=== PATIENT | male | born 1935 | race Caucasian/White ===

== ENCOUNTER 2017-04-25 19:14 | Inpatient (IN) | payer MEDICARE ==
[~2017-04-25] VITALS: Ht 182.9 cm; Wt 86.2 kg
[2017-04-25] MEDS ORDERED: CARVEDILOL12.5 MG ORAL (19:19)
[2017-04-25] MEDS ORDERED: DEPAKOTE250 MG PO (19:19)
[2017-04-25] MEDS ORDERED: LEVOTHYROXINE100 MCG ORAL (19:19)
[2017-04-25] MEDS ORDERED: MELOXICAM15 MG PO (19:19)
[2017-04-25] MEDS ORDERED: FAMOTIDINE20 MG ORAL (19:19)
[2017-04-25] MEDS ORDERED: QUETIAPINE FUMA50 MG ORAL (19:19)
[2017-04-25] MEDS ORDERED: TRIAMCINOLONE10 G1 MC (19:19)
[2017-04-25] MEDS ORDERED: PROPAFENONE HC150 MG PO (19:19)
[2017-04-25 19:34] VITALS: BP 97/51
[2017-04-25 20:28] LABS: HEMATOCRIT 26.9 % (42.0-52.0); HEMOGLOBIN 8.4 G/DL (14.2-18.0); MEAN CORPUSCULAR VOLUME 94 FL (80-99); PLATELET COUNT 43 K/UL (150-450); RED BLOOD COUNT 2.85 M/UL (4.70-6.10); RED CELL DISTRIBUTION WIDTH 16.1 % (11.6-14.8); WHITE BLOOD COUNT 5.8 K/UL (4.8-10.8)
[2017-04-25 20:34] LABS: INR 1.1 (0.9-1.1)
[2017-04-25 20:47] LABS: ALANINE AMINOTRANSFERASE 26 U/L (12-78); ALBUMIN 2.5 G/DL (3.4-5.0); ALBUMIN/GLOBULIN RATIO 0.6 (1.0-2.7); ALKALINE PHOSPHATASE 55 U/L (46-116); ANION GAP 10 mmol/L (5-15); ASPARTATE AMINO TRANSFERASE 76 U/L (15-37); BILIRUBIN,TOTAL 0.8 MG/DL (0.2-1.0); BLOOD UREA NITROGEN 92 mg/dL (7-18); CALCIUM 7.5 MG/DL (8.5-10.1); CARBON DIOXIDE 22 MMOL/L (21-32); CHLORIDE 111 MMOL/L (98-107); CREATINE KINASE 1112 U/L (26-308); CREATININE 3.8 MG/DL (0.55-1.30); SODIUM 145 MMOL/L (136-145)
[2017-04-25] MEDS: Ipratropium 0.02% Inh Soln 2.5ml UD HHN SCH ×3 (20:54→21:16)
[2017-04-25] MEDS: Albuterol ud Inhalation HHN SCH ×3 (20:54→21:16)
[2017-04-25 22:17] VITALS: BP 113/92
--- NOTE | 2017-04-25 23:21 | Emergency Room Report ---
History of Present Illness General Chief Complaint: Altered Level of Consciousness Source: Patient, Medical Record Present Illness HPI Patient is from a long term. Patient is full code. Patient was transferred here with altered mental status and episodes of questionable vomiting. Patient was also noted to be hypotensive and prior by paramedics. Symptoms noted to be severe. 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 Patient apparently was weaker than usual. Symptoms noted to be severe. No other modifying factors. No other associated signs and symptoms. No other complaints were noted. Allergies: Coded Allergies: No Known Allergies (Unverified , 04/25/17) Patient History Past Medical History: HTN, AFib, seizures Past Surgical History: none Pertinent Family History: none Social History: Denies: smoking, alcohol use, drug use Reviewed Nursing Documentation: PMH: Agreed, PSxH: Agreed Nursing Documentation-PMH Hx Cardiac Problems: Yes - AFIB Hx Hypertension: Yes Hx Seizures: Yes - Epilepsy Review of Systems All Other Systems: limited - poor mental status Physical Exam Vital Signs Date Time Temp Pulse Resp B/P (MAP) Pulse Ox O2 Delivery O2 Flow Rate FiO2 04/25/17 19:10 100.8 80 16 90/78 98 Room Air 04/25/17 21:02 21 Sp02 EP Interpretation: reviewed, normal General Appearance: moderate distress Head: normocephalic Eyes: bilateral eye normal inspection ENT: dry mucus membranes Neck: supple Respiratory: lungs clear, decreased breath sounds Cardiovascular #1: normal inspection, regular rate, rhythm Gastrointestinal: soft, no mass Genitourinary: normal inspection Musculoskeletal: normal inspection Neurologic: other - unable to fully assess due to ams Psychiatric: depressed affect Skin: normal color, no rash Procedures Critical Care Time Critical Care Time Patient had a critical medical condition which untreated could potentially result in life or limb threatening injury. Total critical care time excluding procedures was approximately 45 minutes. Medical Decision Making Diagnostic Impression: Primary Impression: Altered level of consciousness Additional Impressions: Elevated troponin Dehydration ER Course Patient presents emergency department today with acute altered mental status. Differential diagnoses include acute PA, electrolyte abnormality, bowel obstruction, infectious process just to name a few.Given the severity of the patient's presentation I felt this is a highly complex patient. This patient required extensive workup. Patient laboratory workup to show evidence of anemia. Patient also had low blood pressure and require fluid boluses. Blood cultures were obtained and patient was on IV antibiotics. For possible infection as patient low-grade fever. Patient will be admitted to telemetry for further treatment. Labs Test 04/25/17 19:55 White Blood Count 5.8 K/UL (4.8-10.8) Red Blood Count 2.85 M/UL (4.70-6.10) Hemoglobin 8.4 G/DL (14.2-18.0) Hematocrit 26.9 % (42.0-52.0) Mean Corpuscular Volume 94 FL (80-99) Mean Corpuscular Hemoglobin 29.5 PG (27.0-31.0) Mean Corpuscular Hemoglobin Concent 31.2 G/DL (32.0-36.0) Red Cell Distribution Width 16.1 % (11.6-14.8) Platelet Count 43 K/UL (150-450) Mean Platelet Volume 8.2 FL (6.5-10.1) Neutrophils (%) (Auto) % (45.0-75.0) Lymphocytes (%) (Auto) % (20.0-45.0) Monocytes (%) (Auto) % (1.0-10.0) Eosinophils (%) (Auto) % (0.0-3.0) Basophils (%) (Auto) % (0.0-2.0) Differential Total Cells Counted 100 Neutrophils % (Manual) 95 % (45-75) Lymphocytes % (Manual) 2 % (20-45) Monocytes % (Manual) 2 % (1-10) Eosinophils % (Manual) 0 % (0-3) Basophils % (Manual) 1 % (0-2) Band Neutrophils 0 % (0-8) Platelet Estimate Decreased Platelet Morphology Normal Hypochromasia 1+ Anisocytosis 1+ Ovalocytes 1+ Prothrombin Time 12.0 SEC (9.30-11.50) Prothromb Time International Ratio 1.1 (0.9-1.1) Activated Partial Thromboplast Time 32 SEC (23-33) Sodium Level 145 MMOL/L (136-145) Potassium Level 6.0 MMOL/L (3.5-5.1) Chloride Level 111 MMOL/L (98-107) Carbon Dioxide Level 22 MMOL/L (21-32) Anion Gap 10 mmol/L (5-15) Blood Urea Nitrogen 92 mg/dL (7-18) Creatinine 3.8 MG/DL (0.55-1.30) Estimat Glomerular Filtration Rate mL/min (>60) Glucose Level 122 MG/DL (74-106) Lactic Acid Level 1.60 mmol/L (0.66-2.22) Calcium Level 7.5 MG/DL (8.5-10.1) Total Bilirubin 0.8 MG/DL (0.2-1.0) Aspartate Amino Transf (AST/SGOT) 76 U/L (15-37) Alanine Aminotransferase (ALT/SGPT) 26 U/L (12-78) Alkaline Phosphatase 55 U/L (46-116) Total Creatine Kinase 1112 U/L (26-308) Creatine Kinase MB 2.0 NG/ML (0.0-3.6) Creatine Kinase MB Relative Index 0.1 Troponin I 0.091 ng/mL (0.000-0.056) Pro-B-Type Natriuretic Peptide 9757 pg/mL (0-125) Total Protein 6.6 G/DL (6.4-8.2) Albumin 2.5 G/DL (3.4-5.0) Globulin 4.1 g/dL Albumin/Globulin Ratio 0.6 (1.0-2.7) Lipase 48 U/L (73-393) EKG Diagnostic Results Rate: normal Rhythm: NSR ST Segments: no acute changes Rhythm Strip Diag. Results EP Interpretation: yes Rate: 92 Rhythm: NSR, no PVC's, no ectopy Chest X-Ray Diagnostic Results Chest X-Ray Diagnostic Results : Chest X-Ray Ordered: Yes # of Views/Limited/Complete: 1 View Indication: Shortness of Breath EP Interpretation: Yes Interpretation: no consolidation, no effusion, no pneumothorax, no acute cardiopulmonary disease Impression: No acute disease Electronically Signed by: Electronically signed by Nieves Pérez MD CT/MRI/US Diagnostic Results CT/MRI/US Diagnostic Results : Imaging Test Ordered: cT abd: Urinary retention Last Vital Signs Date Time Temp Pulse Resp B/P (MAP) Pulse Ox O2 Delivery O2 Flow Rate FiO2 04/25/17 22:17 99.0 92 18 113/92 100 Room Air 04/25/17 21:18 21 Status: improved Disposition: ADMITTED INPATIENT Condition: Serious Referrals: NON PHYSICIAN (PCP) NIEVES PÉREZ M.D. Apr 25, 2017 23:21
[2017-04-25] MEDS ORDERED: NS 55ml IV ONE (23:24)
[2017-04-25] MEDS ORDERED: cefTRIAXone 1 GM in NS 55 ML IVPB ONE (23:30)
[2017-04-26] VITALS (7 sets, daily range): BP systolic 92–106; BP diastolic 40–59
[2017-04-26 00:16] LABS: APPEARANCE,URINE SLIGHTLY CLOUDY; BILIRUBIN, URINE NEGATIVE (NEGATIVE); GLUCOSE, URINE (UA) NEGATIVE (NEGATIVE); KETONES,URINE NEGATIVE (NEGATIVE); LEUKOCYTE ESTERASE ,URINE 3+ (NEGATIVE); NITRITE,URINE NEGATIVE (NEGATIVE); PH,URINE 6 (4.5-8.0); PROTEIN,URINE 2+ (NEGATIVE); UROBILINOGEN,URINE NORMAL MG/DL (0.0-1.0)
[2017-04-26 00:36] LABS: COLOR,URINE YELLOW
[2017-04-26] MEDS ORDERED: Morphine Sulfate 2mg/ml Inj IVP PRN (00:45)
[2017-04-26 06:15] LABS: HEMATOCRIT 24.2 % (42.0-52.0); MEAN CORPUSCULAR VOLUME 95 FL (80-99); PLATELET COUNT 38 K/UL (150-450); RED BLOOD COUNT 2.56 M/UL (4.70-6.10); RED CELL DISTRIBUTION WIDTH 17.1 % (11.6-14.8)
[2017-04-26 06:18] LABS: ANION GAP 9 mmol/L (5-15); BLOOD UREA NITROGEN 82 mg/dL (7-18); CALCIUM 6.7 MG/DL (8.5-10.1); CARBON DIOXIDE 22 MMOL/L (21-32); CHLORIDE 116 MMOL/L (98-107); CREATININE 3.4 MG/DL (0.55-1.30); POTASSIUM 5.3 MMOL/L (3.5-5.1); SODIUM 147 MMOL/L (136-145)
[2017-04-26] MEDS ORDERED: Heparin 5000 units/ml inj SUBQ SCH (09:00)
[2017-04-26] MEDS: Carvedilol 12.5mg tab ORAL SCH ×2 (10:47→22:00)
[2017-04-26] MEDS: Meloxicam 15 MG TAB ORAL SCH (10:47)
[2017-04-26] MEDS: Aspirin Baby 81mg ORAL SCH (10:48)
--- NOTE | 2017-04-26 10:55 | Infectious Diseases Prog Note ---
Assessment/Plan Problems: (1) UTI (urinary tract infection) Assessment & Plan: will send urine culture and start cefepime empirically (2) Fever Assessment & Plan: due to the above, continue tylenol prn (3) HCAP (healthcare-associated pneumonia) Assessment & Plan: will send sputum culture and influenza screening (4) Sepsis Assessment & Plan: due to the above , will start cefepime and clindamycin and send blood culture (5) Altered level of consciousness Assessment & Plan: due to the above, recommend neurology eval and brain images (6) Elevated troponin Assessment & Plan: suspect ACS, recommend cardiology eval (7) Dehydration Assessment & Plan: continue IVF, monitor urine out put, and renal function, avoid nephrotoxic meds (8) LEWIS (acute kidney injury) Assessment & Plan: due to the above , continue hydration, monitor renal function , nephrology is following Subjective Allergies: Coded Allergies: No Known Allergies (Unverified , 04/25/17) Objective Vital Signs Last 24 Hour Vital Signs Date Time Temp Pulse Resp B/P (MAP) Pulse Ox O2 Delivery O2 Flow Rate FiO2 04/26/17 10:47 87 117/53 04/26/17 07:20 99.0 90 15 102/59 98 Room Air 21 04/26/17 07:05 99.0 90 15 102/59 98 Room Air 04/26/17 06:12 100.0 77 15 104/57 98 Room Air 04/26/17 06:00 73 04/26/17 04:54 100.0 86 15 92/40 98 Room Air 04/26/17 03:05 99.0 88 18 102/42 100 Room Air 04/26/17 01:55 99.0 88 18 106/42 100 Room Air 21 04/26/17 00:20 99.0 90 18 100/54 100 Room Air 04/25/17 22:17 99.0 92 18 113/92 100 Room Air 04/25/17 21:18 88 18 100 Room Air 04/25/17 21:17 21 04/25/17 21:16 89 18 100 Room Air 21 04/25/17 21:03 87 22 100 Room Air 21 04/25/17 21:02 104 22 97 Room Air 04/25/17 21:02 21 04/25/17 19:34 100.8 97 18 97/51 97 Room Air 04/25/17 19:10 100.8 80 16 90/78 98 Room Air Height (Feet): 6 Height (Inches): 0.00 Weight (Pounds): 190 Laboratory Tests Test 04/25/17 19:55 04/25/17 22:10 04/26/17 04:15 White Blood Count 5.8 K/UL (4.8-10.8) 4.0 K/UL (4.8-10.8) L Red Blood Count 2.85 M/UL (4.70-6.10) L 2.56 M/UL (4.70-6.10) L Hemoglobin 8.4 G/DL (14.2-18.0) L 8.0 G/DL (14.2-18.0) L Hematocrit 26.9 % (42.0-52.0) L 24.2 % (42.0-52.0) L Mean Corpuscular Volume 94 FL (80-99) 95 FL (80-99) Mean Corpuscular Hemoglobin 29.5 PG (27.0-31.0) 31.2 PG (27.0-31.0) H Mean Corpuscular Hemoglobin Concent 31.2 G/DL (32.0-36.0) L 33.0 G/DL (32.0-36.0) Red Cell Distribution Width 16.1 % (11.6-14.8) H 17.1 % (11.6-14.8) H Platelet Count 43 K/UL (150-450) L 38 K/UL (150-450) L Mean Platelet Volume 8.2 FL (6.5-10.1) 8.9 FL (6.5-10.1) Neutrophils (%) (Auto) % (45.0-75.0) % (45.0-75.0) Lymphocytes (%) (Auto) % (20.0-45.0) % (20.0-45.0) Monocytes (%) (Auto) % (1.0-10.0) % (1.0-10.0) Eosinophils (%) (Auto) % (0.0-3.0) % (0.0-3.0) Basophils (%) (Auto) % (0.0-2.0) % (0.0-2.0) Differential Total Cells Counted 100 100 Neutrophils % (Manual) 95 % (45-75) H 73 % (45-75) Lymphocytes % (Manual) 2 % (20-45) L 2 % (20-45) L Monocytes % (Manual) 2 % (1-10) 9 % (1-10) Eosinophils % (Manual) 0 % (0-3) 0 % (0-3) Basophils % (Manual) 1 % (0-2) 0 % (0-2) Band Neutrophils 0 % (0-8) 16 % (0-8) H Platelet Estimate Decreased L Decreased L Platelet Morphology Normal Normal Hypochromasia 1+ 2+ Anisocytosis 1+ 2+ Ovalocytes 1+ Prothrombin Time 12.0 SEC (9.30-11.50) H Prothromb Time International Ratio 1.1 (0.9-1.1) Activated Partial Thromboplast Time 32 SEC (23-33) Sodium Level 145 MMOL/L (136-145) 147 MMOL/L (136-145) H Potassium Level 6.0 MMOL/L (3.5-5.1) *H 5.3 MMOL/L (3.5-5.1) H Chloride Level 111 MMOL/L (98-107) H 116 MMOL/L (98-107) H Carbon Dioxide Level 22 MMOL/L (21-32) 22 MMOL/L (21-32) Anion Gap 10 mmol/L (5-15) 9 mmol/L (5-15) Blood Urea Nitrogen 92 mg/dL (7-18) H 82 mg/dL (7-18) H Creatinine 3.8 MG/DL (0.55-1.30) H 3.4 MG/DL (0.55-1.30) H Estimat Glomerular Filtration Rate mL/min (>60) mL/min (>60) Glucose Level 122 MG/DL (74-106) H 112 MG/DL (74-106) H Lactic Acid Level 1.60 mmol/L (0.66-2.22) Calcium Level 7.5 MG/DL (8.5-10.1) L 6.7 MG/DL (8.5-10.1) L Total Bilirubin 0.8 MG/DL (0.2-1.0) Aspartate Amino Transf (AST/SGOT) 76 U/L (15-37) H Alanine Aminotransferase (ALT/SGPT) 26 U/L (12-78) Alkaline Phosphatase 55 U/L (46-116) Total Creatine Kinase 1112 U/L (26-308) H Creatine Kinase MB 2.0 NG/ML (0.0-3.6) Creatine Kinase MB Relative Index 0.1 Troponin I 0.091 ng/mL (0.000-0.056) 0.057 ng/mL (0.000-0.056) Pro-B-Type Natriuretic Peptide 9757 pg/mL (0-125) H Total Protein 6.6 G/DL (6.4-8.2) Albumin 2.5 G/DL (3.4-5.0) L Globulin 4.1 g/dL Albumin/Globulin Ratio 0.6 (1.0-2.7) L Lipase 48 U/L (73-393) L Urine Color Yellow Urine Appearance Slightly cloudy Urine pH 6 (4.5-8.0) Urine Specific [place] 1.015 (1.005-1.035) Urine Protein 2+ (NEGATIVE) H Urine Glucose (UA) Negative (NEGATIVE) Urine Ketones Negative (NEGATIVE) Urine Occult Blood 3+ (NEGATIVE) H Urine Nitrite Negative (NEGATIVE) Urine Bilirubin Negative (NEGATIVE) Urine Urobilinogen Normal MG/DL (0.0-1.0) Urine Leukocyte Esterase 3+ (NEGATIVE) H Urine RBC 2-4 /HPF (0 - 0) H Urine WBC 10-15 /HPF (0 - 0) H Urine Squamous Epithelial Cells Occasional /LPF Urine Bacteria Many /HPF (NONE) H Spherocytes 2+ Current Medications Medications (Trade) Dose Ordered Sig/Trey Route PRN Reason Start Time Stop Time Status Last Admin Dose Admin Acetaminophen (Tylenol) 650 mg Q4H PRN ORAL Mild Pain (Pain Scale 1-3) 04/26/17 00:45 2 00:44 Aspirin (ASA) 81 mg DAILY ORAL 04/26/17 09:00 05/26/17 08:59 04/26/17 10:48 Carvedilol (Coreg) 12.5 mg EVERY 12 HOURS ORAL 04/26/17 09:00 05/26/17 08:59 04/26/17 10:47 Dextrose (Dextrose 50%) STAT PRN IV Hypoglycemia 04/26/17 00:45 05/26/17 00:44 Divalproex Sodium (Depakote) 500 mg Q12HR ORAL 04/26/17 09:00 05/26/17 08:59 04/26/17 10:48 Famotidine (Pepcid) 20 mg DAILY ORAL 04/26/17 09:00 05/26/17 08:59 04/26/17 10:46 Heparin Sodium (Porcine) (Heparin 5000 units/ml) 5,000 units EVERY 12 HOURS SUBQ 04/26/17 09:00 05/26/17 08:59 UNV Levothyroxine Sodium (Synthroid) 100 mcg ACBREAKFAST ORAL 04/26/17 06:30 05/26/17 06:29 Meloxicam (Mobic) 15 mg DAILY ORAL 04/26/17 09:00 05/26/17 08:59 04/26/17 10:47 Morphine Sulfate (Morphine Sulfate) 1 mg Q3HR PRN IVP For Pain 04/26/17 00:45 05/03/17 00:44 Ondansetron HCl (Zofran) 4 mg Q6H PRN IVP Nausea & Vomiting 04/26/17 00:45 05/26/17 00:44 Propafenone HCl (Rythmol) 225 mg EVERY 8 HOURS ORAL 04/26/17 06:00 05/26/17 05:59 Quetiapine Fumarate (SEROquel) 100 mg DAILY ORAL 04/26/17 09:00 05/26/17 08:59 04/26/17 10:47 Sodium Chloride 1,000 ml @ 60 mls/hr [id number] IV 04/26/17 00:45 05/26/17 00:44 04/26/17 05:22 Zak Matos M.D. Apr 26, 2017 10:55
--- NOTE | 2017-04-26 11:18 | History and Physical ---
History of Present Illness General Date patient seen: Apr 26, 2017 Reason for Hospitalization: Altered Level of Consciousness Present Illness HPI 81 y/o male with PMH for dementia, hypothyroidism, and arthritis was BIBA from SNF for AMS. Patient was found to be hypotensive by the paramedics. Also had reports of vomiting at SNF. Patient is demented and unable to give me further history. In the ED, patient has renal failure with hyperkalemia. CT A/P showed urinary retention. Shirley catheter inserted and admitted to telemetry for further management. Allergies: Coded Allergies: No Known Allergies (Unverified , 04/25/17) Medication History Scheduled Carvedilol* (Carvedilol*), 12.5 MG ORAL EVERY 12 HOURS, (Reported) Divalproex Sodium* (Depakote*), 500 MG PO Q12HR, (Reported) Famotidine (Famotidine), 20 MG ORAL DAILY, (Reported) Levothyroxine Sodium* (Levothyroxine Sodium*), 100 MCG ORAL DAILY, (Reported) Meloxicam* (Meloxicam*), 15 MG PO DAILY, (Reported) Propafenone Hcl* (Rhythmol*), 225 MG PO EVERY 8 HOURS, (Reported) Quetiapine Fumarate* (Quetiapine Fumarate*), 100 MG ORAL DAILY, (Reported) Miscellaneous Medications Triamcinolone (Triamcinolone), Unknown Dose MC, (Reported) Patient History History Provided By: Medical Record Healthcare decision maker Resuscitation status Advanced Directive on File Review of Systems ROS Narrative unable to obtain. Physical Exam General Appearance: WD/WN, no apparent distress HEENT: normocephalic, atraumatic Respiratory/Chest: decreased breath sounds Cardiovascular/Chest: normal rate, regular rhythm Abdomen: non tender, soft Extremities: trace edema Skin Exam: rash Neurologic: alert, responsive, disoriented, aphasia Last 24 Hour Vital Signs Date Time Temp Pulse Resp B/P (MAP) Pulse Ox O2 Delivery O2 Flow Rate FiO2 04/26/17 10:47 87 117/53 04/26/17 07:20 99.0 90 15 102/59 98 Room Air 21 04/26/17 07:05 99.0 90 15 102/59 98 Room Air 04/26/17 06:12 100.0 77 15 104/57 98 Room Air 21 04/26/17 06:00 73 04/26/17 04:54 100.0 86 15 92/40 98 Room Air 04/26/17 03:05 99.0 88 18 102/42 100 Room Air 04/26/17 01:55 99.0 88 18 106/42 100 Room Air 21 04/26/17 00:20 99.0 90 18 100/54 100 Room Air 04/25/17 22:17 99.0 92 18 113/92 100 Room Air 04/25/17 21:18 88 18 100 Room Air 21 04/25/17 21:17 21 04/25/17 21:16 89 18 100 Room Air 21 04/25/17 21:03 87 22 100 Room Air 21 04/25/17 21:02 104 22 97 Room Air 21 04/25/17 21:02 21 04/25/17 19:34 100.8 97 18 97/51 97 Room Air 04/25/17 19:10 100.8 80 16 90/78 98 Room Air Intake and Output 04/25/17 04/26/17 19:00 07:00 Intake Total 2055 ml Output Total 1600 ml Balance 455 ml Intake IV Total 2055 ml Output Urine Total 1600 ml Laboratory Tests Test 04/25/17 19:55 04/25/17 22:10 04/26/17 04:15 White Blood Count 5.8 K/UL (4.8-10.8) 4.0 K/UL (4.8-10.8) L Red Blood Count 2.85 M/UL (4.70-6.10) L 2.56 M/UL (4.70-6.10) L Hemoglobin 8.4 G/DL (14.2-18.0) L 8.0 G/DL (14.2-18.0) L Hematocrit 26.9 % (42.0-52.0) L 24.2 % (42.0-52.0) L Mean Corpuscular Volume 94 FL (80-99) 95 FL (80-99) Mean Corpuscular Hemoglobin 29.5 PG (27.0-31.0) 31.2 PG (27.0-31.0) H Mean Corpuscular Hemoglobin Concent 31.2 G/DL (32.0-36.0) L 33.0 G/DL (32.0-36.0) Red Cell Distribution Width 16.1 % (11.6-14.8) H 17.1 % (11.6-14.8) H Platelet Count 43 K/UL (150-450) L 38 K/UL (150-450) L Mean Platelet Volume 8.2 FL (6.5-10.1) 8.9 FL (6.5-10.1) Neutrophils (%) (Auto) % (45.0-75.0) % (45.0-75.0) Lymphocytes (%) (Auto) % (20.0-45.0) % (20.0-45.0) Monocytes (%) (Auto) % (1.0-10.0) % (1.0-10.0) Eosinophils (%) (Auto) % (0.0-3.0) % (0.0-3.0) Basophils (%) (Auto) % (0.0-2.0) % (0.0-2.0) Differential Total Cells Counted 100 100 Neutrophils % (Manual) 95 % (45-75) H 73 % (45-75) Lymphocytes % (Manual) 2 % (20-45) L 2 % (20-45) L Monocytes % (Manual) 2 % (1-10) 9 % (1-10) Eosinophils % (Manual) 0 % (0-3) 0 % (0-3) Basophils % (Manual) 1 % (0-2) 0 % (0-2) Band Neutrophils 0 % (0-8) 16 % (0-8) H Platelet Estimate Decreased L Decreased L Platelet Morphology Normal Normal Hypochromasia 1+ 2+ Anisocytosis 1+ 2+ Ovalocytes 1+ Prothrombin Time 12.0 SEC (9.30-11.50) H Prothromb Time International Ratio 1.1 (0.9-1.1) Activated Partial Thromboplast Time 32 SEC (23-33) Sodium Level 145 MMOL/L (136-145) 147 MMOL/L (136-145) H Potassium Level 6.0 MMOL/L (3.5-5.1) *H 5.3 MMOL/L (3.5-5.1) H Chloride Level 111 MMOL/L (98-107) H 116 MMOL/L (98-107) H Carbon Dioxide Level 22 MMOL/L (21-32) 22 MMOL/L (21-32) Anion Gap 10 mmol/L (5-15) 9 mmol/L (5-15) Blood Urea Nitrogen 92 mg/dL (7-18) H 82 mg/dL (7-18) H Creatinine 3.8 MG/DL (0.55-1.30) H 3.4 MG/DL (0.55-1.30) H Estimat Glomerular Filtration Rate mL/min (>60) mL/min (>60) Glucose Level 122 MG/DL (74-106) H 112 MG/DL (74-106) H Lactic Acid Level 1.60 mmol/L (0.66-2.22) Calcium Level 7.5 MG/DL (8.5-10.1) L 6.7 MG/DL (8.5-10.1) L Total Bilirubin 0.8 MG/DL (0.2-1.0) Aspartate Amino Transf (AST/SGOT) 76 U/L (15-37) H Alanine Aminotransferase (ALT/SGPT) 26 U/L (12-78) Alkaline Phosphatase 55 U/L (46-116) Total Creatine Kinase 1112 U/L (26-308) H Creatine Kinase MB 2.0 NG/ML (0.0-3.6) Creatine Kinase MB Relative Index 0.1 Troponin I 0.091 ng/mL (0.000-0.056) 0.057 ng/mL (0.000-0.056) Pro-B-Type Natriuretic Peptide 9757 pg/mL (0-125) H Total Protein 6.6 G/DL (6.4-8.2) Albumin 2.5 G/DL (3.4-5.0) L Globulin 4.1 g/dL Albumin/Globulin Ratio 0.6 (1.0-2.7) L Lipase 48 U/L (73-393) L Urine Color Yellow Urine Appearance Slightly cloudy Urine pH 6 (4.5-8.0) Urine Specific [place] 1.015 (1.005-1.035) Urine Protein 2+ (NEGATIVE) H Urine Glucose (UA) Negative (NEGATIVE) Urine Ketones Negative (NEGATIVE) Urine Occult Blood 3+ (NEGATIVE) H Urine Nitrite Negative (NEGATIVE) Urine Bilirubin Negative (NEGATIVE) Urine Urobilinogen Normal MG/DL (0.0-1.0) Urine Leukocyte Esterase 3+ (NEGATIVE) H Urine RBC 2-4 /HPF (0 - 0) H Urine WBC 10-15 /HPF (0 - 0) H Urine Squamous Epithelial Cells Occasional /LPF Urine Bacteria Many /HPF (NONE) H Spherocytes 2+ Height (Feet): 6 Height (Inches): 0.00 Weight (Pounds): 190 Medications Current Medications Medications (Trade) Dose Ordered Sig/Trey Route PRN Reason Start Time Stop Time Status Last Admin Dose Admin Acetaminophen (Tylenol) 650 mg Q4H PRN ORAL Mild Pain (Pain Scale 1-3) 04/26/17 00:45 05/26/17 00:44 Aspirin (ASA) 81 mg DAILY ORAL 04/26/17 09:00 05/26/17 08:59 04/26/17 10:48 Carvedilol (Coreg) 12.5 mg EVERY 12 HOURS ORAL 04/26/17 09:00 05/26/17 08:59 04/26/17 10:47 Cefepime HCl 2 gm/ Dextrose 55 ml @ 110 mls/hr EVERY 12 HOURS IVPB 04/26/17 11:00 05/03/17 10:59 UNV Clindamycin HCl/ Dextrose 50 ml @ 100 mls/hr Q8HR IVPB 04/26/17 11:00 05/03/17 10:59 UNV Dextrose (Dextrose 50%) STAT PRN IV Hypoglycemia 04/26/17 00:45 05/26/17 00:44 Divalproex Sodium (Depakote) 500 mg Q12HR ORAL 04/26/17 09:00 05/26/17 08:59 04/26/17 10:48 Famotidine (Pepcid) 20 mg DAILY ORAL 04/26/17 09:00 05/26/17 08:59 04/26/17 10:46 Heparin Sodium (Porcine) (Heparin 5000 units/ml) 5,000 units EVERY 12 HOURS SUBQ 04/26/17 09:00 05/26/17 08:59 UNV Levothyroxine Sodium (Synthroid) 100 mcg ACBREAKFAST ORAL 04/26/17 06:30 05/26/17 06:29 Meloxicam (Mobic) 15 mg DAILY ORAL 04/26/17 09:00 05/26/17 08:59 04/26/17 10:47 Morphine Sulfate (Morphine Sulfate) 1 mg Q3HR PRN IVP For Pain 04/26/17 00:45 05/03/17 00:44 Ondansetron HCl (Zofran) 4 mg Q6H PRN IVP Nausea & Vomiting 04/26/17 00:45 05/26/17 00:44 Propafenone HCl (Rythmol) 225 mg EVERY 8 HOURS ORAL 04/26/17 06:00 05/26/17 05:59 Quetiapine Fumarate (SEROquel) 100 mg DAILY ORAL 04/26/17 09:00 05/26/17 08:59 04/26/17 10:47 Sodium Chloride 1,000 ml @ 60 mls/hr [id number] IV 04/26/17 00:45 05/26/17 00:44 04/26/17 05:22 Assessment/Plan Problem List: (1) LEWIS (acute kidney injury) ICD Codes: N17.9 - Acute kidney failure, unspecified SNOMED: 74375372 (2) Elevated troponin ICD Codes: R74.8 - Abnormal levels of other serum enzymes SNOMED: 635882924, 581721475, 075286691 (3) Altered level of consciousness ICD Codes: R40.4 - Transient alteration of awareness SNOMED: 8228042 (4) UTI (urinary tract infection) ICD Codes: N39.0 - Urinary tract infection, site not specified SNOMED: 33812520 (5) Dehydration ICD Codes: E86.0 - Dehydration SNOMED: 82013758, 883754652, 100200285 (6) Fever ICD Codes: R50.9 - Fever, unspecified SNOMED: 184152099 (7) Hyperkalemia ICD Codes: E87.5 - Hyperkalemia SNOMED: 00969281 (8) Urinary retention ICD Codes: R33.9 - Retention of urine, unspecified SNOMED: 311840403 Assessment/Plan f/u UCX. empiric abx. ID consulted. Cardio consult. Resume home meds. DVT ppx. D/w Dr. Alonso regarding POC and agrees with plan. ROMEO FIGUEROA Apr 26, 2017 11:18
[2017-04-26] MEDS: Cefepime HCl 2 GM in D5W 55 ML IVPB SCH (13:28)
[2017-04-26] MEDS: Clindamycin 600mg 50 ML IV SCH ×2 (14:15→22:27)
--- NOTE | 2017-04-26 16:45 | Consultation ---
DATE OF CONSULTATION: 04/26/2016 PULMONARY CONSULTATION CONSULTING PHYSICIAN: Mitch Grace M.D. HISTORY OF PRESENT ILLNESS: This is a 81-year-old male, who was brought to the hospital from a senior care. Apparently, he had been reported to have emesis. He was found to have altered mental status. He was also hypotensive. The patient was nonverbal and has dementia. He was admitted to the hospital for subsequent management and care. PAST MEDICAL HISTORY: Hypertension, atrial fibrillation, and seizure disorder. PREVIOUS SURGERIES: None reported. HOME MEDICATIONS: Summarized in the chart. REVIEW OF SYSTEMS: Not obtainable. PHYSICAL EXAMINATION: GENERAL: A 81-year-old male. VITAL SIGNS: Blood pressure is 117/50, heart rate 90, respirations are 18, T-max 100 degrees rectally, he is afebrile presently, O2 saturation 100% on room air. HEENT: Unremarkable. LUNGS: Decreased breath sounds bilaterally. CARDIAC: Normal heart sounds. ABDOMEN: Soft. EXTREMITIES: There is no edema. LABORATORY AND DIAGNOSTIC DATA: Lab testing shows white count of 4, hemoglobin of 8, platelet count is 38,000, which is low. Chemistries notable for creatinine 3.4, potassium 5.3. Coags are negative. Urinalysis shows 10-15 WBC. Per ER, imaging studies were obtained. Clear lung harris bilaterally IMPRESSION: 1. Dehydration. 2. Renal failure. 3. Altered mental status. 4. Possible urinary tract infection. DISCUSSION: At this point, I do not suspect acute pulmonary process. I agree with the use of antibiotics per ID. We will order oxygen and pulmonary hygiene. We will follow as ict systems test engineer. Thank you for the consultation. Mitch Grace M.D. DR: Alba JOB#: [id number] CC:
--- NOTE | 2017-04-26 19:00 | Consultation ---
DATE OF CONSULTATION: 04/26/2017 INFECTIOUS DISEASE CONSULTATION CONSULTING PHYSICIAN: Zak Matos M.D. REQUESTING PHYSICIAN: Guerrero Alonso M.D. REASON FOR CONSULTATION: Sepsis, pneumonia, and urinary tract infection. Recommendation for antibiotics treatment. HISTORY OF PRESENT ILLNESS: The patient is a 81-year-old male with past medical history of dementia, hypothyroidism, and arthritis, was brought from senior care [facility] to [facility] emergency room for altered mental status and hypotension. He also was vomiting at the senior care facility. The patient was found to be hypotensive by paramedics. He received IV fluid on the way to the emergency room. He also had evidence of urine retention. The patient was spiking fever up to 100.8 in the emergency room. Chest x-ray showed possible pneumonia. Urinalysis showed evidence of infection. So, he was started on IV antibiotics and I was consulted by the primary provider team for antibiotics treatment and further management. As of note, the patient is demented and cannot provide good history. History was only obtained from the medical record and nursing staff. PAST MEDICAL HISTORY: Significant for dementia, hypertension, atrial fibrillation and seizure disorder. PAST SURGICAL HISTORY: Negative. ALLERGIES: No known drug allergy. MEDICATIONS: The patient received ceftriaxone in the emergency room. For the rest of his medications, please refer to MAR. FAMILY HISTORY: Unable to obtain. SOCIAL HISTORY: The patient lives at a senior care facility. He had no recent drugs, tobacco, or alcohol. PHYSICAL EXAMINATION: VITAL SIGNS: Temperature 100, pulse 77, respirations 15, blood pressure 104/57, and pulse oximetry 98% on room air. GENERAL: An elderly male, lying in bed, responsive, opens eyes spontaneously, had some dry secretion on his mouth corner, not in acute distress. HEENT: Normocephalic and atraumatic. Pupils are reactive to light. Unable to assess oral mucosa. NECK: Supple. No lymphadenopathy. No JVD. CARDIOVASCULAR: Regular rate and rhythm. No murmur. LUNGS: He had diminished breathing sounds at the bases with crackles. Normal breathing effort. ABDOMEN: Soft, obese, nontender, and nondistended. No ascites or organomegaly. EXTREMITIES: No edema or cyanosis. No clubbing. A small skin wound on his right foot. LABORATORY DATA: Labs showed white count of 4000, hemoglobin of 8, and platelet count of 38. BUN of 82 and creatinine of 3.4. Lactic acid 1.6. AST of 76 and ALT of 26. Urinalysis showed +3 leukocyte esterase, WBCs 10 to 15, and many bacteria. IMAGING STUDIES: Chest x-ray showed no consolidation, effusion, or pneumothorax. ASSESSMENT AND RECOMMENDATION: 1. Urinary tract infection. We will send urine culture and start the patient on cefepime empiric coverage. 2. Fever due to the above. We will continue Tylenol as needed. We will screen him for influenza. 3. Healthcare-acquired pneumonia, possible basal infiltration. We will send sputum culture and influenza screening. We will cover the patient with cefepime and clindamycin empirically. 4. Sepsis due to the above. We will send blood culture to rule out bacteremia and start cefepime with clindamycin. 5. Altered level of consciousness, suspect due to the above. Recommend Neurology evaluation and further brain imaging. 6. Elevated troponin, suspect acute coronary syndrome. We recommend Cardiology evaluation and monitor of troponin level. 7. Dehydration due to sepsis. Continue intravenous fluids. Monitor urine output and renal function. Avoid nephrotoxic medicine. 8. Acute renal failure due to sepsis and dehydration. Continue hydration. Avoid nephrotoxic medicine. Nephrology team is already following. Thank you for the consultation. Infectious Disease will continue to follow. Zak Matos M.D. DR: JOVANI JOB#: [id number] CC:
[2017-04-27] VITALS: BP 112/56
[2017-04-27 04:00] VITALS: BP 97/64
[2017-04-27] MEDS: Clindamycin 600mg 50 ML IV SCH ×3 (06:14→22:03)
[2017-04-27 08:00] VITALS: BP 111/54
--- NOTE | 2017-04-27 08:54 | Nephrology Progress Note ---
Assessment/Plan Problem List: (1) LEWIS (acute kidney injury) (2) Elevated troponin (3) Altered level of consciousness (4) UTI (urinary tract infection) (5) Dehydration (6) Fever (7) Hyperkalemia (8) Urinary retention (9) Sepsis Assessment: GNR Plan abx per ID. follow up cultures. monitor renal function. follow up labs. d/w Dr. Alonso. Subjective Subjective remains confused. Objective Objective Last 24 Hour Vital Signs Date Time Temp Pulse Resp B/P (MAP) Pulse Ox O2 Delivery O2 Flow Rate FiO2 04/27/17 06:16 69 04/27/17 04:00 70 04/27/17 04:00 99.3 78 20 97/64 95 Room Air 78 04/27/17 00:00 99.1 81 18 112/56 95 Room Air 81 04/27/17 00:00 69 04/26/17 22:01 75 04/26/17 22:00 75 117/53 04/26/17 20:00 99.5 85 18 93/52 94 Room Air 85 04/26/17 20:00 67 04/26/17 16:00 75 04/26/17 15:31 68 04/26/17 12:00 79 04/26/17 10:47 87 117/53 Intake and Output 04/26/17 04/27/17 19:00 07:00 Output Total 875 ml 1200 ml Balance -875 ml -1200 ml Output Urine Total 875 ml 1200 ml Height (Feet): 6 Height (Inches): 0.00 Weight (Pounds): 190 General Appearance: no apparent distress Cardiovascular: normal rate, regular rhythm Respiratory/Chest: decreased breath sounds Abdomen: non tender, soft Extremities: moderate edema Neurologic: disoriented ROMEO FIGUEROA Apr 27, 2017 08:54
--- NOTE | 2017-04-27 09:30 | Pulmonology Progress Note ---
Assessment/Plan Assessment/Plan 1. Dehydration. 2. Renal failure. 3. Altered mental status. 4. Possible urinary tract infection. DISCUSSION: At this point, I do not suspect acute pulmonary process. I agree with the use of antibiotics per ID. I will order oxygen and pulmonary hygiene. I will follow as photonics engineering technologist. Thank you for the consultation. Subjective Interval Events: None Constitutional: Reports: no symptoms HEENT: Repors: no symptoms Respiratory: Reports: no symptoms Cardiovascular: Reports: no symptoms Gastrointestinal/Abdominal: Reports: no symptoms Allergies: Coded Allergies: No Known Allergies (Unverified , 04/25/17) Objective Last 24 Hour Vital Signs Date Time Temp Pulse Resp B/P (MAP) Pulse Ox O2 Delivery O2 Flow Rate FiO2 04/27/17 06:16 69 04/27/17 04:00 70 04/27/17 04:00 99.3 78 20 97/64 95 Room Air 78 04/27/17 00:00 99.1 81 18 112/56 95 Room Air 81 04/27/17 00:00 69 04/26/17 22:01 75 04/26/17 22:00 75 117/53 04/26/17 20:00 99.5 85 18 93/52 94 Room Air 85 04/26/17 20:00 67 04/26/17 16:00 75 04/26/17 15:31 68 04/26/17 12:00 79 04/26/17 10:47 87 117/53 Intake and Output 04/26/17 04/27/17 19:00 07:00 Output Total 875 ml 1200 ml Balance -875 ml -1200 ml Output Urine Total 875 ml 1200 ml General Appearance: WD/WN HEENT: normocephalic Respiratory/Chest: chest wall non-tender, lungs clear Cardiovascular: normal peripheral pulses, normal rate Abdomen: normal bowel sounds Microbiology Date/Time Source Procedure Growth Status 04/25/17 19:40 Blood Blood Culture - Preliminary NO GROWTH AFTER 24 HOURS Resulted 04/25/17 19:30 Blood Blood Culture - Preliminary Gram Negative Terrance Resulted 04/26/17 13:30 Nasopharynx Influenza Types A,B Antigen (CHARISSA) - Final Complete 04/26/17 04:10 Sputum Gram Stain - Final Resulted 04/26/17 04:10 Sputum Sputum Culture Pending Resulted Current Medications Medications (Trade) Dose Ordered Sig/Trey Route PRN Reason Start Time Stop Time Status Last Admin Dose Admin Acetaminophen (Tylenol) 650 mg Q4H PRN ORAL Mild Pain (Pain Scale 1-3) 04/26/17 00:45 05/26/17 00:44 Aspirin (ASA) 81 mg DAILY ORAL 04/26/17 09:00 05/26/17 08:59 04/26/17 10:48 Carvedilol (Coreg) 12.5 mg EVERY 12 HOURS ORAL 04/26/17 09:00 05/26/17 08:59 04/26/17 22:00 Cefepime HCl 2 gm/ Dextrose 55 ml @ 110 mls/hr Q24H IVPB 04/26/17 12:30 05/03/17 12:29 04/26/17 13:28 Clindamycin HCl/ Dextrose 50 ml @ 100 mls/hr Q8HR IV 04/26/17 13:00 05/03/17 12:59 04/27/17 06:14 Dextrose (Dextrose 50%) STAT PRN IV Hypoglycemia 04/26/17 00:45 05/26/17 00:44 Divalproex Sodium (Depakote) 500 mg Q12HR ORAL 04/26/17 09:00 05/26/17 08:59 04/26/17 22:02 Famotidine (Pepcid) 20 mg DAILY ORAL 04/26/17 09:00 05/26/17 08:59 04/26/17 10:46 Levothyroxine Sodium (Synthroid) 100 mcg ACBREAKFAST ORAL 04/26/17 06:30 05/26/17 06:29 04/27/17 06:15 Meloxicam (Mobic) 15 mg DAILY ORAL 04/26/17 09:00 05/26/17 08:59 04/26/17 10:47 Morphine Sulfate (Morphine Sulfate) 1 mg Q3HR PRN IVP For Pain 04/26/17 00:45 05/03/17 00:44 Ondansetron HCl (Zofran) 4 mg Q6H PRN IVP Nausea & Vomiting 04/26/17 00:45 05/26/17 00:44 Propafenone HCl (Rythmol) 225 mg EVERY 8 HOURS ORAL 04/26/17 06:00 05/26/17 05:59 04/27/17 06:16 Quetiapine Fumarate (SEROquel) 100 mg DAILY ORAL 04/26/17 09:00 05/26/17 08:59 04/26/17 10:47 Sodium Chloride 1,000 ml @ 60 mls/hr [id number] IV 04/26/17 00:45 05/26/17 00:44 04/26/17 17:16 Mitch Grace MD Apr 27, 2017 09:30
[2017-04-27] MEDS: Meloxicam 15 MG TAB ORAL SCH (09:54)
[2017-04-27] MEDS: Carvedilol 12.5mg tab ORAL SCH ×2 (09:55→22:09)
[2017-04-27] MEDS: Aspirin Baby 81mg ORAL SCH (09:55)
[2017-04-27 12:00] VITALS: BP 95/48
[2017-04-27] MEDS: Cefepime HCl 2 GM in D5W 55 ML IVPB SCH (12:21)
--- NOTE | 2017-04-27 13:20 | Infectious Diseases Prog Note ---
Assessment/Plan Problems: (1) UTI (urinary tract infection) Assessment & Plan: with gram negative rods on urine culture , most likely the source of his sepsis , continue cefepime empirically pending identification and sensitivity (2) Fever Assessment & Plan: due to the above, continue tylenol prn (3) HCAP (healthcare-associated pneumonia) Assessment & Plan: await sputum culture , influenza screening is negative (4) Sepsis Assessment & Plan: with gram negative rods , continue cefepime pending identification and sensitivity (5) Altered level of consciousness Assessment & Plan: due to the above, recommend neurology eval and brain images (6) Elevated troponin Assessment & Plan: suspect ACS, cardiology is following (7) Dehydration Assessment & Plan: continue IVF, monitor urine out put, and renal function, avoid nephrotoxic meds (8) LEWIS (acute kidney injury) Assessment & Plan: due to the above , continue hydration, monitor renal function , nephrology is following Subjective ROS Limited/Unobtainable: Yes Allergies: Coded Allergies: No Known Allergies (Unverified , 04/25/17) Subjective he was more awake and alert, up in bed, not in distress , afebrile , no chills, more interactive Objective Vital Signs Last 24 Hour Vital Signs Date Time Temp Pulse Resp B/P (MAP) Pulse Ox O2 Delivery O2 Flow Rate FiO2 04/27/17 12:00 97.4 64 19 95/48 95 Room Air 64 04/27/17 09:55 73 111/54 04/27/17 08:00 97.4 73 20 111/54 96 Room Air 73 04/27/17 08:00 72 04/27/17 06:16 69 04/27/17 04:00 70 04/27/17 04:00 99.3 78 20 97/64 95 Room Air 78 04/27/17 00:00 99.1 81 18 112/56 95 Room Air 81 04/27/17 00:00 69 04/26/17 22:01 75 04/26/17 22:00 75 117/53 04/26/17 20:00 99.5 85 18 93/52 94 Room Air 85 04/26/17 20:00 67 04/26/17 16:00 75 04/26/17 15:31 68 Height (Feet): 6 Height (Inches): 0.00 Weight (Pounds): 190 General Appearance: WD/WN, no acute distress HEENT: normocephalic, atraumatic, anicteric, mucous membranes moist, PERRL Respiratory/Chest: chest wall non-tender, decreased breath sounds, crackles/ rales Cardiovascular: normal peripheral pulses, normal rate, regular rhythm, no gallop/murmur, no JVD Abdomen: normal bowel sounds, soft, non tender, no organomegaly, non distended , no mass, no scars Extremities: no cyanosis, no clubbing Skin: no rash, no lesions, ulcers Neurologic/Psychiatric: alert, responsive Microbiology Date/Time Source Procedure Growth Status 04/25/17 19:40 Blood Blood Culture - Preliminary NO GROWTH AFTER 24 HOURS Resulted 04/25/17 19:30 Blood Blood Culture - Preliminary Gram Negative Terrance Resulted 04/26/17 13:30 Nasopharynx Influenza Types A,B Antigen (CHARISSA) - Final Complete 04/26/17 04:10 Sputum Gram Stain - Final Resulted 04/26/17 04:10 Sputum Sputum Culture Pending Resulted 04/25/17 22:10 Urine,Clean Catch Urine Culture - Preliminary Gram Negative Terrance Resulted Current Medications Medications (Trade) Dose Ordered Sig/Trey Route PRN Reason Start Time Stop Time Status Last Admin Dose Admin Acetaminophen (Tylenol) 650 mg Q4H PRN ORAL Mild Pain (Pain Scale 1-3) 04/26/17 00:45 05/26/17 00:44 Aspirin (ASA) 81 mg DAILY ORAL 04/26/17 09:00 05/26/17 08:59 04/27/17 09:55 Carvedilol (Coreg) 12.5 mg EVERY 12 HOURS ORAL 04/26/17 09:00 05/26/17 08:59 04/27/17 09:55 Cefepime HCl 2 gm/ Dextrose 55 ml @ 110 mls/hr Q24H IVPB 04/26/17 12:30 05/03/17 12:29 04/27/17 12:21 Clindamycin HCl/ Dextrose 50 ml @ 100 mls/hr Q8HR IV 04/26/17 13:00 05/03/17 12:59 04/27/17 06:14 Dextrose (Dextrose 50%) STAT PRN IV Hypoglycemia 04/26/17 00:45 05/26/17 00:44 Divalproex Sodium (Depakote) 500 mg Q12HR ORAL 04/26/17 09:00 05/26/17 08:59 04/27/17 09:53 Famotidine (Pepcid) 20 mg DAILY ORAL 04/26/17 09:00 05/26/17 08:59 04/27/17 09:56 Levothyroxine Sodium (Synthroid) 100 mcg ACBREAKFAST ORAL 04/26/17 06:30 05/26/17 06:29 04/27/17 06:15 Meloxicam (Mobic) 15 mg DAILY ORAL 04/26/17 09:00 05/26/17 08:59 04/27/17 09:54 Morphine Sulfate (Morphine Sulfate) 1 mg Q3HR PRN IVP For Pain 04/26/17 00:45 05/03/17 00:44 Ondansetron HCl (Zofran) 4 mg Q6H PRN IVP Nausea & Vomiting 04/26/17 00:45 05/26/17 00:44 Propafenone HCl (Rythmol) 225 mg EVERY 8 HOURS ORAL 04/26/17 06:00 05/26/17 05:59 04/27/17 06:16 Quetiapine Fumarate (SEROquel) 100 mg DAILY ORAL 04/26/17 09:00 05/26/17 08:59 04/27/17 09:54 Sodium Chloride 1,000 ml @ 60 mls/hr [id number] IV 04/26/17 00:45 05/26/17 00:44 04/27/17 10:03 Zak Matos M.D. Apr 27, 2017 13:20
[2017-04-27 14:15] LABS: HEMATOCRIT 24.6 % (42.0-52.0); HEMOGLOBIN 7.9 G/DL (14.2-18.0); MEAN CORPUSCULAR VOLUME 95 FL (80-99); PLATELET COUNT 44 K/UL (150-450); RED BLOOD COUNT 2.59 M/UL (4.70-6.10); RED CELL DISTRIBUTION WIDTH 16.9 % (11.6-14.8); WHITE BLOOD COUNT 3.1 K/UL (4.8-10.8)
[2017-04-27 14:32] LABS: ANION GAP 9 mmol/L (5-15); BLOOD UREA NITROGEN 81 mg/dL (7-18); CARBON DIOXIDE 24 MMOL/L (21-32); CHLORIDE 118 MMOL/L (98-107); CREATININE 2.8 MG/DL (0.55-1.30); SODIUM 151 MMOL/L (136-145)
[2017-04-27 16:00] VITALS: BP 108/53
[2017-04-27 20:00] VITALS: BP 143/70
[2017-04-28] VITALS: BP 102/47
[2017-04-28 04:00] VITALS: BP 116/73
[2017-04-28] MEDS: Clindamycin 600mg 50 ML IV SCH ×3 (06:42→22:00)
[2017-04-28 07:38] LABS: HEMATOCRIT 24.7 % (42.0-52.0); MEAN CORPUSCULAR VOLUME 95 FL (80-99); PLATELET COUNT 44 K/UL (150-450); RED CELL DISTRIBUTION WIDTH 16.7 % (11.6-14.8); WHITE BLOOD COUNT 3.1 K/UL (4.8-10.8)
[2017-04-28 07:42] LABS: ANION GAP 9 mmol/L (5-15); BLOOD UREA NITROGEN 76 mg/dL (7-18); CALCIUM 7.3 MG/DL (8.5-10.1); CARBON DIOXIDE 23 MMOL/L (21-32); CHLORIDE 120 MMOL/L (98-107); CREATININE 2.7 MG/DL (0.55-1.30); POTASSIUM 4.8 MMOL/L (3.5-5.1); SODIUM 152 MMOL/L (136-145)
[2017-04-28] MEDS: Meloxicam 15 MG TAB ORAL SCH (08:39)
[2017-04-28] MEDS: Carvedilol 12.5mg tab ORAL SCH ×2 (08:40→21:00)
[2017-04-28] MEDS: Aspirin Baby 81mg ORAL SCH (08:40)
--- NOTE | 2017-04-28 09:33 | Pulmonology Progress Note ---
Assessment/Plan Assessment/Plan 1. Dehydration. 2. Renal failure. 3. Altered mental status. 4. Possible urinary tract infection. DISCUSSION: At this point, I do not suspect acute pulmonary process. I agree with the use of antibiotics per ID. Continue oxygen and pulmonary hygiene. I will follow as university internship. Thank you for the consultation. Subjective Interval Events: Looking better Constitutional: Reports: no symptoms HEENT: Repors: no symptoms Respiratory: Reports: no symptoms Cardiovascular: Reports: no symptoms Gastrointestinal/Abdominal: Reports: no symptoms Allergies: Coded Allergies: No Known Allergies (Unverified , 04/25/17) Objective Last 24 Hour Vital Signs Date Time Temp Pulse Resp B/P (MAP) Pulse Ox O2 Delivery O2 Flow Rate FiO2 04/28/17 08:40 79 130/70 04/28/17 06:28 81 04/28/17 04:00 80 04/28/17 04:00 98.1 85 22 116/73 99 Room Air 04/28/17 00:00 98.2 83 19 102/47 98 Room Air 04/28/17 00:00 68 04/27/17 22:09 72 04/27/17 22:05 72 04/27/17 20:00 68 04/27/17 20:00 98.2 78 23 143/70 96 Room Air 04/27/17 16:00 76 04/27/17 16:00 97.1 72 18 108/53 99 Room Air 72 04/27/17 13:19 64 04/27/17 12:00 63 04/27/17 12:00 97.4 64 19 95/48 95 Room Air 64 04/27/17 09:55 73 111/54 Intake and Output 04/27/17 04/28/17 19:00 07:00 Intake Total 585 ml 60 ml Output Total 1600 ml 900 ml Balance -1015 ml -840 ml IV Total 585 ml 60 ml Output Urine Total 1600 ml 900 ml General Appearance: no acute distress HEENT: normocephalic Respiratory/Chest: chest wall non-tender, lungs clear Cardiovascular: normal peripheral pulses, normal rate Microbiology Date/Time Source Procedure Growth Status 04/25/17 19:40 Blood Blood Culture - Preliminary Gram Negative Bacillus 1 Resulted 04/25/17 19:30 Blood Blood Culture - Preliminary Gram Negative Terrance Resulted 04/26/17 13:30 Nasopharynx Influenza Types A,B Antigen (CHARISSA) - Final Complete 04/26/17 04:10 Sputum Gram Stain - Final Resulted 04/26/17 04:10 Sputum Culture - Preliminary Gram Negative Bacillus 1 Resulted 04/25/17 22:10 Nasal Nares MRSA Culture - Final NO METHICILLIN RESISTANT STAPH AUREUS... Complete 04/25/17 22:10 Urine,Clean Catch Urine Culture - Final Escherichia Coli Complete 04/25/17 22:10 Rectum VRE Culture - Final NO VANCOMYCIN RESISTANT ENTEROCOCCUS ... Complete Laboratory Tests 04/27/17 13:40: White Blood Count 3.1L, Red Blood Count 2.59L, Hemoglobin 7.9L, Hematocrit 24.6L , Mean Corpuscular Volume 95, Mean Corpuscular Hemoglobin 30.6, Mean Corpuscular Hemoglobin Concent 32.3, Red Cell Distribution Width 16.9H, Platelet Count 44L, Mean Platelet Volume 7.0, Neutrophils (%) (Auto) , Lymphocytes (%) (Auto) , Monocytes (%) (Auto) , Eosinophils (%) (Auto) , Basophils (%) (Auto) , Differential Total Cells Counted 100, Neutrophils % ( Manual) 68, Lymphocytes % (Manual) 19L, Monocytes % (Manual) 11H, Eosinophils % (Manual) 0, Basophils % (Manual) 0, Band Neutrophils 2, Platelet Estimate DecreasedL, Platelet Morphology Normal, Hypochromasia 1+, Anisocytosis 1+, Sodium Level 151H, Potassium Level 5.0, Chloride Level 118H, Carbon Dioxide Level 24, Anion Gap 9, Blood Urea Nitrogen 81H, Creatinine 2.8H, Estimat Glomerular Filtration Rate , Glucose Level 104, Calcium Level 7.0L, Troponin I 0.057H 04/28/17 06:10: White Blood Count 3.1L, Red Blood Count 2.60L, Hemoglobin 8.0L, Hematocrit 24.7L , Mean Corpuscular Volume 95, Mean Corpuscular Hemoglobin 30.9, Mean Corpuscular Hemoglobin Concent 32.5, Red Cell Distribution Width 16.7H, Platelet Count 44L, Mean Platelet Volume 8.1, Neutrophils (%) (Auto) , Lymphocytes (%) (Auto) , Monocytes (%) (Auto) , Eosinophils (%) (Auto) , Basophils (%) (Auto) , Neutrophils % (Manual) [Pending], Lymphocytes % (Manual) [Pending], Platelet Estimate [Pending], Platelet Morphology [Pending], Sodium Level 152H, Potassium Level 4.8, Chloride Level 120H, Carbon Dioxide Level 23, Anion Gap 9, Blood Urea Nitrogen 76H, Creatinine 2.7H, Estimat Glomerular Filtration Rate , Glucose Level 92, Calcium Level 7.3L, Troponin I 0.028 Current Medications Medications (Trade) Dose Ordered Sig/Trey Route PRN Reason Start Time Stop Time Status Last Admin Dose Admin Acetaminophen (Tylenol) 650 mg Q4H PRN ORAL Mild Pain (Pain Scale 1-3) 04/26/17 00:45 05/26/17 00:44 Aspirin (ASA) 81 mg DAILY ORAL 04/26/17 09:00 05/26/17 08:59 04/28/17 08:40 Carvedilol (Coreg) 12.5 mg EVERY 12 HOURS ORAL 04/26/17 09:00 05/26/17 08:59 04/28/17 08:40 Cefepime HCl 2 gm/ Dextrose 55 ml @ 110 mls/hr Q24H IVPB 04/26/17 12:30 05/03/17 12:29 04/27/17 12:21 Clindamycin HCl/ Dextrose 50 ml @ 100 mls/hr Q8HR IV 04/26/17 13:00 05/03/17 12:59 04/28/17 06:42 Dextrose (Dextrose 50%) STAT PRN IV Hypoglycemia 04/26/17 00:45 05/26/17 00:44 Divalproex Sodium (Depakote) 500 mg Q12HR ORAL 04/26/17 09:00 05/26/17 08:59 04/28/17 08:39 Famotidine (Pepcid) 20 mg DAILY ORAL 04/26/17 09:00 05/26/17 08:59 04/28/17 08:40 Levothyroxine Sodium (Synthroid) 100 mcg ACBREAKFAST ORAL 04/26/17 06:30 05/26/17 06:29 04/28/17 06:43 Meloxicam (Mobic) 15 mg DAILY ORAL 04/26/17 09:00 05/26/17 08:59 04/28/17 08:39 Morphine Sulfate (Morphine Sulfate) 1 mg Q3HR PRN IVP For Pain 04/26/17 00:45 05/03/17 00:44 Ondansetron HCl (Zofran) 4 mg Q6H PRN IVP Nausea & Vomiting 04/26/17 00:45 05/26/17 00:44 Propafenone HCl (Rythmol) 225 mg EVERY 8 HOURS ORAL 04/26/17 06:00 05/26/17 05:59 04/28/17 06:28 Quetiapine Fumarate (SEROquel) 100 mg DAILY ORAL 04/26/17 09:00 05/26/17 08:59 04/28/17 08:38 Sodium Chloride 1,000 ml @ 60 mls/hr [id number] IV 04/26/17 00:45 05/26/17 00:44 04/28/17 04:13 Mitch Grace MD Apr 28, 2017 09:33
[2017-04-28 12:17] VITALS: BP 98/50
--- NOTE | 2017-04-28 13:11 | Wound Care Consultation ---
Wound Assessment Wound Assessment #1: Wound Number: 1 Wound Present on Admission: Yes New Wound: No Status Change of Wound: No Wound Location Body Site Modif: right, lateral Wound Location Body Site: foot Wound Type: pressure ulcer Viridiana Test: Does not Viridiana Pressure Ulcer Stage: Unstageable Wound Thickness: Full Thickness Wound Length: 2.0 Wound Width: 2.5 Wound Depth: utd Percent of Wound Bed Yellow/Wh: 50 - dry Percent of Wound Black/Brown: 50 - dry Wound Drainage Amount: None Wound Drainage Odor: None/Absent Tissue Surrounding Wound: Erythemic Wound General Appearance: Blackened, Necrotic Wound Assessment #2: Wound Number: 2 Wound Present on Admission: Yes New Wound: No Status Change of Wound: No Wound Location Body Site Modif: right, lower, medial Wound Location Body Site: leg Wound Type: pressure ulcer Viridiana Test: Does not Viridiana Pressure Ulcer Stage: Deep Tissue Injury - suspected Wound Thickness: Full Thickness Wound Length: 2.0 Wound Width: 2.0 Wound Depth: utd Percent of Wound Purple/Maroon: 100 Wound Drainage Amount: None Wound Drainage Odor: None/Absent Tissue Surrounding Wound: Intact Wound General Appearance: Reddened - maroon Wound Assessment #3: Wound Number: 3 Wound Present on Admission: Yes New Wound: No Status Change of Wound: No Wound Location Body Site Modif: right, medial, dorsal - aspect of foot Wound Location Body Site: foot Wound Type: pressure ulcer Viridiana Test: Does not Viridiana Pressure Ulcer Stage: Unstageable Wound Thickness: Full Thickness Wound Length: 3.0 Wound Width: 3.0 Wound Depth: utd Percent of Wound Bed Yellow/Wh: 10 Percent of Wound Black/Brown: 90 Wound Drainage Description: Serosanguineous Wound Drainage Amount: Scant Wound Drainage Odor: None/Absent Tissue Surrounding Wound: Erythemic Wound General Appearance: Reddened, Blackened, Necrotic Wound Assessment #4: Wound Number: 4 Wound Present on Admission: Yes New Wound: No Status Change of Wound: No Wound Location Body Site Modif: mid Wound Location Body Site: sacral Wound Type: pressure ulcer Viridiana Test: Does not Viridiana Pressure Ulcer Stage: Deep Tissue Injury Wound Thickness: Full Thickness Wound Length: 2.0 Wound Width: 2.0 Wound Depth: utd Percent of Wound Purple/Maroon: 100 Wound Drainage Amount: None Wound Drainage Odor: None/Absent Tissue Surrounding Wound: Intact Wound General Appearance: Reddened - maroon Wound Assessment #5: Wound Number: 5 Wound Present on Admission: Yes New Wound: No Status Change of Wound: No Wound Location Body Site Modif: left Wound Location Body Site: toe - 2nd toe Wound Type: scab Viridiana Test: Does not Viridiana Wound Thickness: Full Thickness Wound Length: 0.5 Wound Width: 0.5 Wound Depth: utd Percent of Wound Black/Brown: 100 - dry Wound Drainage Amount: None Wound Drainage Odor: None/Absent Tissue Surrounding Wound: Intact Wound General Appearance: Necrotic - dry scabs two sites close in proxmity Wound Assessment #6: Wound Number: 6 Wound Present on Admission: Yes New Wound: No Status Change of Wound: No Wound Location Body Site Modif: left Wound Location Body Site: heel Wound Type: pressure ulcer Viridiana Test: Does not Viridiana Pressure Ulcer Stage: Deep Tissue Injury - suspected Wound Thickness: Full Thickness Wound Length: 2.0 Wound Width: 2.0 Wound Depth: utd Percent of Wound [place]/Red: 100 - deep red Wound Drainage Amount: None Wound Drainage Odor: None/Absent Tissue Surrounding Wound: Intact Wound General Appearance: Reddened Wound Assessment #7: Wound Number: 7 Wound Present on Admission: Yes New Wound: No Status Change of Wound: No Wound Location Body Site Modif: left, lateral Wound Location Body Site: malleolus/ankle Wound Type: pressure ulcer Viridiana Test: Does not Viridiana Pressure Ulcer Stage: Deep Tissue Injury - suspected Wound Thickness: Full Thickness Wound Length: 1.0 Wound Width: 1.0 Wound Depth: utd Percent of Wound [place]/Red: 50 - deep red Percent of Wound Purple/Maroon: 50 Wound Drainage Amount: None Wound Drainage Odor: None/Absent Tissue Surrounding Wound: Intact Wound General Appearance: Reddened - maroon Wound Assessment #8: Wound Number: 8 Wound Present on Admission: Yes New Wound: No Status Change of Wound: No Wound Location Body Site Modif: left, upper Wound Location Body Site: arm Wound Type: scab - scattered Viridiana Test: Does not Viridiana Wound Length: 3.0 Wound Width: 3.0 Percent of Wound [place]/Red: 50 Percent of Wound Black/Brown: 50 Wound Drainage Description: Serosanguineous Wound Drainage Amount: Scant Wound Drainage Odor: None/Absent Tissue Surrounding Wound: Erythemic Wound General Appearance: Reddened Wound Comment #1 Right lateral foot unstageable pressure ulcer. #2 Right medial lower extremity suspected deep tissue injury #3 Right medial dorsal foot unstageable pressure ulcer. #4 Mid Sacral Deep tissue injury. #5 Left 2nd toe necrotic scabs. #6 Left heel suspected Deep Tissue Injury. #7 Left lateral Malleolus Deep Tissue Injury. #8 Left upper arm scattered scabs. Recommendation. -Local wound care as ordered. -Turn and reposition. -Offload affected areas. -Optimize nutrition. -Keep clean and dry. -Apply low air loss SPR mattress. -Apply heel protectors. -Offload heels and feet. -Avoid shear and friction. -Assess and notify MD for any changes of condition to skin MALINI NOYOLA Apr 28, 2017 13:11
--- NOTE | 2017-04-28 14:18 | Infectious Diseases Prog Note ---
Assessment/Plan Problems: (1) UTI (urinary tract infection) Assessment & Plan: with E coli resisitant to ampicicllin and bactrim, most likely the source of his sepsis , continue cefepime empirically pending identification and sensitivity (2) Fever Assessment & Plan: due to the above, continue tylenol prn (3) HCAP (healthcare-associated pneumonia) Assessment & Plan: improving on cefepime and clindamycin, await sputum culture , influenza screening is negative (4) Sepsis Assessment & Plan: with gram negative rods , continue cefepime pending identification and sensitivity (5) Altered level of consciousness Assessment & Plan: due to the above, recommend neurology eval and brain images (6) Elevated troponin Assessment & Plan: suspect ACS, cardiology is following (7) Dehydration Assessment & Plan: continue IVF, monitor urine out put, and renal function, avoid nephrotoxic meds (8) LEWIS (acute kidney injury) Assessment & Plan: due to the above , continue hydration, monitor renal function , nephrology is following Subjective ROS Limited/Unobtainable: Yes Allergies: Coded Allergies: No Known Allergies (Unverified , 04/25/17) Subjective he was more awake and alert, up in bed, eating lunch with his , not in distress , afebrile , no chills, more interactive Objective Vital Signs Last 24 Hour Vital Signs Date Time Temp Pulse Resp B/P (MAP) Pulse Ox O2 Delivery O2 Flow Rate FiO2 04/28/17 12:17 97.7 70 20 98/50 96 Room Air 04/28/17 08:40 79 130/70 04/28/17 08:00 79 04/28/17 06:28 81 04/28/17 04:00 80 04/28/17 04:00 98.1 85 22 116/73 99 Room Air 04/28/17 00:00 98.2 83 19 102/47 98 Room Air 04/28/17 00:00 68 04/27/17 22:09 72 04/27/17 22:05 72 04/27/17 20:00 68 04/27/17 20:00 98.2 78 23 143/70 96 Room Air 04/27/17 16:00 76 04/27/17 16:00 97.1 72 18 108/53 99 Room Air 72 Height (Feet): 6 Height (Inches): 0.00 Weight (Pounds): 190 General Appearance: WD/WN, no acute distress HEENT: normocephalic, atraumatic, anicteric, mucous membranes moist, PERRL, pharynx normal, supple, no JVD Respiratory/Chest: chest wall non-tender, normal breath sounds, no respiratory distress, no accessory muscle use, decreased breath sounds Cardiovascular: normal peripheral pulses, normal rate, regular rhythm, no gallop/murmur, no JVD Abdomen: normal bowel sounds, soft, non tender, no organomegaly, non distended , no mass, no scars Extremities: no cyanosis, no clubbing Skin: no rash, no lesions, ulcers Neurologic/Psychiatric: alert, responsive Microbiology Date/Time Source Procedure Growth Status 04/25/17 19:40 Blood Blood Culture - Preliminary Gram Negative Bacillus 1 Resulted 04/25/17 19:30 Blood Blood Culture - Preliminary Gram Negative Terrance Resulted 04/26/17 13:30 Nasopharynx Influenza Types A,B Antigen (CHARISSA) - Final Complete 04/26/17 04:10 Sputum Gram Stain - Final Resulted 04/26/17 04:10 Sputum Culture - Preliminary Gram Negative Bacillus 1 Resulted 04/25/17 22:10 Nasal Nares MRSA Culture - Final NO METHICILLIN RESISTANT STAPH AUREUS... Complete 04/25/17 22:10 Urine,Clean Catch Urine Culture - Final Escherichia Coli Complete 04/25/17 22:10 Rectum VRE Culture - Final NO VANCOMYCIN RESISTANT ENTEROCOCCUS ... Complete Laboratory Tests Test 04/28/17 06:10 White Blood Count 3.1 K/UL (4.8-10.8) L Red Blood Count 2.60 M/UL (4.70-6.10) L Hemoglobin 8.0 G/DL (14.2-18.0) L Hematocrit 24.7 % (42.0-52.0) L Mean Corpuscular Volume 95 FL (80-99) Mean Corpuscular Hemoglobin 30.9 PG (27.0-31.0) Mean Corpuscular Hemoglobin Concent 32.5 G/DL (32.0-36.0) Red Cell Distribution Width 16.7 % (11.6-14.8) H Platelet Count 44 K/UL (150-450) L Mean Platelet Volume 8.1 FL (6.5-10.1) Neutrophils (%) (Auto) % (45.0-75.0) Lymphocytes (%) (Auto) % (20.0-45.0) Monocytes (%) (Auto) % (1.0-10.0) Eosinophils (%) (Auto) % (0.0-3.0) Basophils (%) (Auto) % (0.0-2.0) Differential Total Cells Counted 100 Neutrophils % (Manual) 65 % (45-75) Lymphocytes % (Manual) 15 % (20-45) L Monocytes % (Manual) 20 % (1-10) H Eosinophils % (Manual) 0 % (0-3) Basophils % (Manual) 0 % (0-2) Band Neutrophils 0 % (0-8) Platelet Estimate Decreased L Platelet Morphology Normal Hypochromasia 3+ Anisocytosis 1+ Sodium Level 152 MMOL/L (136-145) H Potassium Level 4.8 MMOL/L (3.5-5.1) Chloride Level 120 MMOL/L (98-107) H Carbon Dioxide Level 23 MMOL/L (21-32) Anion Gap 9 mmol/L (5-15) Blood Urea Nitrogen 76 mg/dL (7-18) H Creatinine 2.7 MG/DL (0.55-1.30) H Estimat Glomerular Filtration Rate mL/min (>60) Glucose Level 92 MG/DL (74-106) Calcium Level 7.3 MG/DL (8.5-10.1) L Troponin I 0.028 ng/mL (0.000-0.056) Current Medications Medications (Trade) Dose Ordered Sig/Trey Route PRN Reason Start Time Stop Time Status Last Admin Dose Admin Acetaminophen (Tylenol) 650 mg Q4H PRN ORAL Mild Pain (Pain Scale 1-3) 04/26/17 00:45 05/26/17 00:44 Aspirin (ASA) 81 mg DAILY ORAL 04/26/17 09:00 05/26/17 08:59 04/28/17 08:40 Carvedilol (Coreg) 12.5 mg EVERY 12 HOURS ORAL 04/26/17 09:00 05/26/17 08:59 04/28/17 08:40 Cefepime HCl 2 gm/ Dextrose 55 ml @ 110 mls/hr Q24H IVPB 04/26/17 12:30 05/03/17 12:29 04/27/17 12:21 Clindamycin HCl/ Dextrose 50 ml @ 100 mls/hr Q8HR IV 04/26/17 13:00 05/03/17 12:59 04/28/17 06:42 Dextrose (Dextrose 50%) STAT PRN IV Hypoglycemia 04/26/17 00:45 05/26/17 00:44 Divalproex Sodium (Depakote) 500 mg Q12HR ORAL 04/26/17 09:00 05/26/17 08:59 04/28/17 08:39 Famotidine (Pepcid) 20 mg DAILY ORAL 04/26/17 09:00 05/26/17 08:59 04/28/17 08:40 Levothyroxine Sodium (Synthroid) 100 mcg ACBREAKFAST ORAL 04/26/17 06:30 05/26/17 06:29 04/28/17 06:43 Meloxicam (Mobic) 15 mg DAILY ORAL 04/26/17 09:00 05/26/17 08:59 04/28/17 08:39 Morphine Sulfate (Morphine Sulfate) 1 mg Q3HR PRN IVP For Pain 04/26/17 00:45 05/03/17 00:44 Ondansetron HCl (Zofran) 4 mg Q6H PRN IVP Nausea & Vomiting 04/26/17 00:45 05/26/17 00:44 Propafenone HCl (Rythmol) 225 mg EVERY 8 HOURS ORAL 04/26/17 06:00 05/26/17 05:59 04/28/17 06:28 Quetiapine Fumarate (SEROquel) 100 mg DAILY ORAL 04/26/17 09:00 05/26/17 08:59 04/28/17 08:38 Sodium Chloride 1,000 ml @ 60 mls/hr [id number] IV 04/26/17 00:45 05/26/17 00:44 04/28/17 04:13 Zak Matos M.D. Apr 28, 2017 14:18
[2017-04-28] MEDS: Cefepime HCl 2 GM in D5W 55 ML IVPB SCH (17:03)
--- NOTE | 2017-04-28 17:19 | Nephrology Progress Note ---
Assessment/Plan Problem List: (1) Dehydration (2) Sepsis (3) UTI (urinary tract infection) (4) Altered level of consciousness (5) HCAP (healthcare-associated pneumonia) (6) LEWIS (acute kidney injury) (7) Urinary retention (8) Hypernatremia (9) Hyperkalemia (10) Elevated troponin Plan Continue current treatment plan Change IVF to D5W to correct sodium Monitor intake and output Monitor renal function, improved on IVF Renally dose meds, correct prn Continue arnold Monitor lytes, correct prn Encourage fluids Abx per ID Cardio following, will follow up with recs Monitor temp AM labs Subjective ROS Limited/Unobtainable: Yes Subjective In bed, in no apparent distress Objective Objective Last 24 Hour Vital Signs Date Time Temp Pulse Resp B/P (MAP) Pulse Ox O2 Delivery O2 Flow Rate FiO2 04/28/17 17:05 79 04/28/17 12:17 97.7 70 20 98/50 96 Room Air 04/28/17 12:00 71 04/28/17 08:40 79 130/70 04/28/17 08:00 79 04/28/17 06:28 81 04/28/17 04:00 80 04/28/17 04:00 98.1 85 22 116/73 99 Room Air 04/28/17 00:00 98.2 83 19 102/47 98 Room Air 04/28/17 00:00 68 04/27/17 22:09 72 04/27/17 22:05 72 04/27/17 20:00 68 04/27/17 20:00 98.2 78 23 143/70 96 Room Air Intake and Output 04/27/17 04/28/17 19:00 07:00 Intake Total 585 ml 60 ml Output Total 1600 ml 900 ml Balance -1015 ml -840 ml IV Total 585 ml 60 ml Output Urine Total 1600 ml 900 ml Laboratory Tests 04/28/17 06:10: White Blood Count 3.1L, Red Blood Count 2.60L, Hemoglobin 8.0L, Hematocrit 24.7L , Mean Corpuscular Volume 95, Mean Corpuscular Hemoglobin 30.9, Mean Corpuscular Hemoglobin Concent 32.5, Red Cell Distribution Width 16.7H, Platelet Count 44L, Mean Platelet Volume 8.1, Neutrophils (%) (Auto) , Lymphocytes (%) (Auto) , Monocytes (%) (Auto) , Eosinophils (%) (Auto) , Basophils (%) (Auto) , Differential Total Cells Counted 100, Neutrophils % ( Manual) 65, Lymphocytes % (Manual) 15L, Monocytes % (Manual) 20H, Eosinophils % (Manual) 0, Basophils % (Manual) 0, Band Neutrophils 0, Platelet Estimate DecreasedL, Platelet Morphology Normal, Hypochromasia 3+, Anisocytosis 1+, Sodium Level 152H, Potassium Level 4.8, Chloride Level 120H, Carbon Dioxide Level 23, Anion Gap 9, Blood Urea Nitrogen 76H, Creatinine 2.7H, Estimat Glomerular Filtration Rate , Glucose Level 92, Calcium Level 7.3L, Troponin I 0.028 Height (Feet): 6 Height (Inches): 0.00 Weight (Pounds): 190 General Appearance: no apparent distress, alert EENT: normal ENT inspection Neck: normal alignment, supple Cardiovascular: regular rhythm Respiratory/Chest: decreased breath sounds Abdomen: non tender, soft Genitourinary/Rectal: other - arnold to gravity Extremities: non-tender, moderate edema Neurologic: alert, disoriented Glenis Meza N.P. Apr 28, 2017 17:19
[2017-04-28 20:00] VITALS: BP_SYST 116; BP_SYST 132; BP_DIAS 69; BP_DIAS 73
[2017-04-29] VITALS: BP 98/43
[2017-04-29 04:50] VITALS: BP 138/76
[2017-04-29] MEDS: Clindamycin 600mg 50 ML IV SCH ×2 (06:00→14:49)
[2017-04-29 07:00] LABS: HEMATOCRIT 23.4 % (42.0-52.0); HEMOGLOBIN 7.6 G/DL (14.2-18.0); MEAN CORPUSCULAR VOLUME 95 FL (80-99); PLATELET COUNT 38 K/UL (150-450); RED BLOOD COUNT 2.48 M/UL (4.70-6.10); RED CELL DISTRIBUTION WIDTH 16.6 % (11.6-14.8); WHITE BLOOD COUNT 3.3 K/UL (4.8-10.8)
[2017-04-29 07:20] LABS: ANION GAP 10 mmol/L (5-15); BLOOD UREA NITROGEN 72 mg/dL (7-18); CALCIUM 7.1 MG/DL (8.5-10.1); CARBON DIOXIDE 22 MMOL/L (21-32); CHLORIDE 121 MMOL/L (98-107); CREATININE 2.2 MG/DL (0.55-1.30); PHOSPHORUS 3.4 MG/DL (2.5-4.9); POTASSIUM 4.6 MMOL/L (3.5-5.1); SODIUM 153 MMOL/L (136-145)
[2017-04-29 07:33] VITALS: BP 116/70
[2017-04-29] MEDS: Nephrovite tab (Rena-Vite) ORAL SCH (08:23)
[2017-04-29] MEDS: Aspirin Baby 81mg ORAL SCH (08:23)
[2017-04-29] MEDS: Carvedilol 12.5mg tab ORAL SCH ×2 (08:23→21:32)
[2017-04-29] MEDS: Meloxicam 15 MG TAB ORAL SCH (08:23)
--- NOTE | 2017-04-29 09:45 | Pulmonology Progress Note ---
Assessment/Plan Assessment/Plan 1. Dehydration. 2. Renal failure. 3. Altered mental status. 4. Possible urinary tract infection. 5. Sepsis DISCUSSION: Respiratory status is stable. I agree with the use of antibiotics per ID. Continue oxygen and pulmonary hygiene. 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 Subjective Interval Events: Improving slowly Constitutional: Reports: no symptoms HEENT: Repors: no symptoms Respiratory: Reports: no symptoms Cardiovascular: Reports: no symptoms Gastrointestinal/Abdominal: Reports: no symptoms Allergies: Coded Allergies: No Known Allergies (Unverified , 04/25/17) Objective Last 24 Hour Vital Signs Date Time Temp Pulse Resp B/P (MAP) Pulse Ox O2 Delivery O2 Flow Rate FiO2 04/29/17 08:23 72 116/70 04/29/17 07:33 97.7 72 18 116/70 98 Room Air 04/29/17 07:31 73 04/29/17 04:50 97.5 82 23 138/76 98 Room Air 04/29/17 04:00 71 04/29/17 00:00 97.3 65 18 98/43 96 Room Air 04/29/17 00:00 62 04/28/17 22:00 85 04/28/17 21:00 85 116/73 04/28/17 20:00 97.7 76 20 132/69 98 Room Air 04/28/17 20:00 72 04/28/17 20:00 97.7 85 20 116/73 98 Room Air 21 04/28/17 17:05 79 04/28/17 16:00 79 04/28/17 12:17 97.7 70 20 98/50 96 Room Air 04/28/17 12:00 71 Intake and Output 04/28/17 04/29/17 19:00 07:00 Intake Total 350 ml Output Total 850 ml 1500 ml Balance -500 ml -1500 ml Intake Oral 350 ml Output Urine Total 850 ml 1500 ml General Appearance: no acute distress HEENT: normocephalic Respiratory/Chest: chest wall non-tender, decreased breath sounds Cardiovascular: normal peripheral pulses, normal rate Abdomen: normal bowel sounds Microbiology Date/Time Source Procedure Growth Status 04/26/17 13:30 Nasopharynx Influenza Types A,B Antigen (CHARISSA) - Final Complete Laboratory Tests 04/29/17 04:50: White Blood Count 3.3L, Red Blood Count 2.48L, Hemoglobin 7.6L, Hematocrit 23.4L , Mean Corpuscular Volume 95, Mean Corpuscular Hemoglobin 30.8, Mean Corpuscular Hemoglobin Concent 32.6, Red Cell Distribution Width 16.6H, Platelet Count 38L, Mean Platelet Volume 8.0, Neutrophils (%) (Auto) , Lymphocytes (%) (Auto) , Monocytes (%) (Auto) , Eosinophils (%) (Auto) , Basophils (%) (Auto) , Differential Total Cells Counted 100, Neutrophils % ( Manual) 62, Lymphocytes % (Manual) 20, Monocytes % (Manual) 16H, Eosinophils % ( Manual) 1, Basophils % (Manual) 1, Band Neutrophils 0, Platelet Estimate DecreasedL, Platelet Morphology Normal, Hypochromasia 3+, Anisocytosis 1+, Spherocytes 2+, Sodium Level 153H, Potassium Level 4.6, Chloride Level 121H, Carbon Dioxide Level 22, Anion Gap 10, Blood Urea Nitrogen 72H, Creatinine 2.2H , Estimat Glomerular Filtration Rate , Glucose Level 115H, Calcium Level 7.1L, Phosphorus Level 3.4, Magnesium Level 2.2 Current Medications Medications (Trade) Dose Ordered Sig/Trey Route PRN Reason Start Time Stop Time Status Last Admin Dose Admin Acetaminophen (Tylenol) 650 mg Q4H PRN ORAL Mild Pain (Pain Scale 1-3) 04/26/17 00:45 05/26/17 00:44 Aspirin (ASA) 81 mg DAILY ORAL 04/26/17 09:00 05/26/17 08:59 04/28/17 08:40 Carvedilol (Coreg) 12.5 mg EVERY 12 HOURS ORAL 04/26/17 09:00 05/26/17 08:59 04/29/17 08:23 Cefepime HCl 2 gm/ Dextrose 55 ml @ 110 mls/hr Q24H IVPB 04/26/17 12:30 05/03/17 12:29 04/28/17 17:03 Clindamycin HCl/ Dextrose 50 ml @ 100 mls/hr Q8HR IV 04/26/17 13:00 05/03/17 12:59 04/28/17 22:00 Dextrose 1,000 ml @ 50 mls/hr Q20H IV 04/28/17 17:00 05/28/17 16:59 04/28/17 17:13 Dextrose (Dextrose 50%) STAT PRN IV Hypoglycemia 04/26/17 00:45 05/26/17 00:44 Divalproex Sodium (Depakote) 500 mg Q12HR ORAL 04/26/17 09:00 05/26/17 08:59 04/29/17 08:23 Famotidine (Pepcid) 20 mg DAILY ORAL 04/26/17 09:00 05/26/17 08:59 04/29/17 08:23 Levothyroxine Sodium (Synthroid) 100 mcg ACBREAKFAST ORAL 04/26/17 06:30 05/26/17 06:29 04/28/17 06:43 Meloxicam (Mobic) 15 mg DAILY ORAL 04/26/17 09:00 05/26/17 08:59 04/29/17 08:23 Morphine Sulfate (Morphine Sulfate) 1 mg Q3HR PRN IVP For Pain 04/26/17 00:45 05/03/17 00:44 Ondansetron HCl (Zofran) 4 mg Q6H PRN IVP Nausea & Vomiting 04/26/17 00:45 05/26/17 00:44 Propafenone HCl (Rythmol) 225 mg EVERY 8 HOURS ORAL 04/26/17 06:00 05/26/17 05:59 04/28/17 22:00 Quetiapine Fumarate (SEROquel) 100 mg DAILY ORAL 04/26/17 09:00 05/26/17 08:59 04/29/17 08:23 Vitamin B Complex/ Vit C/Folic Acid (Nephrovite) 1 tab DAILY ORAL 04/29/17 09:00 05/29/17 08:59 04/29/17 08:23 Mitch Grace MD Apr 29, 2017 09:45
[2017-04-29 11:20] VITALS: BP 102/52
--- NOTE | 2017-04-29 12:10 | Nephrology Progress Note ---
Assessment/Plan Problem List: (1) LEWIS (acute kidney injury) (2) Elevated troponin (3) Altered level of consciousness (4) UTI (urinary tract infection) Assessment: e. coli (5) Dehydration (6) Fever (7) Hyperkalemia Assessment: corrected (8) Urinary retention (9) Sepsis Assessment: E. coli (10) Hypernatremia Plan abx per ID. on cefepime and clindamycin. cont IVF d5w. transfuse 1 unit prbc. GI and heme consult called. monitor renal function. follow up labs. d/w Dr. Alonso. Subjective Subjective NAD. No fever. Objective Objective Last 24 Hour Vital Signs Date Time Temp Pulse Resp B/P (MAP) Pulse Ox O2 Delivery O2 Flow Rate FiO2 04/29/17 11:20 97.7 58 18 102/52 98 Room Air 04/29/17 08:23 72 116/70 04/29/17 07:33 97.7 72 18 116/70 98 Room Air 04/29/17 07:31 73 04/29/17 04:50 97.5 82 23 138/76 98 Room Air 04/29/17 04:00 71 04/29/17 00:00 97.3 65 18 98/43 96 Room Air 04/29/17 00:00 62 04/28/17 22:00 85 04/28/17 21:00 85 116/73 04/28/17 20:00 97.7 76 20 132/69 98 Room Air 04/28/17 20:00 72 04/28/17 20:00 97.7 85 20 116/73 98 Room Air 21 04/28/17 17:05 79 04/28/17 16:00 79 04/28/17 12:17 97.7 70 20 98/50 96 Room Air Intake and Output 04/28/17 04/29/17 19:00 07:00 Intake Total 350 ml Output Total 850 ml 1500 ml Balance -500 ml -1500 ml Intake Oral 350 ml Output Urine Total 850 ml 1500 ml Laboratory Tests 04/29/17 04:50: White Blood Count 3.3L, Red Blood Count 2.48L, Hemoglobin 7.6L, Hematocrit 23.4L , Mean Corpuscular Volume 95, Mean Corpuscular Hemoglobin 30.8, Mean Corpuscular Hemoglobin Concent 32.6, Red Cell Distribution Width 16.6H, Platelet Count 38L, Mean Platelet Volume 8.0, Neutrophils (%) (Auto) , Lymphocytes (%) (Auto) , Monocytes (%) (Auto) , Eosinophils (%) (Auto) , Basophils (%) (Auto) , Differential Total Cells Counted 100, Neutrophils % ( Manual) 62, Lymphocytes % (Manual) 20, Monocytes % (Manual) 16H, Eosinophils % ( Manual) 1, Basophils % (Manual) 1, Band Neutrophils 0, Platelet Estimate DecreasedL, Platelet Morphology Normal, Hypochromasia 3+, Anisocytosis 1+, Spherocytes 2+, Sodium Level 153H, Potassium Level 4.6, Chloride Level 121H, Carbon Dioxide Level 22, Anion Gap 10, Blood Urea Nitrogen 72H, Creatinine 2.2H , Estimat Glomerular Filtration Rate , Glucose Level 115H, Calcium Level 7.1L, Phosphorus Level 3.4, Magnesium Level 2.2 Height (Feet): 6 Height (Inches): 0.00 Weight (Pounds): 190 General Appearance: no apparent distress Cardiovascular: normal rate, regular rhythm Respiratory/Chest: decreased breath sounds Abdomen: non tender, soft Extremities: trace edema Neurologic: disoriented ROMEO FIGUEROA Apr 29, 2017 12:09
[2017-04-29] MEDS: Cefepime HCl 2 GM in D5W 55 ML IVPB SCH (13:50)
[2017-04-29 14:34] LABS: % IRON SATURATION 27 % (15-50); IRON 29 ug/dL (50-175); TOTAL IRON BINDING CAPACITY 109 ug/dL (250-450)
[2017-04-29 14:41] LABS: FERRITIN 2235 NG/ML (8-388)
--- NOTE | 2017-04-29 14:44 | Infectious Diseases Prog Note ---
Assessment/Plan Problems: (1) UTI (urinary tract infection) Assessment & Plan: with E coli resistant to ampicillin and Bactrim, most likely the source of his sepsis , will switch cefepime to ceftriaxon empirically pending identification and sensitivity (2) Fever Assessment & Plan: due to the above, resolved , continue tylenol prn (3) HCAP (healthcare-associated pneumonia) Assessment & Plan: improved on cefepime and clindamycin, influenza screening is negative will switch antibiotics to ceftriaxon only (4) Sepsis Assessment & Plan: with E coli , already on cefepime will switch to ceftriaxon , repeated blood culture is pending . will treat with ceftriaxon for two weeks starting from the clearance date (5) Altered level of consciousness Assessment & Plan: due to the above, recommend neurology eval and brain images (6) Elevated troponin Assessment & Plan: suspect ACS, cardiology is following (7) Dehydration Assessment & Plan: continue IVF, monitor urine out put, and renal function, avoid nephrotoxic meds (8) LEWIS (acute kidney injury) Assessment & Plan: due to the above , continue hydration, monitor renal function , nephrology is following (9) Anemia Assessment & Plan: rule out GI source, monitor H/H, transfuse blood as needed , GI is following Subjective ROS Limited/Unobtainable: Yes Allergies: Coded Allergies: No Known Allergies (Unverified , 04/25/17) Subjective he was more lethargic and weak , looking pale, was hypotensive earlier , responds to verbal commands , afebrile , no rectal bleeding. Objective Vital Signs Last 24 Hour Vital Signs Date Time Temp Pulse Resp B/P (MAP) Pulse Ox O2 Delivery O2 Flow Rate FiO2 04/29/17 14:30 58 04/29/17 11:35 58 04/29/17 11:20 97.7 58 18 102/52 98 Room Air 04/29/17 08:23 72 116/70 04/29/17 07:33 97.7 72 18 116/70 98 Room Air 04/29/17 07:31 73 04/29/17 04:50 97.5 82 23 138/76 98 Room Air 04/29/17 04:00 71 04/29/17 00:00 97.3 65 18 98/43 96 Room Air 04/29/17 00:00 62 04/28/17 22:00 85 04/28/17 21:00 85 116/73 04/28/17 20:00 97.7 76 20 132/69 98 Room Air 04/28/17 20:00 72 04/28/17 20:00 97.7 85 20 116/73 98 Room Air 21 04/28/17 17:05 79 04/28/17 16:00 79 Height (Feet): 6 Height (Inches): 0.00 Weight (Pounds): 190 General Appearance: no acute distress, other - lethargic and pale HEENT: normocephalic, atraumatic, anicteric, PERRL, pharynx normal, supple, no JVD, other - pale sclera Respiratory/Chest: chest wall non-tender, no respiratory distress, no accessory muscle use, decreased breath sounds, crackles/rales Cardiovascular: normal peripheral pulses, normal rate, regular rhythm, no gallop/murmur, no JVD Abdomen: normal bowel sounds, soft, non tender, no organomegaly, non distended , no mass, no scars Extremities: no cyanosis, no clubbing, other - right foot wound dry with an eschar Skin: no rash, no lesions, ulcers Neurologic/Psychiatric: motor weakness, disoriented Lymphatic: no neck adenopathy, no groin adenopathy Laboratory Tests Test 04/29/17 04:50 White Blood Count 3.3 K/UL (4.8-10.8) L Red Blood Count 2.48 M/UL (4.70-6.10) L Hemoglobin 7.6 G/DL (14.2-18.0) L Hematocrit 23.4 % (42.0-52.0) L Mean Corpuscular Volume 95 FL (80-99) Mean Corpuscular Hemoglobin 30.8 PG (27.0-31.0) Mean Corpuscular Hemoglobin Concent 32.6 G/DL (32.0-36.0) Red Cell Distribution Width 16.6 % (11.6-14.8) H Platelet Count 38 K/UL (150-450) L Mean Platelet Volume 8.0 FL (6.5-10.1) Neutrophils (%) (Auto) % (45.0-75.0) Lymphocytes (%) (Auto) % (20.0-45.0) Monocytes (%) (Auto) % (1.0-10.0) Eosinophils (%) (Auto) % (0.0-3.0) Basophils (%) (Auto) % (0.0-2.0) Differential Total Cells Counted 100 Neutrophils % (Manual) 62 % (45-75) Lymphocytes % (Manual) 20 % (20-45) Monocytes % (Manual) 16 % (1-10) H Eosinophils % (Manual) 1 % (0-3) Basophils % (Manual) 1 % (0-2) Band Neutrophils 0 % (0-8) Platelet Estimate Decreased L Platelet Morphology Normal Hypochromasia 3+ Anisocytosis 1+ Spherocytes 2+ PTT Mixing Study Pending APTT Patient/Control Mix Pending Mix PTT Incubation Time Pending Mix PTT Normal/Saline 1:1 Immediate Pending Thrombin Time Normal Plasma Pending Sodium Level 153 MMOL/L (136-145) H Potassium Level 4.6 MMOL/L (3.5-5.1) Chloride Level 121 MMOL/L (98-107) H Carbon Dioxide Level 22 MMOL/L (21-32) Anion Gap 10 mmol/L (5-15) Blood Urea Nitrogen 72 mg/dL (7-18) H Creatinine 2.2 MG/DL (0.55-1.30) H Estimat Glomerular Filtration Rate mL/min (>60) Glucose Level 115 MG/DL (74-106) H Uric Acid Pending Calcium Level 7.1 MG/DL (8.5-10.1) L Phosphorus Level 3.4 MG/DL (2.5-4.9) Magnesium Level 2.2 MG/DL (1.8-2.4) Iron Level Pending Unsaturated Iron Binding Pending Ferritin Pending CA 15-3 Antigen Pending CA 125 Antigen Pending Prostate Specific Antigen Pending Vitamin B12 Level Pending Methylmalonic Acid Pending Folate Pending Thyroid Stimulating Hormone (TSH) Pending Hepatitis A IgM Antibody Pending Hepatitis B Surface Antigen Pending Hepatitis B Core IgM Antibody Pending Hepatitis C Antibody Pending HIV (1&2) Antibody Rapid Negative (NEGATIVE) Current Medications Medications (Trade) Dose Ordered Sig/Trey Route PRN Reason Start Time Stop Time Status Last Admin Dose Admin Acetaminophen (Tylenol) 650 mg Q4H PRN ORAL Mild Pain (Pain Scale 1-3) 04/26/17 00:45 05/26/17 00:44 Aspirin (ASA) 81 mg DAILY ORAL 04/26/17 09:00 05/26/17 08:59 04/28/17 08:40 Carvedilol (Coreg) 12.5 mg EVERY 12 HOURS ORAL 04/26/17 09:00 05/26/17 08:59 04/29/17 08:23 Ceftriaxone Sodium 2 gm/ Dextrose 55 ml @ 110 mls/hr Q24H IVPB 04/29/17 15:00 05/06/17 14:59 Clindamycin HCl/ Dextrose 50 ml @ 100 mls/hr Q8HR IV 04/26/17 13:00 05/03/17 12:59 04/28/17 22:00 Dextrose 1,000 ml @ 50 mls/hr Q20H IV 04/28/17 17:00 05/28/17 16:59 04/29/17 13:00 Dextrose (Dextrose 50%) STAT PRN IV Hypoglycemia 04/26/17 00:45 05/26/17 00:44 Divalproex Sodium (Depakote) 500 mg Q12HR ORAL 04/26/17 09:00 05/26/17 08:59 04/29/17 08:23 Famotidine (Pepcid) 20 mg DAILY ORAL 04/26/17 09:00 05/26/17 08:59 04/29/17 08:23 Levothyroxine Sodium (Synthroid) 100 mcg ACBREAKFAST ORAL 04/26/17 06:30 05/26/17 06:29 04/28/17 06:43 Meloxicam (Mobic) 15 mg DAILY ORAL 04/26/17 09:00 05/26/17 08:59 04/29/17 08:23 Morphine Sulfate (Morphine Sulfate) 1 mg Q3HR PRN IVP For Pain 04/26/17 00:45 05/03/17 00:44 Ondansetron HCl (Zofran) 4 mg Q6H PRN IVP Nausea & Vomiting 04/26/17 00:45 05/26/17 00:44 Propafenone HCl (Rythmol) 225 mg EVERY 8 HOURS ORAL 04/26/17 06:00 05/26/17 05:59 04/28/17 22:00 Quetiapine Fumarate (SEROquel) 100 mg DAILY ORAL 04/26/17 09:00 05/26/17 08:59 04/29/17 08:23 Vitamin B Complex/ Vit C/Folic Acid (Nephrovite) 1 tab DAILY ORAL 04/29/17 09:00 05/29/17 08:59 04/29/17 08:23 Zak Matos M.D. Apr 29, 2017 14:43
--- NOTE | 2017-04-29 15:18 | GI Initial Consult Note ---
Jeni Marino N.P. 04/29/17 1518: History of Present Illness General Date patient seen: Apr 29, 2017 Time patient seen: 11:00 Reason for Hospitalization: Altered Level of Consciousness Referring physician: LORIE Reason for Consultation: ANEMIA Present Illness HPI Patient is from a custodial. Patient is full code. Patient was transferred here with altered mental status and episodes of questionable vomiting. Patient was also noted to be hypotensive and prior by paramedics. Symptoms noted to be severe. 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 Patient apparently was weaker than usual. Symptoms noted to be severe. No other modifying factors. No other associated signs and symptoms. No other complaints were noted. GI consulted for anemia. HPI noted above. ROS limited, AMS. Pt seen on floor NAD with no active s/sx of N/V/D. Lab shows 2 gram drop in Hgb since yesterdays draw. Patient appears pale, pending blood transfusion at this time. No others s/sx of complaints noted at this time. Unknown history of endoscopies / colonoscopies. Home Meds Reported Medications Carvedilol* (CARVEDILOL*) 12.5 Mg Tablet, 12.5 MG ORAL EVERY 12 HOURS, TAB 04/25/17 Propafenone Hcl* (RHYTHMOL*) 150 Mg Tablet, 225 MG PO EVERY 8 HOURS, TAB 04/25/17 Levothyroxine Sodium* (LEVOTHYROXINE SODIUM*) 100 Mcg Tablet, 100 MCG ORAL DAILY , TAB Take in the morning on an empty stomach, at least 30 minutes before food. 04/25/17 Divalproex Sodium* (DEPAKOTE*) 250 Mg Tablet.dr, 500 MG PO Q12HR, TAB 04/25/17 Quetiapine Fumarate* (QUETIAPINE FUMARATE*) 50 Mg Tablet, 100 MG ORAL DAILY, TAB 04/25/17 Triamcinolone (TRIAMCINOLONE) 10 Gm Powder, MC, GM 04/25/17 Meloxicam* (MELOXICAM*) 15 Mg Tablet, 15 MG PO DAILY, TAB 04/25/17 Famotidine (FAMOTIDINE) 20 Mg Tablet, 20 MG ORAL DAILY, #30 TAB 0 Refills 04/25/17 Med list reviewed/reconciled: Yes Allergies: Coded Allergies: No Known Allergies (Unverified , 04/25/17) Patient History Limited by: medical condition History Provided By: Medical Record PMH Narrative Past Medical History: HTN, AFib, seizures Past Surgical History: none Pertinent Family History: none Social History: Denies: smoking, alcohol use, drug use Reviewed Nursing Documentation: PMH: Agreed, PSxH: Agreed Nursing Documentation-PMH Hx Cardiac Problems: Yes - AFIB Hx Hypertension: Yes Hx Seizures: Yes - Epilepsy Review of Systems All Other Systems: limited Physical Exam Vital Signs Date Time Temp Pulse Resp B/P (MAP) Pulse Ox O2 Delivery O2 Flow Rate FiO2 04/25/17 19:10 100.8 80 16 90/78 98 Room Air 04/25/17 21:02 21 Sp02 EP Interpretation: reviewed, normal Labs Laboratory Tests Test 04/29/17 04:50 04/29/17 13:25 White Blood Count 3.3 K/UL (4.8-10.8) L Red Blood Count 2.48 M/UL (4.70-6.10) L Hemoglobin 7.6 G/DL (14.2-18.0) L Hematocrit 23.4 % (42.0-52.0) L Mean Corpuscular Volume 95 FL (80-99) Mean Corpuscular Hemoglobin 30.8 PG (27.0-31.0) Mean Corpuscular Hemoglobin Concent 32.6 G/DL (32.0-36.0) Red Cell Distribution Width 16.6 % (11.6-14.8) H Platelet Count 38 K/UL (150-450) L Mean Platelet Volume 8.0 FL (6.5-10.1) Neutrophils (%) (Auto) % (45.0-75.0) Lymphocytes (%) (Auto) % (20.0-45.0) Monocytes (%) (Auto) % (1.0-10.0) Eosinophils (%) (Auto) % (0.0-3.0) Basophils (%) (Auto) % (0.0-2.0) Differential Total Cells Counted 100 Neutrophils % (Manual) 62 % (45-75) Lymphocytes % (Manual) 20 % (20-45) Monocytes % (Manual) 16 % (1-10) H Eosinophils % (Manual) 1 % (0-3) Basophils % (Manual) 1 % (0-2) Band Neutrophils 0 % (0-8) Platelet Estimate Decreased L Platelet Morphology Normal Hypochromasia 3+ Anisocytosis 1+ Spherocytes 2+ PTT Mixing Study Pending APTT Patient/Control Mix Pending Mix PTT Incubation Time Pending Mix PTT Normal/Saline 1:1 Immediate Pending Thrombin Time Normal Plasma Pending Sodium Level 153 MMOL/L (136-145) H Potassium Level 4.6 MMOL/L (3.5-5.1) Chloride Level 121 MMOL/L (98-107) H Carbon Dioxide Level 22 MMOL/L (21-32) Anion Gap 10 mmol/L (5-15) Blood Urea Nitrogen 72 mg/dL (7-18) H Creatinine 2.2 MG/DL (0.55-1.30) H Estimat Glomerular Filtration Rate mL/min (>60) Glucose Level 115 MG/DL (74-106) H Uric Acid 8.0 MG/DL (2.6-7.2) H Calcium Level 7.1 MG/DL (8.5-10.1) L Phosphorus Level 3.4 MG/DL (2.5-4.9) Magnesium Level 2.2 MG/DL (1.8-2.4) Iron Level 29 ug/dL (50-175) L Total Iron Binding Capacity 109 ug/dL (250-450) L Percent Iron Saturation 27 % (15-50) Unsaturated Iron Binding 80 ug/dL (112-346) L Ferritin 2235 NG/ML (8-388) H CA 15-3 Antigen Pending CA 125 Antigen Pending Prostate Specific Antigen 0.62 ng/mL (0.13-4.0) Vitamin B12 Level 1784 PG/ML (193-986) H Methylmalonic Acid Pending Folate 6.0 NG/ML (8.6-58.9) L Thyroid Stimulating Hormone (TSH) 1.353 uiU/mL (0.358-3.740) Hepatitis A IgM Antibody Pending Hepatitis B Surface Antigen Pending Hepatitis B Core IgM Antibody Pending Hepatitis C Antibody Pending HIV (1&2) Antibody Rapid Negative (NEGATIVE) Reticulocyte Count 0.2 % (0.0-2.0) General Appearance: no apparent distress, other - pale EENT: normal ENT inspection Neck: supple Respiratory: normal breath sounds, no respiratory distress Gastrointestinal: normal inspection, non tender, soft Skin: pallor Lymphatic: normal inspection, no adenopathy Current Medications Current Medications Medications (Trade) Dose Ordered Sig/Trey Route PRN Reason Start Time Stop Time Status Last Admin Dose Admin Acetaminophen (Tylenol) 650 mg Q4H PRN ORAL Mild Pain (Pain Scale 1-3) 04/26/17 00:45 05/26/17 00:44 Aspirin (ASA) 81 mg DAILY ORAL 04/26/17 09:00 05/26/17 08:59 04/28/17 08:40 Carvedilol (Coreg) 12.5 mg EVERY 12 HOURS ORAL 04/26/17 09:00 05/26/17 08:59 04/29/17 08:23 Ceftriaxone Sodium 2 gm/ Dextrose 55 ml @ 110 mls/hr Q24H IVPB 04/29/17 15:00 05/06/17 14:59 Dextrose 1,000 ml @ 50 mls/hr Q20H IV 04/28/17 17:00 05/28/17 16:59 04/29/17 13:00 Dextrose (Dextrose 50%) STAT PRN IV Hypoglycemia 04/26/17 00:45 05/26/17 00:44 Divalproex Sodium (Depakote) 500 mg Q12HR ORAL 04/26/17 09:00 05/26/17 08:59 04/29/17 08:23 Famotidine (Pepcid) 20 mg DAILY ORAL 04/26/17 09:00 05/26/17 08:59 04/29/17 08:23 Levothyroxine Sodium (Synthroid) 100 mcg ACBREAKFAST ORAL 04/26/17 06:30 05/26/17 06:29 04/28/17 06:43 Meloxicam (Mobic) 15 mg DAILY ORAL 04/26/17 09:00 05/26/17 08:59 04/29/17 08:23 Morphine Sulfate (Morphine Sulfate) 1 mg Q3HR PRN IVP For Pain 04/26/17 00:45 05/03/17 00:44 Ondansetron HCl (Zofran) 4 mg Q6H PRN IVP Nausea & Vomiting 04/26/17 00:45 05/26/17 00:44 Propafenone HCl (Rythmol) 225 mg EVERY 8 HOURS ORAL 04/26/17 06:00 05/26/17 05:59 04/28/17 22:00 Quetiapine Fumarate (SEROquel) 100 mg DAILY ORAL 04/26/17 09:00 05/26/17 08:59 04/29/17 08:23 Vitamin B Complex/ Vit C/Folic Acid (Nephrovite) 1 tab DAILY ORAL 04/29/17 09:00 05/29/17 08:59 04/29/17 08:23 GI: Plan Problems: (1) Dehydration (2) Anemia Plan defer GI procedures given elevated troponin levels anemia work up OB stool r/o GI bleed monitor H&H, prn transfusions keep Hgb > 8.0 bowel regime ppi cardiac diet OT evaluation folate PO electrolyte correction fu labs, tumor markers, hep panel Discussed with Dr. Newton. Thank you for this patient referral, we will follow. MARCUS NEWTON 05/01/17 0720: History of Present Illness General Reason for Hospitalization: Altered Level of Consciousness Present Illness Home Meds Reported Medications Carvedilol* (CARVEDILOL*) 12.5 Mg Tablet, 12.5 MG ORAL EVERY 12 HOURS, TAB 04/25/17 Propafenone Hcl* (RHYTHMOL*) 150 Mg Tablet, 225 MG PO EVERY 8 HOURS, TAB 04/25/17 Levothyroxine Sodium* (LEVOTHYROXINE SODIUM*) 100 Mcg Tablet, 100 MCG ORAL DAILY , TAB Take in the morning on an empty stomach, at least 30 minutes before food. 04/25/17 Divalproex Sodium* (DEPAKOTE*) 250 Mg Tablet.dr, 500 MG PO Q12HR, TAB 04/25/17 Quetiapine Fumarate* (QUETIAPINE FUMARATE*) 50 Mg Tablet, 100 MG ORAL DAILY, TAB 04/25/17 Triamcinolone (TRIAMCINOLONE) 10 Gm Powder, MC, GM 04/25/17 Meloxicam* (MELOXICAM*) 15 Mg Tablet, 15 MG PO DAILY, TAB 04/25/17 Famotidine (FAMOTIDINE) 20 Mg Tablet, 20 MG ORAL DAILY, #30 TAB 0 Refills 04/25/17 Allergies: Coded Allergies: No Known Allergies (Unverified , 04/25/17) GI: Plan Plan The patient was seen and examined at bedside and all new and available data was reviewed in the patients chart. I agree with the above findings, impression and plan. (Patient seen earlier today. Signature stamp does not reflect patient encounter time.). - [facility] Anselmo Brennan Apr 29, 2017 15:18 MARCUS NEWTON May 01, 2017 07:20
[2017-04-29 15:44] VITALS: BP 128/70
[2017-04-29] MEDS: cefTRIAXone 2 GM in D5W 55 ML IVPB SCH (16:49)
--- NOTE | 2017-04-29 17:10 | Cardiac Electrophysiology PN ---
Subjective Subjective [id number] VT, Troponin leak, HTN, PAF,Renal failure, hypernatyremia Objective Last 24 Hour Vital Signs Date Time Temp Pulse Resp B/P (MAP) Pulse Ox O2 Delivery O2 Flow Rate FiO2 04/29/17 16:03 68 04/29/17 15:44 98.1 70 18 128/70 98 Room Air 04/29/17 14:30 58 04/29/17 11:35 58 04/29/17 11:20 97.7 58 18 102/52 98 Room Air 04/29/17 08:23 72 116/70 04/29/17 07:33 97.7 72 18 116/70 98 Room Air 04/29/17 07:31 73 04/29/17 04:50 97.5 82 23 138/76 98 Room Air 04/29/17 04:00 71 04/29/17 00:00 97.3 65 18 98/43 96 Room Air 04/29/17 00:00 62 04/28/17 22:00 85 04/28/17 21:00 85 116/73 04/28/17 20:00 97.7 76 20 132/69 98 Room Air 04/28/17 20:00 72 04/28/17 20:00 97.7 85 20 116/73 98 Room Air 21 Intake and Output 04/28/17 04/29/17 19:00 07:00 Intake Total 350 ml Output Total 850 ml 1500 ml Balance -500 ml -1500 ml Intake Oral 350 ml Output Urine Total 850 ml 1500 ml Laboratory Tests Test 04/29/17 04:50 04/29/17 13:25 White Blood Count 3.3 K/UL (4.8-10.8) L Red Blood Count 2.48 M/UL (4.70-6.10) L Hemoglobin 7.6 G/DL (14.2-18.0) L Hematocrit 23.4 % (42.0-52.0) L Mean Corpuscular Volume 95 FL (80-99) Mean Corpuscular Hemoglobin 30.8 PG (27.0-31.0) Mean Corpuscular Hemoglobin Concent 32.6 G/DL (32.0-36.0) Red Cell Distribution Width 16.6 % (11.6-14.8) H Platelet Count 38 K/UL (150-450) L Mean Platelet Volume 8.0 FL (6.5-10.1) Neutrophils (%) (Auto) % (45.0-75.0) Lymphocytes (%) (Auto) % (20.0-45.0) Monocytes (%) (Auto) % (1.0-10.0) Eosinophils (%) (Auto) % (0.0-3.0) Basophils (%) (Auto) % (0.0-2.0) Differential Total Cells Counted 100 Neutrophils % (Manual) 62 % (45-75) Lymphocytes % (Manual) 20 % (20-45) Monocytes % (Manual) 16 % (1-10) H Eosinophils % (Manual) 1 % (0-3) Basophils % (Manual) 1 % (0-2) Band Neutrophils 0 % (0-8) Platelet Estimate Decreased L Platelet Morphology Normal Hypochromasia 3+ Anisocytosis 1+ Spherocytes 2+ PTT Mixing Study Pending APTT Patient/Control Mix Pending Mix PTT Incubation Time Pending Mix PTT Normal/Saline 1:1 Immediate Pending Thrombin Time Normal Plasma Pending Sodium Level 153 MMOL/L (136-145) H Potassium Level 4.6 MMOL/L (3.5-5.1) Chloride Level 121 MMOL/L (98-107) H Carbon Dioxide Level 22 MMOL/L (21-32) Anion Gap 10 mmol/L (5-15) Blood Urea Nitrogen 72 mg/dL (7-18) H Creatinine 2.2 MG/DL (0.55-1.30) H Estimat Glomerular Filtration Rate mL/min (>60) Glucose Level 115 MG/DL (74-106) H Uric Acid 8.0 MG/DL (2.6-7.2) H Calcium Level 7.1 MG/DL (8.5-10.1) L Phosphorus Level 3.4 MG/DL (2.5-4.9) Magnesium Level 2.2 MG/DL (1.8-2.4) Iron Level 29 ug/dL (50-175) L Total Iron Binding Capacity 109 ug/dL (250-450) L Percent Iron Saturation 27 % (15-50) Unsaturated Iron Binding 80 ug/dL (112-346) L Ferritin 2235 NG/ML (8-388) H CA 15-3 Antigen Pending CA 125 Antigen Pending Prostate Specific Antigen 0.62 ng/mL (0.13-4.0) Vitamin B12 Level 1784 PG/ML (193-986) H Methylmalonic Acid Pending Folate 6.0 NG/ML (8.6-58.9) L Thyroid Stimulating Hormone (TSH) 1.353 uiU/mL (0.358-3.740) Hepatitis A IgM Antibody Pending Hepatitis B Surface Antigen Pending Hepatitis B Core IgM Antibody Pending Hepatitis C Antibody Pending HIV (1&2) Antibody Rapid Negative (NEGATIVE) Reticulocyte Count 0.2 % (0.0-2.0) JARROD ESTRADA Apr 29, 2017 17:10
[2017-04-29 20:44] VITALS: BP 151/73
[2017-04-30] VITALS (9 sets, daily range): BP systolic 86–146; BP diastolic 50–75
[2017-04-30 04:40] LABS: HEMATOCRIT 28.3 % (42.0-52.0); HEMOGLOBIN 9.3 G/DL (14.2-18.0); MEAN CORPUSCULAR VOLUME 94 FL (80-99); PLATELET COUNT 43 K/UL (150-450); RED BLOOD COUNT 3.01 M/UL (4.70-6.10); RED CELL DISTRIBUTION WIDTH 16.3 % (11.6-14.8); WHITE BLOOD COUNT 4.5 K/UL (4.8-10.8)
[2017-04-30 04:59] LABS: ANION GAP 7 mmol/L (5-15); BLOOD UREA NITROGEN 63 mg/dL (7-18); CALCIUM 8.4 MG/DL (8.5-10.1); CARBON DIOXIDE 27 MMOL/L (21-32); CHLORIDE 120 MMOL/L (98-107); CREATININE 2.1 MG/DL (0.55-1.30); POTASSIUM 4.9 MMOL/L (3.5-5.1); SODIUM 154 MMOL/L (136-145)
[2017-04-30] MEDS: Meloxicam 15 MG TAB ORAL SCH (08:08)
[2017-04-30] MEDS: Nephrovite tab (Rena-Vite) ORAL SCH (08:08)
[2017-04-30] MEDS: Carvedilol 12.5mg tab ORAL SCH ×2 (08:08→20:31)
[2017-04-30] MEDS: Aspirin Baby 81mg ORAL SCH (08:09)
--- NOTE | 2017-04-30 08:20 | Pulmonology Progress Note ---
Assessment/Plan Assessment/Plan 1. Dehydration. 2. Renal failure. 3. Altered mental status. 4. Urinary tract infection. 5. Sepsis DISCUSSION: Respiratory status is stable. I agree with the use of antibiotics per ID. Continue oxygen and pulmonary hygiene. 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 Subjective Interval Events: Respiratory status stable Constitutional: Reports: no symptoms HEENT: Repors: no symptoms Respiratory: Reports: no symptoms Cardiovascular: Reports: no symptoms Gastrointestinal/Abdominal: Reports: no symptoms Allergies: Coded Allergies: No Known Allergies (Unverified , 04/25/17) Objective Last 24 Hour Vital Signs Date Time Temp Pulse Resp B/P (MAP) Pulse Ox O2 Delivery O2 Flow Rate FiO2 04/30/17 08:13 97.2 80 20 118/70 98 Room Air 04/30/17 08:08 80 118/70 04/30/17 06:08 65 04/30/17 04:27 97.3 65 20 142/73 98 Room Air 04/30/17 04:00 66 04/30/17 00:49 97.7 60 20 120/59 98 Room Air 04/30/17 00:00 56 04/29/17 21:32 70 04/29/17 21:32 70 151/73 04/29/17 20:44 97.5 70 21 151/73 98 Room Air 04/29/17 20:00 57 04/29/17 16:32 58 04/29/17 16:03 68 04/29/17 15:44 98.1 70 18 128/70 98 Room Air 04/29/17 14:30 58 04/29/17 11:35 58 04/29/17 11:20 97.7 58 18 102/52 98 Room Air 04/29/17 08:23 72 116/70 Intake and Output 04/29/17 04/30/17 19:00 07:00 Intake Total 990 ml Output Total 500 ml Balance 990 ml -500 ml Intake Oral 270 ml IV Total 720 ml Output Urine Total 500 ml General Appearance: no acute distress HEENT: normocephalic Respiratory/Chest: chest wall non-tender, lungs clear Cardiovascular: normal peripheral pulses, normal rate Abdomen: normal bowel sounds, soft, non tender Microbiology Date/Time Source Procedure Growth Status 04/28/17 14:42 Blood Blood Culture - Preliminary NO GROWTH AFTER 24 HOURS Resulted 04/28/17 14:35 Blood Blood Culture - Preliminary NO GROWTH AFTER 24 HOURS Resulted Laboratory Tests 04/29/17 13:25: Reticulocyte Count 0.2 04/29/17 16:30: Fibrinogen 435H, Lactic Acid Level 0.90 04/29/17 18:45: Troponin I 0.019 04/30/17 04:20: Troponin I 0.032, White Blood Count 4.5L, Red Blood Count 3.01L, Hemoglobin 9.3L , Hematocrit 28.3L, Mean Corpuscular Volume 94, Mean Corpuscular Hemoglobin 30.8 , Mean Corpuscular Hemoglobin Concent 32.8, Red Cell Distribution Width 16.3H, Platelet Count 43L, Mean Platelet Volume 7.5, Neutrophils (%) (Auto) , Lymphocytes (%) (Auto) , Monocytes (%) (Auto) , Eosinophils (%) (Auto) , Basophils (%) (Auto) , Neutrophils % (Manual) [Pending], Lymphocytes % (Manual) [Pending], Platelet Estimate [Pending], Platelet Morphology [Pending], Sodium Level 154H, Potassium Level 4.9, Chloride Level 120H, Carbon Dioxide Level 27, Anion Gap 7, Blood Urea Nitrogen 63H, Creatinine 2.1H, Estimat Glomerular Filtration Rate , Glucose Level 100, Calcium Level 8.4L, Pro-B-Type Natriuretic Peptide 9558H Current Medications Medications (Trade) Dose Ordered Sig/Trey Route PRN Reason Start Time Stop Time Status Last Admin Dose Admin Acetaminophen (Tylenol) 650 mg Q4H PRN ORAL Mild Pain (Pain Scale 1-3) 04/26/17 00:45 05/26/17 00:44 Aspirin (ASA) 81 mg DAILY ORAL 04/26/17 09:00 05/26/17 08:59 04/30/17 08:09 Carvedilol (Coreg) 12.5 mg EVERY 12 HOURS ORAL 04/26/17 09:00 05/26/17 08:59 04/30/17 08:08 Ceftriaxone Sodium 2 gm/ Dextrose 55 ml @ 110 mls/hr Q24H IVPB 04/29/17 15:00 05/06/17 14:59 04/29/17 16:49 Dextrose 1,000 ml @ 50 mls/hr Q20H IV 04/28/17 17:00 05/28/17 16:59 04/29/17 13:00 Dextrose (Dextrose 50%) STAT PRN IV Hypoglycemia 04/26/17 00:45 05/26/17 00:44 Divalproex Sodium (Depakote) 500 mg Q12HR ORAL 04/26/17 09:00 05/26/17 08:59 04/30/17 08:08 Famotidine (Pepcid) 20 mg DAILY ORAL 04/26/17 09:00 05/26/17 08:59 04/30/17 08:08 Folic Acid (Folate) 1 mg DAILY ORAL 04/30/17 09:00 05/30/17 08:59 04/30/17 08:13 Levothyroxine Sodium (Synthroid) 100 mcg ACBREAKFAST ORAL 04/26/17 06:30 05/26/17 06:29 04/30/17 06:09 Meloxicam (Mobic) 15 mg DAILY ORAL 04/26/17 09:00 05/26/17 08:59 04/30/17 08:08 Morphine Sulfate (Morphine Sulfate) 1 mg Q3HR PRN IVP For Pain 04/26/17 00:45 05/03/17 00:44 Ondansetron HCl (Zofran) 4 mg Q6H PRN IVP Nausea & Vomiting 04/26/17 00:45 05/26/17 00:44 Propafenone HCl (Rythmol) 225 mg EVERY 8 HOURS ORAL 04/26/17 06:00 05/26/17 05:59 04/30/17 06:08 Quetiapine Fumarate (SEROquel) 100 mg DAILY ORAL 04/26/17 09:00 05/26/17 08:59 04/30/17 08:07 Vitamin B Complex/ Vit C/Folic Acid (Nephrovite) 1 tab DAILY ORAL 04/29/17 09:00 05/29/17 08:59 04/30/17 08:08 Mitch Grace MD Apr 30, 2017 08:20
--- NOTE | 2017-04-30 09:43 | Consultation ---
DATE OF CONSULTATION: 04/29/2017 CARDIOLOGY CONSULTATION CONSULTING PHYSICIAN: Regan Singh M.D. REQUESTING PHYSICIAN: Guerrero Alonso M.D. REASON FOR CONSULTATION: Supraventricular tachycardia, hypertension, and atrial fibrillation. HISTORY OF PRESENT ILLNESS: The patient is a 81-year-old gentleman with hypertension, paroxysmal atrial fibrillation, and history of seizure disorder, was brought from care home for emesis. The patient was also altered and was hypotensive. The patient is nonverbal due to underlying dementia. Today, the patient had five beats of ventricular tachycardia and has Electrophysiology consultation obtained for further evaluation and management. PAST MEDICAL HISTORY: 1. Hypertension. 2. Paroxysmal atrial fibrillation. 3. Seizure disorder. 4. Dementia. MEDICATIONS: Per reconciliation. REVIEW OF SYSTEMS: Cannot be obtained as the patient is nonverbal. PHYSICAL EXAMINATION: VITAL SIGNS: Blood pressure is 128/70, pulse 58, respirations 18, and he is afebrile. HEAD AND NECK: Shows no JVD. LUNGS: Decreased breath sounds. CARDIOVASCULAR: Shows a regular S1 and S2 with no gallop or murmur. ABDOMEN: Soft. EXTREMITIES: Bilateral 1+ pitting edema. DIAGNOSTIC DATA: His telemetry strip showed runs of nonsustained ventricular tachycardia. Echocardiogram showed ejection fraction of 55% to 60%. His EKG shows sinus rhythm with nonspecific ST-T wave abnormalities. LABORATORY DATA: White count is 3.3, hemoglobin of 7.6, hematocrit 22.5, and platelet count of 138,000. Sodium is 153, potassium 4.6, BUN of 72, creatinine of 2.2, and glucose of 115. Troponin is 0.28. ASSESSMENT AND PLAN: 1. Nonsustained ventricular tachycardia. First troponin is negative. We will repeat a second troponin. His echocardiogram showed normal left ventricular systolic function. The patient at this time is nonverbal. We will avoid electrolyte abnormalities especially hypokalemia. Continue the patient on Coreg 12.5 mg b.i.d. 2. Paroxysmal atrial fibrillation, sinus rhythm, on aspirin and Coreg. Currently, he has remained in sinus rhythm while in the hospital. 3. Hypothyroidism, on Synthroid. 4. Anemia, followed by Dr. Streeter. Stool OB is being ordered. Thank you very much, Dr. Alonso, for allowing me to participate in the care of this patient. Please do not hesitate to contact me for any questions regarding my evaluation. It is also of note that the patient had renal failure troponin may be due to the patient's renal failure as well. Regan Singh M.D. DR: Maral JOB#: [id number] CC:
--- NOTE | 2017-04-30 09:43 | Consultation ---
DATE OF CONSULTATION: 04/29/2017 HEMATOLOGY/ONCOLOGY CONSULTATION CONSULTING PHYSICIAN: Rivera Christine M.D. REQUESTING PHYSICIAN: Guerrero Alonso M.D. REASON FOR CONSULTATION: Evaluation of pancytopenia. IDENTIFICATION DATA: Dear Dr. Alonso: The patient is a pleasant 81-year-old male with past medical history significant for dementia, hypothyroidism, and arthritis, who was brought in by ambulance from a shelter facility for altered mental status, found to be hypertensive and having nausea and vomiting at the shelter facility. Unable to give me any further history given dementia. CAT scan of the abdomen and pelvis reviewed shows urinary retention, Shirley catheter inserted, and has been seen by GI service. Anemia workup is pending. Seen by ID service as well, being treated for UTI and fever. Remains lethargic. Seen by Cardiology for the troponin leak. He has been by Nephrology service and given IV fluids to correct sodium at this time. Hematology service was consulted given pancytopenia. PAST MEDICAL HISTORY: As noted above. Seizure disorder, hypertension, and atrial fibrillation. PAST SURGICAL HISTORY: None noted. HOME MEDICATIONS: Reviewed. ALLERGIES: No known drug allergies. REVIEW OF SYSTEMS: A 12-point review of systems otherwise reviewed is negative. PHYSICAL EXAMINATION: GENERAL: No acute distress. VITAL SIGNS: Reviewed. PULMONARY: Decreased breath sounds. CARDIOVASCULAR: Regular rate. No S3 or S4. ABDOMEN: Soft, nontender, and nondistended. EXTREMITIES: 1+ edema. LABORATORY DATA: Folic acid of 6. Ferritin 2200. Percent saturation 27. TIBC 109. Sodium 153, chloride . pending. Hepatitis panel is pending. HIV negative. WBC 3.3, hemoglobin 7.6, and platelet count 38,000. Life-time summary reviewed. IMAGING: Pending. ASSESSMENT AND RECOMMENDATIONS: 1. Pancytopenia. Concerning for high-grade infection, which is possibly given urinary tract infection and healthcare-associated pneumonia, could be also secondary to myelodysplastic syndrome versus infiltrative process of the bone marrow. Recommend to monitor for several days. If it gets worse, consider bone marrow biopsy and anemia workup has been reviewed and transfuse if hemoglobin less than 7 and platelet count less than 20,000. If does not improve, I will again obtain a bone marrow biopsy by . 2. Anemia secondary to kidney disease. Continue to closely monitor. Creatinine elevated. 3. LEWIS. Being seen by Nephrology. 4. Nausea and vomiting. The patient is being evaluated by GI service. Occult blood is pending. 5. NSVT, being seen by Cardiology. 6. Dehydration. Administer fluids as needed. Pulmonary is following as well. I appreciate the consultation. Continue to follow. Rivera Christine M.D. DR: VINICIUS JOB#: [id number] CC:
--- NOTE | 2017-04-30 12:55 | GI Progress Note ---
Assessment/Plan Problems: (1) Dehydration ICD Codes: E86.0 - Dehydration SNOMED: 35325681, 237933543, 997789150 (2) Anemia ICD Codes: D64.9 - Anemia, unspecified SNOMED: 510481609 (3) Altered level of consciousness ICD Codes: R40.4 - Transient alteration of awareness SNOMED: 2234181 (4) Elevated troponin ICD Codes: R74.8 - Abnormal levels of other serum enzymes SNOMED: 302008448, 902677972, [id number] Status: unchanged Status Narrative Discussed with Dr. Streeter. Assessment/Plan defer GI procedures given elevated troponin levels OB stool r/o GI bleed monitor H&H, prn transfusions keep Hgb > 8.0 bowel regime ppi cardiac diet OT evaluation folate PO electrolyte correction fu labs, tumor markers, hep panel Subjective Subjective limited Objective Last 24 Hour Vital Signs Date Time Temp Pulse Resp B/P (MAP) Pulse Ox O2 Delivery O2 Flow Rate FiO2 04/30/17 12:08 97.1 61 20 100/60 98 Room Air 04/30/17 08:13 97.2 80 20 118/70 98 Room Air 04/30/17 08:08 80 118/70 04/30/17 07:58 79 04/30/17 06:08 65 04/30/17 04:27 97.3 65 20 142/73 98 Room Air 04/30/17 04:00 66 04/30/17 00:49 97.7 60 20 120/59 98 Room Air 04/30/17 00:00 56 04/29/17 21:32 70 04/29/17 21:32 70 151/73 04/29/17 20:44 97.5 70 21 151/73 98 Room Air 04/29/17 20:00 57 04/29/17 16:32 58 04/29/17 16:03 68 04/29/17 15:44 98.1 70 18 128/70 98 Room Air 04/29/17 14:30 58 Intake and Output 04/29/17 04/30/17 19:00 07:00 Intake Total 990 ml 50 ml Output Total 500 ml Balance 990 ml -450 ml Intake Oral 270 ml IV Total 720 ml 50 ml Output Urine Total 500 ml Laboratory Tests Test 04/29/17 13:25 04/29/17 16:30 04/29/17 18:45 1/10/18 04:20 Reticulocyte Count 0.2 % (0.0-2.0) Fibrinogen 435 mg/dL (200-400) H Lactic Acid Level 0.90 mmol/L (0.66-2.22) Troponin I 0.019 ng/mL (0.000-0.056) 0.032 ng/mL (0.000-0.056) White Blood Count 4.5 K/UL (4.8-10.8) L Red Blood Count 3.01 M/UL (4.70-6.10) L Hemoglobin 9.3 G/DL (14.2-18.0) L Hematocrit 28.3 % (42.0-52.0) L Mean Corpuscular Volume 94 FL (80-99) Mean Corpuscular Hemoglobin 30.8 PG (27.0-31.0) Mean Corpuscular Hemoglobin Concent 32.8 G/DL (32.0-36.0) Red Cell Distribution Width 16.3 % (11.6-14.8) H Platelet Count 43 K/UL (150-450) L Mean Platelet Volume 7.5 FL (6.5-10.1) Neutrophils (%) (Auto) % (45.0-75.0) Lymphocytes (%) (Auto) % (20.0-45.0) Monocytes (%) (Auto) % (1.0-10.0) Eosinophils (%) (Auto) % (0.0-3.0) Basophils (%) (Auto) % (0.0-2.0) Differential Total Cells Counted 100 Neutrophils % (Manual) 56 % (45-75) Lymphocytes % (Manual) 31 % (20-45) Monocytes % (Manual) 10 % (1-10) Eosinophils % (Manual) 0 % (0-3) Basophils % (Manual) 0 % (0-2) Myelocytes % 1 % (0-0) H Band Neutrophils 2 % (0-8) Platelet Estimate Decreased L Platelet Morphology Normal Sodium Level 154 MMOL/L (136-145) H Potassium Level 4.9 MMOL/L (3.5-5.1) Chloride Level 120 MMOL/L (98-107) H Carbon Dioxide Level 27 MMOL/L (21-32) Anion Gap 7 mmol/L (5-15) Blood Urea Nitrogen 63 mg/dL (7-18) H Creatinine 2.1 MG/DL (0.55-1.30) H Estimat Glomerular Filtration Rate mL/min (>60) Glucose Level 100 MG/DL (74-106) Calcium Level 8.4 MG/DL (8.5-10.1) L Pro-B-Type Natriuretic Peptide 9558 pg/mL (0-125) H Height (Feet): 6 Height (Inches): 0.00 Weight (Pounds): 190 General Appearance: no apparent distress, alert, other - more awake/alert today Cardiovascular: normal rate Respiratory/Chest: normal breath sounds, no respiratory distress Abdominal Exam: normal bowel sounds, non tender, soft Extremities: non-tender Jeni Marino N.P. Apr 30, 2017 12:55
[2017-04-30] MEDS: Sodium Chloride 500ML 500 ML IV SCH ×2 (13:35→13:42)
--- NOTE | 2017-04-30 13:57 | Infectious Diseases Prog Note ---
Assessment/Plan Problems: (1) UTI (urinary tract infection) Assessment & Plan: with E coli resistant to ampicillin and Bactrim, most likely the source of his sepsis , on ceftriaxon empirically pending identification and sensitivity (2) Fever Assessment & Plan: due to the above, resolved , continue tylenol prn (3) HCAP (healthcare-associated pneumonia) Assessment & Plan: due to serratia marcescens, improved on cefepime and clindamycin, influenza screening is negative , continue ceftriaxon only for two weeks (4) Sepsis Assessment & Plan: with E coli , on ceftriaxone , repeated blood culture is negative so far . will treat with ceftriaxon for two weeks starting from the clearance date (5) Altered level of consciousness Assessment & Plan: due to the above, recommend neurology eval and brain images (6) Elevated troponin Assessment & Plan: suspect ACS, cardiology is following (7) Dehydration Assessment & Plan: continue IVF, monitor urine out put, and renal function, avoid nephrotoxic meds (8) LEWIS (acute kidney injury) Assessment & Plan: due to the above , continue hydration, monitor renal function , nephrology is following (9) Anemia Assessment & Plan: rule out GI source, monitor H/H, transfuse blood as needed , GI is following Subjective Allergies: Coded Allergies: No Known Allergies (Unverified , 04/25/17) Subjective he was more awake and alert today than yesterday , still lethargic and weak , looking pale, was hypotensive earlier , responds to verbal commands , afebrile , no rectal bleeding. Objective Vital Signs Last 24 Hour Vital Signs Date Time Temp Pulse Resp B/P (MAP) Pulse Ox O2 Delivery O2 Flow Rate FiO2 04/30/17 13:35 58 04/30/17 13:00 60 18 86/50 97 Room Air 04/30/17 12:08 97.1 61 20 100/60 98 Room Air 04/30/17 11:44 66 04/30/17 08:13 97.2 80 20 118/70 98 Room Air 04/30/17 08:08 80 118/70 04/30/17 07:58 79 04/30/17 06:08 65 04/30/17 04:27 97.3 65 20 142/73 98 Room Air 04/30/17 04:00 66 04/30/17 00:49 97.7 60 20 120/59 98 Room Air 04/30/17 00:00 56 04/29/17 21:32 70 04/29/17 21:32 70 151/73 04/29/17 20:44 97.5 70 21 151/73 98 Room Air 04/29/17 20:00 57 04/29/17 16:32 58 04/29/17 16:03 68 04/29/17 15:44 98.1 70 18 128/70 98 Room Air 04/29/17 14:30 58 Height (Feet): 6 Height (Inches): 0.00 Weight (Pounds): 190 General Appearance: WD/WN, no acute distress, other - pale HEENT: normocephalic, atraumatic, anicteric, mucous membranes moist, PERRL Respiratory/Chest: chest wall non-tender, lungs clear, normal breath sounds, no respiratory distress, no accessory muscle use Cardiovascular: normal peripheral pulses, normal rate, regular rhythm, no gallop/murmur, no JVD Abdomen: normal bowel sounds, soft, non tender, no organomegaly, non distended , no mass, no scars Extremities: no cyanosis, no clubbing Skin: no rash, no lesions, no ulcers Neurologic/Psychiatric: alert, responsive Microbiology Date/Time Source Procedure Growth Status 04/28/17 14:42 Blood Blood Culture - Preliminary NO GROWTH AFTER 24 HOURS Resulted 04/28/17 14:35 Blood Blood Culture - Preliminary NO GROWTH AFTER 24 HOURS Resulted Laboratory Tests Test 04/29/17 16:30 04/29/17 18:45 04/30/17 04:20 Fibrinogen 435 mg/dL (200-400) H Lactic Acid Level 0.90 mmol/L (0.66-2.22) Troponin I 0.019 ng/mL (0.000-0.056) 0.032 ng/mL (0.000-0.056) White Blood Count 4.5 K/UL (4.8-10.8) L Red Blood Count 3.01 M/UL (4.70-6.10) L Hemoglobin 9.3 G/DL (14.2-18.0) L Hematocrit 28.3 % (42.0-52.0) L Mean Corpuscular Volume 94 FL (80-99) Mean Corpuscular Hemoglobin 30.8 PG (27.0-31.0) Mean Corpuscular Hemoglobin Concent 32.8 G/DL (32.0-36.0) Red Cell Distribution Width 16.3 % (11.6-14.8) H Platelet Count 43 K/UL (150-450) L Mean Platelet Volume 7.5 FL (6.5-10.1) Neutrophils (%) (Auto) % (45.0-75.0) Lymphocytes (%) (Auto) % (20.0-45.0) Monocytes (%) (Auto) % (1.0-10.0) Eosinophils (%) (Auto) % (0.0-3.0) Basophils (%) (Auto) % (0.0-2.0) Differential Total Cells Counted 100 Neutrophils % (Manual) 56 % (45-75) Lymphocytes % (Manual) 31 % (20-45) Monocytes % (Manual) 10 % (1-10) Eosinophils % (Manual) 0 % (0-3) Basophils % (Manual) 0 % (0-2) Myelocytes % 1 % (0-0) H Band Neutrophils 2 % (0-8) Platelet Estimate Decreased L Platelet Morphology Normal Sodium Level 154 MMOL/L (136-145) H Potassium Level 4.9 MMOL/L (3.5-5.1) Chloride Level 120 MMOL/L (98-107) H Carbon Dioxide Level 27 MMOL/L (21-32) Anion Gap 7 mmol/L (5-15) Blood Urea Nitrogen 63 mg/dL (7-18) H Creatinine 2.1 MG/DL (0.55-1.30) H Estimat Glomerular Filtration Rate mL/min (>60) Glucose Level 100 MG/DL (74-106) Calcium Level 8.4 MG/DL (8.5-10.1) L Pro-B-Type Natriuretic Peptide 9558 pg/mL (0-125) H Current Medications Medications (Trade) Dose Ordered Sig/Trey Route PRN Reason Start Time Stop Time Status Last Admin Dose Admin Acetaminophen (Tylenol) 650 mg Q4H PRN ORAL Mild Pain (Pain Scale 1-3) 04/26/17 00:45 05/26/17 00:44 Aspirin (ASA) 81 mg DAILY ORAL 04/26/17 09:00 05/26/17 08:59 04/30/17 08:09 Carvedilol (Coreg) 12.5 mg EVERY 12 HOURS ORAL 04/26/17 09:00 05/26/17 08:59 04/30/17 08:08 Ceftriaxone Sodium 2 gm/ Dextrose 55 ml @ 110 mls/hr Q24H IVPB 04/29/17 15:00 05/06/17 14:59 04/29/17 16:49 Dextrose 1,000 ml @ 50 mls/hr Q20H IV 04/28/17 17:00 05/28/17 16:59 04/30/17 09:06 Dextrose (Dextrose 50%) STAT PRN IV Hypoglycemia 04/26/17 00:45 05/26/17 00:44 Divalproex Sodium (Depakote) 500 mg Q12HR ORAL 04/26/17 09:00 05/26/17 08:59 04/30/17 08:08 Famotidine (Pepcid) 20 mg DAILY ORAL 04/26/17 09:00 05/26/17 08:59 04/30/17 08:08 Folic Acid (Folate) 1 mg DAILY ORAL 04/30/17 09:00 05/30/17 08:59 04/30/17 08:13 Levothyroxine Sodium (Synthroid) 100 mcg ACBREAKFAST ORAL 04/26/17 06:30 05/26/17 06:29 04/30/17 06:09 Meloxicam (Mobic) 15 mg DAILY ORAL 04/26/17 09:00 05/26/17 08:59 04/30/17 08:08 Morphine Sulfate (Morphine Sulfate) 1 mg Q3HR PRN IVP For Pain 04/26/17 00:45 05/03/17 00:44 Ondansetron HCl (Zofran) 4 mg Q6H PRN IVP Nausea & Vomiting 04/26/17 00:45 05/26/17 00:44 Propafenone HCl (Rythmol) 225 mg EVERY 8 HOURS ORAL 04/26/17 06:00 05/26/17 05:59 04/30/17 06:08 Quetiapine Fumarate (SEROquel) 100 mg DAILY ORAL 04/26/17 09:00 05/26/17 08:59 04/30/17 08:07 Sodium Chloride 500 ml @ 999 mls/hr Q31M IV 04/30/17 13:15 04/30/17 14:15 04/30/17 13:42 Vitamin B Complex/ Vit C/Folic Acid (Nephrovite) 1 tab DAILY ORAL 04/29/17 09:00 05/29/17 08:59 04/30/17 08:08 Zak Matos M.D. Apr 30, 2017 13:57
--- NOTE | 2017-04-30 14:18 | Diagnostic Imaging Report ---
Indication: Abdominal pain. Rule out mass. Cirrhosis. Technique: US ABD Complete; multiplanar grayscale and color Doppler imaging of the abdomen. Comparison: Correlation made to CT of the abdomen 04/25/2017 Findings: Imaged portions of the pancreatic head unremarkable in appearance. Pancreatic body and tail are not well seen. The liver is normal in size with the right lobe measuring 15 cm in length. Hepatic attenuation is homogeneous. No focal hepatic mass lesion is appreciated sonographically. The main portal vein is patent with normal direction of flow. The gallbladder is mildly distended and filled with layering echogenic sludge. The gallbladder wall is mildly thickened at 3.4 mm. There is trace pericholecystic fluid. There is no intrahepatic or extrahepatic biliary ductal dilatation. Common bile like measures 6.4 mm. Kidneys demonstrate normal parenchymal thickness and echogenicity and no hydronephrosis or sonographically appreciable renal mass bilaterally. The spleen is enlarged, measuring 14 cm in length. There is no ascites. Impression: Echogenic sludge in the gallbladder with minimal gallbladder wall thickening and trace pericholecystic fluid. Sonographic Resendez sign (either negative or positive) was not documented by the medicine technologist. Findings may be suggestive of a mild cholecystitis in the appropriate clinical setting. Confirmation with HIDA scan recommended. No focal liver mass lesion appreciated sonographically. Hepatic contour appears smooth.
--- NOTE | 2017-04-30 15:00 | Cardiac Electrophysiology PN ---
Assessment/Plan Assessment/Plan 1. Nonsustained ventricular tachycardia. Ruled out for OK. Echocardiogram showed normal left ventricular systolic function. The patient at this time is nonverbal. Continue Coreg 12.5 mg b.i.d. 2. Paroxysmal atrial fibrillation, in sinus rhythm, on aspirin and Coreg. 3. Hypothyroidism, on Synthroid. 4. Anemia, followed by Dr. Streeter. Stool OB is being ordered. 5. Dementia DW RN Subjective Subjective Comfortable had breakfast today.Now nonverbal. Objective Last 24 Hour Vital Signs Date Time Temp Pulse Resp B/P (MAP) Pulse Ox O2 Delivery O2 Flow Rate FiO2 04/30/17 14:42 60 18 86/50 97 Room Air 04/30/17 14:15 64 95/52 04/30/17 13:35 58 04/30/17 13:00 60 18 86/50 97 Room Air 04/30/17 12:08 97.1 61 20 100/60 98 Room Air 04/30/17 11:44 66 04/30/17 08:13 97.2 80 20 118/70 98 Room Air 04/30/17 08:08 80 118/70 04/30/17 07:58 79 04/30/17 06:08 65 04/30/17 04:27 97.3 65 20 142/73 98 Room Air 04/30/17 04:00 66 04/30/17 00:49 97.7 60 20 120/59 98 Room Air 04/30/17 00:00 56 04/29/17 21:32 70 04/29/17 21:32 70 151/73 04/29/17 20:44 97.5 70 21 151/73 98 Room Air 04/29/17 20:00 57 04/29/17 16:32 58 04/29/17 16:03 68 04/29/17 15:44 98.1 70 18 128/70 98 Room Air Intake and Output 04/29/17 04/30/17 19:00 07:00 Intake Total 990 ml 50 ml Output Total 500 ml Balance 990 ml -450 ml Intake Oral 270 ml IV Total 720 ml 50 ml Output Urine Total 500 ml Laboratory Tests Test 04/29/17 16:30 04/29/17 18:45 04/30/17 04:20 Fibrinogen 435 mg/dL (200-400) H Lactic Acid Level 0.90 mmol/L (0.66-2.22) Troponin I 0.019 ng/mL (0.000-0.056) 0.032 ng/mL (0.000-0.056) White Blood Count 4.5 K/UL (4.8-10.8) L Red Blood Count 3.01 M/UL (4.70-6.10) L Hemoglobin 9.3 G/DL (14.2-18.0) L Hematocrit 28.3 % (42.0-52.0) L Mean Corpuscular Volume 94 FL (80-99) Mean Corpuscular Hemoglobin 30.8 PG (27.0-31.0) Mean Corpuscular Hemoglobin Concent 32.8 G/DL (32.0-36.0) Red Cell Distribution Width 16.3 % (11.6-14.8) H Platelet Count 43 K/UL (150-450) L Mean Platelet Volume 7.5 FL (6.5-10.1) Neutrophils (%) (Auto) % (45.0-75.0) Lymphocytes (%) (Auto) % (20.0-45.0) Monocytes (%) (Auto) % (1.0-10.0) Eosinophils (%) (Auto) % (0.0-3.0) Basophils (%) (Auto) % (0.0-2.0) Differential Total Cells Counted 100 Neutrophils % (Manual) 56 % (45-75) Lymphocytes % (Manual) 31 % (20-45) Monocytes % (Manual) 10 % (1-10) Eosinophils % (Manual) 0 % (0-3) Basophils % (Manual) 0 % (0-2) Myelocytes % 1 % (0-0) H Band Neutrophils 2 % (0-8) Platelet Estimate Decreased L Platelet Morphology Normal Sodium Level 154 MMOL/L (136-145) H Potassium Level 4.9 MMOL/L (3.5-5.1) Chloride Level 120 MMOL/L (98-107) H Carbon Dioxide Level 27 MMOL/L (21-32) Anion Gap 7 mmol/L (5-15) Blood Urea Nitrogen 63 mg/dL (7-18) H Creatinine 2.1 MG/DL (0.55-1.30) H Estimat Glomerular Filtration Rate mL/min (>60) Glucose Level 100 MG/DL (74-106) Calcium Level 8.4 MG/DL (8.5-10.1) L Pro-B-Type Natriuretic Peptide 9558 pg/mL (0-125) H Microbiology Date/Time Source Procedure Growth Status 04/28/17 14:42 Blood Blood Culture - Preliminary NO GROWTH AFTER 24 HOURS Resulted 04/28/17 14:35 Blood Blood Culture - Preliminary NO GROWTH AFTER 24 HOURS Resulted Objective HEAD AND NECK: Shows no JVD. LUNGS: Decreased breath sounds. CARDIOVASCULAR: Regular S1 and S2 with no gallop or murmur. ABDOMEN: Soft. EXTREMITIES: Bilateral 1+ pitting edema. JARROD ESTRADA Apr 30, 2017 15:00
--- NOTE | 2017-04-30 15:33 | Nephrology Progress Note ---
Assessment/Plan Problem List: (1) Dehydration (2) Sepsis (3) UTI (urinary tract infection) (4) Altered level of consciousness (5) HCAP (healthcare-associated pneumonia) (6) LEWIS (acute kidney injury) Assessment: Improved on current IVF (7) Urinary retention (8) Hypernatremia (9) Hyperkalemia Assessment: Resolved (10) Elevated troponin (11) Pancytopenia Plan Continue current treatment plan Change IVF to D5W to correct sodium Monitor intake and output Monitor renal function, improved on IVF Renally dose meds, avoid nephrotoxins Continue arnold Monitor lytes, correct prn Encourage fluids Abx per ID Cardio following, will follow up with recs Hematology following Monitor temp AM labs Subjective ROS Limited/Unobtainable: Yes Subjective In bed, in no apparent distress Objective Objective Last 24 Hour Vital Signs Date Time Temp Pulse Resp B/P (MAP) Pulse Ox O2 Delivery O2 Flow Rate FiO2 04/30/17 15:26 97.5 71 18 128/62 98 Room Air 04/30/17 14:15 64 95/52 04/30/17 13:35 58 04/30/17 13:00 60 18 86/50 97 Room Air 04/30/17 12:08 97.1 61 20 100/60 98 Room Air 04/30/17 11:44 66 04/30/17 08:13 97.2 80 20 118/70 98 Room Air 04/30/17 08:08 80 118/70 04/30/17 07:58 79 04/30/17 06:08 65 04/30/17 04:27 97.3 65 20 142/73 98 Room Air 04/30/17 04:00 66 04/30/17 00:49 97.7 60 20 120/59 98 Room Air 04/30/17 00:00 56 04/29/17 21:32 70 04/29/17 21:32 70 151/73 04/29/17 20:44 97.5 70 21 151/73 98 Room Air 04/29/17 20:00 57 04/29/17 16:32 58 04/29/17 16:03 68 04/29/17 15:44 98.1 70 18 128/70 98 Room Air Intake and Output 04/29/17 04/30/17 19:00 07:00 Intake Total 990 ml 50 ml Output Total 500 ml Balance 990 ml -450 ml Intake Oral 270 ml IV Total 720 ml 50 ml Output Urine Total 500 ml Laboratory Tests 04/29/17 16:30: Fibrinogen 435H, Lactic Acid Level 0.90 04/29/17 18:45: Troponin I 0.019 04/30/17 04:20: Troponin I 0.032, White Blood Count 4.5L, Red Blood Count 3.01L, Hemoglobin 9.3L , Hematocrit 28.3L, Mean Corpuscular Volume 94, Mean Corpuscular Hemoglobin 30.8 , Mean Corpuscular Hemoglobin Concent 32.8, Red Cell Distribution Width 16.3H, Platelet Count 43L, Mean Platelet Volume 7.5, Neutrophils (%) (Auto) , Lymphocytes (%) (Auto) , Monocytes (%) (Auto) , Eosinophils (%) (Auto) , Basophils (%) (Auto) , Differential Total Cells Counted 100, Neutrophils % ( Manual) 56, Lymphocytes % (Manual) 31, Monocytes % (Manual) 10, Eosinophils % ( Manual) 0, Basophils % (Manual) 0, Myelocytes % 1H, Band Neutrophils 2, Platelet Estimate DecreasedL, Platelet Morphology Normal, Sodium Level 154H, Potassium Level 4.9, Chloride Level 120H, Carbon Dioxide Level 27, Anion Gap 7, Blood Urea Nitrogen 63H, Creatinine 2.1H, Estimat Glomerular Filtration Rate , Glucose Level 100, Calcium Level 8.4L, Pro-B-Type Natriuretic Peptide 9558H Height (Feet): 6 Height (Inches): 0.00 Weight (Pounds): 190 General Appearance: no apparent distress, alert EENT: normal ENT inspection Neck: normal alignment, supple Cardiovascular: normal rate Respiratory/Chest: decreased breath sounds Abdomen: non tender, soft Genitourinary/Rectal: other - arnold Extremities: moderate edema Neurologic: motor weakness, disoriented Glenis Meza N.P. Apr 30, 2017 15:33
[2017-04-30] MEDS: cefTRIAXone 2 GM in D5W 55 ML IVPB SCH (16:15)
--- NOTE | 2017-04-30 17:34 | Neurology Progress Note ---
Interim History Interim History ROS Limited/Unobtainable: Yes Objective Physical Exam Last Vital Signs Date Time Temp Pulse Resp B/P (MAP) Pulse Ox O2 Delivery O2 Flow Rate FiO2 04/30/17 16:00 56 04/30/17 15:26 97.5 18 128/62 98 Room Air 04/28/17 20:00 21 Laboratory Tests Test 04/29/17 18:45 04/30/17 04:20 Troponin I 0.019 ng/mL (0.000-0.056) 0.032 ng/mL (0.000-0.056) White Blood Count 4.5 K/UL (4.8-10.8) L Red Blood Count 3.01 M/UL (4.70-6.10) L Hemoglobin 9.3 G/DL (14.2-18.0) L Hematocrit 28.3 % (42.0-52.0) L Mean Corpuscular Volume 94 FL (80-99) Mean Corpuscular Hemoglobin 30.8 PG (27.0-31.0) Mean Corpuscular Hemoglobin Concent 32.8 G/DL (32.0-36.0) Red Cell Distribution Width 16.3 % (11.6-14.8) H Platelet Count 43 K/UL (150-450) L Mean Platelet Volume 7.5 FL (6.5-10.1) Neutrophils (%) (Auto) % (45.0-75.0) Lymphocytes (%) (Auto) % (20.0-45.0) Monocytes (%) (Auto) % (1.0-10.0) Eosinophils (%) (Auto) % (0.0-3.0) Basophils (%) (Auto) % (0.0-2.0) Differential Total Cells Counted 100 Neutrophils % (Manual) 56 % (45-75) Lymphocytes % (Manual) 31 % (20-45) Monocytes % (Manual) 10 % (1-10) Eosinophils % (Manual) 0 % (0-3) Basophils % (Manual) 0 % (0-2) Myelocytes % 1 % (0-0) H Band Neutrophils 2 % (0-8) Platelet Estimate Decreased L Platelet Morphology Normal Sodium Level 154 MMOL/L (136-145) H Potassium Level 4.9 MMOL/L (3.5-5.1) Chloride Level 120 MMOL/L (98-107) H Carbon Dioxide Level 27 MMOL/L (21-32) Anion Gap 7 mmol/L (5-15) Blood Urea Nitrogen 63 mg/dL (7-18) H Creatinine 2.1 MG/DL (0.55-1.30) H Estimat Glomerular Filtration Rate mL/min (>60) Glucose Level 100 MG/DL (74-106) Calcium Level 8.4 MG/DL (8.5-10.1) L Pro-B-Type Natriuretic Peptide 9558 pg/mL (0-125) H Impression/Recommendations Status: unchanged Recommendations #[id number] IVETT SANDOVAL Apr 30, 2017 17:34
[2017-04-30] MEDS: Docusate 100mg/10ml Liq NG SCH (20:30)
--- NOTE | 2017-04-30 23:31 | General Progress Note ---
Assessment/Plan Assessment/Plan 1. Pancytopenia. Concerning for high-grade infection, which is possibly given urinary tract infection and healthcare-associated pneumonia, could be also secondary to myelodysplastic syndrome versus infiltrative process of the bone marrow. Recommend to monitor for several days. If it gets worse, consider bone marrow biopsy and anemia workup has been reviewed and transfuse if hemoglobin less than 7 and platelet count less than 20,000. If does not improve, I will again obtain a bone marrow biopsy by . --> HIV panel negative 2. Anemia secondary to kidney disease. Continue to closely monitor. Creatinine elevated. --> S/P Blood transfusion. 3. LEWIS. Being seen by Nephrology. 4. Nausea and vomiting. The patient is being evaluated by GI service. Occult blood is pending. 5. NSVT, being seen by Cardiology. 6. Dehydration. Administer fluids as needed. Pulmonary is following as well. Subjective Date patient seen: Apr 30, 2017 Constitutional: Denies: no symptoms, chills, diaphoresis, fever, malaise, weakness, other HEENT: Denies: no symptoms, eye pain, blurred vision, tearing, double vision, ear pain, ear discharge, nose pain, nose congestion, throat pain, throat swelling, mouth pain, mouth swelling, other Cardiovascular: Denies: no symptoms, chest pain, edema, irregular heart rate, lightheadedness, palpitations, syncope, other Respiratory: Denies: no symptoms, cough, orthopnea, shortness of breath, SOB with excertion, SOB at rest, sputum, stridor, wheezing, other Gastrointestinal/Abdominal: Denies: no symptoms, abdomen distended, abdominal pain, black stools, tarry stools, blood in stool, constipated, diarrhea, difficulty swallowing, nausea, poor appetite, poor fluid intake, rectal bleeding , vomiting, other Hematologic/Lymphatic: Reports: other - pancytopenia Allergies: Coded Allergies: No Known Allergies (Unverified , 04/25/17) Subjective S/P blood transfusion. On pain control. Resting in bed Objective Last 24 Hour Vital Signs Date Time Temp Pulse Resp B/P (MAP) Pulse Ox O2 Delivery O2 Flow Rate FiO2 04/30/17 21:50 87 04/30/17 20:31 87 146/75 04/30/17 20:00 69 04/30/17 20:00 97.7 87 20 146/75 96 04/30/17 15:26 97.5 71 18 128/62 98 Room Air 04/30/17 15:11 56 04/30/17 14:15 64 95/52 04/30/17 13:35 58 04/30/17 13:00 60 18 86/50 97 Room Air 04/30/17 12:08 97.1 61 20 100/60 98 Room Air 04/30/17 11:44 66 04/30/17 08:13 97.2 80 20 118/70 98 Room Air 04/30/17 08:08 80 118/70 04/30/17 07:58 79 04/30/17 06:08 65 04/30/17 04:27 97.3 65 20 142/73 98 Room Air 04/30/17 04:00 66 04/30/17 00:49 97.7 60 20 120/59 98 Room Air 04/30/17 00:00 56 Intake and Output 04/29/17 04/30/17 19:00 07:00 Intake Total 990 ml 50 ml Output Total 500 ml Balance 990 ml -450 ml Intake Oral 270 ml IV Total 720 ml 50 ml Output Urine Total 500 ml Laboratory Tests 04/30/17 04:20: White Blood Count 4.5L, Red Blood Count 3.01L, Hemoglobin 9.3L, Hematocrit 28.3L , Mean Corpuscular Volume 94, Mean Corpuscular Hemoglobin 30.8, Mean Corpuscular Hemoglobin Concent 32.8, Red Cell Distribution Width 16.3H, Platelet Count 43L, Mean Platelet Volume 7.5, Neutrophils (%) (Auto) , Lymphocytes (%) (Auto) , Monocytes (%) (Auto) , Eosinophils (%) (Auto) , Basophils (%) (Auto) , Differential Total Cells Counted 100, Neutrophils % ( Manual) 56, Lymphocytes % (Manual) 31, Monocytes % (Manual) 10, Eosinophils % ( Manual) 0, Basophils % (Manual) 0, Myelocytes % 1H, Band Neutrophils 2, Platelet Estimate DecreasedL, Platelet Morphology Normal, Sodium Level 154H, Potassium Level 4.9, Chloride Level 120H, Carbon Dioxide Level 27, Anion Gap 7, Blood Urea Nitrogen 63H, Creatinine 2.1H, Estimat Glomerular Filtration Rate , Glucose Level 100, Calcium Level 8.4L, Troponin I 0.032, Pro-B-Type Natriuretic Peptide 9558H Height (Feet): 6 Height (Inches): 0.00 Weight (Pounds): 190 General Appearance: no apparent distress EENT: normal ENT inspection Cardiovascular: normal rate Respiratory/Chest: lungs clear Abdomen: soft Edema: mild edema Rivera Christine Apr 30, 2017 23:31
[2017-05-01] VITALS: BP 122/81
[2017-05-01 04:00] VITALS: BP 136/74
--- NOTE | 2017-05-01 04:30 | Consultation ---
DATE OF CONSULTATION: 04/30/2017 NEUROLOGICAL CONSULTATION CONSULTING PHYSICIAN: Rafi Monroy M.D. REQUESTING PHYSICIAN: Guerrero Alonso M.D. HISTORY OF PRESENT ILLNESS: The patient is a 81-year-old man, resident of a nursing facility, seen in neurological consultation to evaluate the fluctuating significant changes in level of consciousness. The patient was unable to provide with any history. This was compiled from medical records as well as from my conversations with the medical staff. The patient apparently was brought to this hospital after he developed changes in mental status with episodes of vomiting, hypotension, and generalized weakness. Admission blood pressure was 90/78, temperature 100.8. Laboratory work was obtained. This revealed CBC studies with hemoglobin 8.4, hematocrit 26.9, and platelet count 43,000. Normal coagulation panel. Urinalysis, 10-15 WBCs, many bacteria, and 3+ leukocyte esterase. Chemistry panel with 6.0, BUN of 92, creatinine 3.8, and blood sugar 122. AST 76. CPK 1112. Troponin 0.91. BNP is 9757. He had normal TSH . The patient was diagnosed UTI with fever, sepsis, dehydration, and acute renal failure. Started on IV fluids and antibiotics. The patient was noted to have significant blood pressure fluctuation, hypotension, while becoming less responsive. 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 His vital signs this morning included blood pressure 86/50. He was given extra fluid and blood pressure went up to 128/62. He remained afebrile, although temperature was 97.1 and heart rate of 58. With changes in mental status, Neurology consult was requested for further assessment and treatment. PAST MEDICAL HISTORY: The patient has a history of atrial fibrillation, history of seizure disorder, history of hypothyroidism, dementia, and degenerative joint disease. MEDICATIONS: His treatment on admission included carvedilol, Depakote 500 mg b.i.d., famotidine, levothyroxine, meloxicam, Rythmol, quetiapine 100 mg daily, and triamcinolone. Current treatment though still continue with the Seroquel. The patient is on Depakote 500 b.i.d. and aspirin. ALLERGIES: None reported. FAMILY HISTORY: Noncontributory. SOCIAL HISTORY: The patient resides in a nursing facility. There is no evidence of alcohol or drug abuse. REVIEW OF SYMPTOMS: Unable to obtain due to the patient's status who was telling that he is feeling well. PHYSICAL EXAMINATION: GENERAL: A well-developed, ill-appearing, pale, elderly man, lying in bed, now awake with eyes open. VITAL SIGNS: His heart rate of 56 and blood pressure 122/62. HEENT: Head, normocephalic. No evidence of injuries. Eyes, ears, nose, and throat are clear. NECK: Supple. No meningeal signs. MUSCULOSKELETAL: Unremarkable. There is no deformities. Peripheral pulses 1+ and symmetric. MENTAL STATUS: The patient is alert, has a brief eye contact. He was able to give his age and name, but not provided with any history. He has very limited verbal output. Confused and disoriented. CRANIAL NERVE II: Pupils both responding to light and accommodation. Extraocular movements intact. No nystagmus. CRANIAL NERVE V: Normal corneal responses. CRANIAL NERVE VII: No facial asymmetry. CRANIAL NERVE VIII: Normal hearing. CRANIAL NERVES IX THROUGH XII: Within normal limits. MOTOR EXAMINATION: Revealed diffuse rigidity, resisting with a good strength, 5/5 in all limbs. Deep tendon reflexes 2+ bilaterally. Plantar response is mute. SENSORY EXAMINATION: Withdrawing to pin stimulation. GAIT: Not tested. 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 Urinary tract infection, urosepsis. 2. Intermittent obtundation, most likely represented hypotensive episodes with cerebral hypoperfusion in the setting of underlying infection and metabolic derangement. 3. No evidence of seizure disorder. 4. History of behavioral abnormalities. 5. History of paroxysmal atrial fibrillation, maintained on aspirin and Coreg. 6. History of hypothyroidism. 7. Chronic anemia. DISCUSSION: 1. We will obtain CT of the brain for baseline. 2. Observe for any paroxysmal events. 3. Avoid sedatives. We will maintain on quetiapine down to 25 mg at bedtime p.r.n. only. 4. Continue with Depakote 500 mg b.i.d., which will be corrected when blood levels are present. 5. The patient has significant hypotensive fluctuations. This should be monitored properly. Maintain systolic blood pressure above 110 and below 140. Thank you for allowing me to see this interesting patient in neurological consultation. Rafi Sophie Monroy DR: ELIER JOB#: [id number] CC:
[2017-05-01 07:34] VITALS: BP 126/56
[2017-05-01] MEDS: Aspirin Baby 81mg ORAL SCH (07:52)
[2017-05-01] MEDS: Nephrovite tab (Rena-Vite) ORAL SCH (07:52)
[2017-05-01] MEDS: Meloxicam 15 MG TAB ORAL SCH (07:53)
[2017-05-01] MEDS: Carvedilol 12.5mg tab ORAL SCH ×2 (07:53→20:48)
[2017-05-01] MEDS: Docusate 100mg/10ml Liq NG SCH ×3 (07:59→17:14)
[2017-05-01 09:16] LABS: HEMOGLOBIN 8.6 G/DL (14.2-18.0); MEAN CORPUSCULAR VOLUME 95 FL (80-99); PLATELET COUNT 45 K/UL (150-450); RED BLOOD COUNT 2.85 M/UL (4.70-6.10); RED CELL DISTRIBUTION WIDTH 16.2 % (11.6-14.8); WHITE BLOOD COUNT 5.3 K/UL (4.8-10.8)
[2017-05-01 09:26] LABS: ANION GAP 8 mmol/L (5-15); BLOOD UREA NITROGEN 50 mg/dL (7-18); CALCIUM 7.9 MG/DL (8.5-10.1); CARBON DIOXIDE 23 MMOL/L (21-32); CHLORIDE 119 MMOL/L (98-107); CREATININE 1.6 MG/DL (0.55-1.30); POTASSIUM 4.5 MMOL/L (3.5-5.1); SODIUM 150 MMOL/L (136-145)
[2017-05-01] MEDS ORDERED: Miralax 17gm pkt ORAL ONE (10:00)
[2017-05-01 10:26] LABS: APTT 1:1 MIX SALINE 46.2 sec (Not Estab.); APTT 1:1 NORMAL PLASMA 25.3 sec (22.9-30.2)
[2017-05-01 12:00] VITALS: BP 102/58
--- NOTE | 2017-05-01 12:43 | GI Progress Note ---
Assessment/Plan Problems: (1) Dehydration ICD Codes: E86.0 - Dehydration SNOMED: 53082802, 641251284, 063792753 (2) Anemia ICD Codes: D64.9 - Anemia, unspecified SNOMED: 379436399 (3) Altered level of consciousness ICD Codes: R40.4 - Transient alteration of awareness SNOMED: 9830313 (4) Elevated troponin ICD Codes: R74.8 - Abnormal levels of other serum enzymes SNOMED: 532449199, 385997281, 718664300 Status: stable, progressing Status Narrative Discussed with Dr. Streeter. Assessment/Plan hep panel >> negative defer GI procedures given elevated troponin levels OB stool r/o GI bleed monitor H&H, prn transfusions keep Hgb > 8.0 bowel regime ppi cardiac diet, tolerating OT evaluation folate PO electrolyte correction fu labs, tumor markers The patient was seen and examined at bedside and all new and available data was reviewed in the patients chart. I agree with the above findings, impression and plan. (Patient seen earlier today. Signature stamp does not reflect patient encounter time.). - Yesi Streeter MD Subjective Subjective limited Objective Last 24 Hour Vital Signs Date Time Temp Pulse Resp B/P (MAP) Pulse Ox O2 Delivery O2 Flow Rate FiO2 05/01/17 07:53 70 126/56 05/01/17 07:34 98.1 70 18 126/56 96 Room Air 05/01/17 07:23 75 05/01/17 06:07 73 05/01/17 04:00 73 05/01/17 04:00 Room Air 05/01/17 04:00 97.0 72 18 136/74 97 05/01/17 00:00 97.7 68 18 122/81 96 05/01/17 00:00 Room Air 05/01/17 00:00 58 04/30/17 21:50 87 04/30/17 20:31 87 146/75 04/30/17 20:00 Room Air 04/30/17 20:00 69 04/30/17 20:00 97.7 87 20 146/75 96 04/30/17 15:26 97.5 71 18 128/62 98 Room Air 04/30/17 15:11 56 04/30/17 14:15 64 95/52 04/30/17 13:35 58 04/30/17 13:00 60 18 86/50 97 Room Air Intake and Output 04/30/17 05/01/17 19:00 07:00 Intake Total 3168 ml 744 ml Output Total 400 ml 700 ml Balance 2768 ml 44 ml Intake Oral 390 ml IV Total 2778 ml 744 ml Output Urine Total 400 ml 700 ml Laboratory Tests Test 05/01/17 08:10 White Blood Count 5.3 K/UL (4.8-10.8) Red Blood Count 2.85 M/UL (4.70-6.10) L Hemoglobin 8.6 G/DL (14.2-18.0) L Hematocrit 27.0 % (42.0-52.0) L Mean Corpuscular Volume 95 FL (80-99) Mean Corpuscular Hemoglobin 30.0 PG (27.0-31.0) Mean Corpuscular Hemoglobin Concent 31.7 G/DL (32.0-36.0) L Red Cell Distribution Width 16.2 % (11.6-14.8) H Platelet Count 45 K/UL (150-450) L Mean Platelet Volume 7.4 FL (6.5-10.1) Neutrophils (%) (Auto) % (45.0-75.0) Lymphocytes (%) (Auto) % (20.0-45.0) Monocytes (%) (Auto) % (1.0-10.0) Eosinophils (%) (Auto) % (0.0-3.0) Basophils (%) (Auto) % (0.0-2.0) Differential Total Cells Counted 100 Neutrophils % (Manual) 63 % (45-75) Lymphocytes % (Manual) 25 % (20-45) Monocytes % (Manual) 9 % (1-10) Eosinophils % (Manual) 2 % (0-3) Basophils % (Manual) 1 % (0-2) Band Neutrophils 0 % (0-8) Platelet Estimate Decreased L Platelet Morphology Normal Hypochromasia 2+ Sodium Level 150 MMOL/L (136-145) H Potassium Level 4.5 MMOL/L (3.5-5.1) Chloride Level 119 MMOL/L (98-107) H Carbon Dioxide Level 23 MMOL/L (21-32) Anion Gap 8 mmol/L (5-15) Blood Urea Nitrogen 50 mg/dL (7-18) H Creatinine 1.6 MG/DL (0.55-1.30) H Estimat Glomerular Filtration Rate mL/min (>60) Glucose Level 102 MG/DL (74-106) Calcium Level 7.9 MG/DL (8.5-10.1) L Height (Feet): 6 Height (Inches): 0.00 Weight (Pounds): 190 General Appearance: WD/WN, no apparent distress, alert, other - OOB Cardiovascular: normal rate Respiratory/Chest: normal breath sounds, no respiratory distress Abdominal Exam: normal bowel sounds, non tender, soft Extremities: non-tender Jeni Marino N.P. May 01, 2017 12:[address] May 02, 2017 12:05
[2017-05-01] MEDS: Albumin Human 25% 100ml IV SCH ×2 (13:35→14:56)
[2017-05-01] MEDS: cefTRIAXone 2 GM in D5W 55 ML IVPB SCH (13:35)
--- NOTE | 2017-05-01 13:53 | Pulmonology Progress Note ---
Assessment/Plan Assessment/Plan 1. Dehydration. 2. Renal failure. 3. Altered mental status. 4. Urinary tract infection. 5. Sepsis DISCUSSION: Respiratory status is stable. I agree with the use of antibiotics per ID. Continue oxygen and pulmonary hygiene. 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 Subjective Interval Events: no new reported events. Constitutional: Reports: no symptoms HEENT: Repors: no symptoms Respiratory: Reports: no symptoms Cardiovascular: Reports: no symptoms Allergies: Coded Allergies: No Known Allergies (Unverified , 04/25/17) Objective Last 24 Hour Vital Signs Date Time Temp Pulse Resp B/P (MAP) Pulse Ox O2 Delivery O2 Flow Rate FiO2 05/01/17 13:23 58 05/01/17 12:00 97.5 58 18 102/58 99 Room Air 05/01/17 11:39 60 05/01/17 07:53 70 126/56 05/01/17 07:34 98.1 70 18 126/56 96 Room Air 05/01/17 07:23 75 05/01/17 06:07 73 05/01/17 04:00 73 05/01/17 04:00 Room Air 05/01/17 04:00 97.0 72 18 136/74 97 05/01/17 00:00 97.7 68 18 122/81 96 05/01/17 00:00 Room Air 05/01/17 00:00 58 04/30/17 21:50 87 04/30/17 20:31 87 146/75 04/30/17 20:00 Room Air 04/30/17 20:00 69 04/30/17 20:00 97.7 87 20 146/75 96 04/30/17 15:26 97.5 71 18 128/62 98 Room Air 04/30/17 15:11 56 04/30/17 14:15 64 95/52 Intake and Output 04/30/17 05/01/17 19:00 07:00 Intake Total 3168 ml 744 ml Output Total 400 ml 700 ml Balance 2768 ml 44 ml Intake Oral 390 ml IV Total 2778 ml 744 ml Output Urine Total 400 ml 700 ml General Appearance: no acute distress HEENT: normocephalic Respiratory/Chest: chest wall non-tender, lungs clear Cardiovascular: normal peripheral pulses, normal rate Abdomen: normal bowel sounds Microbiology Date/Time Source Procedure Growth Status 04/29/17 13:00 Blood Blood Culture - Preliminary NO GROWTH AFTER 24 HOURS Resulted 04/29/17 12:50 Blood Blood Culture - Preliminary NO GROWTH AFTER 24 HOURS Resulted 04/28/17 14:42 Blood Blood Culture - Preliminary NO GROWTH AFTER 48 HOURS Resulted 04/28/17 14:35 Blood Blood Culture - Preliminary NO GROWTH AFTER 48 HOURS Resulted Laboratory Tests 05/01/17 08:10: White Blood Count 5.3, Red Blood Count 2.85L, Hemoglobin 8.6L, Hematocrit 27.0L , Mean Corpuscular Volume 95, Mean Corpuscular Hemoglobin 30.0, Mean Corpuscular Hemoglobin Concent 31.7L, Red Cell Distribution Width 16.2H, Platelet Count 45L, Mean Platelet Volume 7.4, Neutrophils (%) (Auto) , Lymphocytes (%) (Auto) , Monocytes (%) (Auto) , Eosinophils (%) (Auto) , Basophils (%) (Auto) , Differential Total Cells Counted 100, Neutrophils % ( Manual) 63, Lymphocytes % (Manual) 25, Monocytes % (Manual) 9, Eosinophils % ( Manual) 2, Basophils % (Manual) 1, Band Neutrophils 0, Platelet Estimate DecreasedL, Platelet Morphology Normal, Hypochromasia 2+, Sodium Level 150H, Potassium Level 4.5, Chloride Level 119H, Carbon Dioxide Level 23, Anion Gap 8, Blood Urea Nitrogen 50H, Creatinine 1.6H, Estimat Glomerular Filtration Rate , Glucose Level 102, Calcium Level 7.9L Current Medications Medications (Trade) Dose Ordered Sig/Trey Route PRN Reason Start Time Stop Time Status Last Admin Dose Admin Acetaminophen (Tylenol) 650 mg Q4H PRN ORAL Mild Pain (Pain Scale 1-3) 04/26/17 00:45 05/26/17 00:44 Albumin Human (Albumisol) 100 ml Q1H IV 05/01/17 13:30 05/01/17 14:31 05/01/17 13:35 Aspirin (ASA) 81 mg DAILY ORAL 04/26/17 09:00 05/26/17 08:59 05/01/17 07:52 Carvedilol (Coreg) 12.5 mg EVERY 12 HOURS ORAL 04/26/17 09:00 05/26/17 08:59 05/01/17 07:53 Ceftriaxone Sodium 2 gm/ Dextrose 55 ml @ 110 mls/hr Q24H IVPB 1/9/18 15:00 05/06/17 14:59 05/01/17 13:35 Dextrose 1,000 ml @ 80 mls/hr [id number] IV 04/30/17 14:00 05/30/17 13:59 05/01/17 11:05 Dextrose (Dextrose 50%) STAT PRN IV Hypoglycemia 04/26/17 00:45 05/26/17 00:44 Divalproex Sodium (Depakote) 500 mg Q12HR ORAL 04/26/17 09:00 05/26/17 08:59 05/01/17 07:53 Docusate Sodium (Colace) 100 mg THREE TIMES A DAY NG 04/30/17 20:00 05/30/17 19:59 05/01/17 12:46 Famotidine (Pepcid) 20 mg DAILY ORAL 04/26/17 09:00 05/26/17 08:59 05/01/17 07:53 Folic Acid (Folate) 1 mg DAILY ORAL 04/30/17 09:00 05/30/17 08:59 05/01/17 07:59 Levothyroxine Sodium (Synthroid) 100 mcg ACBREAKFAST ORAL 04/26/17 06:30 05/26/17 06:29 05/01/17 06:07 Meloxicam (Mobic) 15 mg DAILY ORAL 04/26/17 09:00 05/26/17 08:59 05/01/17 07:53 Morphine Sulfate (Morphine Sulfate) 1 mg Q3HR PRN IVP For Pain 04/26/17 00:45 05/03/17 00:44 Ondansetron HCl (Zofran) 4 mg Q6H PRN IVP Nausea & Vomiting 04/26/17 00:45 05/26/17 00:44 Polyethylene Glycol (Miralax) 17 gm DAILY PRN ORAL Constipation 05/02/17 09:00 06/01/17 08:59 Propafenone HCl (Rythmol) 225 mg EVERY 8 HOURS ORAL 04/26/17 06:00 05/26/17 05:59 05/01/17 06:07 Quetiapine Fumarate (SEROquel) 25 mg BEDTIME PRN ORAL agitation 04/30/17 21:00 05/26/17 08:59 Vitamin B Complex/ Vit C/Folic Acid (Nephrovite) 1 tab DAILY ORAL 04/29/17 09:00 05/29/17 08:59 05/01/17 07:52 Mitch Grace MD May 01, 2017 13:53
--- NOTE | 2017-05-01 15:20 | Infectious Diseases Prog Note ---
Assessment/Plan Problems: (1) UTI (urinary tract infection) Assessment & Plan: with E coli resistant to ampicillin and Bactrim, most likely the source of his sepsis , on ceftriaxon for two weeks (2) Fever Assessment & Plan: due to the above, resolved , continue tylenol prn (3) HCAP (healthcare-associated pneumonia) Assessment & Plan: due to serratia marcescens, improved on cefepime and clindamycin, influenza screening is negative , continue ceftriaxon only for two weeks (4) Sepsis Assessment & Plan: with E coli , on ceftriaxone , repeated blood culture is negative so far . will treat with ceftriaxon for two weeks starting from the clearance date (5) Altered level of consciousness Assessment & Plan: due to the above, recommend neurology eval and brain images (6) Elevated troponin Assessment & Plan: suspect ACS, cardiology is following (7) Dehydration Assessment & Plan: continue IVF, monitor urine out put, and renal function, avoid nephrotoxic meds (8) LEWIS (acute kidney injury) Assessment & Plan: due to the above , continue hydration, monitor renal function , nephrology is following (9) Anemia Assessment & Plan: rule out GI source, monitor H/H, transfuse blood as needed , GI is following Subjective ROS Limited/Unobtainable: Yes Allergies: Coded Allergies: No Known Allergies (Unverified , 04/25/17) Subjective he was more awake and alert today than yesterday , not hypotensive , responds to verbal commands well , afebrile , no rectal bleeding. Objective Vital Signs Last 24 Hour Vital Signs Date Time Temp Pulse Resp B/P (MAP) Pulse Ox O2 Delivery O2 Flow Rate FiO2 05/01/17 13:23 58 05/01/17 12:00 97.5 58 18 102/58 99 Room Air 05/01/17 11:39 60 05/01/17 07:53 70 126/56 05/01/17 07:34 98.1 70 18 126/56 96 Room Air 05/01/17 07:23 75 05/01/17 06:07 73 05/01/17 04:00 73 05/01/17 04:00 Room Air 05/01/17 04:00 97.0 72 18 136/74 97 05/01/17 00:00 97.7 68 18 122/81 96 05/01/17 00:00 Room Air 05/01/17 00:00 58 04/30/17 21:50 87 04/30/17 20:31 87 146/75 04/30/17 20:00 Room Air 04/30/17 20:00 69 04/30/17 20:00 97.7 87 20 146/75 96 04/30/17 15:26 97.5 71 18 128/62 98 Room Air Height (Feet): 6 Height (Inches): 0.00 Weight (Pounds): 190 General Appearance: WD/WN, no acute distress HEENT: normocephalic, atraumatic, anicteric, mucous membranes moist, PERRL, EOMI, pharynx normal, supple, no JVD Respiratory/Chest: chest wall non-tender, lungs clear, normal breath sounds, no respiratory distress, no accessory muscle use Cardiovascular: normal peripheral pulses, normal rate, regular rhythm, no gallop/murmur, no JVD Abdomen: normal bowel sounds, soft, non tender, no organomegaly, non distended , no mass, no scars Extremities: no cyanosis, no clubbing Skin: no rash, no lesions, no ulcers Neurologic/Psychiatric: alert, responsive Microbiology Date/Time Source Procedure Growth Status 04/29/17 13:00 Blood Blood Culture - Preliminary NO GROWTH AFTER 24 HOURS Resulted 04/29/17 12:50 Blood Blood Culture - Preliminary NO GROWTH AFTER 24 HOURS Resulted Laboratory Tests Test 05/01/17 08:10 White Blood Count 5.3 K/UL (4.8-10.8) Red Blood Count 2.85 M/UL (4.70-6.10) L Hemoglobin 8.6 G/DL (14.2-18.0) L Hematocrit 27.0 % (42.0-52.0) L Mean Corpuscular Volume 95 FL (80-99) Mean Corpuscular Hemoglobin 30.0 PG (27.0-31.0) Mean Corpuscular Hemoglobin Concent 31.7 G/DL (32.0-36.0) L Red Cell Distribution Width 16.2 % (11.6-14.8) H Platelet Count 45 K/UL (150-450) L Mean Platelet Volume 7.4 FL (6.5-10.1) Neutrophils (%) (Auto) % (45.0-75.0) Lymphocytes (%) (Auto) % (20.0-45.0) Monocytes (%) (Auto) % (1.0-10.0) Eosinophils (%) (Auto) % (0.0-3.0) Basophils (%) (Auto) % (0.0-2.0) Differential Total Cells Counted 100 Neutrophils % (Manual) 63 % (45-75) Lymphocytes % (Manual) 25 % (20-45) Monocytes % (Manual) 9 % (1-10) Eosinophils % (Manual) 2 % (0-3) Basophils % (Manual) 1 % (0-2) Band Neutrophils 0 % (0-8) Platelet Estimate Decreased L Platelet Morphology Normal Hypochromasia 2+ Sodium Level 150 MMOL/L (136-145) H Potassium Level 4.5 MMOL/L (3.5-5.1) Chloride Level 119 MMOL/L (98-107) H Carbon Dioxide Level 23 MMOL/L (21-32) Anion Gap 8 mmol/L (5-15) Blood Urea Nitrogen 50 mg/dL (7-18) H Creatinine 1.6 MG/DL (0.55-1.30) H Estimat Glomerular Filtration Rate mL/min (>60) Glucose Level 102 MG/DL (74-106) Calcium Level 7.9 MG/DL (8.5-10.1) L Current Medications Medications (Trade) Dose Ordered Sig/Trey Route PRN Reason Start Time Stop Time Status Last Admin Dose Admin Acetaminophen (Tylenol) 650 mg Q4H PRN ORAL Mild Pain (Pain Scale 1-3) 04/26/17 00:45 05/26/17 00:44 Aspirin (ASA) 81 mg DAILY ORAL 04/26/17 09:00 05/26/17 08:59 05/01/17 07:52 Carvedilol (Coreg) 12.5 mg EVERY 12 HOURS ORAL 04/26/17 09:00 05/26/17 08:59 05/01/17 07:53 Ceftriaxone Sodium 2 gm/ Dextrose 55 ml @ 110 mls/hr Q24H IVPB 04/29/17 15:00 05/06/17 14:59 05/01/17 13:35 Dextrose 1,000 ml @ 80 mls/hr [id number] IV 04/30/17 14:00 05/30/17 13:59 05/01/17 11:05 Dextrose (Dextrose 50%) STAT PRN IV Hypoglycemia 04/26/17 00:45 05/26/17 00:44 Divalproex Sodium (Depakote) 500 mg Q12HR ORAL 04/26/17 09:00 05/26/17 08:59 05/01/17 07:53 Docusate Sodium (Colace) 100 mg THREE TIMES A DAY NG 04/30/17 20:00 05/30/17 19:59 05/01/17 12:46 Famotidine (Pepcid) 20 mg DAILY ORAL 04/26/17 09:00 05/26/17 08:59 05/01/17 07:53 Folic Acid (Folate) 1 mg DAILY ORAL 04/30/17 09:00 05/30/17 08:59 05/01/17 07:59 Levothyroxine Sodium (Synthroid) 100 mcg ACBREAKFAST ORAL 04/26/17 06:30 05/26/17 06:29 05/01/17 06:07 Meloxicam (Mobic) 15 mg DAILY ORAL 04/26/17 09:00 05/26/17 08:59 05/01/17 07:53 Morphine Sulfate (Morphine Sulfate) 1 mg Q3HR PRN IVP For Pain 04/26/17 00:45 05/03/17 00:44 Ondansetron HCl (Zofran) 4 mg Q6H PRN IVP Nausea & Vomiting 04/26/17 00:45 05/26/17 00:44 Polyethylene Glycol (Miralax) 17 gm DAILY PRN ORAL Constipation 05/02/17 09:00 06/01/17 08:59 Propafenone HCl (Rythmol) 225 mg EVERY 8 HOURS ORAL 04/26/17 06:00 05/26/17 05:59 05/01/17 06:07 Quetiapine Fumarate (SEROquel) 25 mg BEDTIME PRN ORAL agitation 04/30/17 21:00 05/26/17 08:59 Vitamin B Complex/ Vit C/Folic Acid (Nephrovite) 1 tab DAILY ORAL 04/29/17 09:00 05/29/17 08:59 05/01/17 07:52 Zak Matos M.D. May 01, 2017 15:20
--- NOTE | 2017-05-01 15:58 | Cardiac Electrophysiology PN ---
Assessment/Plan Assessment/Plan 1. Nonsustained ventricular tachycardia. Ruled out for IN. Echocardiogram showed normal EF. More talkative today but confused. Continue Coreg 12.5 mg b.i.d. 2. Paroxysmal atrial fibrillation, in sinus rhythm, on aspirin and Coreg. 3. Hypothyroidism, on Synthroid. 4. Anemia, followed by Dr. Streeter. Stool OB still pending 5. Dementia DW RN Subjective Subjective Comfortable in NAD. No arrhythmias on tele. Objective Last 24 Hour Vital Signs Date Time Temp Pulse Resp B/P (MAP) Pulse Ox O2 Delivery O2 Flow Rate FiO2 05/01/17 13:23 58 05/01/17 12:00 97.5 58 18 102/58 99 Room Air 05/01/17 11:39 60 05/01/17 07:53 70 126/56 05/01/17 07:34 98.1 70 18 126/56 96 Room Air 05/01/17 07:23 75 05/01/17 06:07 73 05/01/17 04:00 73 05/01/17 04:00 Room Air 05/01/17 04:00 97.0 72 18 136/74 97 05/01/17 00:00 97.7 68 18 122/81 96 05/01/17 00:00 Room Air 05/01/17 00:00 58 04/30/17 21:50 87 04/30/17 20:31 87 146/75 04/30/17 20:00 Room Air 04/30/17 20:00 69 04/30/17 20:00 97.7 87 20 146/75 96 Intake and Output 04/30/17 05/01/17 19:00 07:00 Intake Total 3168 ml 744 ml Output Total 400 ml 700 ml Balance 2768 ml 44 ml Intake Oral 390 ml IV Total 2778 ml 744 ml Output Urine Total 400 ml 700 ml Laboratory Tests Test 05/01/17 08:10 White Blood Count 5.3 K/UL (4.8-10.8) Red Blood Count 2.85 M/UL (4.70-6.10) L Hemoglobin 8.6 G/DL (14.2-18.0) L Hematocrit 27.0 % (42.0-52.0) L Mean Corpuscular Volume 95 FL (80-99) Mean Corpuscular Hemoglobin 30.0 PG (27.0-31.0) Mean Corpuscular Hemoglobin Concent 31.7 G/DL (32.0-36.0) L Red Cell Distribution Width 16.2 % (11.6-14.8) H Platelet Count 45 K/UL (150-450) L Mean Platelet Volume 7.4 FL (6.5-10.1) Neutrophils (%) (Auto) % (45.0-75.0) Lymphocytes (%) (Auto) % (20.0-45.0) Monocytes (%) (Auto) % (1.0-10.0) Eosinophils (%) (Auto) % (0.0-3.0) Basophils (%) (Auto) % (0.0-2.0) Differential Total Cells Counted 100 Neutrophils % (Manual) 63 % (45-75) Lymphocytes % (Manual) 25 % (20-45) Monocytes % (Manual) 9 % (1-10) Eosinophils % (Manual) 2 % (0-3) Basophils % (Manual) 1 % (0-2) Band Neutrophils 0 % (0-8) Platelet Estimate Decreased L Platelet Morphology Normal Hypochromasia 2+ Sodium Level 150 MMOL/L (136-145) H Potassium Level 4.5 MMOL/L (3.5-5.1) Chloride Level 119 MMOL/L (98-107) H Carbon Dioxide Level 23 MMOL/L (21-32) Anion Gap 8 mmol/L (5-15) Blood Urea Nitrogen 50 mg/dL (7-18) H Creatinine 1.6 MG/DL (0.55-1.30) H Estimat Glomerular Filtration Rate mL/min (>60) Glucose Level 102 MG/DL (74-106) Calcium Level 7.9 MG/DL (8.5-10.1) L Microbiology Date/Time Source Procedure Growth Status 04/29/17 13:00 Blood Blood Culture - Preliminary NO GROWTH AFTER 24 HOURS Resulted 04/29/17 12:50 Blood Blood Culture - Preliminary NO GROWTH AFTER 24 HOURS Resulted Objective HEAD AND NECK: Shows no JVD. LUNGS: Decreased breath sounds. CARDIOVASCULAR: Regular S1 and S2 with no gallop or murmur. ABDOMEN: Soft. EXTREMITIES: Bilateral 1+ pitting edema. JARROD ESTRADA May 01, 2017 15:58
[2017-05-01 16:48] VITALS: BP 140/62
--- NOTE | 2017-05-01 20:35 | General Progress Note ---
Assessment/Plan Assessment/Plan 1. Pancytopenia. Infection related versus viral versus bone marrow disorder --> have discussed with pathologist, obtain a bone marrow biopsy, pending for Friday --> HIV panel negative, hepatitis negative as well 2. Anemia secondary to kidney disease. Continue to closely monitor. Creatinine elevated. --> S/P Blood transfusion. --> improved 3. LEWIS. Being seen by Nephrology. 4. Nausea and vomiting. The patient is being evaluated by GI service. --> Occult blood is negative 5. NSVT, being seen by Cardiology. 6. Dehydration. Administer fluids as needed. Pulmonary is following as well. Subjective HEENT: Reports: no symptoms Cardiovascular: Reports: no symptoms Respiratory: Reports: no symptoms Gastrointestinal/Abdominal: Reports: no symptoms Genitourinary: Reports: no symptoms Neurologic/Psychiatric: Reports: no symptoms Endocrine: Reports: no symptoms Hematologic/Lymphatic: Reports: anemia Allergies: Coded Allergies: No Known Allergies (Unverified , 04/25/17) Subjective S/P blood transfusion. On pain control. Resting in bed Objective Last 24 Hour Vital Signs Date Time Temp Pulse Resp B/P (MAP) Pulse Ox O2 Delivery O2 Flow Rate FiO2 05/01/17 16:48 97.5 70 18 140/62 99 Room Air 05/01/17 15:13 71 05/01/17 13:23 58 05/01/17 12:00 97.5 58 18 102/58 99 Room Air 05/01/17 11:39 60 05/01/17 07:53 70 126/56 05/01/17 07:34 98.1 70 18 126/56 96 Room Air 05/01/17 07:23 75 05/01/17 06:07 73 05/01/17 04:00 73 05/01/17 04:00 Room Air 05/01/17 04:00 97.0 72 18 136/74 97 05/01/17 00:00 97.7 68 18 122/81 96 05/01/17 00:00 Room Air 05/01/17 00:00 58 04/30/17 21:50 87 Intake and Output 04/30/17 05/01/17 19:00 07:00 Intake Total 3168 ml 744 ml Output Total 400 ml 700 ml Balance 2768 ml 44 ml Intake Oral 390 ml IV Total 2778 ml 744 ml Output Urine Total 400 ml 700 ml Laboratory Tests 05/01/17 08:10: White Blood Count 5.3, Red Blood Count 2.85L, Hemoglobin 8.6L, Hematocrit 27.0L , Mean Corpuscular Volume 95, Mean Corpuscular Hemoglobin 30.0, Mean Corpuscular Hemoglobin Concent 31.7L, Red Cell Distribution Width 16.2H, Platelet Count 45L, Mean Platelet Volume 7.4, Neutrophils (%) (Auto) , Lymphocytes (%) (Auto) , Monocytes (%) (Auto) , Eosinophils (%) (Auto) , Basophils (%) (Auto) , Differential Total Cells Counted 100, Neutrophils % ( Manual) 63, Lymphocytes % (Manual) 25, Monocytes % (Manual) 9, Eosinophils % ( Manual) 2, Basophils % (Manual) 1, Band Neutrophils 0, Platelet Estimate DecreasedL, Platelet Morphology Normal, Hypochromasia 2+, Sodium Level 150H, Potassium Level 4.5, Chloride Level 119H, Carbon Dioxide Level 23, Anion Gap 8, Blood Urea Nitrogen 50H, Creatinine 1.6H, Estimat Glomerular Filtration Rate , Glucose Level 102, Calcium Level 7.9L Height (Feet): 6 Height (Inches): 0.00 Weight (Pounds): 190 General Appearance: alert EENT: TMs normal Neck: supple Cardiovascular: regular rhythm Respiratory/Chest: normal breath sounds Abdomen: non tender Extremities: normal range of motion Edema: 1+ Leg (L), 1+ Leg (R) Edema: mild edema Rivera Christine May 01, 2017 20:35
[2017-05-01 20:50] VITALS: BP 141/74
[2017-05-01] MEDS ORDERED: Pneumococcal Vaccine 25mcg/0.5ml IM ONE (21:00)
--- NOTE | 2017-05-01 22:00 | Nephrology Progress Note ---
Assessment/Plan Problem List: (1) Dehydration (2) Fever (3) UTI (urinary tract infection) (4) Sepsis (5) Altered level of consciousness (6) HCAP (healthcare-associated pneumonia) (7) LEWIS (acute kidney injury) (8) Hyperkalemia (9) Urinary retention (10) Hypernatremia (11) Anemia (12) Pancytopenia Plan cont d5w. heme onc following. pending bm bx. cardio following. monitor labs. Subjective Subjective events noted. BP better. More alert. Objective Objective Last 24 Hour Vital Signs Date Time Temp Pulse Resp B/P (MAP) Pulse Ox O2 Delivery O2 Flow Rate FiO2 05/01/17 21:40 83 05/01/17 20:50 98.1 83 18 141/74 95 Room Air 05/01/17 20:48 83 141/74 05/01/17 16:48 97.5 70 18 140/62 99 Room Air 05/01/17 15:13 71 05/01/17 13:23 58 05/01/17 12:00 97.5 58 18 102/58 99 Room Air 05/01/17 11:39 60 05/01/17 07:53 70 126/56 05/01/17 07:34 98.1 70 18 126/56 96 Room Air 05/01/17 07:23 75 05/01/17 06:07 73 05/01/17 04:00 73 05/01/17 04:00 Room Air 05/01/17 04:00 97.0 72 18 136/74 97 05/01/17 00:00 97.7 68 18 122/81 96 05/01/17 00:00 Room Air 05/01/17 00:00 58 Intake and Output 04/30/17 05/01/17 19:00 07:00 Intake Total 3168 ml 744 ml Output Total 400 ml 700 ml Balance 2768 ml 44 ml Intake Oral 390 ml IV Total 2778 ml 744 ml Output Urine Total 400 ml 700 ml Laboratory Tests 05/01/17 08:10: White Blood Count 5.3, Red Blood Count 2.85L, Hemoglobin 8.6L, Hematocrit 27.0L , Mean Corpuscular Volume 95, Mean Corpuscular Hemoglobin 30.0, Mean Corpuscular Hemoglobin Concent 31.7L, Red Cell Distribution Width 16.2H, Platelet Count 45L, Mean Platelet Volume 7.4, Neutrophils (%) (Auto) , Lymphocytes (%) (Auto) , Monocytes (%) (Auto) , Eosinophils (%) (Auto) , Basophils (%) (Auto) , Differential Total Cells Counted 100, Neutrophils % ( Manual) 63, Lymphocytes % (Manual) 25, Monocytes % (Manual) 9, Eosinophils % ( Manual) 2, Basophils % (Manual) 1, Band Neutrophils 0, Platelet Estimate DecreasedL, Platelet Morphology Normal, Hypochromasia 2+, Sodium Level 150H, Potassium Level 4.5, Chloride Level 119H, Carbon Dioxide Level 23, Anion Gap 8, Blood Urea Nitrogen 50H, Creatinine 1.6H, Estimat Glomerular Filtration Rate , Glucose Level 102, Calcium Level 7.9L Height (Feet): 6 Height (Inches): 0.00 Weight (Pounds): 190 General Appearance: no apparent distress Cardiovascular: normal rate, regular rhythm Respiratory/Chest: decreased breath sounds Abdomen: non tender, soft Extremities: non-pitting Neurologic: alert REUBEN POE May 01, 2017 22:00
[2017-05-02 00:14] VITALS: BP 124/60
[2017-05-02 04:08] VITALS: BP 132/61
[2017-05-02 08:00] VITALS: BP 135/60
[2017-05-02 08:34] LABS: ANION GAP 7 mmol/L (5-15); BLOOD UREA NITROGEN 39 mg/dL (7-18); CALCIUM 8.1 MG/DL (8.5-10.1); CARBON DIOXIDE 24 MMOL/L (21-32); CHLORIDE 116 MMOL/L (98-107); CREATININE 1.3 MG/DL (0.55-1.30); POTASSIUM 4.5 MMOL/L (3.5-5.1); SODIUM 147 MMOL/L (136-145)
[2017-05-02] MEDS ORDERED: Miralax 17gm pkt ORAL PRN (09:00)
[2017-05-02] MEDS: Aspirin Baby 81mg ORAL SCH (09:13)
[2017-05-02] MEDS: Carvedilol 12.5mg tab ORAL SCH ×2 (09:13→21:12)
[2017-05-02] MEDS: Docusate 100mg/10ml Liq NG SCH ×3 (09:14→18:17)
[2017-05-02] MEDS: Nephrovite tab (Rena-Vite) ORAL SCH (09:14)
[2017-05-02] MEDS: Meloxicam 15 MG TAB ORAL SCH (09:21)
[2017-05-02 09:37] LABS: HEMATOCRIT 25.1 % (42.0-52.0); HEMOGLOBIN 8.4 G/DL (14.2-18.0); MEAN CORPUSCULAR VOLUME 94 FL (80-99); PLATELET COUNT 39 K/UL (150-450); RED BLOOD COUNT 2.67 M/UL (4.70-6.10); RED CELL DISTRIBUTION WIDTH 15.6 % (11.6-14.8); WHITE BLOOD COUNT 4.9 K/UL (4.8-10.8)
[2017-05-02] MEDS ORDERED: LORazepam 1mg tab ORAL PRN (10:00)
--- NOTE | 2017-05-02 10:38 | GI Progress Note ---
Assessment/Plan Problems: (1) Dehydration ICD Codes: E86.0 - Dehydration SNOMED: 59840711, 602545668, 251781452 (2) Anemia ICD Codes: D64.9 - Anemia, unspecified SNOMED: 241960657 (3) Altered level of consciousness ICD Codes: R40.4 - Transient alteration of awareness SNOMED: 2261422 (4) Elevated troponin ICD Codes: R74.8 - Abnormal levels of other serum enzymes SNOMED: 085593642, 428411555, 016455011 Status: stable, progressing Status Narrative Discussed with Dr. Streeter. Assessment/Plan hep panel >> negative defer GI procedures given elevated troponin levels OB stool r/o GI bleed monitor H&H, prn transfusions keep Hgb > 8.0 bowel regime ppi cardiac diet, tolerating OT evaluation folate PO electrolyte correction fu labs, tumor markers The patient was seen and examined at bedside and all new and available data was reviewed in the patients chart. I agree with the above findings, impression and plan. (Patient seen earlier today. Signature stamp does not reflect patient encounter time.). - Yesi Streeter MD Subjective Subjective limited Objective Last 24 Hour Vital Signs Date Time Temp Pulse Resp B/P (MAP) Pulse Ox O2 Delivery O2 Flow Rate FiO2 05/02/17 09:13 71 135/60 05/02/17 08:00 66 05/02/17 08:00 97.0 71 18 135/60 99 Room Air 05/02/17 06:12 69 05/02/17 04:08 96.6 69 18 132/61 98 Room Air 05/02/17 04:08 Room Air 05/02/17 04:00 72 05/02/17 00:14 98.4 71 18 124/60 94 Room Air 05/02/17 00:14 Room Air 05/02/17 00:00 66 05/01/17 21:40 83 05/01/17 20:50 Room Air 05/01/17 20:50 98.1 83 18 141/74 95 Room Air 05/01/17 20:48 83 141/74 05/01/17 20:00 86 05/01/17 16:48 97.5 70 18 140/62 99 Room Air 05/01/17 15:13 71 05/01/17 13:23 58 05/01/17 12:00 97.5 58 18 102/58 99 Room Air 05/01/17 11:39 60 Intake and Output 05/01/17 05/02/17 19:00 07:00 Intake Total 1698 ml 1022 ml Output Total 1250 ml 700 ml Balance 448 ml 322 ml Intake Oral 708 ml IV Total 990 ml 1022 ml Output Urine Total 1250 ml 700 ml Laboratory Tests Test 05/02/17 06:10 White Blood Count 4.9 K/UL (4.8-10.8) Red Blood Count 2.67 M/UL (4.70-6.10) L Hemoglobin 8.4 G/DL (14.2-18.0) L Hematocrit 25.1 % (42.0-52.0) L Mean Corpuscular Volume 94 FL (80-99) Mean Corpuscular Hemoglobin 31.6 PG (27.0-31.0) H Mean Corpuscular Hemoglobin Concent 33.5 G/DL (32.0-36.0) Red Cell Distribution Width 15.6 % (11.6-14.8) H Platelet Count 39 K/UL (150-450) L Mean Platelet Volume 7.0 FL (6.5-10.1) Neutrophils (%) (Auto) % (45.0-75.0) Lymphocytes (%) (Auto) % (20.0-45.0) Monocytes (%) (Auto) % (1.0-10.0) Eosinophils (%) (Auto) % (0.0-3.0) Basophils (%) (Auto) % (0.0-2.0) Neutrophils % (Manual) Pending Lymphocytes % (Manual) Pending Platelet Estimate Pending Platelet Morphology Pending Sodium Level 147 MMOL/L (136-145) H Potassium Level 4.5 MMOL/L (3.5-5.1) Chloride Level 116 MMOL/L (98-107) H Carbon Dioxide Level 24 MMOL/L (21-32) Anion Gap 7 mmol/L (5-15) Blood Urea Nitrogen 39 mg/dL (7-18) H Creatinine 1.3 MG/DL (0.55-1.30) Estimat Glomerular Filtration Rate mL/min (>60) Glucose Level 95 MG/DL (74-106) Calcium Level 8.1 MG/DL (8.5-10.1) L Height (Feet): 6 Height (Inches): 0.00 Weight (Pounds): 190 General Appearance: alert, confused Cardiovascular: normal rate Respiratory/Chest: lungs clear, normal breath sounds Abdominal Exam: normal bowel sounds, non tender, soft Jeni Marino N.P. May 02, 2017 10:[address] May 05, 2017 10:16
--- NOTE | 2017-05-02 11:49 | Pulmonology Progress Note ---
Assessment/Plan Assessment/Plan 1. Dehydration. resolved 2. Renal failure. improved 3. Altered mental status. 4. Urinary tract infection. 5. Sepsis DISCUSSION: Respiratory status is stable. I agree with the use of antibiotics per ID. Continue oxygen and pulmonary hygiene. I will follow as rework operator. Subjective Interval Events: no new reported events. Constitutional: Reports: no symptoms HEENT: Repors: no symptoms Respiratory: Reports: no symptoms Cardiovascular: Reports: no symptoms Gastrointestinal/Abdominal: Reports: no symptoms Allergies: Coded Allergies: No Known Allergies (Unverified , 04/25/17) Objective Last 24 Hour Vital Signs Date Time Temp Pulse Resp B/P (MAP) Pulse Ox O2 Delivery O2 Flow Rate FiO2 05/02/17 09:13 71 135/60 05/02/17 08:00 66 05/02/17 08:00 97.0 71 18 135/60 99 Room Air 05/02/17 06:12 69 05/02/17 04:08 96.6 69 18 132/61 98 Room Air 05/02/17 04:08 Room Air 05/02/17 04:00 72 05/02/17 00:14 98.4 71 18 124/60 94 Room Air 05/02/17 00:14 Room Air 05/02/17 00:00 66 05/01/17 21:40 83 05/01/17 20:50 Room Air 05/01/17 20:50 98.1 83 18 141/74 95 Room Air 05/01/17 20:48 83 141/74 05/01/17 20:00 86 05/01/17 16:48 97.5 70 18 140/62 99 Room Air 05/01/17 15:13 71 05/01/17 13:23 58 05/01/17 12:00 97.5 58 18 102/58 99 Room Air Intake and Output 05/01/17 05/02/17 19:00 07:00 Intake Total 1698 ml 1022 ml Output Total 1250 ml 700 ml Balance 448 ml 322 ml Intake Oral 708 ml IV Total 990 ml 1022 ml Output Urine Total 1250 ml 700 ml General Appearance: no acute distress HEENT: normocephalic Respiratory/Chest: chest wall non-tender, lungs clear Cardiovascular: normal peripheral pulses, normal rate Abdomen: normal bowel sounds Microbiology Date/Time Source Procedure Growth Status 04/29/17 13:00 Blood Blood Culture - Preliminary NO GROWTH AFTER 48 HOURS Resulted 04/29/17 12:50 Blood Blood Culture - Preliminary NO GROWTH AFTER 48 HOURS Resulted Laboratory Tests 05/02/17 06:10: White Blood Count 4.9, Red Blood Count 2.67L, Hemoglobin 8.4L, Hematocrit 25.1L , Mean Corpuscular Volume 94, Mean Corpuscular Hemoglobin 31.6H, Mean Corpuscular Hemoglobin Concent 33.5, Red Cell Distribution Width 15.6H, Platelet Count 39L, Mean Platelet Volume 7.0, Neutrophils (%) (Auto) , Lymphocytes (%) (Auto) , Monocytes (%) (Auto) , Eosinophils (%) (Auto) , Basophils (%) (Auto) , Neutrophils % (Manual) [Pending], Lymphocytes % (Manual) [Pending], Platelet Estimate [Pending], Platelet Morphology [Pending], Sodium Level 147H, Potassium Level 4.5, Chloride Level 116H, Carbon Dioxide Level 24, Anion Gap 7, Blood Urea Nitrogen 39H, Creatinine 1.3, Estimat Glomerular Filtration Rate , Glucose Level 95, Calcium Level 8.1L Current Medications Medications (Trade) Dose Ordered Sig/Trey Route PRN Reason Start Time Stop Time Status Last Admin Dose Admin Acetaminophen (Tylenol) 650 mg Q4H PRN ORAL Mild Pain (Pain Scale 1-3) 04/26/17 00:45 05/26/17 00:44 Aspirin (ASA) 81 mg DAILY ORAL 04/26/17 09:00 05/26/17 08:59 05/02/17 09:13 Carvedilol (Coreg) 12.5 mg EVERY 12 HOURS ORAL 04/26/17 09:00 05/26/17 08:59 05/02/17 09:13 Ceftriaxone Sodium 2 gm/ Dextrose 55 ml @ 110 mls/hr Q24H IVPB 04/29/17 15:00 05/06/17 14:59 05/01/17 13:35 Dextrose 1,000 ml @ 80 mls/hr [id number] IV 04/30/17 14:00 05/30/17 13:59 05/01/17 23:31 Dextrose (Dextrose 50%) STAT PRN IV Hypoglycemia 04/26/17 00:45 05/26/17 00:44 Divalproex Sodium (Depakote) 500 mg Q12HR ORAL 1/6/18 09:00 05/26/17 08:59 05/02/17 09:14 Docusate Sodium (Colace) 100 mg THREE TIMES A DAY NG 04/30/17 20:00 05/30/17 19:59 05/02/17 09:14 Famotidine (Pepcid) 20 mg DAILY ORAL 04/26/17 09:00 05/26/17 08:59 05/02/17 09:14 Folic Acid (Folate) 1 mg DAILY ORAL 04/30/17 09:00 05/30/17 08:59 05/02/17 09:14 Levothyroxine Sodium (Synthroid) 100 mcg ACBREAKFAST ORAL 04/26/17 06:30 05/26/17 06:29 05/02/17 06:12 Lorazepam (Ativan) 1 mg ONCE PRN ORAL 30 min prior to biopsy 05/02/17 10:00 05/09/17 09:59 05/02/17 10:21 Meloxicam (Mobic) 15 mg DAILY ORAL 04/26/17 09:00 05/26/17 08:59 05/02/17 09:21 Morphine Sulfate (Morphine Sulfate) 1 mg Q3HR PRN IVP For Pain 04/26/17 00:45 05/03/17 00:44 Ondansetron HCl (Zofran) 4 mg Q6H PRN IVP Nausea & Vomiting 04/26/17 00:45 05/26/17 00:44 Polyethylene Glycol (Miralax) 17 gm DAILY PRN ORAL Constipation 05/02/17 09:00 06/01/17 08:59 Propafenone HCl (Rythmol) 225 mg EVERY 8 HOURS ORAL 04/26/17 06:00 05/26/17 05:59 05/02/17 06:12 Quetiapine Fumarate (SEROquel) 25 mg BEDTIME PRN ORAL agitation 04/30/17 21:00 05/26/17 08:59 Vitamin B Complex/ Vit C/Folic Acid (Nephrovite) 1 tab DAILY ORAL 04/29/17 09:00 05/29/17 08:59 05/02/17 09:14 Mitch Grace MD May 02, 2017 11:49
[2017-05-02 12:00] VITALS: BP 106/56
--- NOTE | 2017-05-02 13:17 | Cardiac Electrophysiology PN ---
Assessment/Plan Assessment/Plan 1. Nonsustained ventricular tachycardia. Ruled out for FL. Echocardiogram showed normal EF. Continue Coreg 12.5 mg b.i.d. 2. Paroxysmal atrial fibrillation, in sinus rhythm, on aspirin and Coreg. 3. Hypothyroidism, on Synthroid. 4. Anemia, followed by Dr. Streeter. Stool OB still pending Had BM Biopsy today. 5. Dementia DW RN Subjective Subjective Comfortable in NAD. Remained in SR. S/P BM biopsy today Objective Last 24 Hour Vital Signs Date Time Temp Pulse Resp B/P (MAP) Pulse Ox O2 Delivery O2 Flow Rate FiO2 05/02/17 12:00 97.1 70 19 106/56 99 Room Air 05/02/17 09:13 71 135/60 05/02/17 08:00 66 05/02/17 08:00 97.0 71 18 135/60 99 Room Air 05/02/17 06:12 69 05/02/17 04:08 96.6 69 18 132/61 98 Room Air 05/02/17 04:08 Room Air 05/02/17 04:00 72 05/02/17 00:14 98.4 71 18 124/60 94 Room Air 05/02/17 00:14 Room Air 05/02/17 00:00 66 05/01/17 21:40 83 05/01/17 20:50 Room Air 05/01/17 20:50 98.1 83 18 141/74 95 Room Air 05/01/17 20:48 83 141/74 05/01/17 20:00 86 05/01/17 16:48 97.5 70 18 140/62 99 Room Air 05/01/17 15:13 71 05/01/17 13:23 58 Intake and Output 05/01/17 05/02/17 19:00 07:00 Intake Total 1698 ml 1022 ml Output Total 1250 ml 700 ml Balance 448 ml 322 ml Intake Oral 708 ml IV Total 990 ml 1022 ml Output Urine Total 1250 ml 700 ml Laboratory Tests Test 05/02/17 06:10 White Blood Count 4.9 K/UL (4.8-10.8) Red Blood Count 2.67 M/UL (4.70-6.10) L Hemoglobin 8.4 G/DL (14.2-18.0) L Hematocrit 25.1 % (42.0-52.0) L Mean Corpuscular Volume 94 FL (80-99) Mean Corpuscular Hemoglobin 31.6 PG (27.0-31.0) H Mean Corpuscular Hemoglobin Concent 33.5 G/DL (32.0-36.0) Red Cell Distribution Width 15.6 % (11.6-14.8) H Platelet Count 39 K/UL (150-450) L Mean Platelet Volume 7.0 FL (6.5-10.1) Neutrophils (%) (Auto) % (45.0-75.0) Lymphocytes (%) (Auto) % (20.0-45.0) Monocytes (%) (Auto) % (1.0-10.0) Eosinophils (%) (Auto) % (0.0-3.0) Basophils (%) (Auto) % (0.0-2.0) Neutrophils % (Manual) Pending Lymphocytes % (Manual) Pending Platelet Estimate Pending Platelet Morphology Pending Sodium Level 147 MMOL/L (136-145) H Potassium Level 4.5 MMOL/L (3.5-5.1) Chloride Level 116 MMOL/L (98-107) H Carbon Dioxide Level 24 MMOL/L (21-32) Anion Gap 7 mmol/L (5-15) Blood Urea Nitrogen 39 mg/dL (7-18) H Creatinine 1.3 MG/DL (0.55-1.30) Estimat Glomerular Filtration Rate mL/min (>60) Glucose Level 95 MG/DL (74-106) Calcium Level 8.1 MG/DL (8.5-10.1) L Objective HEAD AND NECK: Shows no JVD. LUNGS: Decreased breath sounds. CARDIOVASCULAR: Regular S1 and S2 with no gallop or murmur. ABDOMEN: Soft. EXTREMITIES: Bilateral 1+ pitting edema. JARROD ESTRADA May 02, 2017 13:17
[2017-05-02] MEDS: cefTRIAXone 2 GM in D5W 55 ML IVPB SCH (14:44)
--- NOTE | 2017-05-02 15:46 | Nephrology Progress Note ---
Assessment/Plan Problem List: (1) Dehydration (2) Sepsis (3) UTI (urinary tract infection) (4) Altered level of consciousness (5) HCAP (healthcare-associated pneumonia) (6) LEWIS (acute kidney injury) Assessment: Improved on current IVF (7) Urinary retention (8) Hypernatremia (9) Hyperkalemia Assessment: Resolved (10) Elevated troponin (11) Pancytopenia Plan Continue current treatment plan Continue D5W to correct sodium Monitor intake and output Monitor renal function, improved on IVF Renally dose meds, avoid nephrotoxins Continue arnold Monitor lytes, correct prn Encourage fluids Abx per ID Cardio following, will follow up with recs Hematology following Monitor neuro status AM labs Subjective ROS Limited/Unobtainable: Yes Subjective In bed, in no apparent distress, states that he is ok, confused but not agitated. Objective Objective Last 24 Hour Vital Signs Date Time Temp Pulse Resp B/P (MAP) Pulse Ox O2 Delivery O2 Flow Rate FiO2 05/02/17 14:44 70 05/02/17 12:00 97.1 70 19 106/56 99 Room Air 05/02/17 09:13 71 135/60 05/02/17 08:00 66 05/02/17 08:00 97.0 71 18 135/60 99 Room Air 05/02/17 06:12 69 05/02/17 04:08 96.6 69 18 132/61 98 Room Air 05/02/17 04:08 Room Air 05/02/17 04:00 72 05/02/17 00:14 98.4 71 18 124/60 94 Room Air 05/02/17 00:14 Room Air 05/02/17 00:00 66 05/01/17 21:40 83 05/01/17 20:50 Room Air 05/01/17 20:50 98.1 83 18 141/74 95 Room Air 05/01/17 20:48 83 141/74 05/01/17 20:00 86 05/01/17 16:48 97.5 70 18 140/62 99 Room Air Intake and Output 05/01/17 05/02/17 19:00 07:00 Intake Total 1698 ml 1022 ml Output Total 1250 ml 700 ml Balance 448 ml 322 ml Intake Oral 708 ml IV Total 990 ml 1022 ml Output Urine Total 1250 ml 700 ml Laboratory Tests 05/02/17 06:10: White Blood Count 4.9, Red Blood Count 2.67L, Hemoglobin 8.4L, Hematocrit 25.1L , Mean Corpuscular Volume 94, Mean Corpuscular Hemoglobin 31.6H, Mean Corpuscular Hemoglobin Concent 33.5, Red Cell Distribution Width 15.6H, Platelet Count 39L, Mean Platelet Volume 7.0, Neutrophils (%) (Auto) , Lymphocytes (%) (Auto) , Monocytes (%) (Auto) , Eosinophils (%) (Auto) , Basophils (%) (Auto) , Sodium Level 147H, Potassium Level 4.5, Chloride Level 116H, Carbon Dioxide Level 24, Anion Gap 7, Blood Urea Nitrogen 39H, Creatinine 1.3, Estimat Glomerular Filtration Rate , Glucose Level 95, Calcium Level 8.1L Height (Feet): 6 Height (Inches): 0.00 Weight (Pounds): 190 General Appearance: no apparent distress, confused EENT: normal ENT inspection Neck: normal alignment Cardiovascular: normal rate, regular rhythm, no JVD Respiratory/Chest: no respiratory distress Abdomen: non tender, soft Genitourinary/Rectal: other - arnold Extremities: non-tender, moderate edema, pitting Neurologic: motor weakness, disoriented Glenis Meza N.P. May 02, 2017 15:46
--- NOTE | 2017-05-02 15:48 | Infectious Diseases Prog Note ---
Assessment/Plan Problems: (1) UTI (urinary tract infection) Assessment & Plan: with E coli resistant to ampicillin and Bactrim, most likely the source of his sepsis , on ceftriaxon for two weeks total . (2) Fever Assessment & Plan: due to the above, resolved , continue tylenol prn (3) HCAP (healthcare-associated pneumonia) Assessment & Plan: due to serratia marcescens, improved on cefepime and clindamycin, influenza screening is negative , continue ceftriaxon only for two weeks (4) Sepsis Assessment & Plan: with E coli , on ceftriaxone , repeated blood culture is negative so far . will treat with ceftriaxon for two weeks starting from the clearance date. EOT 05/12/17 (5) Altered level of consciousness Assessment & Plan: due to the above, recommend neurology eval and brain images (6) Elevated troponin Assessment & Plan: suspect ACS, cardiology is following (7) Dehydration Assessment & Plan: continue IVF, monitor urine out put, and renal function, avoid nephrotoxic meds (8) LEWIS (acute kidney injury) Assessment & Plan: due to the above , continue hydration, monitor renal function , nephrology is following (9) Anemia Assessment & Plan: rule out GI source, monitor H/H, transfuse blood as needed , GI is following Subjective ROS Limited/Unobtainable: Yes Allergies: Coded Allergies: No Known Allergies (Unverified , 04/25/17) Subjective he was resting in bed, sleepy , but respond to verbal commands well , not hypotensive , afebrile , no rectal bleeding. Objective Vital Signs Last 24 Hour Vital Signs Date Time Temp Pulse Resp B/P (MAP) Pulse Ox O2 Delivery O2 Flow Rate FiO2 05/02/17 14:44 70 05/02/17 12:00 97.1 70 19 106/56 99 Room Air 05/02/17 09:13 71 135/60 05/02/17 08:00 66 05/02/17 08:00 97.0 71 18 135/60 99 Room Air 05/02/17 06:12 69 05/02/17 04:08 96.6 69 18 132/61 98 Room Air 05/02/17 04:08 Room Air 05/02/17 04:00 72 05/02/17 00:14 98.4 71 18 124/60 94 Room Air 05/02/17 00:14 Room Air 05/02/17 00:00 66 05/01/17 21:40 83 05/01/17 20:50 Room Air 05/01/17 20:50 98.1 83 18 141/74 95 Room Air 05/01/17 20:48 83 141/74 05/01/17 20:00 86 05/01/17 16:48 97.5 70 18 140/62 99 Room Air Height (Feet): 6 Height (Inches): 0.00 Weight (Pounds): 190 General Appearance: WD/WN, no acute distress HEENT: normocephalic, atraumatic, anicteric, mucous membranes moist, pharynx normal, supple, no JVD Respiratory/Chest: chest wall non-tender, lungs clear, normal breath sounds, no respiratory distress, no accessory muscle use Cardiovascular: normal peripheral pulses, normal rate, regular rhythm, no gallop/murmur, no JVD Abdomen: normal bowel sounds, soft, non tender, no organomegaly, non distended , no mass, no scars Extremities: no cyanosis, no clubbing Skin: no rash, no lesions, ulcers Neurologic/Psychiatric: alert, responsive Laboratory Tests Test 05/02/17 06:10 White Blood Count 4.9 K/UL (4.8-10.8) Red Blood Count 2.67 M/UL (4.70-6.10) L Hemoglobin 8.4 G/DL (14.2-18.0) L Hematocrit 25.1 % (42.0-52.0) L Mean Corpuscular Volume 94 FL (80-99) Mean Corpuscular Hemoglobin 31.6 PG (27.0-31.0) H Mean Corpuscular Hemoglobin Concent 33.5 G/DL (32.0-36.0) Red Cell Distribution Width 15.6 % (11.6-14.8) H Platelet Count 39 K/UL (150-450) L Mean Platelet Volume 7.0 FL (6.5-10.1) Neutrophils (%) (Auto) % (45.0-75.0) Lymphocytes (%) (Auto) % (20.0-45.0) Monocytes (%) (Auto) % (1.0-10.0) Eosinophils (%) (Auto) % (0.0-3.0) Basophils (%) (Auto) % (0.0-2.0) Sodium Level 147 MMOL/L (136-145) H Potassium Level 4.5 MMOL/L (3.5-5.1) Chloride Level 116 MMOL/L (98-107) H Carbon Dioxide Level 24 MMOL/L (21-32) Anion Gap 7 mmol/L (5-15) Blood Urea Nitrogen 39 mg/dL (7-18) H Creatinine 1.3 MG/DL (0.55-1.30) Estimat Glomerular Filtration Rate mL/min (>60) Glucose Level 95 MG/DL (74-106) Calcium Level 8.1 MG/DL (8.5-10.1) L Current Medications Medications (Trade) Dose Ordered Sig/Trey Route PRN Reason Start Time Stop Time Status Last Admin Dose Admin Acetaminophen (Tylenol) 650 mg Q4H PRN ORAL Mild Pain (Pain Scale 1-3) 04/26/17 00:45 05/26/17 00:44 Aspirin (ASA) 81 mg DAILY ORAL 04/26/17 09:00 05/26/17 08:59 05/02/17 09:13 Carvedilol (Coreg) 12.5 mg EVERY 12 HOURS ORAL 04/26/17 09:00 05/26/17 08:59 05/02/17 09:13 Ceftriaxone Sodium 2 gm/ Dextrose 55 ml @ 110 mls/hr Q24H IVPB 04/29/17 15:00 05/06/17 14:59 05/02/17 14:44 Dextrose 1,000 ml @ 80 mls/hr [id number] IV 04/30/17 14:00 05/30/17 13:59 05/01/17 23:31 Dextrose (Dextrose 50%) STAT PRN IV Hypoglycemia 04/26/17 00:45 05/26/17 00:44 Divalproex Sodium (Depakote) 500 mg Q12HR ORAL 04/26/17 09:00 05/26/17 08:59 05/02/17 09:14 Docusate Sodium (Colace) 100 mg THREE TIMES A DAY NG 04/30/17 20:00 05/30/17 19:59 05/02/17 14:43 Famotidine (Pepcid) 20 mg DAILY ORAL 04/26/17 09:00 05/26/17 08:59 05/02/17 09:14 Folic Acid (Folate) 1 mg DAILY ORAL 04/30/17 09:00 05/30/17 08:59 05/02/17 09:14 Levothyroxine Sodium (Synthroid) 100 mcg ACBREAKFAST ORAL 04/26/17 06:30 05/26/17 06:29 05/02/17 06:12 Lorazepam (Ativan) 1 mg ONCE PRN ORAL 30 min prior to biopsy 05/02/17 10:00 05/09/17 09:59 05/02/17 10:21 Meloxicam (Mobic) 15 mg DAILY ORAL 04/26/17 09:00 05/26/17 08:59 05/02/17 09:21 Morphine Sulfate (Morphine Sulfate) 1 mg Q3HR PRN IVP For Pain 04/26/17 00:45 05/03/17 00:44 Ondansetron HCl (Zofran) 4 mg Q6H PRN IVP Nausea & Vomiting 04/26/17 00:45 05/26/17 00:44 Polyethylene Glycol (Miralax) 17 gm DAILY PRN ORAL Constipation 05/02/17 09:00 06/01/17 08:59 Propafenone HCl (Rythmol) 225 mg EVERY 8 HOURS ORAL 04/26/17 06:00 05/26/17 05:59 05/02/17 14:44 Quetiapine Fumarate (SEROquel) 25 mg BEDTIME PRN ORAL agitation 04/30/17 21:00 05/26/17 08:59 Vitamin B Complex/ Vit C/Folic Acid (Nephrovite) 1 tab DAILY ORAL 04/29/17 09:00 05/29/17 08:59 05/02/17 09:14 Zak Matos M.D. May 02, 2017 15:48
[2017-05-02 16:00] VITALS: BP 109/58
[2017-05-02 20:07] VITALS: BP 115/58
--- NOTE | 2017-05-02 23:21 | General Progress Note ---
Assessment/Plan Status: unchanged Assessment/Plan 1. Pancytopenia. Infection related versus viral versus bone marrow disorder --> have discussed with pathologist, obtain a bone marrow biopsy, pending for Friday --> HIV panel negative, hepatitis negative as well 2. Anemia secondary to kidney disease. Continue to closely monitor. Creatinine elevated. --> S/P Blood transfusion. --> improved 3. LEWIS. Being seen by Nephrology. 4. Nausea and vomiting. The patient is being evaluated by GI service. --> Occult blood is negative 5. NSVT, being seen by Cardiology. 6. Dehydration. Administer fluids as needed. Pulmonary is following as well. Subjective Date patient seen: May 02, 2017 Constitutional: Denies: no symptoms, chills, diaphoresis, fever, malaise, weakness, other HEENT: Denies: no symptoms, eye pain, blurred vision, tearing, double vision, ear pain, ear discharge, nose pain, nose congestion, throat pain, throat swelling, mouth pain, mouth swelling, other Cardiovascular: Denies: no symptoms, chest pain, edema, irregular heart rate, lightheadedness, palpitations, syncope, other Respiratory: Denies: no symptoms, cough, orthopnea, shortness of breath, SOB with excertion, SOB at rest, sputum, stridor, wheezing, other Gastrointestinal/Abdominal: Denies: no symptoms, abdomen distended, abdominal pain, black stools, tarry stools, blood in stool, constipated, diarrhea, difficulty swallowing, nausea, poor appetite, poor fluid intake, rectal bleeding , vomiting, other Genitourinary: Denies: no symptoms, burning, discharge, frequency, flank pain, hematuria, incontinence, pain, urgency, other Allergies: Coded Allergies: No Known Allergies (Unverified , 04/25/17) Subjective No new events. Resting in bed. No f/c Objective Last 24 Hour Vital Signs Date Time Temp Pulse Resp B/P (MAP) Pulse Ox O2 Delivery O2 Flow Rate FiO2 05/02/17 21:12 70 115/58 05/02/17 21:11 70 05/02/17 20:07 98.4 70 18 115/58 96 Room Air 05/02/17 16:00 97.9 68 20 109/58 97 Room Air 05/02/17 16:00 76 05/02/17 14:44 70 05/02/17 12:00 97.1 70 19 106/56 99 Room Air 05/02/17 12:00 59 05/02/17 09:13 71 135/60 05/02/17 08:00 66 05/02/17 08:00 97.0 71 18 135/60 99 Room Air 05/02/17 06:12 69 05/02/17 04:08 96.6 69 18 132/61 98 Room Air 05/02/17 04:08 Room Air 05/02/17 04:00 72 05/02/17 00:14 98.4 71 18 124/60 94 Room Air 05/02/17 00:14 Room Air 05/02/17 00:00 66 Intake and Output 05/01/17 05/02/17 19:00 07:00 Intake Total 1698 ml 1022 ml Output Total 1250 ml 700 ml Balance 448 ml 322 ml Intake Oral 708 ml IV Total 990 ml 1022 ml Output Urine Total 1250 ml 700 ml Laboratory Tests 05/02/17 06:10: White Blood Count 4.9, Red Blood Count 2.67L, Hemoglobin 8.4L, Hematocrit 25.1L , Mean Corpuscular Volume 94, Mean Corpuscular Hemoglobin 31.6H, Mean Corpuscular Hemoglobin Concent 33.5, Red Cell Distribution Width 15.6H, Platelet Count 39L, Mean Platelet Volume 7.0, Neutrophils (%) (Auto) , Lymphocytes (%) (Auto) , Monocytes (%) (Auto) , Eosinophils (%) (Auto) , Basophils (%) (Auto) , Sodium Level 147H, Potassium Level 4.5, Chloride Level 116H, Carbon Dioxide Level 24, Anion Gap 7, Blood Urea Nitrogen 39H, Creatinine 1.3, Estimat Glomerular Filtration Rate , Glucose Level 95, Calcium Level 8.1L Height (Feet): 6 Height (Inches): 0.00 Weight (Pounds): 190 General Appearance: no apparent distress Neck: supple Cardiovascular: normal rate, regular rhythm Respiratory/Chest: decreased breath sounds Abdomen: non tender Rivera Christine May 02, 2017 23:21
[2017-05-03 00:13] VITALS: BP 153/77
[2017-05-03 04:33] VITALS: BP 122/65
[2017-05-03 08:00] VITALS: BP 142/86
[2017-05-03 08:11] LABS: HEMOGLOBIN 8.6 G/DL (14.2-18.0); MEAN CORPUSCULAR VOLUME 94 FL (80-99); PLATELET COUNT 47 K/UL (150-450); RED BLOOD COUNT 2.77 M/UL (4.70-6.10); WHITE BLOOD COUNT 6.1 K/UL (4.8-10.8)
[2017-05-03 08:20] LABS: ANION GAP 7 mmol/L (5-15); BLOOD UREA NITROGEN 30 mg/dL (7-18); CALCIUM 8.3 MG/DL (8.5-10.1); CARBON DIOXIDE 25 MMOL/L (21-32); CHLORIDE 113 MMOL/L (98-107); CREATININE 1.3 MG/DL (0.55-1.30); POTASSIUM 4.4 MMOL/L (3.5-5.1); SODIUM 144 MMOL/L (136-145)
--- NOTE | 2017-05-03 08:32 | Pulmonology Progress Note ---
Assessment/Plan Assessment/Plan 1. Dehydration. resolved 2. Renal failure. improved 3. Altered mental status. 4. Urinary tract infection. 5. Sepsis DISCUSSION: Respiratory status is stable. I agree with the use of antibiotics per ID. Continue oxygen and pulmonary hygiene. 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 Subjective Interval Events: None Constitutional: Reports: no symptoms HEENT: Repors: no symptoms Respiratory: Reports: no symptoms Cardiovascular: Reports: no symptoms Gastrointestinal/Abdominal: Reports: no symptoms Allergies: Coded Allergies: No Known Allergies (Unverified , 04/25/17) Objective Last 24 Hour Vital Signs Date Time Temp Pulse Resp B/P (MAP) Pulse Ox O2 Delivery O2 Flow Rate FiO2 05/03/17 08:00 98.4 73 20 142/86 97 Room Air 05/03/17 06:15 71 05/03/17 04:33 97.7 71 18 122/65 Room Air 05/03/17 04:00 63 05/03/17 00:13 98.2 88 19 153/77 94 Room Air 05/03/17 00:00 72 05/02/17 21:12 70 115/58 05/02/17 21:11 70 05/02/17 20:07 98.4 70 18 115/58 96 Room Air 05/02/17 20:00 71 05/02/17 16:00 97.9 68 20 109/58 97 Room Air 05/02/17 16:00 76 05/02/17 14:44 70 05/02/17 12:00 97.1 70 19 106/56 99 Room Air 05/02/17 12:00 59 05/02/17 09:13 71 135/60 Intake and Output 05/02/17 05/03/17 19:00 07:00 Intake Total 1007 ml Output Total 1600 ml 800 ml Balance -593 ml -800 ml Intake Oral 472 ml IV Total 535 ml Output Urine Total 1600 ml 800 ml General Appearance: no acute distress HEENT: normocephalic Respiratory/Chest: chest wall non-tender, lungs clear Cardiovascular: normal peripheral pulses Laboratory Tests 05/03/17 07:05: White Blood Count 6.1, Red Blood Count 2.77L, Hemoglobin 8.6L, Hematocrit 26.0L , Mean Corpuscular Volume 94, Mean Corpuscular Hemoglobin 31.0, Mean Corpuscular Hemoglobin Concent 33.1, Red Cell Distribution Width 15.0H, Platelet Count 47L, Mean Platelet Volume 7.3, Neutrophils (%) (Auto) , Lymphocytes (%) (Auto) , Monocytes (%) (Auto) , Eosinophils (%) (Auto) , Basophils (%) (Auto) , Neutrophils % (Manual) [Pending], Lymphocytes % (Manual) [Pending], Platelet Estimate [Pending], Platelet Morphology [Pending], Sodium Level 144, Potassium Level 4.4, Chloride Level 113H, Carbon Dioxide Level 25, Anion Gap 7, Blood Urea Nitrogen 30H, Creatinine 1.3, Estimat Glomerular Filtration Rate , Glucose Level 93, Calcium Level 8.3L Current Medications Medications (Trade) Dose Ordered Sig/Trey Route PRN Reason Start Time Stop Time Status Last Admin Dose Admin Acetaminophen (Tylenol) 650 mg Q4H PRN ORAL Mild Pain (Pain Scale 1-3) 04/26/17 00:45 05/26/17 00:44 Aspirin (ASA) 81 mg DAILY ORAL 04/26/17 09:00 05/26/17 08:59 05/02/17 09:13 Carvedilol (Coreg) 12.5 mg EVERY 12 HOURS ORAL 04/26/17 09:00 05/26/17 08:59 05/02/17 21:12 Ceftriaxone Sodium 2 gm/ Dextrose 55 ml @ 110 mls/hr Q24H IVPB 04/29/17 15:00 05/06/17 14:59 05/02/17 14:44 Dextrose 1,000 ml @ 80 mls/hr [id number] IV 04/30/17 14:00 05/30/17 13:59 05/03/17 04:30 Dextrose (Dextrose 50%) STAT PRN IV Hypoglycemia 04/26/17 00:45 05/26/17 00:44 Divalproex Sodium (Depakote) 500 mg Q12HR ORAL 04/26/17 09:00 05/26/17 08:59 05/02/17 21:12 Docusate Sodium (Colace) 100 mg THREE TIMES A DAY NG 04/30/17 20:00 05/30/17 19:59 05/02/17 18:17 Famotidine (Pepcid) 20 mg DAILY ORAL 04/26/17 09:00 05/26/17 08:59 05/02/17 09:14 Folic Acid (Folate) 1 mg DAILY ORAL 04/30/17 09:00 05/30/17 08:59 05/02/17 09:14 Levothyroxine Sodium (Synthroid) 100 mcg ACBREAKFAST ORAL 04/26/17 06:30 05/26/17 06:29 05/03/17 06:15 Lorazepam (Ativan) 1 mg ONCE PRN ORAL 30 min prior to biopsy 05/02/17 10:00 05/09/17 09:59 05/02/17 10:21 Meloxicam (Mobic) 15 mg DAILY ORAL 04/26/17 09:00 05/26/17 08:59 05/02/17 09:21 Ondansetron HCl (Zofran) 4 mg Q6H PRN IVP Nausea & Vomiting 04/26/17 00:45 05/26/17 00:44 Polyethylene Glycol (Miralax) 17 gm DAILY PRN ORAL Constipation 05/02/17 09:00 06/01/17 08:59 Propafenone HCl (Rythmol) 225 mg EVERY 8 HOURS ORAL 04/26/17 06:00 05/26/17 05:59 05/03/17 06:15 Quetiapine Fumarate (SEROquel) 25 mg BEDTIME PRN ORAL agitation 04/30/17 21:00 05/26/17 08:59 Vitamin B Complex/ Vit C/Folic Acid (Nephrovite) 1 tab DAILY ORAL 04/29/17 09:00 05/29/17 08:59 05/02/17 09:14 Mitch Grace MD May 03, 2017 08:32
[2017-05-03] MEDS: Carvedilol 12.5mg tab ORAL SCH ×2 (09:37→21:00)
[2017-05-03] MEDS: Docusate 100mg/10ml Liq NG SCH ×2 (09:37→13:00)
[2017-05-03] MEDS: Nephrovite tab (Rena-Vite) ORAL SCH (09:38)
[2017-05-03] MEDS: Meloxicam 15 MG TAB ORAL SCH (09:38)
[2017-05-03] MEDS: Aspirin Baby 81mg ORAL SCH (09:38)
[2017-05-03 12:00] VITALS: BP 112/63
--- NOTE | 2017-05-03 13:48 | General Progress Note ---
Assessment/Plan Assessment/Plan Assessment (1) Dehydration ICD Codes: E86.0 - Dehydration SNOMED: 22991420, 689803244, 193532946 (2) Anemia ICD Codes: D64.9 - Anemia, unspecified SNOMED: 545928012 (3) Altered level of consciousness ICD Codes: R40.4 - Transient alteration of awareness SNOMED: 0096996 (4) Elevated troponin ICD Codes: R74.8 - Abnormal levels of other serum enzymes SNOMED: 957417288, 177382113, 343446865 Assessment hep panel >> negative defer GI procedures given elevated troponin levels OB stool r/o GI bleed monitor H&H, prn transfusions keep Hgb > 8.0 bowel regime ppi cardiac diet, tolerating OT evaluation folate PO electrolyte correction fu labs, tumor markers Subjective Allergies: Coded Allergies: No Known Allergies (Unverified , 04/25/17) Subjective minimally communicative d/w RN Ate today, although appetite fluctuating keeps eyes closed Objective Last 24 Hour Vital Signs Date Time Temp Pulse Resp B/P (MAP) Pulse Ox O2 Delivery O2 Flow Rate FiO2 05/03/17 12:00 98.4 68 20 112/63 96 Room Air 05/03/17 09:37 73 142/86 05/03/17 08:00 98.4 73 20 142/86 97 Room Air 05/03/17 08:00 73 05/03/17 06:15 71 05/03/17 04:33 97.7 71 18 122/65 Room Air 05/03/17 04:00 63 05/03/17 00:13 98.2 88 19 153/77 94 Room Air 05/03/17 00:00 72 05/02/17 21:12 70 115/58 05/02/17 21:11 70 05/02/17 20:07 98.4 70 18 115/58 96 Room Air 05/02/17 20:00 71 05/02/17 16:00 97.9 68 20 109/58 97 Room Air 05/02/17 16:00 76 05/02/17 14:44 70 Intake and Output 05/02/17 05/03/17 19:00 07:00 Intake Total 1007 ml Output Total 1600 ml 800 ml Balance -593 ml -800 ml Intake Oral 472 ml IV Total 535 ml Output Urine Total 1600 ml 800 ml Laboratory Tests 05/03/17 07:05: White Blood Count 6.1, Red Blood Count 2.77L, Hemoglobin 8.6L, Hematocrit 26.0L , Mean Corpuscular Volume 94, Mean Corpuscular Hemoglobin 31.0, Mean Corpuscular Hemoglobin Concent 33.1, Red Cell Distribution Width 15.0H, Platelet Count 47L, Mean Platelet Volume 7.3, Neutrophils (%) (Auto) , Lymphocytes (%) (Auto) , Monocytes (%) (Auto) , Eosinophils (%) (Auto) , Basophils (%) (Auto) , Differential Total Cells Counted 100, Neutrophils % ( Manual) 60, Lymphocytes % (Manual) 29, Monocytes % (Manual) 10, Eosinophils % ( Manual) 1, Basophils % (Manual) 0, Band Neutrophils 0, Platelet Estimate DecreasedL, Platelet Morphology Normal, Hypochromasia 1+, Anisocytosis 1+, Sodium Level 144, Potassium Level 4.4, Chloride Level 113H, Carbon Dioxide Level 25, Anion Gap 7, Blood Urea Nitrogen 30H, Creatinine 1.3, Estimat Glomerular Filtration Rate , Glucose Level 93, Calcium Level 8.3L Height (Feet): 6 Height (Inches): 0.00 Weight (Pounds): 190 Objective Elderly WM NCAT supple CTA RRR Abd soft ND NT (+) Edema OBS PREMA CHO May 03, 2017 13:48
--- NOTE | 2017-05-03 14:45 | Infectious Diseases Prog Note ---
Assessment/Plan Problems: (1) UTI (urinary tract infection) Assessment & Plan: with E coli , most likely the source of his sepsis , on ceftriaxon for two weeks total . (2) Fever Assessment & Plan: due to the above, resolved , continue tylenol prn (3) HCAP (healthcare-associated pneumonia) Assessment & Plan: due to serratia marcescens, improved on cefepime and clindamycin, influenza screening is negative , continue ceftriaxon only for two weeks (4) Sepsis Assessment & Plan: with E coli , on ceftriaxone , repeated blood culture is negative so far . will treat with ceftriaxon for two weeks starting from the clearance date. EOT 05/12/17 (5) Altered level of consciousness Assessment & Plan: due to the above, recommend neurology eval and brain images (6) Elevated troponin Assessment & Plan: suspect ACS, cardiology is following (7) Dehydration Assessment & Plan: continue IVF, monitor urine out put, and renal function, avoid nephrotoxic meds (8) LEWIS (acute kidney injury) Assessment & Plan: due to the above , continue hydration, monitor renal function , nephrology is following (9) Anemia Assessment & Plan: rule out GI source, monitor H/H, transfuse blood as needed , GI is following Subjective ROS Limited/Unobtainable: Yes Allergies: Coded Allergies: No Known Allergies (Unverified , 04/25/17) Subjective he was awake and alert, more interactive , resting in bed, respond to verbal commands , not hypotensive , afebrile , no rectal bleeding. Objective Vital Signs Last 24 Hour Vital Signs Date Time Temp Pulse Resp B/P (MAP) Pulse Ox O2 Delivery O2 Flow Rate FiO2 05/03/17 12:00 98.4 68 20 112/63 96 Room Air 05/03/17 09:37 73 142/86 05/03/17 08:00 98.4 73 20 142/86 97 Room Air 05/03/17 08:00 73 05/03/17 06:15 71 05/03/17 04:33 97.7 71 18 122/65 Room Air 05/03/17 04:00 63 05/03/17 00:13 98.2 88 19 153/77 94 Room Air 05/03/17 00:00 72 05/02/17 21:12 70 115/58 05/02/17 21:11 70 05/02/17 20:07 98.4 70 18 115/58 96 Room Air 05/02/17 20:00 71 05/02/17 16:00 97.9 68 20 109/58 97 Room Air 05/02/17 16:00 76 05/02/17 14:44 70 Height (Feet): 6 Height (Inches): 0.00 Weight (Pounds): 190 General Appearance: WD/WN, no acute distress HEENT: normocephalic, atraumatic, anicteric, mucous membranes moist, PERRL, EOMI, pharynx normal, supple, no JVD Respiratory/Chest: chest wall non-tender, no respiratory distress, no accessory muscle use, decreased breath sounds, crackles/rales Cardiovascular: normal peripheral pulses, normal rate, regular rhythm, no gallop/murmur, no JVD Abdomen: normal bowel sounds, soft, non tender, no organomegaly, non distended , no mass, no scars Extremities: no cyanosis, no clubbing Skin: no rash, no lesions, ulcers Neurologic/Psychiatric: alert, responsive Laboratory Tests Test 05/03/17 07:05 White Blood Count 6.1 K/UL (4.8-10.8) Red Blood Count 2.77 M/UL (4.70-6.10) L Hemoglobin 8.6 G/DL (14.2-18.0) L Hematocrit 26.0 % (42.0-52.0) L Mean Corpuscular Volume 94 FL (80-99) Mean Corpuscular Hemoglobin 31.0 PG (27.0-31.0) Mean Corpuscular Hemoglobin Concent 33.1 G/DL (32.0-36.0) Red Cell Distribution Width 15.0 % (11.6-14.8) H Platelet Count 47 K/UL (150-450) L Mean Platelet Volume 7.3 FL (6.5-10.1) Neutrophils (%) (Auto) % (45.0-75.0) Lymphocytes (%) (Auto) % (20.0-45.0) Monocytes (%) (Auto) % (1.0-10.0) Eosinophils (%) (Auto) % (0.0-3.0) Basophils (%) (Auto) % (0.0-2.0) Differential Total Cells Counted 100 Neutrophils % (Manual) 60 % (45-75) Lymphocytes % (Manual) 29 % (20-45) Monocytes % (Manual) 10 % (1-10) Eosinophils % (Manual) 1 % (0-3) Basophils % (Manual) 0 % (0-2) Band Neutrophils 0 % (0-8) Platelet Estimate Decreased L Platelet Morphology Normal Hypochromasia 1+ Anisocytosis 1+ Sodium Level 144 MMOL/L (136-145) Potassium Level 4.4 MMOL/L (3.5-5.1) Chloride Level 113 MMOL/L (98-107) H Carbon Dioxide Level 25 MMOL/L (21-32) Anion Gap 7 mmol/L (5-15) Blood Urea Nitrogen 30 mg/dL (7-18) H Creatinine 1.3 MG/DL (0.55-1.30) Estimat Glomerular Filtration Rate mL/min (>60) Glucose Level 93 MG/DL (74-106) Calcium Level 8.3 MG/DL (8.5-10.1) L Current Medications Medications (Trade) Dose Ordered Sig/Trey Route PRN Reason Start Time Stop Time Status Last Admin Dose Admin Acetaminophen (Tylenol) 650 mg Q4H PRN ORAL Mild Pain (Pain Scale 1-3) 04/26/17 00:45 05/26/17 00:44 Aspirin (ASA) 81 mg DAILY ORAL 04/26/17 09:00 05/26/17 08:59 05/03/17 09:38 Carvedilol (Coreg) 12.5 mg EVERY 12 HOURS ORAL 04/26/17 09:00 05/26/17 08:59 05/03/17 09:37 Ceftriaxone Sodium 2 gm/ Dextrose 55 ml @ 110 mls/hr Q24H IVPB 04/29/17 15:00 05/06/17 14:59 05/02/17 14:44 Dextrose 1,000 ml @ 80 mls/hr [id number] IV 04/30/17 14:00 05/30/17 13:59 05/03/17 04:30 Dextrose (Dextrose 50%) STAT PRN IV Hypoglycemia 04/26/17 00:45 05/26/17 00:44 Divalproex Sodium (Depakote) 500 mg Q12HR ORAL 04/26/17 09:00 05/26/17 08:59 05/03/17 09:37 Docusate Sodium (Colace) 100 mg THREE TIMES A DAY ORAL 05/03/17 18:00 06/02/17 17:59 Famotidine (Pepcid) 20 mg DAILY ORAL 04/26/17 09:00 05/26/17 08:59 05/03/17 09:37 Folic Acid (Folate) 1 mg DAILY ORAL 04/30/17 09:00 05/30/17 08:59 05/03/17 09:38 Levothyroxine Sodium (Synthroid) 100 mcg ACBREAKFAST ORAL 04/26/17 06:30 05/26/17 06:29 05/03/17 06:15 Lorazepam (Ativan) 1 mg ONCE PRN ORAL 30 min prior to biopsy 05/02/17 10:00 05/09/17 09:59 05/02/17 10:21 Meloxicam (Mobic) 15 mg DAILY ORAL 04/26/17 09:00 05/26/17 08:59 05/03/17 09:38 Ondansetron HCl (Zofran) 4 mg Q6H PRN IVP Nausea & Vomiting 04/26/17 00:45 05/26/17 00:44 Polyethylene Glycol (Miralax) 17 gm DAILY PRN ORAL Constipation 05/02/17 09:00 06/01/17 08:59 Propafenone HCl (Rythmol) 225 mg EVERY 8 HOURS ORAL 04/26/17 06:00 05/26/17 05:59 05/03/17 06:15 Quetiapine Fumarate (SEROquel) 25 mg BEDTIME PRN ORAL agitation 04/30/17 21:00 05/26/17 08:59 Vitamin B Complex/ Vit C/Folic Acid (Nephrovite) 1 tab DAILY ORAL 04/29/17 09:00 05/29/17 08:59 05/03/17 09:38 Zak Matos M.D. May 03, 2017 14:45
[2017-05-03] MEDS: cefTRIAXone 2 GM in D5W 55 ML IVPB SCH (15:52)
[2017-05-03 16:00] VITALS: BP 158/87
--- NOTE | 2017-05-03 16:00 | Cardiology Report ---
APPROVED REPORT EKG Measurement Heart [id number] MD [id number] Normal sinus rhythm Cannot rule out Anterior infarct, age undetermined Abnormal ECG
--- NOTE | 2017-05-03 16:13 | Cardiac Electrophysiology PN ---
Assessment/Plan Assessment/Plan 1. Nonsustained ventricular tachycardia. No NV. Echocardiogram normal EF. Continue Coreg 12.5 mg b.i.d. 2. Initial troponin lEak. # subsequent troponins negative. 3. Paroxysmal atrial fibrillation, in sinus rhythm, on aspirin and Coreg. 4. Hypothyroidism, on Synthroid. 5. Anemia, followed by Dr. Streeter. Stool OB still pending Had BM Biopsy Left iliac Crest yesterday. Results pending. 6. Dementia DW RN Subjective Subjective Comfortable in NAD. Remained in SR. S/P BM biopsy yesterday. Abdominal US was done also. Objective Last 24 Hour Vital Signs Date Time Temp Pulse Resp B/P (MAP) Pulse Ox O2 Delivery O2 Flow Rate FiO2 05/03/17 15:09 68 05/03/17 12:00 78 05/03/17 12:00 98.4 68 20 112/63 96 Room Air 05/03/17 09:37 73 142/86 05/03/17 08:00 98.4 73 20 142/86 97 Room Air 05/03/17 08:00 73 05/03/17 06:15 71 05/03/17 04:33 97.7 71 18 122/65 Room Air 05/03/17 04:00 63 05/03/17 00:13 98.2 88 19 153/77 94 Room Air 05/03/17 00:00 72 05/02/17 21:12 70 115/58 05/02/17 21:11 70 05/02/17 20:07 98.4 70 18 115/58 96 Room Air 05/02/17 20:00 71 Intake and Output 05/02/17 05/03/17 19:00 07:00 Intake Total 1007 ml Output Total 1600 ml 800 ml Balance -593 ml -800 ml Intake Oral 472 ml IV Total 535 ml Output Urine Total 1600 ml 800 ml Laboratory Tests Test 05/03/17 07:05 White Blood Count 6.1 K/UL (4.8-10.8) Red Blood Count 2.77 M/UL (4.70-6.10) L Hemoglobin 8.6 G/DL (14.2-18.0) L Hematocrit 26.0 % (42.0-52.0) L Mean Corpuscular Volume 94 FL (80-99) Mean Corpuscular Hemoglobin 31.0 PG (27.0-31.0) Mean Corpuscular Hemoglobin Concent 33.1 G/DL (32.0-36.0) Red Cell Distribution Width 15.0 % (11.6-14.8) H Platelet Count 47 K/UL (150-450) L Mean Platelet Volume 7.3 FL (6.5-10.1) Neutrophils (%) (Auto) % (45.0-75.0) Lymphocytes (%) (Auto) % (20.0-45.0) Monocytes (%) (Auto) % (1.0-10.0) Eosinophils (%) (Auto) % (0.0-3.0) Basophils (%) (Auto) % (0.0-2.0) Differential Total Cells Counted 100 Neutrophils % (Manual) 60 % (45-75) Lymphocytes % (Manual) 29 % (20-45) Monocytes % (Manual) 10 % (1-10) Eosinophils % (Manual) 1 % (0-3) Basophils % (Manual) 0 % (0-2) Band Neutrophils 0 % (0-8) Platelet Estimate Decreased L Platelet Morphology Normal Hypochromasia 1+ Anisocytosis 1+ Sodium Level 144 MMOL/L (136-145) Potassium Level 4.4 MMOL/L (3.5-5.1) Chloride Level 113 MMOL/L (98-107) H Carbon Dioxide Level 25 MMOL/L (21-32) Anion Gap 7 mmol/L (5-15) Blood Urea Nitrogen 30 mg/dL (7-18) H Creatinine 1.3 MG/DL (0.55-1.30) Estimat Glomerular Filtration Rate mL/min (>60) Glucose Level 93 MG/DL (74-106) Calcium Level 8.3 MG/DL (8.5-10.1) L Objective HEAD AND NECK: Shows no JVD. LUNGS: Decreased breath sounds. CARDIOVASCULAR: Regular S1 and S2 with no gallop or murmur. ABDOMEN: Soft. EXTREMITIES: Bilateral 1+ pitting edema. JARROD ESTRADA May 03, 2017 16:13
[2017-05-03] MEDS: Docusate 100mg cap ORAL SCH (16:43)
--- NOTE | 2017-05-03 18:51 | Nephrology Progress Note ---
Assessment/Plan Problem List: (1) Dehydration (2) Sepsis (3) UTI (urinary tract infection) (4) Altered level of consciousness (5) HCAP (healthcare-associated pneumonia) (6) LEWIS (acute kidney injury) Assessment: Improved on current IVF (7) Urinary retention (8) Hypernatremia (9) Hyperkalemia Assessment: Resolved (10) Elevated troponin (11) Pancytopenia Plan Continue current treatment plan Continue D5W to correct sodium Monitor intake and output Monitor renal function, improved on IVF Renally dose meds, avoid nephrotoxins Monitor H&H, transfuse prn Continue arnold Monitor lytes, correct prn Encourage fluids Abx per ID Cardio following, will follow up with recs Hematology following Monitor neuro status AM labs Subjective ROS Limited/Unobtainable: Yes Subjective In bed, in no apparent distress, asleep but arousable. Objective Objective Last 24 Hour Vital Signs Date Time Temp Pulse Resp B/P (MAP) Pulse Ox O2 Delivery O2 Flow Rate FiO2 05/03/17 16:00 98.3 90 20 158/87 98 Room Air 05/03/17 15:09 68 05/03/17 12:00 78 05/03/17 12:00 98.4 68 20 112/63 96 Room Air 05/03/17 09:37 73 142/86 05/03/17 08:00 98.4 73 20 142/86 97 Room Air 05/03/17 08:00 73 05/03/17 06:15 71 05/03/17 04:33 97.7 71 18 122/65 Room Air 05/03/17 04:00 63 05/03/17 00:13 98.2 88 19 153/77 94 Room Air 05/03/17 00:00 72 05/02/17 21:12 70 115/58 05/02/17 21:11 70 05/02/17 20:07 98.4 70 18 115/58 96 Room Air 05/02/17 20:00 71 Intake and Output 05/02/17 05/03/17 19:00 07:00 Intake Total 1007 ml Output Total 1600 ml 800 ml Balance -593 ml -800 ml Intake Oral 472 ml IV Total 535 ml Output Urine Total 1600 ml 800 ml Laboratory Tests 05/03/17 07:05: White Blood Count 6.1, Red Blood Count 2.77L, Hemoglobin 8.6L, Hematocrit 26.0L , Mean Corpuscular Volume 94, Mean Corpuscular Hemoglobin 31.0, Mean Corpuscular Hemoglobin Concent 33.1, Red Cell Distribution Width 15.0H, Platelet Count 47L, Mean Platelet Volume 7.3, Neutrophils (%) (Auto) , Lymphocytes (%) (Auto) , Monocytes (%) (Auto) , Eosinophils (%) (Auto) , Basophils (%) (Auto) , Differential Total Cells Counted 100, Neutrophils % ( Manual) 60, Lymphocytes % (Manual) 29, Monocytes % (Manual) 10, Eosinophils % ( Manual) 1, Basophils % (Manual) 0, Band Neutrophils 0, Platelet Estimate DecreasedL, Platelet Morphology Normal, Hypochromasia 1+, Anisocytosis 1+, Sodium Level 144, Potassium Level 4.4, Chloride Level 113H, Carbon Dioxide Level 25, Anion Gap 7, Blood Urea Nitrogen 30H, Creatinine 1.3, Estimat Glomerular Filtration Rate , Glucose Level 93, Calcium Level 8.3L Height (Feet): 6 Height (Inches): 0.00 Weight (Pounds): 190 General Appearance: no apparent distress, confused EENT: normal ENT inspection Neck: normal alignment, supple Cardiovascular: regular rhythm, no JVD Respiratory/Chest: no respiratory distress Abdomen: no mass Extremities: non-tender, normal inspection Neurologic: disoriented Glenis Meza N.P. May 03, 2017 18:51
[2017-05-03 20:00] VITALS: BP 110/53
[2017-05-04] VITALS (7 sets, daily range): BP systolic 84–121; BP diastolic 42–96
--- NOTE | 2017-05-04 04:21 | General Progress Note ---
Assessment/Plan Status: unchanged Assessment/Plan 1. Pancytopenia. Infection related versus viral versus bone marrow disorder --> have discussed with pathologist, still pending bone marrow biop --> HIV panel negative, hepatitis negative as well --> Platelets are low, goal is >20k. Currently still above goal. --> Hemoglobin goal >7, currently above goal. 2. Anemia secondary to kidney disease. Continue to closely monitor. Creatinine elevated. --> S/P Blood transfusion. --> improved 3. LEWIS. Being seen by Nephrology. 4. Nausea and vomiting. The patient is being evaluated by GI service. --> Occult blood is negative 5. NSVT, being seen by Cardiology. 6. Dehydration. Administer fluids as needed. Pulmonary is following as well. Subjective Date patient seen: May 03, 2017 Constitutional: Denies: no symptoms, chills, diaphoresis, fever, malaise, weakness, other HEENT: Denies: no symptoms, eye pain, blurred vision, tearing, double vision, ear pain, ear discharge, nose pain, nose congestion, throat pain, throat swelling, mouth pain, mouth swelling, other Cardiovascular: Denies: no symptoms, chest pain, edema, irregular heart rate, lightheadedness, palpitations, syncope, other Respiratory: Denies: no symptoms, cough, orthopnea, shortness of breath, SOB with excertion, SOB at rest, sputum, stridor, wheezing, other Gastrointestinal/Abdominal: Denies: no symptoms, abdomen distended, abdominal pain, black stools, tarry stools, blood in stool, constipated, diarrhea, difficulty swallowing, nausea, poor appetite, poor fluid intake, rectal bleeding , vomiting, other Genitourinary: Denies: no symptoms, burning, discharge, frequency, flank pain, hematuria, incontinence, pain, urgency, other Allergies: Coded Allergies: No Known Allergies (Unverified , 04/25/17) Subjective Non responsive. Platelets low. Objective Last 24 Hour Vital Signs Date Time Temp Pulse Resp B/P (MAP) Pulse Ox O2 Delivery O2 Flow Rate FiO2 05/04/17 04:00 97.7 67 18 100/43 96 05/04/17 00:00 98.9 75 16 84/42 95 05/03/17 22:46 98.9 05/03/17 21:46 94 05/03/17 21:00 94 110/53 05/03/17 20:00 101.8 94 16 110/53 96 05/03/17 16:00 92 05/03/17 16:00 98.3 90 20 158/87 98 Room Air 05/03/17 15:09 68 05/03/17 12:00 78 05/03/17 12:00 98.4 68 20 112/63 96 Room Air 05/03/17 09:37 73 142/86 05/03/17 08:00 98.4 73 20 142/86 97 Room Air 05/03/17 08:00 73 05/03/17 06:15 71 05/03/17 04:33 97.7 71 18 122/65 Room Air Intake and Output 05/03/17 05/04/17 19:00 07:00 Intake Total 810 ml Output Total 1000 ml Balance -190 ml Intake Oral 315 ml IV Total 495 ml Output Urine Total 1000 ml Laboratory Tests 05/03/17 07:05: White Blood Count 6.1, Red Blood Count 2.77L, Hemoglobin 8.6L, Hematocrit 26.0L , Mean Corpuscular Volume 94, Mean Corpuscular Hemoglobin 31.0, Mean Corpuscular Hemoglobin Concent 33.1, Red Cell Distribution Width 15.0H, Platelet Count 47L, Mean Platelet Volume 7.3, Neutrophils (%) (Auto) , Lymphocytes (%) (Auto) , Monocytes (%) (Auto) , Eosinophils (%) (Auto) , Basophils (%) (Auto) , Differential Total Cells Counted 100, Neutrophils % ( Manual) 60, Lymphocytes % (Manual) 29, Monocytes % (Manual) 10, Eosinophils % ( Manual) 1, Basophils % (Manual) 0, Band Neutrophils 0, Platelet Estimate DecreasedL, Platelet Morphology Normal, Hypochromasia 1+, Anisocytosis 1+, Sodium Level 144, Potassium Level 4.4, Chloride Level 113H, Carbon Dioxide Level 25, Anion Gap 7, Blood Urea Nitrogen 30H, Creatinine 1.3, Estimat Glomerular Filtration Rate , Glucose Level 93, Calcium Level 8.3L Height (Feet): 6 Height (Inches): 0.00 Weight (Pounds): 190 Rivera Christine May 04, 2017 04:21
[2017-05-04] MEDS: Carvedilol 12.5mg tab ORAL SCH ×2 (08:37→21:50)
[2017-05-04] MEDS: Aspirin Baby 81mg ORAL SCH (08:39)
[2017-05-04] MEDS: Docusate 100mg cap ORAL SCH ×3 (08:40→17:42)
[2017-05-04] MEDS: Meloxicam 15 MG TAB ORAL SCH (08:40)
[2017-05-04 08:48] LABS: HEMATOCRIT 24.6 % (42.0-52.0); HEMOGLOBIN 8.4 G/DL (14.2-18.0); MEAN CORPUSCULAR VOLUME 93 FL (80-99); PLATELET COUNT 40 K/UL (150-450); RED BLOOD COUNT 2.64 M/UL (4.70-6.10); RED CELL DISTRIBUTION WIDTH 15.1 % (11.6-14.8); WHITE BLOOD COUNT 7.7 K/UL (4.8-10.8)
[2017-05-04 09:02] LABS: ANION GAP 6 mmol/L (5-15); BLOOD UREA NITROGEN 36 mg/dL (7-18); CALCIUM 8.2 MG/DL (8.5-10.1); CARBON DIOXIDE 25 MMOL/L (21-32); CHLORIDE 111 MMOL/L (98-107); CREATININE 1.5 MG/DL (0.55-1.30); POTASSIUM 4.6 MMOL/L (3.5-5.1); SODIUM 142 MMOL/L (136-145)
[2017-05-04] MEDS: Nephrovite tab (Rena-Vite) ORAL SCH (09:17)
--- NOTE | 2017-05-04 10:02 | Pulmonology Progress Note ---
Assessment/Plan Assessment/Plan 1. Dehydration. resolved 2. Renal failure. improved 3. Altered mental status. 4. Urinary tract infection. 5. Sepsis DISCUSSION: Respiratory status is stable. I agree with the use of antibiotics per ID. Continue oxygen and pulmonary hygiene. 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 Subjective Interval Events: None Constitutional: Reports: no symptoms HEENT: Repors: no symptoms Respiratory: Reports: no symptoms Cardiovascular: Reports: no symptoms Gastrointestinal/Abdominal: Reports: no symptoms Genitourinary: Reports: no symptoms Allergies: Coded Allergies: No Known Allergies (Unverified , 04/25/17) Objective Last 24 Hour Vital Signs Date Time Temp Pulse Resp B/P (MAP) Pulse Ox O2 Delivery O2 Flow Rate FiO2 05/04/17 08:37 69 117/69 05/04/17 06:00 69 05/04/17 04:00 69 05/04/17 04:00 97.7 67 18 100/43 96 05/04/17 00:00 70 05/04/17 00:00 98.9 75 16 84/42 95 05/03/17 22:46 98.9 05/03/17 21:46 94 05/03/17 21:00 94 110/53 05/03/17 20:00 89 05/03/17 20:00 101.8 94 16 110/53 96 05/03/17 16:00 92 05/03/17 16:00 98.3 90 20 158/87 98 Room Air 05/03/17 15:09 68 05/03/17 12:00 78 05/03/17 12:00 98.4 68 20 112/63 96 Room Air Intake and Output 05/03/17 05/04/17 18:59 06:59 Intake Total 810 ml Output Total 1000 ml 600 ml Balance -190 ml -600 ml Intake Oral 315 ml IV Total 495 ml Output Urine Total 1000 ml 600 ml General Appearance: no acute distress HEENT: normocephalic Respiratory/Chest: chest wall non-tender, lungs clear Cardiovascular: normal peripheral pulses, normal rate Abdomen: normal bowel sounds, soft, non tender Laboratory Tests 05/04/17 07:47: White Blood Count 7.7, Red Blood Count 2.64L, Hemoglobin 8.4L, Hematocrit 24.6L , Mean Corpuscular Volume 93, Mean Corpuscular Hemoglobin 32.0H, Mean Corpuscular Hemoglobin Concent 34.4, Red Cell Distribution Width 15.1H, Platelet Count 40L, Mean Platelet Volume 7.0, Neutrophils (%) (Auto) , Lymphocytes (%) (Auto) , Monocytes (%) (Auto) , Eosinophils (%) (Auto) , Basophils (%) (Auto) , Differential Total Cells Counted 100, Neutrophils % ( Manual) 68, Lymphocytes % (Manual) 20, Monocytes % (Manual) 12H, Eosinophils % ( Manual) 0, Basophils % (Manual) 0, Band Neutrophils 0, Platelet Estimate DecreasedL, Platelet Morphology Normal, Hypochromasia 1+, Anisocytosis 1+, Sodium Level 142, Potassium Level 4.6, Chloride Level 111H, Carbon Dioxide Level 25, Anion Gap 6, Blood Urea Nitrogen 36H, Creatinine 1.5H, Estimat Glomerular Filtration Rate , Glucose Level 85, Calcium Level 8.2L Current Medications Medications (Trade) Dose Ordered Sig/Trey Route PRN Reason Start Time Stop Time Status Last Admin Dose Admin Acetaminophen (Tylenol) 650 mg Q4H PRN ORAL Mild Pain (Pain Scale 1-3) 04/26/17 00:45 05/26/17 00:44 05/03/17 21:47 Aspirin (ASA) 81 mg DAILY ORAL 04/26/17 09:00 05/26/17 08:59 05/04/17 08:39 Carvedilol (Coreg) 12.5 mg EVERY 12 HOURS ORAL 04/26/17 09:00 05/26/17 08:59 05/04/17 08:37 Ceftriaxone Sodium 2 gm/ Dextrose 55 ml @ 110 mls/hr Q24H IVPB 04/29/17 15:00 05/06/17 14:59 05/03/17 15:52 Dextrose 1,000 ml @ 80 mls/hr [id number] IV 04/30/17 14:00 05/30/17 13:59 05/04/17 05:55 Dextrose (Dextrose 50%) STAT PRN IV Hypoglycemia 04/26/17 00:45 05/26/17 00:44 Divalproex Sodium (Depakote) 500 mg Q12HR ORAL 04/26/17 09:00 05/26/17 08:59 05/04/17 08:39 Docusate Sodium (Colace) 100 mg THREE TIMES A DAY ORAL 05/03/17 18:00 06/02/17 17:59 05/04/17 08:40 Famotidine (Pepcid) 20 mg DAILY ORAL 04/26/17 09:00 05/26/17 08:59 05/04/17 08:30 Folic Acid (Folate) 1 mg DAILY ORAL 04/30/17 09:00 05/30/17 08:59 05/04/17 08:45 Levothyroxine Sodium (Synthroid) 100 mcg ACBREAKFAST ORAL 04/26/17 06:30 05/26/17 06:29 05/04/17 06:30 Lorazepam (Ativan) 1 mg ONCE PRN ORAL 30 min prior to biopsy 05/02/17 10:00 05/09/17 09:59 05/02/17 10:21 Meloxicam (Mobic) 15 mg DAILY ORAL 04/26/17 09:00 05/26/17 08:59 05/04/17 08:40 Ondansetron HCl (Zofran) 4 mg Q6H PRN IVP Nausea & Vomiting 04/26/17 00:45 05/26/17 00:44 Polyethylene Glycol (Miralax) 17 gm DAILY PRN ORAL Constipation 05/02/17 09:00 06/01/17 08:59 Propafenone HCl (Rythmol) 225 mg EVERY 8 HOURS ORAL 04/26/17 06:00 05/26/17 05:59 05/04/17 06:00 Quetiapine Fumarate (SEROquel) 25 mg BEDTIME PRN ORAL agitation 04/30/17 21:00 05/26/17 08:59 Vitamin B Complex/ Vit C/Folic Acid (Nephrovite) 1 tab DAILY ORAL 04/29/17 09:00 05/29/17 08:59 05/04/17 09:17 Mitch Grace MD May 04, 2017 10:02
[2017-05-04] MEDS ORDERED: 1/2NS w/KCl 20mEq 1000ml IV ONE (14:41)
[2017-05-04] MEDS ORDERED: NS 500ML ONE (14:41)
[2017-05-04] MEDS ORDERED: Tubing Blood Filter IV ONE (14:41)
[2017-05-04] MEDS ORDERED: Tubing IV Secondary IV ONE (14:41)
[2017-05-04] MEDS: cefTRIAXone 2 GM in D5W 55 ML IVPB SCH (15:00)
--- NOTE | 2017-05-04 16:48 | General Progress Note ---
Assessment/Plan Assessment/Plan Assessment (1) Dehydration ICD Codes: E86.0 - Dehydration SNOMED: 39099130, 226537947, 153093803 (2) Anemia ICD Codes: D64.9 - Anemia, unspecified SNOMED: 932221356 (3) Altered level of consciousness ICD Codes: R40.4 - Transient alteration of awareness SNOMED: 5066724 (4) Elevated troponin ICD Codes: R74.8 - Abnormal levels of other serum enzymes SNOMED: 198119356, 381141796, 877975410 (5) low platelets Assessment hep panel >> negative defer GI procedures given elevated troponin levels OB stool r/o GI bleed monitor H&H, prn transfusions keep Hgb > 8.0 bowel regime ppi cardiac diet, tolerating OT evaluation folate PO electrolyte correction fu labs, tumor markers Subjective Allergies: Coded Allergies: No Known Allergies (Unverified , 04/25/17) Subjective minimally communicative d/w RN keeps eyes closed Objective Last 24 Hour Vital Signs Date Time Temp Pulse Resp B/P (MAP) Pulse Ox O2 Delivery O2 Flow Rate FiO2 05/04/17 16:00 98.1 69 20 91/42 Nasal Cannula 2.0 05/04/17 13:31 89 05/04/17 12:00 97.2 89 18 121/61 100 Nasal Cannula 2.0 05/04/17 12:00 62 05/04/17 11:23 70 05/04/17 08:37 69 117/69 05/04/17 08:00 97.9 70 20 118/70 20 Room Air 05/04/17 06:00 69 05/04/17 04:00 69 05/04/17 04:00 97.7 67 18 100/43 96 05/04/17 00:00 70 05/04/17 00:00 98.9 75 16 84/42 95 05/03/17 22:46 98.9 05/03/17 21:46 94 05/03/17 21:00 94 110/53 05/03/17 20:00 89 05/03/17 20:00 101.8 94 16 110/53 96 Intake and Output 05/03/17 05/04/17 19:00 07:00 Intake Total 810 ml Output Total 1000 ml 600 ml Balance -190 ml -600 ml Intake Oral 315 ml IV Total 495 ml Output Urine Total 1000 ml 600 ml Laboratory Tests 05/04/17 07:47: White Blood Count 7.7, Red Blood Count 2.64L, Hemoglobin 8.4L, Hematocrit 24.6L , Mean Corpuscular Volume 93, Mean Corpuscular Hemoglobin 32.0H, Mean Corpuscular Hemoglobin Concent 34.4, Red Cell Distribution Width 15.1H, Platelet Count 40L, Mean Platelet Volume 7.0, Neutrophils (%) (Auto) , Lymphocytes (%) (Auto) , Monocytes (%) (Auto) , Eosinophils (%) (Auto) , Basophils (%) (Auto) , Differential Total Cells Counted 100, Neutrophils % ( Manual) 68, Lymphocytes % (Manual) 20, Monocytes % (Manual) 12H, Eosinophils % ( Manual) 0, Basophils % (Manual) 0, Band Neutrophils 0, Platelet Estimate DecreasedL, Platelet Morphology Normal, Hypochromasia 1+, Anisocytosis 1+, Sodium Level 142, Potassium Level 4.6, Chloride Level 111H, Carbon Dioxide Level 25, Anion Gap 6, Blood Urea Nitrogen 36H, Creatinine 1.5H, Estimat Glomerular Filtration Rate , Glucose Level 85, Calcium Level 8.2L Height (Feet): 6 Height (Inches): 0.00 Weight (Pounds): 190 Objective Elderly WM NCAT supple CTA RRR Abd soft ND NT (+) Edema OBS PREMA CHO May 04, 2017 16:48
--- NOTE | 2017-05-04 17:19 | Nephrology Progress Note ---
Assessment/Plan Problem List: (1) Dehydration (2) Sepsis (3) UTI (urinary tract infection) Assessment: On IV abx (4) Altered level of consciousness (5) HCAP (healthcare-associated pneumonia) (6) LEWIS (acute kidney injury) Assessment: Improved on current IVF (7) Urinary retention (8) Hypernatremia (9) Hyperkalemia Assessment: Resolved (10) Elevated troponin (11) Pancytopenia Plan Continue current treatment plan Continue D5W to correct sodium Monitor intake and output Monitor renal function, improved on IVF Renally dose meds, avoid nephrotoxins Monitor H&H, transfuse prn Continue arnold Monitor lytes, correct prn Encourage fluids Abx per ID Cardio following, will follow up with recs Hematology following Stool OB Monitor neuro status AM labs Subjective ROS Limited/Unobtainable: Yes Subjective In bed, in no apparent distress Objective Objective Last 24 Hour Vital Signs Date Time Temp Pulse Resp B/P (MAP) Pulse Ox O2 Delivery O2 Flow Rate FiO2 05/04/17 16:00 98.1 69 20 91/42 Nasal Cannula 2.0 05/04/17 13:31 89 05/04/17 12:00 97.2 89 18 121/61 100 Nasal Cannula 2.0 05/04/17 12:00 62 05/04/17 11:23 70 05/04/17 08:37 69 117/69 05/04/17 08:00 97.9 70 20 118/70 20 Room Air 05/04/17 06:00 69 05/04/17 04:00 69 05/04/17 04:00 97.7 67 18 100/43 96 05/04/17 00:00 70 05/04/17 00:00 98.9 75 16 84/42 95 05/03/17 22:46 98.9 05/03/17 21:46 94 05/03/17 21:00 94 110/53 05/03/17 20:00 89 05/03/17 20:00 101.8 94 16 110/53 96 Intake and Output 05/03/17 05/04/17 19:00 07:00 Intake Total 810 ml Output Total 1000 ml 600 ml Balance -190 ml -600 ml Intake Oral 315 ml IV Total 495 ml Output Urine Total 1000 ml 600 ml Laboratory Tests 05/04/17 07:47: White Blood Count 7.7, Red Blood Count 2.64L, Hemoglobin 8.4L, Hematocrit 24.6L , Mean Corpuscular Volume 93, Mean Corpuscular Hemoglobin 32.0H, Mean Corpuscular Hemoglobin Concent 34.4, Red Cell Distribution Width 15.1H, Platelet Count 40L, Mean Platelet Volume 7.0, Neutrophils (%) (Auto) , Lymphocytes (%) (Auto) , Monocytes (%) (Auto) , Eosinophils (%) (Auto) , Basophils (%) (Auto) , Differential Total Cells Counted 100, Neutrophils % ( Manual) 68, Lymphocytes % (Manual) 20, Monocytes % (Manual) 12H, Eosinophils % ( Manual) 0, Basophils % (Manual) 0, Band Neutrophils 0, Platelet Estimate DecreasedL, Platelet Morphology Normal, Hypochromasia 1+, Anisocytosis 1+, Sodium Level 142, Potassium Level 4.6, Chloride Level 111H, Carbon Dioxide Level 25, Anion Gap 6, Blood Urea Nitrogen 36H, Creatinine 1.5H, Estimat Glomerular Filtration Rate , Glucose Level 85, Calcium Level 8.2L Height (Feet): 6 Height (Inches): 0.00 Weight (Pounds): 190 General Appearance: no apparent distress, confused EENT: normal ENT inspection Neck: supple, normal inspection Cardiovascular: normal rate, no JVD Abdomen: soft Extremities: non-tender, normal inspection Neurologic: responsive, disoriented Glenis Meza N.P. May 04, 2017 17:19
--- NOTE | 2017-05-04 19:45 | Infectious Diseases Prog Note ---
Assessment/Plan Problems: (1) UTI (urinary tract infection) Assessment & Plan: with E coli , most likely the source of his sepsis , on ceftriaxon for two weeks total . (2) Fever Assessment & Plan: due to the above, resolved , continue tylenol prn (3) HCAP (healthcare-associated pneumonia) Assessment & Plan: due to serratia marcescens, improved on cefepime and clindamycin, influenza screening is negative , continue ceftriaxon only for two weeks (4) Sepsis Assessment & Plan: with E coli , on ceftriaxone , repeated blood culture is negative so far . will treat with ceftriaxon for two weeks starting from the clearance date. EOT 05/12/17 (5) Altered level of consciousness Assessment & Plan: due to the above, recommend neurology eval and brain images (6) Elevated troponin Assessment & Plan: suspect ACS, cardiology is following (7) Dehydration Assessment & Plan: continue IVF, monitor urine out put, and renal function, avoid nephrotoxic meds (8) LEWIS (acute kidney injury) Assessment & Plan: due to the above , continue hydration, monitor renal function , nephrology is following (9) Anemia Assessment & Plan: rule out GI source, monitor H/H, transfuse blood as needed , GI is following Subjective ROS Limited/Unobtainable: Yes Allergies: Coded Allergies: No Known Allergies (Unverified , 04/25/17) Subjective he was awake and alert, more interactive , resting in bed, respond to verbal commands , not hypotensive , afebrile , no rectal bleeding. Objective Vital Signs Last 24 Hour Vital Signs Date Time Temp Pulse Resp B/P (MAP) Pulse Ox O2 Delivery O2 Flow Rate FiO2 05/04/17 18:30 63 05/04/17 17:57 86 20 110/58 100 Nasal Cannula 05/04/17 16:00 98.1 69 20 91/42 Nasal Cannula 2.0 05/04/17 13:31 89 05/04/17 12:00 97.2 89 18 121/61 100 Nasal Cannula 2.0 05/04/17 12:00 62 05/04/17 11:23 70 05/04/17 08:37 69 117/69 05/04/17 08:00 97.9 70 20 118/70 20 Room Air 05/04/17 06:00 69 05/04/17 04:00 69 05/04/17 04:00 97.7 67 18 100/43 96 05/04/17 00:00 70 05/04/17 00:00 98.9 75 16 84/42 95 05/03/17 22:46 98.9 05/03/17 21:46 94 05/03/17 21:00 94 110/53 05/03/17 20:00 89 05/03/17 20:00 101.8 94 16 110/53 96 Height (Feet): 6 Height (Inches): 0.00 Weight (Pounds): 190 General Appearance: WD/WN, no acute distress HEENT: normocephalic, atraumatic, anicteric, mucous membranes moist, PERRL Respiratory/Chest: chest wall non-tender, lungs clear, normal breath sounds, no respiratory distress, no accessory muscle use Cardiovascular: normal peripheral pulses, normal rate, regular rhythm, no gallop/murmur, no JVD Abdomen: normal bowel sounds, soft, non tender, no organomegaly, non distended , no mass, no scars Genitourinary: normal external genitalia Extremities: no cyanosis, no clubbing Skin: no rash, no lesions, ulcers Neurologic/Psychiatric: alert, responsive Laboratory Tests Test 05/04/17 07:47 White Blood Count 7.7 K/UL (4.8-10.8) Red Blood Count 2.64 M/UL (4.70-6.10) L Hemoglobin 8.4 G/DL (14.2-18.0) L Hematocrit 24.6 % (42.0-52.0) L Mean Corpuscular Volume 93 FL (80-99) Mean Corpuscular Hemoglobin 32.0 PG (27.0-31.0) H Mean Corpuscular Hemoglobin Concent 34.4 G/DL (32.0-36.0) Red Cell Distribution Width 15.1 % (11.6-14.8) H Platelet Count 40 K/UL (150-450) L Mean Platelet Volume 7.0 FL (6.5-10.1) Neutrophils (%) (Auto) % (45.0-75.0) Lymphocytes (%) (Auto) % (20.0-45.0) Monocytes (%) (Auto) % (1.0-10.0) Eosinophils (%) (Auto) % (0.0-3.0) Basophils (%) (Auto) % (0.0-2.0) Differential Total Cells Counted 100 Neutrophils % (Manual) 68 % (45-75) Lymphocytes % (Manual) 20 % (20-45) Monocytes % (Manual) 12 % (1-10) H Eosinophils % (Manual) 0 % (0-3) Basophils % (Manual) 0 % (0-2) Band Neutrophils 0 % (0-8) Platelet Estimate Decreased L Platelet Morphology Normal Hypochromasia 1+ Anisocytosis 1+ Sodium Level 142 MMOL/L (136-145) Potassium Level 4.6 MMOL/L (3.5-5.1) Chloride Level 111 MMOL/L (98-107) H Carbon Dioxide Level 25 MMOL/L (21-32) Anion Gap 6 mmol/L (5-15) Blood Urea Nitrogen 36 mg/dL (7-18) H Creatinine 1.5 MG/DL (0.55-1.30) H Estimat Glomerular Filtration Rate mL/min (>60) Glucose Level 85 MG/DL (74-106) Calcium Level 8.2 MG/DL (8.5-10.1) L Current Medications Medications (Trade) Dose Ordered Sig/Trey Route PRN Reason Start Time Stop Time Status Last Admin Dose Admin Acetaminophen (Tylenol) 650 mg Q4H PRN ORAL Mild Pain (Pain Scale 1-3) 04/26/17 00:45 05/26/17 00:44 05/03/17 21:47 Aspirin (ASA) 81 mg DAILY ORAL 04/26/17 09:00 05/26/17 08:59 05/04/17 08:39 Carvedilol (Coreg) 12.5 mg EVERY 12 HOURS ORAL 04/26/17 09:00 05/26/17 08:59 05/04/17 08:37 Ceftriaxone Sodium 2 gm/ Dextrose 55 ml @ 110 mls/hr Q24H IVPB 04/29/17 15:00 05/06/17 14:59 05/04/17 15:00 Dextrose 1,000 ml @ 80 mls/hr [id number] IV 04/30/17 14:00 05/30/17 13:59 05/04/17 17:46 Dextrose (Dextrose 50%) STAT PRN IV Hypoglycemia 04/26/17 00:45 05/26/17 00:44 Divalproex Sodium (Depakote) 500 mg Q12HR ORAL 04/26/17 09:00 05/26/17 08:59 05/04/17 08:39 Docusate Sodium (Colace) 100 mg THREE TIMES A DAY ORAL 05/03/17 18:00 06/02/17 17:59 05/04/17 17:42 Famotidine (Pepcid) 20 mg DAILY ORAL 04/26/17 09:00 05/26/17 08:59 05/04/17 08:30 Folic Acid (Folate) 1 mg DAILY ORAL 04/30/17 09:00 05/30/17 08:59 05/04/17 08:45 Levothyroxine Sodium (Synthroid) 100 mcg ACBREAKFAST ORAL 04/26/17 06:30 05/26/17 06:29 05/04/17 06:30 Lorazepam (Ativan) 1 mg ONCE PRN ORAL 30 min prior to biopsy 05/02/17 10:00 05/09/17 09:59 05/02/17 10:21 Meloxicam (Mobic) 15 mg DAILY ORAL 04/26/17 09:00 05/26/17 08:59 05/04/17 08:40 Ondansetron HCl (Zofran) 4 mg Q6H PRN IVP Nausea & Vomiting 04/26/17 00:45 05/26/17 00:44 Polyethylene Glycol (Miralax) 17 gm DAILY PRN ORAL Constipation 05/02/17 09:00 06/01/17 08:59 Propafenone HCl (Rythmol) 225 mg EVERY 8 HOURS ORAL 04/26/17 06:00 05/26/17 05:59 05/04/17 13:31 Quetiapine Fumarate (SEROquel) 25 mg BEDTIME PRN ORAL agitation 04/30/17 21:00 05/26/17 08:59 Vitamin B Complex/ Vit C/Folic Acid (Nephrovite) 1 tab DAILY ORAL 04/29/17 09:00 05/29/17 08:59 05/04/17 09:17 Zak Matos M.D. May 04, 2017 19:45
[2017-05-05 00:32] VITALS: BP 127/75
[2017-05-05 04:13] VITALS: BP 116/57
[2017-05-05 07:55] LABS: HEMATOCRIT 24.2 % (42.0-52.0); HEMOGLOBIN 8.2 G/DL (14.2-18.0); MEAN CORPUSCULAR VOLUME 93 FL (80-99); PLATELET COUNT 61 K/UL (150-450); RED BLOOD COUNT 2.61 M/UL (4.70-6.10); RED CELL DISTRIBUTION WIDTH 15.3 % (11.6-14.8); WHITE BLOOD COUNT 6.7 K/UL (4.8-10.8)
[2017-05-05 08:00] VITALS: BP 97/52
[2017-05-05 08:36] LABS: ANION GAP 7 mmol/L (5-15); BLOOD UREA NITROGEN 37 mg/dL (7-18); CALCIUM 8.5 MG/DL (8.5-10.1); CARBON DIOXIDE 26 MMOL/L (21-32); CHLORIDE 111 MMOL/L (98-107); CREATININE 1.3 MG/DL (0.55-1.30); POTASSIUM 4.5 MMOL/L (3.5-5.1); SODIUM 144 MMOL/L (136-145)
[2017-05-05] MEDS: Carvedilol 12.5mg tab ORAL SCH ×2 (09:00→21:45)
[2017-05-05] MEDS: Docusate 100mg cap ORAL SCH ×3 (09:11→18:11)
[2017-05-05] MEDS: Meloxicam 15 MG TAB ORAL SCH (09:11)
[2017-05-05] MEDS: Nephrovite tab (Rena-Vite) ORAL SCH (09:11)
[2017-05-05] MEDS: Aspirin Baby 81mg ORAL SCH (09:14)
--- NOTE | 2017-05-05 10:03 | Cardiac Electrophysiology PN ---
Assessment/Plan Status Narrative Impression: Echogenic sludge in the gallbladder with minimal gallbladder wall thickening and trace pericholecystic fluid. Sonographic Resendez sign (either negative or positive) was not documented by the radiologic technologist. Findings may be suggestive of a mild cholecystitis in the appropriate clinical setting. Confirmation with HIDA scan recommended. Assessment/Plan 1. Nonsustained ventricular tachycardia. No VA. Echocardiogram normal EF. Continue Coreg 12.5 mg b.i.d. 2. Initial troponin lEak. 3 subsequent troponins negative. 3. Paroxysmal atrial fibrillation, in sinus rhythm, on aspirin and Coreg. 4. Hypothyroidism, on Synthroid. 5. Anemia, followed by Dr. Streeter. Stool OB still pending Had BM Biopsy Left iliac Crest. Results pending. 6. Dementia 7. Abd US suggestive of Mild cholecystitis in the appropriate clinical setting. Confirmation with HIDA scan recommended. JENNIFER RN and Dr Ferdinand LIM Subjective Subjective Comfortable in NAD. Remained in SR. S/P BM biopsy. US abdomen suggestive of Cholecystitis Objective Last 24 Hour Vital Signs Date Time Temp Pulse Resp B/P (MAP) Pulse Ox O2 Delivery O2 Flow Rate FiO2 05/05/17 09:00 83 97/52 05/05/17 08:00 97.0 83 18 97/52 98 Room Air 05/05/17 06:00 68 05/05/17 04:13 98.7 68 20 116/57 96 05/05/17 04:00 69 05/05/17 00:32 97.9 69 21 127/75 97 Room Air 05/05/17 00:00 63 05/04/17 21:50 76 05/04/17 21:50 76 121/96 05/04/17 20:00 70 05/04/17 20:00 98.1 76 21 121/96 96 Room Air 05/04/17 19:30 Room Air 05/04/17 18:30 63 05/04/17 17:57 86 20 110/58 100 Nasal Cannula 05/04/17 16:00 98.1 69 20 91/42 Nasal Cannula 2.0 05/04/17 13:31 89 05/04/17 12:00 97.2 89 18 121/61 100 Nasal Cannula 2.0 05/04/17 12:00 62 05/04/17 11:23 70 Intake and Output 05/04/17 05/05/17 19:00 07:00 Intake Total 325 ml Output Total 600 ml 700 ml Balance -275 ml -700 ml Intake Oral 325 ml Output Urine Total 600 ml 700 ml Laboratory Tests Test 05/05/17 06:55 White Blood Count 6.7 K/UL (4.8-10.8) Red Blood Count 2.61 M/UL (4.70-6.10) L Hemoglobin 8.2 G/DL (14.2-18.0) L Hematocrit 24.2 % (42.0-52.0) L Mean Corpuscular Volume 93 FL (80-99) Mean Corpuscular Hemoglobin 31.3 PG (27.0-31.0) H Mean Corpuscular Hemoglobin Concent 33.8 G/DL (32.0-36.0) Red Cell Distribution Width 15.3 % (11.6-14.8) H Platelet Count 61 K/UL (150-450) #L Mean Platelet Volume 6.2 FL (6.5-10.1) L Neutrophils (%) (Auto) % (45.0-75.0) Lymphocytes (%) (Auto) % (20.0-45.0) Monocytes (%) (Auto) % (1.0-10.0) Eosinophils (%) (Auto) % (0.0-3.0) Basophils (%) (Auto) % (0.0-2.0) Differential Total Cells Counted 100 Neutrophils % (Manual) 65 % (45-75) Lymphocytes % (Manual) 27 % (20-45) Monocytes % (Manual) 7 % (1-10) Eosinophils % (Manual) 0 % (0-3) Basophils % (Manual) 0 % (0-2) Band Neutrophils 1 % (0-8) Platelet Estimate Decreased L Platelet Morphology Normal Hypochromasia 1+ Anisocytosis 1+ Sodium Level 144 MMOL/L (136-145) Potassium Level 4.5 MMOL/L (3.5-5.1) Chloride Level 111 MMOL/L (98-107) H Carbon Dioxide Level 26 MMOL/L (21-32) Anion Gap 7 mmol/L (5-15) Blood Urea Nitrogen 37 mg/dL (7-18) H Creatinine 1.3 MG/DL (0.55-1.30) Estimat Glomerular Filtration Rate mL/min (>60) Glucose Level 84 MG/DL (74-106) Calcium Level 8.5 MG/DL (8.5-10.1) Objective HEAD AND NECK: Shows no JVD. LUNGS: Decreased breath sounds. CARDIOVASCULAR: Regular S1 and S2 with no gallop or murmur. ABDOMEN: Soft. EXTREMITIES: Bilateral 1+ pitting edema. JARROD ESTRADA May 05, 2017 10:03
--- NOTE | 2017-05-05 10:31 | GI Progress Note ---
Assessment/Plan Problems: (1) Dehydration ICD Codes: E86.0 - Dehydration SNOMED: 69582590, 369483938, 151212627 (2) Anemia ICD Codes: D64.9 - Anemia, unspecified SNOMED: 087308176 (3) Altered level of consciousness ICD Codes: R40.4 - Transient alteration of awareness SNOMED: 9123810 (4) Elevated troponin ICD Codes: R74.8 - Abnormal levels of other serum enzymes SNOMED: 858591168, 784938689, 999858169 Status: stable, progressing Status Narrative Discussed with Dr. Streeter. Assessment/Plan hep panel >> negative abdominal U/S reviewed >> GB sludge, defer HIDA given normal LFTs/asymptomatic defer GI procedures given elevated troponin levels >> now normal OB stool r/o GI bleed monitor H&H, prn transfusions keep Hgb > 8.0 bowel regime ppi cardiac diet, tolerating OT evaluation folate PO electrolyte correction fu labs, tumor markers Subjective Subjective limited Objective Last 24 Hour Vital Signs Date Time Temp Pulse Resp B/P (MAP) Pulse Ox O2 Delivery O2 Flow Rate FiO2 05/05/17 09:00 83 97/52 05/05/17 08:00 97.0 83 18 97/52 98 Room Air 05/05/17 06:00 68 05/05/17 04:13 98.7 68 20 116/57 96 05/05/17 04:00 69 05/05/17 00:32 97.9 69 21 127/75 97 Room Air 05/05/17 00:00 63 05/04/17 21:50 76 05/04/17 21:50 76 121/96 05/04/17 20:00 70 05/04/17 20:00 98.1 76 21 121/96 96 Room Air 05/04/17 19:30 Room Air 05/04/17 18:30 63 05/04/17 17:57 86 20 110/58 100 Nasal Cannula 05/04/17 16:00 98.1 69 20 91/42 Nasal Cannula 2.0 05/04/17 13:31 89 05/04/17 12:00 97.2 89 18 121/61 100 Nasal Cannula 2.0 05/04/17 12:00 62 05/04/17 11:23 70 Intake and Output 05/04/17 05/05/17 19:00 07:00 Intake Total 325 ml Output Total 600 ml 700 ml Balance -275 ml -700 ml Intake Oral 325 ml Output Urine Total 600 ml 700 ml Laboratory Tests Test 05/05/17 06:55 White Blood Count 6.7 K/UL (4.8-10.8) Red Blood Count 2.61 M/UL (4.70-6.10) L Hemoglobin 8.2 G/DL (14.2-18.0) L Hematocrit 24.2 % (42.0-52.0) L Mean Corpuscular Volume 93 FL (80-99) Mean Corpuscular Hemoglobin 31.3 PG (27.0-31.0) H Mean Corpuscular Hemoglobin Concent 33.8 G/DL (32.0-36.0) Red Cell Distribution Width 15.3 % (11.6-14.8) H Platelet Count 61 K/UL (150-450) #L Mean Platelet Volume 6.2 FL (6.5-10.1) L Neutrophils (%) (Auto) % (45.0-75.0) Lymphocytes (%) (Auto) % (20.0-45.0) Monocytes (%) (Auto) % (1.0-10.0) Eosinophils (%) (Auto) % (0.0-3.0) Basophils (%) (Auto) % (0.0-2.0) Differential Total Cells Counted 100 Neutrophils % (Manual) 65 % (45-75) Lymphocytes % (Manual) 27 % (20-45) Monocytes % (Manual) 7 % (1-10) Eosinophils % (Manual) 0 % (0-3) Basophils % (Manual) 0 % (0-2) Band Neutrophils 1 % (0-8) Platelet Estimate Decreased L Platelet Morphology Normal Hypochromasia 1+ Anisocytosis 1+ Sodium Level 144 MMOL/L (136-145) Potassium Level 4.5 MMOL/L (3.5-5.1) Chloride Level 111 MMOL/L (98-107) H Carbon Dioxide Level 26 MMOL/L (21-32) Anion Gap 7 mmol/L (5-15) Blood Urea Nitrogen 37 mg/dL (7-18) H Creatinine 1.3 MG/DL (0.55-1.30) Estimat Glomerular Filtration Rate mL/min (>60) Glucose Level 84 MG/DL (74-106) Calcium Level 8.5 MG/DL (8.5-10.1) Height (Feet): 6 Height (Inches): 0.00 Weight (Pounds): 190 General Appearance: WD/WN, no apparent distress, alert Cardiovascular: normal rate Respiratory/Chest: normal breath sounds, no respiratory distress Abdominal Exam: normal bowel sounds, non tender, soft Extremities: non-tender Jeni Marino N.P. May 05, 2017 10:31
--- NOTE | 2017-05-05 11:11 | Cardiology Report ---
APPROVED REPORT EXAM: Two-dimensional and M-mode echocardiogram with Doppler and color Doppler. INDICATION Chest Pain M-Mode DIMENSIONS IVSd1.1 (0.7-1.1cm)Left Atrium (MM)4.8 (1.6-4.0cm) LVDd4.8 (3.5-5.6cm)Aortic Root2.5 (2.0-3.7cm) PWd1.0 (0.7-1.1cm)Aortic Cusp Exc.1.9 (1.5-2.0cm) LVDs2.3 (2.5-4.0cm) PWs2.1 cm Normal left ventricular chamber size, systolic function and wall motion. Left ventricular ejection fraction estimated to be 55 %. Borderline left ventricular hypertrophy. No evidence of pericardial effusion. Mild left atrial enlargement. Right cardiac chamber sizes are within normal limits. Mild focal aortic valve sclerosis with adequate cusp excursion. Mildly thickened mitral valve leaflets with normal excursion. Mild mitral annulus and aortic root calcification. Normal pulmonic valve structure. Normal tricuspid valve structure. IVC dilated at 1.9 cm with physiological collapse. A color flow and spectral Doppler study was performed and revealed: No aortic insufficiency. Mild mitral regurgitation.. Mitral inflow velocities indicates possible pseudo normalization pattern implying significant left ventricular diastolic dysfunction (Grade II). Mild tricuspid regurgitation. Tricuspid systolic velocities suggests peak right ventricular systolic pressure of 50 mmHg, consistent with moderate pulmonary hypertension. Mild pulmonic regurgitation present.
[2017-05-05 12:00] VITALS: BP 98/50
--- NOTE | 2017-05-05 12:20 | Pulmonology Progress Note ---
Assessment/Plan Assessment/Plan 1. Dehydration. resolved 2. Renal failure. improved 3. Altered mental status. 4. Urinary tract infection. 5. Sepsis; concerned noted for cholecystitis DISCUSSION: Respiratory status is stable. I agree with the use of antibiotics per ID. Continue oxygen and pulmonary hygiene. I will follow as vp integrity. Subjective Interval Events: no changes. Concerned noted for cholecystitis Constitutional: Reports: no symptoms HEENT: Repors: no symptoms Respiratory: Reports: no symptoms Cardiovascular: Reports: no symptoms Gastrointestinal/Abdominal: Reports: no symptoms Genitourinary: Reports: no symptoms Allergies: Coded Allergies: No Known Allergies (Unverified , 04/25/17) Objective Last 24 Hour Vital Signs Date Time Temp Pulse Resp B/P (MAP) Pulse Ox O2 Delivery O2 Flow Rate FiO2 05/05/17 09:00 83 97/52 05/05/17 08:19 85 05/05/17 08:00 97.0 83 18 97/52 98 Room Air 05/05/17 06:00 68 05/05/17 04:13 98.7 68 20 116/57 96 05/05/17 04:00 69 05/05/17 00:32 97.9 69 21 127/75 97 Room Air 05/05/17 00:00 63 05/04/17 21:50 76 05/04/17 21:50 76 121/96 05/04/17 20:00 70 05/04/17 20:00 98.1 76 21 121/96 96 Room Air 05/04/17 19:30 Room Air 05/04/17 18:30 63 05/04/17 17:57 86 20 110/58 100 Nasal Cannula 05/04/17 16:00 98.1 69 20 91/42 Nasal Cannula 2.0 05/04/17 13:31 89 Intake and Output 05/04/17 05/05/17 19:00 07:00 Intake Total 325 ml Output Total 600 ml 700 ml Balance -275 ml -700 ml Intake Oral 325 ml Output Urine Total 600 ml 700 ml General Appearance: no acute distress HEENT: normocephalic Respiratory/Chest: chest wall non-tender, lungs clear Cardiovascular: normal peripheral pulses, normal rate Abdomen: normal bowel sounds Laboratory Tests 05/05/17 06:55: White Blood Count 6.7, Red Blood Count 2.61L, Hemoglobin 8.2L, Hematocrit 24.2L , Mean Corpuscular Volume 93, Mean Corpuscular Hemoglobin 31.3H, Mean Corpuscular Hemoglobin Concent 33.8, Red Cell Distribution Width 15.3H, Platelet Count 61#L, Mean Platelet Volume 6.2L, Neutrophils (%) (Auto) , Lymphocytes (%) (Auto) , Monocytes (%) (Auto) , Eosinophils (%) (Auto) , Basophils (%) (Auto) , Differential Total Cells Counted 100, Neutrophils % ( Manual) 65, Lymphocytes % (Manual) 27, Monocytes % (Manual) 7, Eosinophils % ( Manual) 0, Basophils % (Manual) 0, Band Neutrophils 1, Platelet Estimate DecreasedL, Platelet Morphology Normal, Hypochromasia 1+, Anisocytosis 1+, Sodium Level 144, Potassium Level 4.5, Chloride Level 111H, Carbon Dioxide Level 26, Anion Gap 7, Blood Urea Nitrogen 37H, Creatinine 1.3, Estimat Glomerular Filtration Rate , Glucose Level 84, Calcium Level 8.5 Current Medications Medications (Trade) Dose Ordered Sig/Trey Route PRN Reason Start Time Stop Time Status Last Admin Dose Admin Acetaminophen (Tylenol) 650 mg Q4H PRN ORAL Mild Pain (Pain Scale 1-3) 04/26/17 00:45 05/26/17 00:44 05/03/17 21:47 Aspirin (ASA) 81 mg DAILY ORAL 04/26/17 09:00 05/26/17 08:59 05/05/17 09:14 Carvedilol (Coreg) 12.5 mg EVERY 12 HOURS ORAL 04/26/17 09:00 05/26/17 08:59 05/04/17 21:50 Ceftriaxone Sodium 2 gm/ Dextrose 55 ml @ 110 mls/hr Q24H IVPB 04/29/17 15:00 05/06/17 14:59 05/04/17 15:00 Dextrose 1,000 ml @ 80 mls/hr [id number] IV 04/30/17 14:00 05/30/17 13:59 05/05/17 06:30 Dextrose (Dextrose 50%) STAT PRN IV Hypoglycemia 04/26/17 00:45 05/26/17 00:44 Divalproex Sodium (Depakote) 500 mg Q12HR ORAL 04/26/17 09:00 05/26/17 08:59 05/05/17 09:16 Docusate Sodium (Colace) 100 mg THREE TIMES A DAY ORAL 05/03/17 18:00 06/02/17 17:59 05/05/17 09:11 Famotidine (Pepcid) 20 mg DAILY ORAL 04/26/17 09:00 05/26/17 08:59 05/05/17 09:11 Folic Acid (Folate) 1 mg DAILY ORAL 04/30/17 09:00 05/30/17 08:59 05/05/17 09:11 Levothyroxine Sodium (Synthroid) 100 mcg ACBREAKFAST ORAL 04/26/17 06:30 05/26/17 06:29 05/05/17 06:30 Lorazepam (Ativan) 1 mg ONCE PRN ORAL 30 min prior to biopsy 05/02/17 10:00 05/09/17 09:59 05/02/17 10:21 Meloxicam (Mobic) 15 mg DAILY ORAL 04/26/17 09:00 05/26/17 08:59 05/05/17 09:11 Ondansetron HCl (Zofran) 4 mg Q6H PRN IVP Nausea & Vomiting 04/26/17 00:45 05/26/17 00:44 Polyethylene Glycol (Miralax) 17 gm DAILY PRN ORAL Constipation 05/02/17 09:00 06/01/17 08:59 Propafenone HCl (Rythmol) 225 mg EVERY 8 HOURS ORAL 04/26/17 06:00 05/26/17 05:59 05/05/17 06:00 Quetiapine Fumarate (SEROquel) 25 mg BEDTIME PRN ORAL agitation 04/30/17 21:00 05/26/17 08:59 Vitamin B Complex/ Vit C/Folic Acid (Nephrovite) 1 tab DAILY ORAL 04/29/17 09:00 05/29/17 08:59 05/05/17 09:11 Mitch Grace MD May 05, 2017 12:20
--- NOTE | 2017-05-05 12:48 | Wound Nurse Progress Note ---
Wound RN Progress Note Wound Consult REASSESSMENT-admitted wounds noted with good progress #1 Right lateral foot unstageable pressure ulcer.-no further deterioration present, remains dry, 100% brown dry adhered necrotic scab present .continue to keep clean and dry. #2 Right medial lower extremity suspected deep tissue injury- noted skin intact , resolved #3 Right medial dorsal foot unstageable pressure ulcer.-no further deterioration present, remains dry,100% adhered dry brown necrotic scab present. 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 #5 Left 2nd toe necrotic scabs.- no further deterioration , remains dry and intact. #6 Left heel suspected Deep Tissue Injury.-no further deterioration , remains intact resolved. #7 Left lateral Malleolus Deep Tissue Injury.-no further deterioration , remains intact resolved. #8 Left upper arm scattered scabs.- no further deterioration ,resolving dry scabs intact. Recommendation. -Local wound care as ordered. -Turn and reposition. -Offload affected areas. -Optimize nutrition. -Keep clean and dry. -Apply low air loss SPR mattress. -Apply heel protectors. -Offload heels and feet. -Avoid shear and friction. -Assess and notify MD for any changes of condition to skin MALINI NOYOLA May 05, 2017 12:48
--- NOTE | 2017-05-05 15:04 | Infectious Diseases Prog Note ---
Assessment/Plan Problems: (1) UTI (urinary tract infection) Assessment & Plan: with E coli , most likely the source of his sepsis , on ceftriaxon for two weeks total . (2) Fever Assessment & Plan: due to the above, resolved , continue tylenol prn (3) HCAP (healthcare-associated pneumonia) Assessment & Plan: due to serratia marcescens, improved on cefepime and clindamycin, influenza screening is negative , continue ceftriaxon only for two weeks (4) Sepsis Assessment & Plan: with E coli , on ceftriaxone , repeated blood culture is negative so far . will treat with ceftriaxon for two weeks starting from the clearance date. EOT 05/12/17 (5) Altered level of consciousness Assessment & Plan: due to the above, resolved, recommend neurology follow up (6) Elevated troponin Assessment & Plan: suspect ACS, cardiology is following (7) Dehydration Assessment & Plan: continue IVF, monitor urine out put, and renal function, avoid nephrotoxic meds (8) LEWIS (acute kidney injury) Assessment & Plan: due to the above , continue hydration, monitor renal function , nephrology is following (9) Anemia Assessment & Plan: rule out GI source, monitor H/H, transfuse blood as needed , GI is following Subjective ROS Limited/Unobtainable: Yes Allergies: Coded Allergies: No Known Allergies (Unverified , 04/25/17) Subjective he was awake and alert, more interactive , resting in bed, respond to verbal commands , not hypotensive , afebrile , no rectal bleeding. Objective Vital Signs Last 24 Hour Vital Signs Date Time Temp Pulse Resp B/P (MAP) Pulse Ox O2 Delivery O2 Flow Rate FiO2 05/05/17 12:00 97.5 66 18 98/50 99 Room Air 05/05/17 11:35 59 05/05/17 09:00 83 97/52 05/05/17 08:19 85 05/05/17 08:00 97.0 83 18 97/52 98 Room Air 05/05/17 06:00 68 05/05/17 04:13 98.7 68 20 116/57 96 05/05/17 04:00 69 05/05/17 00:32 97.9 69 21 127/75 97 Room Air 05/05/17 00:00 63 05/04/17 21:50 76 05/04/17 21:50 76 121/96 05/04/17 20:00 70 05/04/17 20:00 98.1 76 21 121/96 96 Room Air 05/04/17 19:30 Room Air 05/04/17 18:30 63 05/04/17 17:57 86 20 110/58 100 Nasal Cannula 05/04/17 16:00 98.1 69 20 91/42 Nasal Cannula 2.0 Height (Feet): 6 Height (Inches): 0.00 Weight (Pounds): 190 General Appearance: WD/WN, no acute distress HEENT: normocephalic, atraumatic, anicteric, mucous membranes moist, PERRL, pharynx normal, supple, no JVD Respiratory/Chest: chest wall non-tender, lungs clear, normal breath sounds, no respiratory distress, no accessory muscle use, decreased breath sounds Cardiovascular: normal peripheral pulses, normal rate, regular rhythm, no gallop/murmur, no JVD Abdomen: normal bowel sounds, soft, non tender, no organomegaly, non distended , no mass, no scars Extremities: no cyanosis, no clubbing Skin: no rash, no lesions, no ulcers Neurologic/Psychiatric: alert, responsive Laboratory Tests Test 05/05/17 06:55 White Blood Count 6.7 K/UL (4.8-10.8) Red Blood Count 2.61 M/UL (4.70-6.10) L Hemoglobin 8.2 G/DL (14.2-18.0) L Hematocrit 24.2 % (42.0-52.0) L Mean Corpuscular Volume 93 FL (80-99) Mean Corpuscular Hemoglobin 31.3 PG (27.0-31.0) H Mean Corpuscular Hemoglobin Concent 33.8 G/DL (32.0-36.0) Red Cell Distribution Width 15.3 % (11.6-14.8) H Platelet Count 61 K/UL (150-450) #L Mean Platelet Volume 6.2 FL (6.5-10.1) L Neutrophils (%) (Auto) % (45.0-75.0) Lymphocytes (%) (Auto) % (20.0-45.0) Monocytes (%) (Auto) % (1.0-10.0) Eosinophils (%) (Auto) % (0.0-3.0) Basophils (%) (Auto) % (0.0-2.0) Differential Total Cells Counted 100 Neutrophils % (Manual) 65 % (45-75) Lymphocytes % (Manual) 27 % (20-45) Monocytes % (Manual) 7 % (1-10) Eosinophils % (Manual) 0 % (0-3) Basophils % (Manual) 0 % (0-2) Band Neutrophils 1 % (0-8) Platelet Estimate Decreased L Platelet Morphology Normal Hypochromasia 1+ Anisocytosis 1+ Sodium Level 144 MMOL/L (136-145) Potassium Level 4.5 MMOL/L (3.5-5.1) Chloride Level 111 MMOL/L (98-107) H Carbon Dioxide Level 26 MMOL/L (21-32) Anion Gap 7 mmol/L (5-15) Blood Urea Nitrogen 37 mg/dL (7-18) H Creatinine 1.3 MG/DL (0.55-1.30) Estimat Glomerular Filtration Rate mL/min (>60) Glucose Level 84 MG/DL (74-106) Calcium Level 8.5 MG/DL (8.5-10.1) Current Medications Medications (Trade) Dose Ordered Sig/Trey Route PRN Reason Start Time Stop Time Status Last Admin Dose Admin Acetaminophen (Tylenol) 650 mg Q4H PRN ORAL Mild Pain (Pain Scale 1-3) 04/26/17 00:45 05/26/17 00:44 05/03/17 21:47 Aspirin (ASA) 81 mg DAILY ORAL 04/26/17 09:00 05/26/17 08:59 05/05/17 09:14 Carvedilol (Coreg) 12.5 mg EVERY 12 HOURS ORAL 04/26/17 09:00 05/26/17 08:59 05/04/17 21:50 Ceftriaxone Sodium 2 gm/ Dextrose 55 ml @ 110 mls/hr Q24H IVPB 04/29/17 15:00 05/12/17 23:59 05/04/17 15:00 Dextrose 1,000 ml @ 80 mls/hr [id number] IV 04/30/17 14:00 05/30/17 13:59 05/05/17 06:30 Dextrose (Dextrose 50%) STAT PRN IV Hypoglycemia 04/26/17 00:45 05/26/17 00:44 Divalproex Sodium (Depakote) 500 mg Q12HR ORAL 04/26/17 09:00 05/26/17 08:59 05/05/17 09:16 Docusate Sodium (Colace) 100 mg THREE TIMES A DAY ORAL 05/03/17 18:00 06/02/17 17:59 05/05/17 13:46 Famotidine (Pepcid) 20 mg DAILY ORAL 04/26/17 09:00 05/26/17 08:59 05/05/17 09:11 Folic Acid (Folate) 1 mg DAILY ORAL 04/30/17 09:00 05/30/17 08:59 05/05/17 09:11 Levothyroxine Sodium (Synthroid) 100 mcg ACBREAKFAST ORAL 04/26/17 06:30 05/26/17 06:29 05/05/17 06:30 Lorazepam (Ativan) 1 mg ONCE PRN ORAL 30 min prior to biopsy 05/02/17 10:00 05/09/17 09:59 05/02/17 10:21 Meloxicam (Mobic) 15 mg DAILY ORAL 04/26/17 09:00 05/26/17 08:59 05/05/17 09:11 Ondansetron HCl (Zofran) 4 mg Q6H PRN IVP Nausea & Vomiting 04/26/17 00:45 05/26/17 00:44 Polyethylene Glycol (Miralax) 17 gm DAILY PRN ORAL Constipation 05/02/17 09:00 06/01/17 08:59 Propafenone HCl (Rythmol) 225 mg EVERY 8 HOURS ORAL 04/26/17 06:00 05/26/17 05:59 05/05/17 06:00 Quetiapine Fumarate (SEROquel) 25 mg BEDTIME PRN ORAL agitation 04/30/17 21:00 05/26/17 08:59 Vitamin B Complex/ Vit C/Folic Acid (Nephrovite) 1 tab DAILY ORAL 04/29/17 09:00 05/29/17 08:59 05/05/17 09:11 Zak Matos M.D. May 05, 2017 15:04
[2017-05-05] MEDS: cefTRIAXone 2 GM in D5W 55 ML IVPB SCH (15:50)
[2017-05-05 16:00] VITALS: BP 100/47
--- NOTE | 2017-05-05 17:43 | Nephrology Progress Note ---
Assessment/Plan Problem List: (1) Dehydration (2) Sepsis (3) UTI (urinary tract infection) Assessment: On IV abx (4) Altered level of consciousness (5) HCAP (healthcare-associated pneumonia) (6) LEWIS (acute kidney injury) Assessment: Improved on current IVF (7) Urinary retention (8) Hypernatremia (9) Hyperkalemia Assessment: Resolved (10) Elevated troponin (11) Pancytopenia Plan Continue current treatment plan Monitor intake and output Monitor renal function, improved on IVF Renally dose meds, avoid nephrotoxins Monitor H&H, transfuse prn Continue arnold Monitor lytes, correct prn Encourage fluids Abx per ID Cardio following, will follow up with recs Hematology following Stool OB Monitor neuro status AM labs Subjective Constitutional: Denies: no symptoms, chills, diaphoresis, fever, malaise, weakness, other HEENT: Denies: no symptoms, eye pain, blurred vision, tearing, double vision, ear pain, ear discharge, nose pain, nose congestion, throat pain, throat swelling, mouth pain, mouth swelling, other Genitourinary: Denies: no symptoms, burning, discharge, frequency, flank pain, hematuria, incontinence, pain, urgency, other Neurologic/Psychiatric: Denies: no symptoms, anxiety, depressed, emotional problems, headache, numbness, paresthesia, pre-existing deficit, seizure, tingling, tremors, weakness, other Subjective Awake, alert, responsive, In bed, in no apparent distress Objective Objective Last 24 Hour Vital Signs Date Time Temp Pulse Resp B/P (MAP) Pulse Ox O2 Delivery O2 Flow Rate FiO2 05/05/17 16:00 97.4 79 19 100/47 99 Room Air 05/05/17 15:45 61 05/05/17 15:45 66 05/05/17 12:00 97.5 66 18 98/50 99 Room Air 05/05/17 11:35 59 05/05/17 09:00 83 97/52 05/05/17 08:19 85 05/05/17 08:00 97.0 83 18 97/52 98 Room Air 05/05/17 06:00 68 05/05/17 04:13 98.7 68 20 116/57 96 05/05/17 04:00 69 05/05/17 00:32 97.9 69 21 127/75 97 Room Air 05/05/17 00:00 63 05/04/17 21:50 76 05/04/17 21:50 76 121/96 05/04/17 20:00 70 05/04/17 20:00 98.1 76 21 121/96 96 Room Air 05/04/17 19:30 Room Air 05/04/17 18:30 63 05/04/17 17:57 86 20 110/58 100 Nasal Cannula Intake and Output 05/04/17 05/05/17 19:00 07:00 Intake Total 325 ml Output Total 600 ml 700 ml Balance -275 ml -700 ml Intake Oral 325 ml Output Urine Total 600 ml 700 ml Laboratory Tests 05/05/17 06:55: White Blood Count 6.7, Red Blood Count 2.61L, Hemoglobin 8.2L, Hematocrit 24.2L , Mean Corpuscular Volume 93, Mean Corpuscular Hemoglobin 31.3H, Mean Corpuscular Hemoglobin Concent 33.8, Red Cell Distribution Width 15.3H, Platelet Count 61#L, Mean Platelet Volume 6.2L, Neutrophils (%) (Auto) , Lymphocytes (%) (Auto) , Monocytes (%) (Auto) , Eosinophils (%) (Auto) , Basophils (%) (Auto) , Differential Total Cells Counted 100, Neutrophils % ( Manual) 65, Lymphocytes % (Manual) 27, Monocytes % (Manual) 7, Eosinophils % ( Manual) 0, Basophils % (Manual) 0, Band Neutrophils 1, Platelet Estimate DecreasedL, Platelet Morphology Normal, Hypochromasia 1+, Anisocytosis 1+, Sodium Level 144, Potassium Level 4.5, Chloride Level 111H, Carbon Dioxide Level 26, Anion Gap 7, Blood Urea Nitrogen 37H, Creatinine 1.3, Estimat Glomerular Filtration Rate , Glucose Level 84, Calcium Level 8.5 Height (Feet): 6 Height (Inches): 0.00 Weight (Pounds): 190 General Appearance: no apparent distress EENT: normal ENT inspection Neck: normal alignment Cardiovascular: regular rhythm Respiratory/Chest: normal breath sounds, no respiratory distress Abdomen: non tender, soft Extremities: non-tender Neurologic: alert, responsive Glenis Meza N.P. May 05, 2017 17:43
[2017-05-05 20:31] VITALS: BP 105/45
[2017-05-06 00:15] VITALS: BP 123/67
--- NOTE | 2017-05-06 00:15 | General Progress Note ---
Assessment/Plan Assessment/Plan #. Pancytopenia. Infection related versus viral versus bone marrow disorder --> have discussed with pathologist, still pending bone marrow biop --> HIV panel negative, hepatitis negative as well --> Platelets are low, goal is >20k. Currently still above goal. --> Platelets has improved the last few days --> Hemoglobin goal >7, currently above goal. #. Anemia secondary to kidney disease. Continue to closely monitor. Creatinine elevated. --> S/P Blood transfusion. --> improved #. LEWIS. Being seen by Nephrology. #. Nausea and vomiting. The patient is being evaluated by GI service. --> Occult blood is negative #. NSVT, being seen by Cardiology. #. Dehydration. Administer fluids as needed. Pulmonary is following as well. Subjective Date patient seen: May 04, 2017 Constitutional: Denies: no symptoms, chills, diaphoresis, fever, malaise, weakness, other HEENT: Denies: no symptoms, eye pain, blurred vision, tearing, double vision, ear pain, ear discharge, nose pain, nose congestion, throat pain, throat swelling, mouth pain, mouth swelling, other Cardiovascular: Denies: no symptoms, chest pain, edema, irregular heart rate, lightheadedness, palpitations, syncope, other Respiratory: Denies: no symptoms, cough, orthopnea, shortness of breath, SOB with excertion, SOB at rest, sputum, stridor, wheezing, other Gastrointestinal/Abdominal: Denies: no symptoms, abdomen distended, abdominal pain, black stools, tarry stools, blood in stool, constipated, diarrhea, difficulty swallowing, nausea, poor appetite, poor fluid intake, rectal bleeding , vomiting, other Genitourinary: Denies: no symptoms, burning, discharge, frequency, flank pain, hematuria, incontinence, pain, urgency, other Allergies: Coded Allergies: No Known Allergies (Unverified , 04/25/17) Subjective Non responsive. Platelets improved from yesterday. No new events. Objective Last 24 Hour Vital Signs Date Time Temp Pulse Resp B/P (MAP) Pulse Ox O2 Delivery O2 Flow Rate FiO2 05/05/17 21:45 62 05/05/17 21:45 62 105/45 05/05/17 20:31 97.9 62 18 105/45 97 Room Air 05/05/17 16:00 97.4 79 19 100/47 99 Room Air 05/05/17 15:45 61 05/05/17 15:45 66 05/05/17 12:00 97.5 66 18 98/50 99 Room Air 05/05/17 11:35 59 05/05/17 09:00 83 97/52 05/05/17 08:19 85 05/05/17 08:00 97.0 83 18 97/52 98 Room Air 05/05/17 06:00 68 05/05/17 04:13 98.7 68 20 116/57 96 05/05/17 04:00 69 05/05/17 00:32 97.9 69 21 127/75 97 Room Air Intake and Output 05/05/17 05/06/17 19:00 07:00 Intake Total 236 ml 236 ml Output Total 600 ml 400 ml Balance -364 ml -164 ml Intake Oral 236 ml 236 ml Output Urine Total 600 ml 400 ml Labs Test 05/03/17 07:05 05/04/17 07:47 05/05/17 06:55 White Blood Count 6.1 K/UL (4.8-10.8) 7.7 K/UL (4.8-10.8) 6.7 K/UL (4.8-10.8) Red Blood Count 2.77 M/UL (4.70-6.10) 2.64 M/UL (4.70-6.10) 2.61 M/UL (4.70-6.10) Hemoglobin 8.6 G/DL (14.2-18.0) 8.4 G/DL (14.2-18.0) 8.2 G/DL (14.2-18.0) Hematocrit 26.0 % (42.0-52.0) 24.6 % (42.0-52.0) 24.2 % (42.0-52.0) Mean Corpuscular Volume 94 FL (80-99) 93 FL (80-99) 93 FL (80-99) Mean Corpuscular Hemoglobin 31.0 PG (27.0-31.0) 32.0 PG (27.0-31.0) 31.3 PG (27.0-31.0) Mean Corpuscular Hemoglobin Concent 33.1 G/DL (32.0-36.0) 34.4 G/DL (32.0-36.0) 33.8 G/DL (32.0-36.0) Red Cell Distribution Width 15.0 % (11.6-14.8) 15.1 % (11.6-14.8) 15.3 % (11.6-14.8) Platelet Count 47 K/UL (150-450) 40 K/UL (150-450) 61 K/UL (150-450) Mean Platelet Volume 7.3 FL (6.5-10.1) 7.0 FL (6.5-10.1) 6.2 FL (6.5-10.1) Neutrophils (%) (Auto) % (45.0-75.0) % (45.0-75.0) % (45.0-75.0) Lymphocytes (%) (Auto) % (20.0-45.0) % (20.0-45.0) % (20.0-45.0) Monocytes (%) (Auto) % (1.0-10.0) % (1.0-10.0) % (1.0-10.0) Eosinophils (%) (Auto) % (0.0-3.0) % (0.0-3.0) % (0.0-3.0) Basophils (%) (Auto) % (0.0-2.0) % (0.0-2.0) % (0.0-2.0) Differential Total Cells Counted 100 100 100 Neutrophils % (Manual) 60 % (45-75) 68 % (45-75) 65 % (45-75) Lymphocytes % (Manual) 29 % (20-45) 20 % (20-45) 27 % (20-45) Monocytes % (Manual) 10 % (1-10) 12 % (1-10) 7 % (1-10) Eosinophils % (Manual) 1 % (0-3) 0 % (0-3) 0 % (0-3) Basophils % (Manual) 0 % (0-2) 0 % (0-2) 0 % (0-2) Band Neutrophils 0 % (0-8) 0 % (0-8) 1 % (0-8) Platelet Estimate Decreased Decreased Decreased Platelet Morphology Normal Normal Normal Hypochromasia 1+ 1+ 1+ Anisocytosis 1+ 1+ 1+ Sodium Level 144 MMOL/L (136-145) 142 MMOL/L (136-145) 144 MMOL/L (136-145) Potassium Level 4.4 MMOL/L (3.5-5.1) 4.6 MMOL/L (3.5-5.1) 4.5 MMOL/L (3.5-5.1) Chloride Level 113 MMOL/L (98-107) 111 MMOL/L (98-107) 111 MMOL/L (98-107) Carbon Dioxide Level 25 MMOL/L (21-32) 25 MMOL/L (21-32) 26 MMOL/L (21-32) Anion Gap 7 mmol/L (5-15) 6 mmol/L (5-15) 7 mmol/L (5-15) Blood Urea Nitrogen 30 mg/dL (7-18) 36 mg/dL (7-18) 37 mg/dL (7-18) Creatinine 1.3 MG/DL (0.55-1.30) 1.5 MG/DL (0.55-1.30) 1.3 MG/DL (0.55-1.30) Estimat Glomerular Filtration Rate mL/min (>60) mL/min (>60) mL/min (>60) Glucose Level 93 MG/DL (74-106) 85 MG/DL (74-106) 84 MG/DL (74-106) Calcium Level 8.3 MG/DL (8.5-10.1) 8.2 MG/DL (8.5-10.1) 8.5 MG/DL (8.5-10.1) Laboratory Tests 05/05/17 06:55: White Blood Count 6.7, Red Blood Count 2.61L, Hemoglobin 8.2L, Hematocrit 24.2L , Mean Corpuscular Volume 93, Mean Corpuscular Hemoglobin 31.3H, Mean Corpuscular Hemoglobin Concent 33.8, Red Cell Distribution Width 15.3H, Platelet Count 61#L, Mean Platelet Volume 6.2L, Neutrophils (%) (Auto) , Lymphocytes (%) (Auto) , Monocytes (%) (Auto) , Eosinophils (%) (Auto) , Basophils (%) (Auto) , Differential Total Cells Counted 100, Neutrophils % ( Manual) 65, Lymphocytes % (Manual) 27, Monocytes % (Manual) 7, Eosinophils % ( Manual) 0, Basophils % (Manual) 0, Band Neutrophils 1, Platelet Estimate DecreasedL, Platelet Morphology Normal, Hypochromasia 1+, Anisocytosis 1+, Sodium Level 144, Potassium Level 4.5, Chloride Level 111H, Carbon Dioxide Level 26, Anion Gap 7, Blood Urea Nitrogen 37H, Creatinine 1.3, Estimat Glomerular Filtration Rate , Glucose Level 84, Calcium Level 8.5 Height (Feet): 6 Height (Inches): 0.00 Weight (Pounds): 190 Rivera Christine May 06, 2017 00:15
--- NOTE | 2017-05-06 02:20 | General Progress Note ---
Assessment/Plan Assessment/Plan #. Pancytopenia. Infection related versus viral versus bone marrow disorder --> have discussed with pathologist, still pending bone marrow biop --> HIV panel negative, hepatitis negative as well --> Platelets are low, goal is >20k. Currently still above goal. --> Platelets has improved the last few days --> Hemoglobin goal >7, currently above goal. #. Anemia secondary to kidney disease. Continue to closely monitor. Creatinine elevated. --> S/P Blood transfusion. --> improved #. LEWIS. Being seen by Nephrology. #. Nausea and vomiting. The patient is being evaluated by GI service. --> Occult blood is negative #. NSVT, being seen by Cardiology. #. Dehydration. Administer fluids as needed. Pulmonary is following as well. Subjective Date patient seen: May 05, 2017 Constitutional: Denies: no symptoms, chills, diaphoresis, fever, malaise, weakness, other HEENT: Denies: no symptoms, eye pain, blurred vision, tearing, double vision, ear pain, ear discharge, nose pain, nose congestion, throat pain, throat swelling, mouth pain, mouth swelling, other Cardiovascular: Denies: no symptoms, chest pain, edema, irregular heart rate, lightheadedness, palpitations, syncope, other Respiratory: Denies: no symptoms, cough, orthopnea, shortness of breath, SOB with excertion, SOB at rest, sputum, stridor, wheezing, other Gastrointestinal/Abdominal: Denies: no symptoms, abdomen distended, abdominal pain, black stools, tarry stools, blood in stool, constipated, diarrhea, difficulty swallowing, nausea, poor appetite, poor fluid intake, rectal bleeding , vomiting, other Genitourinary: Denies: no symptoms, burning, discharge, frequency, flank pain, hematuria, incontinence, pain, urgency, other Allergies: Coded Allergies: No Known Allergies (Unverified , 04/25/17) Subjective Non responsive. Platelets improving. NAD Objective Last 24 Hour Vital Signs Date Time Temp Pulse Resp B/P (MAP) Pulse Ox O2 Delivery O2 Flow Rate FiO2 05/06/17 00:15 96.9 74 18 123/67 95 Room Air 05/05/17 21:45 62 05/05/17 21:45 62 105/45 05/05/17 20:31 97.9 62 18 105/45 97 Room Air 05/05/17 16:00 97.4 79 19 100/47 99 Room Air 05/05/17 15:45 61 05/05/17 15:45 66 05/05/17 12:00 97.5 66 18 98/50 99 Room Air 05/05/17 11:35 59 05/05/17 09:00 83 97/52 05/05/17 08:19 85 05/05/17 08:00 97.0 83 18 97/52 98 Room Air 05/05/17 06:00 68 05/05/17 04:13 98.7 68 20 116/57 96 05/05/17 04:00 69 Intake and Output 05/05/17 05/06/17 19:00 07:00 Intake Total 236 ml 236 ml Output Total 600 ml 400 ml Balance -364 ml -164 ml Intake Oral 236 ml 236 ml Output Urine Total 600 ml 400 ml Laboratory Tests 05/05/17 06:55: White Blood Count 6.7, Red Blood Count 2.61L, Hemoglobin 8.2L, Hematocrit 24.2L , Mean Corpuscular Volume 93, Mean Corpuscular Hemoglobin 31.3H, Mean Corpuscular Hemoglobin Concent 33.8, Red Cell Distribution Width 15.3H, Platelet Count 61#L, Mean Platelet Volume 6.2L, Neutrophils (%) (Auto) , Lymphocytes (%) (Auto) , Monocytes (%) (Auto) , Eosinophils (%) (Auto) , Basophils (%) (Auto) , Differential Total Cells Counted 100, Neutrophils % ( Manual) 65, Lymphocytes % (Manual) 27, Monocytes % (Manual) 7, Eosinophils % ( Manual) 0, Basophils % (Manual) 0, Band Neutrophils 1, Platelet Estimate DecreasedL, Platelet Morphology Normal, Hypochromasia 1+, Anisocytosis 1+, Sodium Level 144, Potassium Level 4.5, Chloride Level 111H, Carbon Dioxide Level 26, Anion Gap 7, Blood Urea Nitrogen 37H, Creatinine 1.3, Estimat Glomerular Filtration Rate , Glucose Level 84, Calcium Level 8.5 Height (Feet): 6 Height (Inches): 0.00 Weight (Pounds): 190 General Appearance: no apparent distress Rivera Christine May 06, 2017 02:20
[2017-05-06 04:05] VITALS: BP 111/62
[2017-05-06 08:00] VITALS: BP 126/57
[2017-05-06 08:45] LABS: HEMATOCRIT 25.1 % (42.0-52.0); HEMOGLOBIN 8.3 G/DL (14.2-18.0); MEAN CORPUSCULAR VOLUME 92 FL (80-99); PLATELET COUNT 66 K/UL (150-450); RED BLOOD COUNT 2.73 M/UL (4.70-6.10); RED CELL DISTRIBUTION WIDTH 14.8 % (11.6-14.8); WHITE BLOOD COUNT 5.3 K/UL (4.8-10.8)
[2017-05-06 09:04] LABS: ALANINE AMINOTRANSFERASE 26 U/L (12-78); ALBUMIN 2.2 G/DL (3.4-5.0); ALBUMIN/GLOBULIN RATIO 0.5 (1.0-2.7); ALKALINE PHOSPHATASE 53 U/L (46-116); ANION GAP 7 mmol/L (5-15); ASPARTATE AMINO TRANSFERASE 30 U/L (15-37); BILIRUBIN,TOTAL 0.3 MG/DL (0.2-1.0); BLOOD UREA NITROGEN 32 mg/dL (7-18); CALCIUM 8.5 MG/DL (8.5-10.1); CARBON DIOXIDE 26 MMOL/L (21-32); CHLORIDE 108 MMOL/L (98-107); CREATININE 1.2 MG/DL (0.55-1.30); POTASSIUM 4.3 MMOL/L (3.5-5.1); SODIUM 141 MMOL/L (136-145)
[2017-05-06] MEDS: Docusate 100mg cap ORAL SCH ×3 (09:48→18:00)
[2017-05-06] MEDS: Nephrovite tab (Rena-Vite) ORAL SCH (09:48)
[2017-05-06] MEDS: Meloxicam 15 MG TAB ORAL SCH (09:49)
[2017-05-06] MEDS: Carvedilol 12.5mg tab ORAL SCH ×2 (09:49→21:00)
[2017-05-06] MEDS: Aspirin Baby 81mg ORAL SCH (09:49)
--- NOTE | 2017-05-06 09:58 | Pulmonology Progress Note ---
Assessment/Plan Assessment/Plan 1. Dehydration. resolved 2. Renal failure. improved 3. Altered mental status. 4. Urinary tract infection. 5. Sepsis; concerned noted for cholecystitis DISCUSSION: Respiratory status is stable. I agree with the use of antibiotics per ID. Continue oxygen and pulmonary hygiene. 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 Subjective Interval Events: none Constitutional: Reports: no symptoms HEENT: Repors: no symptoms Respiratory: Reports: no symptoms Cardiovascular: Reports: no symptoms Gastrointestinal/Abdominal: Reports: no symptoms Allergies: Coded Allergies: No Known Allergies (Unverified , 04/25/17) Objective Last 24 Hour Vital Signs Date Time Temp Pulse Resp B/P (MAP) Pulse Ox O2 Delivery O2 Flow Rate FiO2 05/06/17 09:49 68 126/57 05/06/17 08:00 97.2 68 20 126/57 98 Room Air 05/06/17 06:22 69 05/06/17 04:05 96.9 69 18 111/62 95 Room Air 05/06/17 04:00 60 05/06/17 00:15 96.9 74 18 123/67 95 Room Air 05/06/17 00:00 57 05/05/17 21:45 62 05/05/17 21:45 62 105/45 05/05/17 20:31 97.9 62 18 105/45 97 Room Air 05/05/17 20:00 57 05/05/17 16:00 97.4 79 19 100/47 99 Room Air 05/05/17 15:45 61 05/05/17 15:45 66 05/05/17 12:00 97.5 66 18 98/50 99 Room Air 05/05/17 11:35 59 Intake and Output 05/05/17 05/06/17 19:00 07:00 Intake Total 236 ml 236 ml Output Total 600 ml 1100 ml Balance -364 ml -864 ml Intake Oral 236 ml 236 ml Output Urine Total 600 ml 1100 ml General Appearance: no acute distress HEENT: normocephalic Respiratory/Chest: chest wall non-tender, lungs clear Cardiovascular: normal peripheral pulses, normal rate Abdomen: normal bowel sounds Laboratory Tests 05/06/17 08:25: White Blood Count 5.3, Red Blood Count 2.73L, Hemoglobin 8.3L, Hematocrit 25.1L , Mean Corpuscular Volume 92, Mean Corpuscular Hemoglobin 30.4, Mean Corpuscular Hemoglobin Concent 33.1, Red Cell Distribution Width 14.8, Platelet Count 66L, Mean Platelet Volume 6.4L, Neutrophils (%) (Auto) , Lymphocytes (%) ( Auto) , Monocytes (%) (Auto) , Eosinophils (%) (Auto) , Basophils (%) (Auto) , Neutrophils % (Manual) [Pending], Lymphocytes % (Manual) [Pending], Platelet Estimate [Pending], Platelet Morphology [Pending], Sodium Level 141, Potassium Level 4.3, Chloride Level 108H, Carbon Dioxide Level 26, Anion Gap 7, Blood Urea Nitrogen 32H, Creatinine 1.2, Estimat Glomerular Filtration Rate , Glucose Level 107H, Calcium Level 8.5, Total Bilirubin 0.3, Aspartate Amino Transf (AST/ SGOT) 30, Alanine Aminotransferase (ALT/SGPT) 26, Alkaline Phosphatase 53, Total Protein 6.4, Albumin 2.2L, Globulin 4.2, Albumin/Globulin Ratio 0.5L Current Medications Medications (Trade) Dose Ordered Sig/Trey Route PRN Reason Start Time Stop Time Status Last Admin Dose Admin Acetaminophen (Tylenol) 650 mg Q4H PRN ORAL Mild Pain (Pain Scale 1-3) 04/26/17 00:45 05/26/17 00:44 05/03/17 21:47 Aspirin (ASA) 81 mg DAILY ORAL 04/26/17 09:00 05/26/17 08:59 05/06/17 09:49 Carvedilol (Coreg) 12.5 mg EVERY 12 HOURS ORAL 04/26/17 09:00 05/26/17 08:59 05/06/17 09:49 Ceftriaxone Sodium 2 gm/ Dextrose 55 ml @ 110 mls/hr Q24H IVPB 04/29/17 15:00 05/12/17 23:59 05/05/17 15:50 Dextrose 1,000 ml @ 80 mls/hr [id number] IV 04/30/17 14:00 05/30/17 13:59 05/05/17 18:15 Dextrose (Dextrose 50%) STAT PRN IV Hypoglycemia 04/26/17 00:45 05/26/17 00:44 Divalproex Sodium (Depakote) 500 mg Q12HR ORAL 04/26/17 09:00 05/26/17 08:59 05/06/17 09:49 Docusate Sodium (Colace) 100 mg THREE TIMES A DAY ORAL 05/03/17 18:00 06/02/17 17:59 05/06/17 09:48 Famotidine (Pepcid) 20 mg DAILY ORAL 04/26/17 09:00 05/26/17 08:59 05/06/17 09:48 Folic Acid (Folate) 1 mg DAILY ORAL 04/30/17 09:00 05/30/17 08:59 05/06/17 09:49 Levothyroxine Sodium (Synthroid) 100 mcg ACBREAKFAST ORAL 04/26/17 06:30 05/26/17 06:29 05/06/17 06:23 Lorazepam (Ativan) 1 mg ONCE PRN ORAL 30 min prior to biopsy 05/02/17 10:00 05/09/17 09:59 05/02/17 10:21 Meloxicam (Mobic) 15 mg DAILY ORAL 04/26/17 09:00 05/26/17 08:59 05/06/17 09:49 Ondansetron HCl (Zofran) 4 mg Q6H PRN IVP Nausea & Vomiting 04/26/17 00:45 05/26/17 00:44 Polyethylene Glycol (Miralax) 17 gm DAILY PRN ORAL Constipation 05/02/17 09:00 06/01/17 08:59 Propafenone HCl (Rythmol) 225 mg EVERY 8 HOURS ORAL 04/26/17 06:00 05/26/17 05:59 05/06/17 06:22 Quetiapine Fumarate (SEROquel) 25 mg BEDTIME PRN ORAL agitation 04/30/17 21:00 05/26/17 08:59 Vitamin B Complex/ Vit C/Folic Acid (Nephrovite) 1 tab DAILY ORAL 04/29/17 09:00 05/29/17 08:59 05/06/17 09:48 Mitch Grace MD May 06, 2017 09:58
[2017-05-06 12:00] VITALS: BP 116/53
--- NOTE | 2017-05-06 13:52 | Discharge Summary ---
Discharge Summary Hospital Course Date of Admission Apr 25, 2017 at 21:03 Date of Discharge 05/06/2017 Admitting Diagnosis ALOC,elevated troponin HPI Theo Raman is a 81 year old male who was admitted on Apr 25, 2017 at 21:03 for Altered Level Of Consciousness, Elevated Troponin. 81 y/o male with PMH for dementia, hypothyroidism, and arthritis was BIBA from SNF for AMS. Patient was found to be hypotensive by the paramedics. Also had reports of vomiting at SNF. Patient is demented and unable to give me further history. In the ED, patient has renal failure with hyperkalemia. CT A/P showed urinary retention. Shirley catheter inserted and admitted to telemetry for further management. Consultations Cardio - Dr. Singh, GI - Dr. Streeter, Pulmonary - Dr. Grace, Neuro - Dr. Monroy, ID - Dr. Matos Discharge Condition Upon Discharge: stable Discharge Disposition Patient was discharged to SNF Discharge Diagnoses: (1) Dehydration (2) Fever (3) Sepsis (4) UTI (urinary tract infection) (5) Elevated troponin (6) Altered level of consciousness (7) HCAP (healthcare-associated pneumonia) (8) LEWIS (acute kidney injury) (9) Hyperkalemia (10) Urinary retention (11) Hypernatremia (12) Anemia (13) Pancytopenia ROMEO FIGUEROA May 06, 2017 13:52
--- NOTE | 2017-05-06 14:53 | GI Progress Note ---
Assessment/Plan Problems: (1) Dehydration ICD Codes: E86.0 - Dehydration SNOMED: 58117264, 171690522, 415930704 (2) Anemia ICD Codes: D64.9 - Anemia, unspecified SNOMED: 962217193 (3) Altered level of consciousness ICD Codes: R40.4 - Transient alteration of awareness SNOMED: 8462386 (4) Elevated troponin ICD Codes: R74.8 - Abnormal levels of other serum enzymes SNOMED: 967277741, 872297730, 244113366 Status: stable Status Narrative Discussed with Dr. Streeter. Assessment/Plan hep panel >> negative abdominal U/S reviewed >> GB sludge, defer HIDA given normal LFTs/asymptomatic defer GI procedures given elevated troponin levels >> now normal OB stool r/o GI bleed monitor H&H, prn transfusions keep Hgb > 8.0 bowel regime ppi cardiac diet, tolerating OT evaluation folate PO electrolyte correction fu labs, tumor markers outpatient GI procedures Subjective Subjective limited Objective Last 24 Hour Vital Signs Date Time Temp Pulse Resp B/P (MAP) Pulse Ox O2 Delivery O2 Flow Rate FiO2 05/06/17 12:00 97.5 66 20 116/53 96 Room Air 05/06/17 09:49 68 126/57 05/06/17 08:00 97.2 68 20 126/57 98 Room Air 05/06/17 07:42 77 05/06/17 06:22 69 05/06/17 04:05 96.9 69 18 111/62 95 Room Air 05/06/17 04:00 60 05/06/17 00:15 96.9 74 18 123/67 95 Room Air 05/06/17 00:00 57 05/05/17 21:45 62 05/05/17 21:45 62 105/45 05/05/17 20:31 97.9 62 18 105/45 97 Room Air 05/05/17 20:00 57 05/05/17 16:00 97.4 79 19 100/47 99 Room Air 05/05/17 15:45 61 05/05/17 15:45 66 Intake and Output 05/05/17 05/06/17 19:00 07:00 Intake Total 236 ml 236 ml Output Total 600 ml 1100 ml Balance -364 ml -864 ml Intake Oral 236 ml 236 ml Output Urine Total 600 ml 1100 ml Laboratory Tests Test 05/06/17 08:25 White Blood Count 5.3 K/UL (4.8-10.8) Red Blood Count 2.73 M/UL (4.70-6.10) L Hemoglobin 8.3 G/DL (14.2-18.0) L Hematocrit 25.1 % (42.0-52.0) L Mean Corpuscular Volume 92 FL (80-99) Mean Corpuscular Hemoglobin 30.4 PG (27.0-31.0) Mean Corpuscular Hemoglobin Concent 33.1 G/DL (32.0-36.0) Red Cell Distribution Width 14.8 % (11.6-14.8) Platelet Count 66 K/UL (150-450) L Mean Platelet Volume 6.4 FL (6.5-10.1) L Neutrophils (%) (Auto) % (45.0-75.0) Lymphocytes (%) (Auto) % (20.0-45.0) Monocytes (%) (Auto) % (1.0-10.0) Eosinophils (%) (Auto) % (0.0-3.0) Basophils (%) (Auto) % (0.0-2.0) Differential Total Cells Counted 100 Neutrophils % (Manual) 62 % (45-75) Lymphocytes % (Manual) 29 % (20-45) Monocytes % (Manual) 7 % (1-10) Eosinophils % (Manual) 1 % (0-3) Basophils % (Manual) 1 % (0-2) Band Neutrophils 0 % (0-8) Platelet Estimate Decreased L Platelet Morphology Normal Red Blood Cell Morphology Hypochromasia 1+ Sodium Level 141 MMOL/L (136-145) Potassium Level 4.3 MMOL/L (3.5-5.1) Chloride Level 108 MMOL/L (98-107) H Carbon Dioxide Level 26 MMOL/L (21-32) Anion Gap 7 mmol/L (5-15) Blood Urea Nitrogen 32 mg/dL (7-18) H Creatinine 1.2 MG/DL (0.55-1.30) Estimat Glomerular Filtration Rate mL/min (>60) Glucose Level 107 MG/DL (74-106) H Calcium Level 8.5 MG/DL (8.5-10.1) Total Bilirubin 0.3 MG/DL (0.2-1.0) Aspartate Amino Transf (AST/SGOT) 30 U/L (15-37) Alanine Aminotransferase (ALT/SGPT) 26 U/L (12-78) Alkaline Phosphatase 53 U/L (46-116) Total Protein 6.4 G/DL (6.4-8.2) Albumin 2.2 G/DL (3.4-5.0) L Globulin 4.2 g/dL Albumin/Globulin Ratio 0.5 (1.0-2.7) L Height (Feet): 6 Height (Inches): 0.00 Weight (Pounds): 190 General Appearance: WD/WN, no apparent distress, alert, confused Cardiovascular: normal rate Respiratory/Chest: normal breath sounds, no respiratory distress Abdominal Exam: normal bowel sounds, non tender, soft Extremities: non-tender Jeni Marino N.P. May 06, 2017 14:53
[2017-05-06] MEDS: cefTRIAXone 2 GM in D5W 55 ML IVPB SCH (15:45)
--- NOTE | 2017-05-06 15:55 | Infectious Diseases Prog Note ---
Assessment/Plan Problems: (1) UTI (urinary tract infection) Assessment & Plan: with E coli , most likely the source of his sepsis , on ceftriaxon for two weeks total . (2) Fever Assessment & Plan: due to the above, resolved , continue tylenol prn (3) HCAP (healthcare-associated pneumonia) Assessment & Plan: due to serratia marcescens, improved on cefepime and clindamycin, influenza screening is negative , continue ceftriaxon only for two weeks (4) Sepsis Assessment & Plan: with E coli , on ceftriaxone , repeated blood culture is negative so far . will treat with ceftriaxon for two weeks starting from the clearance date. EOT 05/12/17 (5) Altered level of consciousness Assessment & Plan: due to the above, resolved, recommend neurology follow up (6) Elevated troponin Assessment & Plan: suspect ACS, cardiology is following (7) Dehydration Assessment & Plan: continue IVF, monitor urine out put, and renal function, avoid nephrotoxic meds (8) LEWIS (acute kidney injury) Assessment & Plan: due to the above , continue hydration, monitor renal function , nephrology is following (9) Anemia Assessment & Plan: rule out GI source, monitor H/H, transfuse blood as needed , GI is following Subjective ROS Limited/Unobtainable: Yes Allergies: Coded Allergies: No Known Allergies (Unverified , 04/25/17) Subjective he was awake and alert, resting in bed, respond to verbal commands , not hypotensive , afebrile , no rectal bleeding. Objective Vital Signs Last 24 Hour Vital Signs Date Time Temp Pulse Resp B/P (MAP) Pulse Ox O2 Delivery O2 Flow Rate FiO2 05/06/17 14:00 64 05/06/17 12:00 97.5 66 20 116/53 96 Room Air 05/06/17 11:33 53 05/06/17 09:49 68 126/57 05/06/17 08:00 97.2 68 20 126/57 98 Room Air 05/06/17 07:42 77 05/06/17 06:22 69 05/06/17 04:05 96.9 69 18 111/62 95 Room Air 05/06/17 04:00 60 05/06/17 00:15 96.9 74 18 123/67 95 Room Air 05/06/17 00:00 57 05/05/17 21:45 62 05/05/17 21:45 62 105/45 05/05/17 20:31 97.9 62 18 105/45 97 Room Air 05/05/17 20:00 57 05/05/17 16:00 97.4 79 19 100/47 99 Room Air Height (Feet): 6 Height (Inches): 0.00 Weight (Pounds): 190 General Appearance: WD/WN, no acute distress HEENT: normocephalic, atraumatic, anicteric, mucous membranes moist, PERRL, EOMI, pharynx normal, supple, no JVD Respiratory/Chest: chest wall non-tender, lungs clear, normal breath sounds, no respiratory distress, no accessory muscle use Cardiovascular: normal peripheral pulses, normal rate, regular rhythm, no gallop/murmur, no JVD Abdomen: normal bowel sounds, soft, non tender, no organomegaly, non distended , no mass, no scars Extremities: no cyanosis, no clubbing Skin: no rash, no lesions, ulcers Neurologic/Psychiatric: alert, responsive Laboratory Tests Test 05/06/17 08:25 White Blood Count 5.3 K/UL (4.8-10.8) Red Blood Count 2.73 M/UL (4.70-6.10) L Hemoglobin 8.3 G/DL (14.2-18.0) L Hematocrit 25.1 % (42.0-52.0) L Mean Corpuscular Volume 92 FL (80-99) Mean Corpuscular Hemoglobin 30.4 PG (27.0-31.0) Mean Corpuscular Hemoglobin Concent 33.1 G/DL (32.0-36.0) Red Cell Distribution Width 14.8 % (11.6-14.8) Platelet Count 66 K/UL (150-450) L Mean Platelet Volume 6.4 FL (6.5-10.1) L Neutrophils (%) (Auto) % (45.0-75.0) Lymphocytes (%) (Auto) % (20.0-45.0) Monocytes (%) (Auto) % (1.0-10.0) Eosinophils (%) (Auto) % (0.0-3.0) Basophils (%) (Auto) % (0.0-2.0) Differential Total Cells Counted 100 Neutrophils % (Manual) 62 % (45-75) Lymphocytes % (Manual) 29 % (20-45) Monocytes % (Manual) 7 % (1-10) Eosinophils % (Manual) 1 % (0-3) Basophils % (Manual) 1 % (0-2) Band Neutrophils 0 % (0-8) Platelet Estimate Decreased L Platelet Morphology Normal Red Blood Cell Morphology Hypochromasia 1+ Sodium Level 141 MMOL/L (136-145) Potassium Level 4.3 MMOL/L (3.5-5.1) Chloride Level 108 MMOL/L (98-107) H Carbon Dioxide Level 26 MMOL/L (21-32) Anion Gap 7 mmol/L (5-15) Blood Urea Nitrogen 32 mg/dL (7-18) H Creatinine 1.2 MG/DL (0.55-1.30) Estimat Glomerular Filtration Rate mL/min (>60) Glucose Level 107 MG/DL (74-106) H Calcium Level 8.5 MG/DL (8.5-10.1) Total Bilirubin 0.3 MG/DL (0.2-1.0) Aspartate Amino Transf (AST/SGOT) 30 U/L (15-37) Alanine Aminotransferase (ALT/SGPT) 26 U/L (12-78) Alkaline Phosphatase 53 U/L (46-116) Total Protein 6.4 G/DL (6.4-8.2) Albumin 2.2 G/DL (3.4-5.0) L Globulin 4.2 g/dL Albumin/Globulin Ratio 0.5 (1.0-2.7) L Current Medications Medications (Trade) Dose Ordered Sig/Trey Route PRN Reason Start Time Stop Time Status Last Admin Dose Admin Acetaminophen (Tylenol) 650 mg Q4H PRN ORAL Mild Pain (Pain Scale 1-3) 04/26/17 00:45 05/26/17 00:44 05/03/17 21:47 Aspirin (ASA) 81 mg DAILY ORAL 04/26/17 09:00 05/26/17 08:59 05/06/17 09:49 Carvedilol (Coreg) 12.5 mg EVERY 12 HOURS ORAL 04/26/17 09:00 05/26/17 08:59 05/06/17 09:49 Ceftriaxone Sodium 2 gm/ Dextrose 55 ml @ 110 mls/hr Q24H IVPB 04/29/17 15:00 05/12/17 23:59 05/06/17 15:45 Dextrose (Dextrose 50%) STAT PRN IV Hypoglycemia 04/26/17 00:45 05/26/17 00:44 Divalproex Sodium (Depakote) 500 mg Q12HR ORAL 04/26/17 09:00 05/26/17 08:59 05/06/17 09:49 Docusate Sodium (Colace) 100 mg THREE TIMES A DAY ORAL 05/03/17 18:00 06/02/17 17:59 05/06/17 13:43 Famotidine (Pepcid) 20 mg DAILY ORAL 04/26/17 09:00 05/26/17 08:59 05/06/17 09:48 Folic Acid (Folate) 1 mg DAILY ORAL 04/30/17 09:00 05/30/17 08:59 05/06/17 09:49 Levothyroxine Sodium (Synthroid) 100 mcg ACBREAKFAST ORAL 04/26/17 06:30 05/26/17 06:29 05/06/17 06:23 Lorazepam (Ativan) 1 mg ONCE PRN ORAL 30 min prior to biopsy 05/02/17 10:00 05/09/17 09:59 05/02/17 10:21 Meloxicam (Mobic) 15 mg DAILY ORAL 04/26/17 09:00 05/26/17 08:59 05/06/17 09:49 Ondansetron HCl (Zofran) 4 mg Q6H PRN IVP Nausea & Vomiting 04/26/17 00:45 05/26/17 00:44 Polyethylene Glycol (Miralax) 17 gm DAILY PRN ORAL Constipation 05/02/17 09:00 06/01/17 08:59 Propafenone HCl (Rythmol) 225 mg EVERY 8 HOURS ORAL 04/26/17 06:00 05/26/17 05:59 05/06/17 06:22 Quetiapine Fumarate (SEROquel) 25 mg BEDTIME PRN ORAL agitation 04/30/17 21:00 05/26/17 08:59 Vitamin B Complex/ Vit C/Folic Acid (Nephrovite) 1 tab DAILY ORAL 04/29/17 09:00 05/29/17 08:59 05/06/17 09:48 Zak Matos M.D. May 06, 2017 15:54
[2017-05-06 16:00] VITALS: BP 110/52
--- NOTE | 2017-05-06 16:40 | Cardiac Electrophysiology PN ---
Assessment/Plan Status Narrative Impression: Echogenic sludge in the gallbladder with minimal gallbladder wall thickening and trace pericholecystic fluid. Sonographic Resendez sign (either negative or positive) was not documented by the chief ultrasound technologist. Findings may be suggestive of a mild cholecystitis in the appropriate clinical setting. Confirmation with HIDA scan recommended. Assessment/Plan 1. Nonsustained ventricular tachycardia. No VT. Echocardiogram normal EF. On Coreg 12.5 mg b.i.d. 2. Initial troponin leak. three subsequent troponins negative. 3. Paroxysmal atrial fibrillation, in sinus rhythm, on aspirin and Coreg. 4. Hypothyroidism, on Synthroid. 5. Anemia, followed by Dr. Streeter. Stool OB still pending Had BM Biopsy Left iliac Crest. Results still pending. 6. Dementia 7. Abd US suggestive of Mild cholecystitis in the appropriate clinical setting. Per Dr Streeter defer HIDA given normal LFTs/asymptomatic DW RN [facility] Subjective Subjective Comfortable in NAD. Remained in SR. [facility] to [facility] Objective Last 24 Hour Vital Signs Date Time Temp Pulse Resp B/P (MAP) Pulse Ox O2 Delivery O2 Flow Rate FiO2 05/06/17 16:00 97.3 66 20 110/52 98 Room Air 05/06/17 14:00 64 05/06/17 12:00 97.5 66 20 116/53 96 Room Air 05/06/17 11:33 53 05/06/17 09:49 68 126/57 05/06/17 08:00 97.2 68 20 126/57 98 Room Air 05/06/17 07:42 77 05/06/17 06:22 69 05/06/17 04:05 96.9 69 18 111/62 95 Room Air 05/06/17 04:00 60 05/06/17 00:15 96.9 74 18 123/67 95 Room Air 05/06/17 00:00 57 05/05/17 21:45 62 05/05/17 21:45 62 105/45 05/05/17 20:31 97.9 62 18 105/45 97 Room Air 05/05/17 20:00 57 Intake and Output 05/05/17 05/06/17 19:00 07:00 Intake Total 236 ml 236 ml Output Total 600 ml 1100 ml Balance -364 ml -864 ml Intake Oral 236 ml 236 ml Output Urine Total 600 ml 1100 ml Laboratory Tests Test 05/06/17 08:25 White Blood Count 5.3 K/UL (4.8-10.8) Red Blood Count 2.73 M/UL (4.70-6.10) L Hemoglobin 8.3 G/DL (14.2-18.0) L Hematocrit 25.1 % (42.0-52.0) L Mean Corpuscular Volume 92 FL (80-99) Mean Corpuscular Hemoglobin 30.4 PG (27.0-31.0) Mean Corpuscular Hemoglobin Concent 33.1 G/DL (32.0-36.0) Red Cell Distribution Width 14.8 % (11.6-14.8) Platelet Count 66 K/UL (150-450) L Mean Platelet Volume 6.4 FL (6.5-10.1) L Neutrophils (%) (Auto) % (45.0-75.0) Lymphocytes (%) (Auto) % (20.0-45.0) Monocytes (%) (Auto) % (1.0-10.0) Eosinophils (%) (Auto) % (0.0-3.0) Basophils (%) (Auto) % (0.0-2.0) Differential Total Cells Counted 100 Neutrophils % (Manual) 62 % (45-75) Lymphocytes % (Manual) 29 % (20-45) Monocytes % (Manual) 7 % (1-10) Eosinophils % (Manual) 1 % (0-3) Basophils % (Manual) 1 % (0-2) Band Neutrophils 0 % (0-8) Platelet Estimate Decreased L Platelet Morphology Normal Red Blood Cell Morphology Hypochromasia 1+ Sodium Level 141 MMOL/L (136-145) Potassium Level 4.3 MMOL/L (3.5-5.1) Chloride Level 108 MMOL/L (98-107) H Carbon Dioxide Level 26 MMOL/L (21-32) Anion Gap 7 mmol/L (5-15) Blood Urea Nitrogen 32 mg/dL (7-18) H Creatinine 1.2 MG/DL (0.55-1.30) Estimat Glomerular Filtration Rate mL/min (>60) Glucose Level 107 MG/DL (74-106) H Calcium Level 8.5 MG/DL (8.5-10.1) Total Bilirubin 0.3 MG/DL (0.2-1.0) Aspartate Amino Transf (AST/SGOT) 30 U/L (15-37) Alanine Aminotransferase (ALT/SGPT) 26 U/L (12-78) Alkaline Phosphatase 53 U/L (46-116) Total Protein 6.4 G/DL (6.4-8.2) Albumin 2.2 G/DL (3.4-5.0) L Globulin 4.2 g/dL Albumin/Globulin Ratio 0.5 (1.0-2.7) L Objective HEAD AND NECK: Shows no JVD. LUNGS: Decreased breath sounds. CARDIOVASCULAR: Regular S1 and S2 with no gallop or murmur. ABDOMEN: Soft. EXTREMITIES: Bilateral 1+ pitting edema. JARROD ESTRADA May 06, 2017 16:40
[2017-05-06 20:15] VITALS: BP 102/54
--- NOTE | 2017-05-06 22:31 | General Progress Note ---
Assessment/Plan Status: stable Assessment/Plan #. Pancytopenia. Infection related versus viral versus bone marrow disorder --> have discussed with pathologist --> HIV panel negative, hepatitis negative as well --> Platelets are low, goal is >20k. Currently still above goal. --> Platelets has improved the last few days --> Hemoglobin goal >7, currently above goal. 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 Anemia secondary to kidney disease. Continue to closely monitor. Creatinine elevated. --> Hemoglobin above goal, does not need blood transfusion at the moment #. LEWIS. Being seen by Nephrology. #. Nausea and vomiting. The patient is being evaluated by GI service. --> Occult blood is negative #. NSVT, being seen by Cardiology. #. Dehydration. Administer fluids as needed. Pulmonary is following as well. Subjective Date patient seen: May 06, 2017 Constitutional: Denies: no symptoms, chills, diaphoresis, fever, malaise, weakness, other HEENT: Denies: no symptoms, eye pain, blurred vision, tearing, double vision, ear pain, ear discharge, nose pain, nose congestion, throat pain, throat swelling, mouth pain, mouth swelling, other Cardiovascular: Denies: no symptoms, chest pain, edema, irregular heart rate, lightheadedness, palpitations, syncope, other Respiratory: Denies: no symptoms, cough, orthopnea, shortness of breath, SOB with excertion, SOB at rest, sputum, stridor, wheezing, other Gastrointestinal/Abdominal: Denies: no symptoms, abdomen distended, abdominal pain, black stools, tarry stools, blood in stool, constipated, diarrhea, difficulty swallowing, nausea, poor appetite, poor fluid intake, rectal bleeding , vomiting, other Genitourinary: Denies: no symptoms, burning, discharge, frequency, flank pain, hematuria, incontinence, pain, urgency, other Neurologic/Psychiatric: Denies: no symptoms, anxiety, depressed, emotional problems, headache, numbness, paresthesia, pre-existing deficit, seizure, tingling, tremors, weakness, other Allergies: Coded Allergies: No Known Allergies (Unverified , 04/25/17) Subjective No active bleeding. Platelets remain low. Objective Last 24 Hour Vital Signs Date Time Temp Pulse Resp B/P (MAP) Pulse Ox O2 Delivery O2 Flow Rate FiO2 05/06/17 22:01 63 05/06/17 21:00 63 102/54 05/06/17 20:15 97.7 63 18 102/54 96 Room Air 05/06/17 16:00 97.3 66 20 110/52 98 Room Air 05/06/17 15:16 64 05/06/17 14:00 64 05/06/17 12:00 97.5 66 20 116/53 96 Room Air 05/06/17 11:33 53 05/06/17 09:49 68 126/57 05/06/17 08:00 97.2 68 20 126/57 98 Room Air 05/06/17 07:42 77 05/06/17 06:22 69 05/06/17 04:05 96.9 69 18 111/62 95 Room Air 05/06/17 04:00 60 05/06/17 00:15 96.9 74 18 123/67 95 Room Air 05/06/17 00:00 57 Intake and Output 05/05/17 05/06/17 19:00 07:00 Intake Total 236 ml 236 ml Output Total 600 ml 1100 ml Balance -364 ml -864 ml Intake Oral 236 ml 236 ml Output Urine Total 600 ml 1100 ml Laboratory Tests 05/06/17 08:25: White Blood Count 5.3, Red Blood Count 2.73L, Hemoglobin 8.3L, Hematocrit 25.1L , Mean Corpuscular Volume 92, Mean Corpuscular Hemoglobin 30.4, Mean Corpuscular Hemoglobin Concent 33.1, Red Cell Distribution Width 14.8, Platelet Count 66L, Mean Platelet Volume 6.4L, Neutrophils (%) (Auto) , Lymphocytes (%) ( Auto) , Monocytes (%) (Auto) , Eosinophils (%) (Auto) , Basophils (%) (Auto) , Differential Total Cells Counted 100, Neutrophils % (Manual) 62, Lymphocytes % ( Manual) 29, Monocytes % (Manual) 7, Eosinophils % (Manual) 1, Basophils % ( Manual) 1, Band Neutrophils 0, Platelet Estimate DecreasedL, Platelet Morphology Normal, Red Blood Cell Morphology , Hypochromasia 1+, Sodium Level 141, Potassium Level 4.3, Chloride Level 108H, Carbon Dioxide Level 26, Anion Gap 7, Blood Urea Nitrogen 32H, Creatinine 1.2, Estimat Glomerular Filtration Rate , Glucose Level 107H, Calcium Level 8.5, Total Bilirubin 0.3, Aspartate Amino Transf (AST/SGOT) 30, Alanine Aminotransferase (ALT/SGPT) 26, Alkaline Phosphatase 53, Total Protein 6.4, Albumin 2.2L, Globulin 4.2, Albumin/Globulin Ratio 0.5L Height (Feet): 6 Height (Inches): 0.00 Weight (Pounds): 190 General Appearance: no apparent distress EENT: normal ENT inspection Neck: supple Cardiovascular: normal rate, regular rhythm Abdomen: non tender, soft Edema: trace edema Skin: warm/dry Rivera Christine May 06, 2017 22:31
[2017-05-07 00:19] VITALS: BP 105/57
[2017-05-07 04:11] VITALS: BP 119/61
[2017-05-07 08:00] VITALS: BP 104/50
[2017-05-07] MEDS: Carvedilol 12.5mg tab ORAL SCH ×2 (09:00→20:42)
[2017-05-07 09:04] LABS: HEMATOCRIT 23.8 % (42.0-52.0); HEMOGLOBIN 7.7 G/DL (14.2-18.0); MEAN CORPUSCULAR VOLUME 92 FL (80-99); PLATELET COUNT 82 K/UL (150-450); RED BLOOD COUNT 2.57 M/UL (4.70-6.10); RED CELL DISTRIBUTION WIDTH 14.2 % (11.6-14.8)
[2017-05-07] MEDS: Nephrovite tab (Rena-Vite) ORAL SCH (09:48)
[2017-05-07] MEDS: Aspirin Baby 81mg ORAL SCH (09:48)
[2017-05-07] MEDS: Docusate 100mg cap ORAL SCH ×3 (09:48→18:17)
[2017-05-07] MEDS: Meloxicam 15 MG TAB ORAL SCH (09:48)
--- NOTE | 2017-05-07 09:57 | Cardiac Electrophysiology PN ---
Assessment/Plan Status Narrative Impression: Echogenic sludge in the gallbladder with minimal gallbladder wall thickening and trace pericholecystic fluid. Sonographic Resendez sign (either negative or positive) was not documented by the tissue technologist. Findings may be suggestive of a mild cholecystitis in the appropriate clinical setting. Confirmation with HIDA scan recommended. Assessment/Plan 1. Nonsustained ventricular tachycardia. No MO. Echocardiogram normal EF. On Coreg 12.5 mg b.i.d. 2. Initial troponin leak. three subsequent troponins negative. 3. Paroxysmal atrial fibrillation, in sinus rhythm, on aspirin and Coreg. 4. Hypothyroidism, on Synthroid. 5. Anemia, followed by Dr. Streeter. Stool OB still pending Had BM Biopsy Left iliac Crest. Results still pending. 6. Dementia 7. Abd US suggestive of Mild cholecystitis in the appropriate clinical setting. Dr Streeter defering HIDA given normal LFTs/asymptomatic 8. E coli Bacteremia and Sepsis. 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 Remained in SR. More alert and communicative today. PICC line pending today. Objective Last 24 Hour Vital Signs Date Time Temp Pulse Resp B/P (MAP) Pulse Ox O2 Delivery O2 Flow Rate FiO2 05/07/17 09:00 68 104/50 05/07/17 08:00 97.2 68 20 104/50 97 Room Air 05/07/17 06:08 70 05/07/17 04:11 96.4 70 18 119/61 97 Room Air 05/07/17 04:11 Room Air 05/07/17 04:00 59 05/07/17 00:19 Room Air 05/07/17 00:19 96.9 79 18 105/57 97 Room Air 05/07/17 00:00 67 05/06/17 22:01 63 05/06/17 21:00 63 102/54 05/06/17 20:15 97.7 63 18 102/54 96 Room Air 05/06/17 20:15 Room Air 05/06/17 20:00 69 05/06/17 16:00 97.3 66 20 110/52 98 Room Air 05/06/17 15:16 64 05/06/17 14:00 64 05/06/17 12:00 97.5 66 20 116/53 96 Room Air 05/06/17 11:33 53 Intake and Output 05/06/17 05/07/17 19:00 07:00 Intake Total 730 ml Output Total 650 ml 700 ml Balance 80 ml -700 ml Intake Oral 730 ml Output Urine Total 650 ml 700 ml Laboratory Tests Test 05/07/17 08:40 White Blood Count 5.0 K/UL (4.8-10.8) Red Blood Count 2.57 M/UL (4.70-6.10) L Hemoglobin 7.7 G/DL (14.2-18.0) L Hematocrit 23.8 % (42.0-52.0) L Mean Corpuscular Volume 92 FL (80-99) Mean Corpuscular Hemoglobin 30.1 PG (27.0-31.0) Mean Corpuscular Hemoglobin Concent 32.6 G/DL (32.0-36.0) Red Cell Distribution Width 14.2 % (11.6-14.8) Platelet Count 82 K/UL (150-450) L Mean Platelet Volume 7.4 FL (6.5-10.1) Neutrophils (%) (Auto) % (45.0-75.0) Lymphocytes (%) (Auto) % (20.0-45.0) Monocytes (%) (Auto) % (1.0-10.0) Eosinophils (%) (Auto) % (0.0-3.0) Basophils (%) (Auto) % (0.0-2.0) Neutrophils % (Manual) Pending Lymphocytes % (Manual) Pending Platelet Estimate Pending Platelet Morphology Pending Sodium Level Pending Potassium Level Pending Chloride Level Pending Carbon Dioxide Level Pending Blood Urea Nitrogen Pending Creatinine Pending Estimat Glomerular Filtration Rate Pending Glucose Level Pending Calcium Level Pending Objective HEAD AND NECK: No JVD. LUNGS: Decreased breath sounds. CARDIOVASCULAR: Regular S1 and S2 with no gallop or murmur. ABDOMEN: Soft. EXTREMITIES: Bilateral 1+ pitting edema. JARROD ESTRADA May 07, 2017 09:57
--- NOTE | 2017-05-07 10:28 | GI Progress Note ---
Assessment/Plan Problems: (1) Dehydration ICD Codes: E86.0 - Dehydration SNOMED: 25579662, 368753717, 316391645 (2) Anemia ICD Codes: D64.9 - Anemia, unspecified SNOMED: 210632049 (3) Altered level of consciousness ICD Codes: R40.4 - Transient alteration of awareness SNOMED: 6885765 (4) Elevated troponin ICD Codes: R74.8 - Abnormal levels of other serum enzymes SNOMED: 217274392, 882189118, 103606393 Status: stable Status Narrative Discussed with Dr. Streeter. Assessment/Plan hep panel >> negative abdominal U/S reviewed >> GB sludge, defer HIDA given normal LFTs/asymptomatic defer GI procedures given elevated troponin levels >> now normal OB stool r/o GI bleed stable H&H, prn transfusions keep Hgb > 8.0 bowel regime ppi cardiac diet, tolerating OT evaluation folate PO electrolyte correction fu labs, tumor markers outpatient GI procedures Subjective Subjective limited Objective Last 24 Hour Vital Signs Date Time Temp Pulse Resp B/P (MAP) Pulse Ox O2 Delivery O2 Flow Rate FiO2 05/07/17 09:00 68 104/50 05/07/17 08:00 97.2 68 20 104/50 97 Room Air 05/07/17 06:08 70 05/07/17 04:11 96.4 70 18 119/61 97 Room Air 05/07/17 04:11 Room Air 05/07/17 04:00 59 05/07/17 00:19 Room Air 05/07/17 00:19 96.9 79 18 105/57 97 Room Air 05/07/17 00:00 67 05/06/17 22:01 63 05/06/17 21:00 63 102/54 05/06/17 20:15 97.7 63 18 102/54 96 Room Air 05/06/17 20:15 Room Air 05/06/17 20:00 69 05/06/17 16:00 97.3 66 20 110/52 98 Room Air 05/06/17 15:16 64 05/06/17 14:00 64 05/06/17 12:00 97.5 66 20 116/53 96 Room Air 05/06/17 11:33 53 Intake and Output 05/06/17 05/07/17 19:00 07:00 Intake Total 730 ml Output Total 650 ml 700 ml Balance 80 ml -700 ml Intake Oral 730 ml Output Urine Total 650 ml 700 ml Laboratory Tests Test 05/07/17 08:40 White Blood Count 5.0 K/UL (4.8-10.8) Red Blood Count 2.57 M/UL (4.70-6.10) L Hemoglobin 7.7 G/DL (14.2-18.0) L Hematocrit 23.8 % (42.0-52.0) L Mean Corpuscular Volume 92 FL (80-99) Mean Corpuscular Hemoglobin 30.1 PG (27.0-31.0) Mean Corpuscular Hemoglobin Concent 32.6 G/DL (32.0-36.0) Red Cell Distribution Width 14.2 % (11.6-14.8) Platelet Count 82 K/UL (150-450) L Mean Platelet Volume 7.4 FL (6.5-10.1) Neutrophils (%) (Auto) % (45.0-75.0) Lymphocytes (%) (Auto) % (20.0-45.0) Monocytes (%) (Auto) % (1.0-10.0) Eosinophils (%) (Auto) % (0.0-3.0) Basophils (%) (Auto) % (0.0-2.0) Neutrophils % (Manual) Pending Lymphocytes % (Manual) Pending Platelet Estimate Pending Platelet Morphology Pending Sodium Level Pending Potassium Level Pending Chloride Level Pending Carbon Dioxide Level Pending Blood Urea Nitrogen Pending Creatinine Pending Estimat Glomerular Filtration Rate Pending Glucose Level Pending Calcium Level Pending Height (Feet): 6 Height (Inches): 0.00 Weight (Pounds): 190 General Appearance: no apparent distress, alert, confused Cardiovascular: normal rate Respiratory/Chest: normal breath sounds, no respiratory distress Abdominal Exam: normal bowel sounds, non tender, soft Jeni Marino N.P. May 07, 2017 10:27
[2017-05-07 10:38] LABS: ANION GAP 6 mmol/L (5-15); BLOOD UREA NITROGEN 28 mg/dL (7-18); CALCIUM 8.5 MG/DL (8.5-10.1); CARBON DIOXIDE 27 MMOL/L (21-32); CHLORIDE 108 MMOL/L (98-107); CREATININE 1.1 MG/DL (0.55-1.30); POTASSIUM 4.3 MMOL/L (3.5-5.1); SODIUM 140 MMOL/L (136-145)
[2017-05-07 12:00] VITALS: BP 101/56
--- NOTE | 2017-05-07 12:56 | Pulmonology Progress Note ---
Assessment/Plan Assessment/Plan 1. Dehydration. resolved 2. Renal failure. improved 3. Altered mental status. 4. Urinary tract infection. 5. Sepsis; DISCUSSION: Respiratory status is stable. I agree with the use of antibiotics per ID. Continue oxygen and pulmonary hygiene. I will follow as saturator tender. Subjective Interval Events: None Constitutional: Reports: no symptoms HEENT: Repors: no symptoms Respiratory: Reports: no symptoms Cardiovascular: Reports: no symptoms Allergies: Coded Allergies: No Known Allergies (Unverified , 04/25/17) Objective Last 24 Hour Vital Signs Date Time Temp Pulse Resp B/P (MAP) Pulse Ox O2 Delivery O2 Flow Rate FiO2 05/07/17 12:00 97.2 66 20 101/56 95 Room Air 05/07/17 09:00 68 104/50 05/07/17 08:00 97.2 68 20 104/50 97 Room Air 05/07/17 06:08 70 05/07/17 04:11 96.4 70 18 119/61 97 Room Air 05/07/17 04:11 Room Air 05/07/17 04:00 59 05/07/17 00:19 Room Air 05/07/17 00:19 96.9 79 18 105/57 97 Room Air 05/07/17 00:00 67 05/06/17 22:01 63 05/06/17 21:00 63 102/54 05/06/17 20:15 97.7 63 18 102/54 96 Room Air 05/06/17 20:15 Room Air 05/06/17 20:00 69 05/06/17 16:00 97.3 66 20 110/52 98 Room Air 05/06/17 15:16 64 05/06/17 14:00 64 Intake and Output 05/06/17 05/07/17 19:00 07:00 Intake Total 730 ml Output Total 650 ml 700 ml Balance 80 ml -700 ml Intake Oral 730 ml Output Urine Total 650 ml 700 ml General Appearance: no acute distress HEENT: normocephalic Respiratory/Chest: chest wall non-tender, lungs clear Cardiovascular: normal peripheral pulses, normal rate Laboratory Tests 05/07/17 08:40: White Blood Count 5.0, Red Blood Count 2.57L, Hemoglobin 7.7L, Hematocrit 23.8L , Mean Corpuscular Volume 92, Mean Corpuscular Hemoglobin 30.1, Mean Corpuscular Hemoglobin Concent 32.6, Red Cell Distribution Width 14.2, Platelet Count 82L, Mean Platelet Volume 7.4, Neutrophils (%) (Auto) , Lymphocytes (%) ( Auto) , Monocytes (%) (Auto) , Eosinophils (%) (Auto) , Basophils (%) (Auto) , Differential Total Cells Counted 100, Neutrophils % (Manual) 65, Lymphocytes % ( Manual) 27, Monocytes % (Manual) 3, Eosinophils % (Manual) 3, Basophils % ( Manual) 1, Band Neutrophils 1, Platelet Estimate DecreasedL, Platelet Morphology Normal, Hypochromasia 1+, Sodium Level 140, Potassium Level 4.3, Chloride Level 108H, Carbon Dioxide Level 27, Anion Gap 6, Blood Urea Nitrogen 28H, Creatinine 1.1, Estimat Glomerular Filtration Rate , Glucose Level 80, Calcium Level 8.5 Current Medications Medications (Trade) Dose Ordered Sig/Trey Route PRN Reason Start Time Stop Time Status Last Admin Dose Admin Acetaminophen (Tylenol) 650 mg Q4H PRN ORAL Mild Pain (Pain Scale 1-3) 04/26/17 00:45 05/26/17 00:44 05/03/17 21:47 Aspirin (ASA) 81 mg DAILY ORAL 04/26/17 09:00 05/26/17 08:59 05/07/17 09:48 Carvedilol (Coreg) 12.5 mg EVERY 12 HOURS ORAL 04/26/17 09:00 05/26/17 08:59 05/06/17 21:00 Ceftriaxone Sodium 2 gm/ Dextrose 55 ml @ 110 mls/hr Q24H IVPB 04/29/17 15:00 05/12/17 23:59 05/06/17 15:45 Chlorhexidine Gluconate (Shaye-Hex 2%) 1 applic DAILY@2000 TOPIC 05/07/17 20:00 06/06/17 19:59 Dextrose (Dextrose 50%) STAT PRN IV Hypoglycemia 04/26/17 00:45 05/26/17 00:44 Divalproex Sodium (Depakote) 500 mg Q12HR ORAL 04/26/17 09:00 05/26/17 08:59 05/07/17 09:49 Docusate Sodium (Colace) 100 mg THREE TIMES A DAY ORAL 05/03/17 18:00 06/02/17 17:59 05/07/17 09:48 Famotidine (Pepcid) 20 mg DAILY ORAL 04/26/17 09:00 05/26/17 08:59 05/07/17 09:48 Folic Acid (Folate) 1 mg DAILY ORAL 04/30/17 09:00 05/30/17 08:59 05/07/17 09:48 Levothyroxine Sodium (Synthroid) 100 mcg ACBREAKFAST ORAL 04/26/17 06:30 05/26/17 06:29 05/07/17 06:08 Lorazepam (Ativan) 1 mg ONCE PRN ORAL 30 min prior to biopsy 05/02/17 10:00 05/09/17 09:59 05/02/17 10:21 Meloxicam (Mobic) 15 mg DAILY ORAL 04/26/17 09:00 05/26/17 08:59 05/07/17 09:48 Ondansetron HCl (Zofran) 4 mg Q6H PRN IVP Nausea & Vomiting 04/26/17 00:45 05/26/17 00:44 Polyethylene Glycol (Miralax) 17 gm DAILY PRN ORAL Constipation 05/02/17 09:00 06/01/17 08:59 Propafenone HCl (Rythmol) 225 mg EVERY 8 HOURS ORAL 04/26/17 06:00 05/26/17 05:59 05/07/17 06:08 Quetiapine Fumarate (SEROquel) 25 mg BEDTIME PRN ORAL agitation 04/30/17 21:00 05/26/17 08:59 Vitamin B Complex/ Vit C/Folic Acid (Nephrovite) 1 tab DAILY ORAL 04/29/17 09:00 05/29/17 08:59 05/07/17 09:48 Mitch Grace MD May 07, 2017 12:56
--- NOTE | 2017-05-07 14:58 | Infectious Diseases Prog Note ---
Assessment/Plan Problems: (1) UTI (urinary tract infection) Assessment & Plan: with E coli , most likely the source of his sepsis , continue ceftriaxon for two weeks total . (2) Fever Assessment & Plan: due to the above, resolved , continue tylenol prn (3) HCAP (healthcare-associated pneumonia) Assessment & Plan: due to serratia marcescens, improved on cefepime and clindamycin, influenza screening is negative , continue ceftriaxon only for two weeks (4) Sepsis Assessment & Plan: with E coli , on ceftriaxone , repeated blood culture is negative so far . will treat with ceftriaxon for two weeks starting from the clearance date. EOT 05/12/17 (5) Altered level of consciousness Assessment & Plan: due to the above, resolved, recommend neurology follow up (6) Elevated troponin Assessment & Plan: suspect ACS, cardiology is following (7) Dehydration Assessment & Plan: continue IVF, monitor urine out put, and renal function, avoid nephrotoxic meds (8) LEWIS (acute kidney injury) Assessment & Plan: due to the above , continue hydration, monitor renal function , nephrology is following (9) Anemia Assessment & Plan: rule out GI source, monitor H/H, transfuse blood as needed , GI is following Subjective Constitutional: Reports: no symptoms HEENT: Reports: no symptoms Respiratory: Reports: no symptoms Breasts: Reports: no symptoms Cardiovascular: Reports: no symptoms Gastrointestinal/Abdominal: Reports: no symptoms Genitourinary: Reports: no symptoms Neurologic: Reports: no symptoms Psychiatric: Reports: no symptoms Skin: Reports: no symptoms Endocrine: Reports: no symptoms Hematologic: Reports: no symptoms Musculoskeletal: Reports: no symptoms Allergies: Coded Allergies: No Known Allergies (Unverified , 04/25/17) Subjective he was awake and alert, resting in bed, respond to verbal commands , not hypotensive , afebrile , no rectal bleeding. Objective Vital Signs Last 24 Hour Vital Signs Date Time Temp Pulse Resp B/P (MAP) Pulse Ox O2 Delivery O2 Flow Rate FiO2 05/07/17 13:40 66 05/07/17 12:00 97.2 66 20 101/56 95 Room Air 05/07/17 12:00 55 05/07/17 09:00 68 104/50 05/07/17 08:00 61 05/07/17 08:00 97.2 68 20 104/50 97 Room Air 05/07/17 06:08 70 05/07/17 04:11 96.4 70 18 119/61 97 Room Air 05/07/17 04:11 Room Air 05/07/17 04:00 59 05/07/17 00:19 Room Air 05/07/17 00:19 96.9 79 18 105/57 97 Room Air 05/07/17 00:00 67 05/06/17 22:01 63 05/06/17 21:00 63 102/54 05/06/17 20:15 97.7 63 18 102/54 96 Room Air 05/06/17 20:15 Room Air 05/06/17 20:00 69 05/06/17 16:00 97.3 66 20 110/52 98 Room Air 05/06/17 15:16 64 Height (Feet): 6 Height (Inches): 0.00 Weight (Pounds): 190 General Appearance: WD/WN, no acute distress HEENT: normocephalic, atraumatic, anicteric, mucous membranes moist, PERRL, EOMI, pharynx normal, supple Respiratory/Chest: chest wall non-tender, lungs clear, normal breath sounds, no respiratory distress, no accessory muscle use Cardiovascular: normal peripheral pulses, normal rate, regular rhythm, no gallop/murmur, no JVD Abdomen: normal bowel sounds, soft, non tender, no organomegaly, non distended , no mass Extremities: no cyanosis, no clubbing Skin: no rash, no lesions, no ulcers Neurologic/Psychiatric: alert, oriented x 3 Lymphatic: no neck adenopathy, no groin adenopathy Laboratory Tests Test 05/07/17 08:40 White Blood Count 5.0 K/UL (4.8-10.8) Red Blood Count 2.57 M/UL (4.70-6.10) L Hemoglobin 7.7 G/DL (14.2-18.0) L Hematocrit 23.8 % (42.0-52.0) L Mean Corpuscular Volume 92 FL (80-99) Mean Corpuscular Hemoglobin 30.1 PG (27.0-31.0) Mean Corpuscular Hemoglobin Concent 32.6 G/DL (32.0-36.0) Red Cell Distribution Width 14.2 % (11.6-14.8) Platelet Count 82 K/UL (150-450) L Mean Platelet Volume 7.4 FL (6.5-10.1) Neutrophils (%) (Auto) % (45.0-75.0) Lymphocytes (%) (Auto) % (20.0-45.0) Monocytes (%) (Auto) % (1.0-10.0) Eosinophils (%) (Auto) % (0.0-3.0) Basophils (%) (Auto) % (0.0-2.0) Differential Total Cells Counted 100 Neutrophils % (Manual) 65 % (45-75) Lymphocytes % (Manual) 27 % (20-45) Monocytes % (Manual) 3 % (1-10) Eosinophils % (Manual) 3 % (0-3) Basophils % (Manual) 1 % (0-2) Band Neutrophils 1 % (0-8) Platelet Estimate Decreased L Platelet Morphology Normal Hypochromasia 1+ Sodium Level 140 MMOL/L (136-145) Potassium Level 4.3 MMOL/L (3.5-5.1) Chloride Level 108 MMOL/L (98-107) H Carbon Dioxide Level 27 MMOL/L (21-32) Anion Gap 6 mmol/L (5-15) Blood Urea Nitrogen 28 mg/dL (7-18) H Creatinine 1.1 MG/DL (0.55-1.30) Estimat Glomerular Filtration Rate mL/min (>60) Glucose Level 80 MG/DL (74-106) Calcium Level 8.5 MG/DL (8.5-10.1) Current Medications Medications (Trade) Dose Ordered Sig/Trey Route PRN Reason Start Time Stop Time Status Last Admin Dose Admin Acetaminophen (Tylenol) 650 mg Q4H PRN ORAL Mild Pain (Pain Scale 1-3) 04/26/17 00:45 05/26/17 00:44 05/03/17 21:47 Aspirin (ASA) 81 mg DAILY ORAL 04/26/17 09:00 05/26/17 08:59 05/07/17 09:48 Carvedilol (Coreg) 12.5 mg EVERY 12 HOURS ORAL 04/26/17 09:00 05/26/17 08:59 05/06/17 21:00 Ceftriaxone Sodium 2 gm/ Dextrose 55 ml @ 110 mls/hr Q24H IVPB 04/29/17 15:00 05/12/17 23:59 05/06/17 15:45 Chlorhexidine Gluconate (Shaye-Hex 2%) 1 applic DAILY@2000 TOPIC 05/07/17 20:00 06/06/17 19:59 Dextrose (Dextrose 50%) STAT PRN IV Hypoglycemia 04/26/17 00:45 05/26/17 00:44 Divalproex Sodium (Depakote) 500 mg Q12HR ORAL 04/26/17 09:00 05/26/17 08:59 05/07/17 09:49 Docusate Sodium (Colace) 100 mg THREE TIMES A DAY ORAL 05/03/17 18:00 06/02/17 17:59 05/07/17 13:40 Famotidine (Pepcid) 20 mg DAILY ORAL 04/26/17 09:00 05/26/17 08:59 05/07/17 09:48 Folic Acid (Folate) 1 mg DAILY ORAL 04/30/17 09:00 05/30/17 08:59 05/07/17 09:48 Levothyroxine Sodium (Synthroid) 100 mcg ACBREAKFAST ORAL 04/26/17 06:30 05/26/17 06:29 05/07/17 06:08 Lorazepam (Ativan) 1 mg ONCE PRN ORAL 30 min prior to biopsy 05/02/17 10:00 05/09/17 09:59 05/02/17 10:21 Meloxicam (Mobic) 15 mg DAILY ORAL 04/26/17 09:00 05/26/17 08:59 05/07/17 09:48 Ondansetron HCl (Zofran) 4 mg Q6H PRN IVP Nausea & Vomiting 04/26/17 00:45 05/26/17 00:44 Polyethylene Glycol (Miralax) 17 gm DAILY PRN ORAL Constipation 05/02/17 09:00 06/01/17 08:59 Propafenone HCl (Rythmol) 225 mg EVERY 8 HOURS ORAL 04/26/17 06:00 05/26/17 05:59 05/07/17 13:40 Quetiapine Fumarate (SEROquel) 25 mg BEDTIME PRN ORAL agitation 04/30/17 21:00 05/26/17 08:59 Vitamin B Complex/ Vit C/Folic Acid (Nephrovite) 1 tab DAILY ORAL 04/29/17 09:00 05/29/17 08:59 05/07/17 09:48 Zak Matos M.D. May 07, 2017 14:58
[2017-05-07 16:00] VITALS: BP 105/54
--- NOTE | 2017-05-07 16:39 | Diagnostic Imaging Report ---
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 The right upper extremity was prepped with alcohol. All elements of maximal sterile barrier technique were followed including usage of a cap, mask, sterile gown, sterile gloves, hand hygiene and a large sterile sheet. Sonographic evaluation of the upper extremity was performed demonstrating a patent and compressible basilic vein. Access was obtained under real-time ultrasound guidance (with utilization of sterile gel and sterile probe cover) and digital image was saved and archived. An .018 wire was introduced. Needle exchanged for a 5 [place] peel-away sheath. Measurements were obtained. A 5 [place] dual-lumen Power PICC line catheter was cut to 45 cm and introduced over the wire. Peel-away sheath and wire were removed.Catheter was secured to the skin using 2-0 Prolene suture. Both ports aspirate and flush easily. Fluoroscopic images show distal tip in the superior vena cava. Total fluoroscopic time 0.3 minutes Impression: Successful placement of an upper extremity PICC line catheter
[2017-05-07] MEDS: cefTRIAXone 2 GM in D5W 55 ML IVPB SCH (16:42)
--- NOTE | 2017-05-07 17:42 | Nephrology Progress Note ---
Assessment/Plan Problem List: (1) Dehydration (2) Sepsis (3) UTI (urinary tract infection) Assessment: On IV abx (4) Altered level of consciousness (5) HCAP (healthcare-associated pneumonia) (6) LEWIS (acute kidney injury) Assessment: Improved on current IVF (7) Urinary retention (8) Hypernatremia (9) Hyperkalemia Assessment: Resolved (10) Elevated troponin (11) Pancytopenia Plan Continue current treatment plan Monitor intake and output Monitor renal function, improved on IVF Renally dose meds, avoid nephrotoxins Monitor H&H, transfuse prn Continue arnold Monitor lytes, correct prn Encourage fluids Abx per ID Cardio following, will follow up with recs Hematology following Monitor neuro status AM labs Subjective Constitutional: Denies: no symptoms, chills, diaphoresis, fever, malaise, weakness, other HEENT: Denies: no symptoms, eye pain, blurred vision, tearing, double vision, ear pain, ear discharge, nose pain, nose congestion, throat pain, throat swelling, mouth pain, mouth swelling, other Genitourinary: Denies: no symptoms, burning, discharge, frequency, flank pain, hematuria, incontinence, pain, urgency, other Neurologic/Psychiatric: Denies: no symptoms, anxiety, depressed, emotional problems, headache, numbness, paresthesia, pre-existing deficit, seizure, tingling, tremors, weakness, other Subjective Awake, alert, and responsive, In bed, in no apparent distress, blood transfusion ongoing, RN at bedside Objective Objective Last 24 Hour Vital Signs Date Time Temp Pulse Resp B/P (MAP) Pulse Ox O2 Delivery O2 Flow Rate FiO2 05/07/17 13:40 66 05/07/17 12:00 97.2 66 20 101/56 95 Room Air 05/07/17 12:00 55 05/07/17 09:00 68 104/50 05/07/17 08:00 61 05/07/17 08:00 97.2 68 20 104/50 97 Room Air 05/07/17 06:08 70 05/07/17 04:11 96.4 70 18 119/61 97 Room Air 05/07/17 04:11 Room Air 05/07/17 04:00 59 05/07/17 00:19 Room Air 05/07/17 00:19 96.9 79 18 105/57 97 Room Air 05/07/17 00:00 67 05/06/17 22:01 63 05/06/17 21:00 63 102/54 05/06/17 20:15 97.7 63 18 102/54 96 Room Air 05/06/17 20:15 Room Air 05/06/17 20:00 69 Intake and Output 05/06/17 05/07/17 19:00 07:00 Intake Total 730 ml Output Total 650 ml 700 ml Balance 80 ml -700 ml Intake Oral 730 ml Output Urine Total 650 ml 700 ml Laboratory Tests 05/07/17 08:40: White Blood Count 5.0, Red Blood Count 2.57L, Hemoglobin 7.7L, Hematocrit 23.8L , Mean Corpuscular Volume 92, Mean Corpuscular Hemoglobin 30.1, Mean Corpuscular Hemoglobin Concent 32.6, Red Cell Distribution Width 14.2, Platelet Count 82L, Mean Platelet Volume 7.4, Neutrophils (%) (Auto) , Lymphocytes (%) ( Auto) , Monocytes (%) (Auto) , Eosinophils (%) (Auto) , Basophils (%) (Auto) , Differential Total Cells Counted 100, Neutrophils % (Manual) 65, Lymphocytes % ( Manual) 27, Monocytes % (Manual) 3, Eosinophils % (Manual) 3, Basophils % ( Manual) 1, Band Neutrophils 1, Platelet Estimate DecreasedL, Platelet Morphology Normal, Hypochromasia 1+, Sodium Level 140, Potassium Level 4.3, Chloride Level 108H, Carbon Dioxide Level 27, Anion Gap 6, Blood Urea Nitrogen 28H, Creatinine 1.1, Estimat Glomerular Filtration Rate , Glucose Level 80, Calcium Level 8.5 Height (Feet): 6 Height (Inches): 0.00 Weight (Pounds): 190 General Appearance: no apparent distress EENT: normal ENT inspection, other - hard of hearing Neck: normal alignment, supple Cardiovascular: normal rate, regular rhythm Respiratory/Chest: normal breath sounds, no respiratory distress Abdomen: soft, no organomegaly Genitourinary/Rectal: other - arnold Extremities: non-tender Neurologic: alert, responsive Glenis Meza N.P. May 07, 2017 17:42
--- NOTE | 2017-05-07 19:49 | General Progress Note ---
Assessment/Plan Status: progressing Assessment/Plan #. Pancytopenia. Infection related versus viral versus bone marrow disorder --> have discussed with pathologist --> HIV panel negative, hepatitis negative as well --> Platelets are low, goal is >20k. Currently still above goal. --> Platelets has improved the last few days --> Hemoglobin goal >7, currently above goal. --> Received 1 unit of prbc today, no complications. 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 Anemia secondary to kidney disease. -->Continue to closely monitor. Creatinine elevated. #. LEWIS. Being seen by Nephrology. #. Nausea and vomiting. The patient is being evaluated by GI service. --> Occult blood is negative #. NSVT, being seen by Cardiology. #. Dehydration. Administer fluids as needed. Pulmonary is following as well. Subjective Date patient seen: May 07, 2017 Constitutional: Denies: no symptoms, chills, diaphoresis, fever, malaise, weakness, other HEENT: Denies: no symptoms, eye pain, blurred vision, tearing, double vision, ear pain, ear discharge, nose pain, nose congestion, throat pain, throat swelling, mouth pain, mouth swelling, other Cardiovascular: Denies: no symptoms, chest pain, edema, irregular heart rate, lightheadedness, palpitations, syncope, other Respiratory: Denies: no symptoms, cough, orthopnea, shortness of breath, SOB with excertion, SOB at rest, sputum, stridor, wheezing, other Gastrointestinal/Abdominal: Denies: no symptoms, abdomen distended, abdominal pain, black stools, tarry stools, blood in stool, constipated, diarrhea, difficulty swallowing, nausea, poor appetite, poor fluid intake, rectal bleeding , vomiting, other Genitourinary: Denies: no symptoms, burning, discharge, frequency, flank pain, hematuria, incontinence, pain, urgency, other Hematologic/Lymphatic: Reports: anemia Allergies: Coded Allergies: No Known Allergies (Unverified , 04/25/17) Subjective S/P blood transfusion. No adverse events. No fever. Objective Last 24 Hour Vital Signs Date Time Temp Pulse Resp B/P (MAP) Pulse Ox O2 Delivery O2 Flow Rate FiO2 05/07/17 16:00 97.7 70 20 105/54 95 Room Air 05/07/17 16:00 65 05/07/17 13:40 66 05/07/17 12:00 97.2 66 20 101/56 95 Room Air 05/07/17 12:00 55 05/07/17 09:00 68 104/50 05/07/17 08:00 61 05/07/17 08:00 97.2 68 20 104/50 97 Room Air 05/07/17 06:08 70 05/07/17 04:11 96.4 70 18 119/61 97 Room Air 05/07/17 04:11 Room Air 05/07/17 04:00 59 05/07/17 00:19 Room Air 05/07/17 00:19 96.9 79 18 105/57 97 Room Air 05/07/17 00:00 67 05/06/17 22:01 63 05/06/17 21:00 63 102/54 05/06/17 20:15 97.7 63 18 102/54 96 Room Air 05/06/17 20:15 Room Air 05/06/17 20:00 69 Intake and Output 05/06/17 05/07/17 19:00 07:00 Intake Total 730 ml Output Total 650 ml 700 ml Balance 80 ml -700 ml Intake Oral 730 ml Output Urine Total 650 ml 700 ml Laboratory Tests 05/07/17 08:40: White Blood Count 5.0, Red Blood Count 2.57L, Hemoglobin 7.7L, Hematocrit 23.8L , Mean Corpuscular Volume 92, Mean Corpuscular Hemoglobin 30.1, Mean Corpuscular Hemoglobin Concent 32.6, Red Cell Distribution Width 14.2, Platelet Count 82L, Mean Platelet Volume 7.4, Neutrophils (%) (Auto) , Lymphocytes (%) ( Auto) , Monocytes (%) (Auto) , Eosinophils (%) (Auto) , Basophils (%) (Auto) , Differential Total Cells Counted 100, Neutrophils % (Manual) 65, Lymphocytes % ( Manual) 27, Monocytes % (Manual) 3, Eosinophils % (Manual) 3, Basophils % ( Manual) 1, Band Neutrophils 1, Platelet Estimate DecreasedL, Platelet Morphology Normal, Hypochromasia 1+, Sodium Level 140, Potassium Level 4.3, Chloride Level 108H, Carbon Dioxide Level 27, Anion Gap 6, Blood Urea Nitrogen 28H, Creatinine 1.1, Estimat Glomerular Filtration Rate , Glucose Level 80, Calcium Level 8.5 Height (Feet): 6 Height (Inches): 0.00 Weight (Pounds): 190 Respiratory/Chest: lungs clear Abdomen: soft Edema: trace edema Skin: warm/dry Rivera Christine May 07, 2017 19:49
[2017-05-07 20:00] VITALS: BP 115/57
[2017-05-07] MEDS: Dyna-Hex 2% Top Sol 2oz TOPIC SCH (20:42)
[2017-05-08] VITALS: BP_SYST 115; BP_SYST 121; BP_DIAS 54; BP_DIAS 57
[2017-05-08 04:00] VITALS: BP 114/62
[2017-05-08 07:10] LABS: HEMATOCRIT 23.9 % (42.0-52.0); HEMOGLOBIN 7.9 G/DL (14.2-18.0); MEAN CORPUSCULAR VOLUME 90 FL (80-99); PLATELET COUNT 74 K/UL (150-450); RED BLOOD COUNT 2.66 M/UL (4.70-6.10); RED CELL DISTRIBUTION WIDTH 15.5 % (11.6-14.8); WHITE BLOOD COUNT 5.1 K/UL (4.8-10.8)
[2017-05-08 07:20] LABS: ANION GAP 4 mmol/L (5-15); BLOOD UREA NITROGEN 28 mg/dL (7-18); CALCIUM 8.1 MG/DL (8.5-10.1); CARBON DIOXIDE 28 MMOL/L (21-32); CHLORIDE 108 MMOL/L (98-107); CREATININE 1.1 MG/DL (0.55-1.30); POTASSIUM 4.2 MMOL/L (3.5-5.1); SODIUM 140 MMOL/L (136-145)
[2017-05-08 08:00] VITALS: BP 113/61
[2017-05-08] MEDS: Docusate 100mg cap ORAL SCH ×3 (08:29→17:00)
[2017-05-08] MEDS: Carvedilol 12.5mg tab ORAL SCH ×2 (08:29→21:37)
[2017-05-08] MEDS: Nephrovite tab (Rena-Vite) ORAL SCH (08:29)
[2017-05-08] MEDS: Meloxicam 15 MG TAB ORAL SCH (08:29)
[2017-05-08] MEDS: Aspirin Baby 81mg ORAL SCH (08:30)
--- NOTE | 2017-05-08 10:12 | Nephrology Progress Note ---
Assessment/Plan Problem List: (1) LEWIS (acute kidney injury) (2) Elevated troponin (3) Altered level of consciousness (4) UTI (urinary tract infection) Assessment: e. coli (5) Dehydration (6) Fever (7) Hyperkalemia Assessment: corrected (8) Urinary retention (9) Sepsis Assessment: E. coli (10) Hypernatremia Plan d/c plan to SNF for iv abx. d/w Dr. Alonso. Subjective Subjective s/p PICC line placement yest. S/p 1 unit prbc transfusion. Objective Objective Last 24 Hour Vital Signs Date Time Temp Pulse Resp B/P (MAP) Pulse Ox O2 Delivery O2 Flow Rate FiO2 05/08/17 08:29 68 113/61 05/08/17 08:00 96.9 68 20 113/61 97 Room Air 05/08/17 06:02 72 05/08/17 04:00 97.7 65 20 114/62 96 Room Air 05/08/17 04:00 72 05/08/17 00:00 98.1 68 20 121/54 96 Room Air 05/08/17 00:00 Room Air 05/08/17 00:00 59 05/07/17 22:07 71 05/07/17 20:42 71 115/57 05/07/17 20:00 97.9 71 22 115/57 95 Room Air 05/07/17 20:00 Room Air 05/07/17 20:00 66 05/07/17 16:00 97.7 70 20 105/54 95 Room Air 05/07/17 16:00 65 05/07/17 13:40 66 05/07/17 12:00 97.2 66 20 101/56 95 Room Air 05/07/17 12:00 55 Intake and Output 05/07/17 05/08/17 19:00 07:00 Intake Total 55 ml 200 ml Output Total 700 ml 800 ml Balance -645 ml -600 ml Intake Oral 200 ml IV Total 55 ml Output Urine Total 700 ml 800 ml Laboratory Tests 05/08/17 06:40: White Blood Count 5.1, Red Blood Count 2.66L, Hemoglobin 7.9L, Hematocrit 23.9L , Mean Corpuscular Volume 90, Mean Corpuscular Hemoglobin 29.8, Mean Corpuscular Hemoglobin Concent 33.2, Red Cell Distribution Width 15.5H, Platelet Count 74L, Mean Platelet Volume 7.1, Neutrophils (%) (Auto) , Lymphocytes (%) (Auto) , Monocytes (%) (Auto) , Eosinophils (%) (Auto) , Basophils (%) (Auto) , Neutrophils % (Manual) [Pending], Lymphocytes % (Manual) [Pending], Platelet Estimate [Pending], Platelet Morphology [Pending], Sodium Level 140, Potassium Level 4.2, Chloride Level 108H, Carbon Dioxide Level 28, Anion Gap 4L, Blood Urea Nitrogen 28H, Creatinine 1.1, Estimat Glomerular Filtration Rate , Glucose Level 85, Calcium Level 8.1L Height (Feet): 6 Height (Inches): 0.00 Weight (Pounds): 190 General Appearance: no apparent distress Cardiovascular: normal rate, regular rhythm Respiratory/Chest: lungs clear Abdomen: non tender, soft Extremities: non-pitting ROMEO FIGUEROA May 08, 2017 10:12
[2017-05-08 11:58] VITALS: BP 103/52
--- NOTE | 2017-05-08 12:23 | Pulmonology Progress Note ---
Assessment/Plan Assessment/Plan 1. Dehydration. resolved 2. Renal failure. improved 3. Altered mental status. 4. Urinary tract infection. 5. Sepsis; DISCUSSION: Respiratory status is stable. Continue antibiotics per ID. Continue oxygen and pulmonary hygiene. 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 Subjective Interval Events: No changes reported Constitutional: Reports: no symptoms HEENT: Repors: no symptoms Respiratory: Reports: no symptoms Cardiovascular: Reports: no symptoms Gastrointestinal/Abdominal: Reports: no symptoms Genitourinary: Reports: no symptoms Allergies: Coded Allergies: No Known Allergies (Unverified , 04/25/17) Objective Last 24 Hour Vital Signs Date Time Temp Pulse Resp B/P (MAP) Pulse Ox O2 Delivery O2 Flow Rate FiO2 05/08/17 11:58 97.5 65 20 103/52 95 Room Air 05/08/17 08:29 68 113/61 05/08/17 08:00 70 05/08/17 08:00 96.9 68 20 113/61 97 Room Air 05/08/17 06:02 72 05/08/17 04:00 97.7 65 20 114/62 96 Room Air 05/08/17 04:00 72 05/08/17 00:00 98.1 68 20 121/54 96 Room Air 05/08/17 00:00 Room Air 05/08/17 00:00 59 05/07/17 22:07 71 05/07/17 20:42 71 115/57 05/07/17 20:00 97.9 71 22 115/57 95 Room Air 05/07/17 20:00 Room Air 05/07/17 20:00 66 05/07/17 16:00 97.7 70 20 105/54 95 Room Air 05/07/17 16:00 65 05/07/17 13:40 66 Intake and Output 05/07/17 05/08/17 19:00 07:00 Intake Total 55 ml 200 ml Output Total 700 ml 800 ml Balance -645 ml -600 ml Intake Oral 200 ml IV Total 55 ml Output Urine Total 700 ml 800 ml General Appearance: no acute distress HEENT: normocephalic Respiratory/Chest: chest wall non-tender, lungs clear Cardiovascular: normal peripheral pulses, normal rate Abdomen: normal bowel sounds Laboratory Tests 05/08/17 06:40: White Blood Count 5.1, Red Blood Count 2.66L, Hemoglobin 7.9L, Hematocrit 23.9L , Mean Corpuscular Volume 90, Mean Corpuscular Hemoglobin 29.8, Mean Corpuscular Hemoglobin Concent 33.2, Red Cell Distribution Width 15.5H, Platelet Count 74L, Mean Platelet Volume 7.1, Neutrophils (%) (Auto) , Lymphocytes (%) (Auto) , Monocytes (%) (Auto) , Eosinophils (%) (Auto) , Basophils (%) (Auto) , Differential Total Cells Counted 100, Neutrophils % ( Manual) 52, Lymphocytes % (Manual) 41, Monocytes % (Manual) 6, Eosinophils % ( Manual) 1, Basophils % (Manual) 0, Band Neutrophils 0, Platelet Estimate DecreasedL, Platelet Morphology Normal, Hypochromasia 1+, Anisocytosis 1+, Sodium Level 140, Potassium Level 4.2, Chloride Level 108H, Carbon Dioxide Level 28, Anion Gap 4L, Blood Urea Nitrogen 28H, Creatinine 1.1, Estimat Glomerular Filtration Rate , Glucose Level 85, Calcium Level 8.1L Current Medications Medications (Trade) Dose Ordered Sig/Trey Route PRN Reason Start Time Stop Time Status Last Admin Dose Admin Acetaminophen (Tylenol) 650 mg Q4H PRN ORAL Mild Pain (Pain Scale 1-3) 04/26/17 00:45 05/26/17 00:44 05/03/17 21:47 Aspirin (ASA) 81 mg DAILY ORAL 04/26/17 09:00 05/26/17 08:59 05/08/17 08:30 Carvedilol (Coreg) 12.5 mg EVERY 12 HOURS ORAL 04/26/17 09:00 05/26/17 08:59 05/08/17 08:29 Ceftriaxone Sodium 2 gm/ Dextrose 55 ml @ 110 mls/hr Q24H IVPB 04/29/17 15:00 05/12/17 23:59 05/07/17 16:42 Chlorhexidine Gluconate (Shaye-Hex 2%) 1 applic DAILY@2000 TOPIC 05/07/17 20:00 06/06/17 19:59 05/07/17 20:42 Dextrose (Dextrose 50%) STAT PRN IV Hypoglycemia 04/26/17 00:45 05/26/17 00:44 Divalproex Sodium (Depakote) 500 mg Q12HR ORAL 05/08/17 21:00 05/26/17 08:59 Docusate Sodium (Colace) 100 mg THREE TIMES A DAY ORAL 05/03/17 18:00 06/02/17 17:59 05/08/17 12:05 Famotidine (Pepcid) 20 mg DAILY ORAL 04/26/17 09:00 05/26/17 08:59 05/08/17 08:29 Folic Acid (Folate) 1 mg DAILY ORAL 04/30/17 09:00 05/30/17 08:59 05/08/17 08:29 Levothyroxine Sodium (Synthroid) 100 mcg ACBREAKFAST ORAL 04/26/17 06:30 05/26/17 06:29 05/08/17 06:02 Lorazepam (Ativan) 1 mg ONCE PRN ORAL 30 min prior to biopsy 05/02/17 10:00 05/09/17 09:59 05/02/17 10:21 Meloxicam (Mobic) 15 mg DAILY ORAL 04/26/17 09:00 05/26/17 08:59 05/08/17 08:29 Ondansetron HCl (Zofran) 4 mg Q6H PRN IVP Nausea & Vomiting 04/26/17 00:45 05/26/17 00:44 Polyethylene Glycol (Miralax) 17 gm DAILY PRN ORAL Constipation 05/02/17 09:00 06/01/17 08:59 05/07/17 23:12 Propafenone HCl (Rythmol) 225 mg EVERY 8 HOURS ORAL 04/26/17 06:00 05/26/17 05:59 05/08/17 06:02 Quetiapine Fumarate (SEROquel) 25 mg BEDTIME PRN ORAL agitation 04/30/17 21:00 05/26/17 08:59 Vitamin B Complex/ Vit C/Folic Acid (Nephrovite) 1 tab DAILY ORAL 04/29/17 09:00 05/29/17 08:59 05/08/17 08:29 Mitch Grace MD May 08, 2017 12:23
--- NOTE | 2017-05-08 13:36 | GI Progress Note ---
Assessment/Plan Problems: (1) Dehydration ICD Codes: E86.0 - Dehydration SNOMED: 40513807, 741685392, 897369521 (2) Anemia ICD Codes: D64.9 - Anemia, unspecified SNOMED: 015735487 (3) Altered level of consciousness ICD Codes: R40.4 - Transient alteration of awareness SNOMED: 6707463 (4) Elevated troponin ICD Codes: R74.8 - Abnormal levels of other serum enzymes SNOMED: 827802562, 381868652, 478999256 Status: not improved, unchanged Status Narrative Discussed with Dr. Streeter. Assessment/Plan hep panel >> negative abdominal U/S reviewed >> GB sludge, defer HIDA given normal LFTs/asymptomatic elevated troponin levels >> now normal EGD/colonoscopy scheduled tomorrow given Hgb drop requiring blood transfusion. - CLD, NPO @ [facility]. - hold all blood thinners tonight. OB stool r/o GI bleed never collected prn transfusions keep Hgb > 8.0 bowel regime ppi OT evaluation folate PO electrolyte correction fu labs, tumor markers Subjective Subjective limited Objective Last 24 Hour Vital Signs Date Time Temp Pulse Resp B/P (MAP) Pulse Ox O2 Delivery O2 Flow Rate FiO2 05/08/17 11:58 97.5 65 20 103/52 95 Room Air 05/08/17 08:29 68 113/61 05/08/17 08:00 70 05/08/17 08:00 96.9 68 20 113/61 97 Room Air 05/08/17 06:02 72 05/08/17 04:00 97.7 65 20 114/62 96 Room Air 05/08/17 04:00 72 05/08/17 00:00 98.1 68 20 121/54 96 Room Air 05/08/17 00:00 Room Air 05/08/17 00:00 59 05/07/17 22:07 71 05/07/17 20:42 71 115/57 05/07/17 20:00 97.9 71 22 115/57 95 Room Air 05/07/17 20:00 Room Air 05/07/17 20:00 66 05/07/17 16:00 97.7 70 20 105/54 95 Room Air 05/07/17 16:00 65 05/07/17 13:40 66 Intake and Output 05/07/17 05/08/17 19:00 07:00 Intake Total 55 ml 200 ml Output Total 700 ml 800 ml Balance -645 ml -600 ml Intake Oral 200 ml IV Total 55 ml Output Urine Total 700 ml 800 ml Laboratory Tests Test 05/08/17 06:40 White Blood Count 5.1 K/UL (4.8-10.8) Red Blood Count 2.66 M/UL (4.70-6.10) L Hemoglobin 7.9 G/DL (14.2-18.0) L Hematocrit 23.9 % (42.0-52.0) L Mean Corpuscular Volume 90 FL (80-99) Mean Corpuscular Hemoglobin 29.8 PG (27.0-31.0) Mean Corpuscular Hemoglobin Concent 33.2 G/DL (32.0-36.0) Red Cell Distribution Width 15.5 % (11.6-14.8) H Platelet Count 74 K/UL (150-450) L Mean Platelet Volume 7.1 FL (6.5-10.1) Neutrophils (%) (Auto) % (45.0-75.0) Lymphocytes (%) (Auto) % (20.0-45.0) Monocytes (%) (Auto) % (1.0-10.0) Eosinophils (%) (Auto) % (0.0-3.0) Basophils (%) (Auto) % (0.0-2.0) Differential Total Cells Counted 100 Neutrophils % (Manual) 52 % (45-75) Lymphocytes % (Manual) 41 % (20-45) Monocytes % (Manual) 6 % (1-10) Eosinophils % (Manual) 1 % (0-3) Basophils % (Manual) 0 % (0-2) Band Neutrophils 0 % (0-8) Platelet Estimate Decreased L Platelet Morphology Normal Hypochromasia 1+ Anisocytosis 1+ Sodium Level 140 MMOL/L (136-145) Potassium Level 4.2 MMOL/L (3.5-5.1) Chloride Level 108 MMOL/L (98-107) H Carbon Dioxide Level 28 MMOL/L (21-32) Anion Gap 4 mmol/L (5-15) L Blood Urea Nitrogen 28 mg/dL (7-18) H Creatinine 1.1 MG/DL (0.55-1.30) Estimat Glomerular Filtration Rate mL/min (>60) Glucose Level 85 MG/DL (74-106) Calcium Level 8.1 MG/DL (8.5-10.1) L Height (Feet): 6 Height (Inches): 0.00 Weight (Pounds): 190 General Appearance: no apparent distress, alert, confused Cardiovascular: normal rate Respiratory/Chest: normal breath sounds, no respiratory distress Abdominal Exam: normal bowel sounds, non tender, soft Jeni Marino N.P. May 08, 2017 13:36
--- NOTE | 2017-05-08 14:18 | Infectious Diseases Prog Note ---
Assessment/Plan Problems: (1) UTI (urinary tract infection) Assessment & Plan: with E coli , most likely the source of his sepsis , continue ceftriaxone for two weeks total starting from the clearance date . (2) Fever Assessment & Plan: due to the above, resolved , continue tylenol prn (3) HCAP (healthcare-associated pneumonia) Assessment & Plan: due to serratia marcescens, improved on cefepime and clindamycin, influenza screening is negative , continue ceftriaxon only for two weeks (4) Sepsis Assessment & Plan: with E coli , on ceftriaxone , repeated blood culture is negative so far . will treat with ceftriaxon for two weeks starting from the clearance date. EOT 05/12/17 (5) Altered level of consciousness Assessment & Plan: due to the above, resolved, recommend neurology follow up (6) Elevated troponin Assessment & Plan: suspect ACS, cardiology is following (7) Dehydration Assessment & Plan: continue IVF, monitor urine out put, and renal function, avoid nephrotoxic meds (8) LEWIS (acute kidney injury) Assessment & Plan: due to the above , continue hydration, monitor renal function , nephrology is following (9) Anemia Assessment & Plan: recurrent rule out GI source, monitor H/H, transfuse blood as needed , may need endoscopy . GI is following Subjective Constitutional: Reports: no symptoms HEENT: Reports: no symptoms Respiratory: Reports: no symptoms Breasts: Reports: no symptoms Cardiovascular: Reports: no symptoms Gastrointestinal/Abdominal: Reports: no symptoms Genitourinary: Reports: no symptoms Neurologic: Reports: no symptoms Psychiatric: Reports: no symptoms Skin: Reports: no symptoms Endocrine: Reports: no symptoms Hematologic: Reports: no symptoms Allergies: Coded Allergies: No Known Allergies (Unverified , 04/25/17) Subjective he was awake and alert, resting in bed, respond to verbal commands , not hypotensive , afebrile , no rectal bleeding. Objective Vital Signs Last 24 Hour Vital Signs Date Time Temp Pulse Resp B/P (MAP) Pulse Ox O2 Delivery O2 Flow Rate FiO2 05/08/17 11:58 97.5 65 20 103/52 95 Room Air 05/08/17 08:29 68 113/61 05/08/17 08:00 70 05/08/17 08:00 96.9 68 20 113/61 97 Room Air 05/08/17 06:02 72 05/08/17 04:00 97.7 65 20 114/62 96 Room Air 05/08/17 04:00 72 05/08/17 00:00 98.1 68 20 121/54 96 Room Air 05/08/17 00:00 Room Air 05/08/17 00:00 59 05/07/17 22:07 71 05/07/17 20:42 71 115/57 05/07/17 20:00 97.9 71 22 115/57 95 Room Air 05/07/17 20:00 Room Air 05/07/17 20:00 66 05/07/17 16:00 97.7 70 20 105/54 95 Room Air 05/07/17 16:00 65 Height (Feet): 6 Height (Inches): 0.00 Weight (Pounds): 190 General Appearance: WD/WN, no acute distress HEENT: normocephalic, atraumatic, anicteric, mucous membranes moist, PERRL, EOMI, pharynx normal, supple, no JVD Respiratory/Chest: chest wall non-tender, lungs clear, normal breath sounds, no respiratory distress, no accessory muscle use Cardiovascular: normal peripheral pulses, normal rate, regular rhythm, no gallop/murmur, no JVD Abdomen: normal bowel sounds, soft, non tender, no organomegaly, non distended , no mass Extremities: no cyanosis, no clubbing Skin: no rash, no lesions, no ulcers Neurologic/Psychiatric: alert, responsive Lymphatic: no neck adenopathy, no groin adenopathy Laboratory Tests Test 05/08/17 06:40 White Blood Count 5.1 K/UL (4.8-10.8) Red Blood Count 2.66 M/UL (4.70-6.10) L Hemoglobin 7.9 G/DL (14.2-18.0) L Hematocrit 23.9 % (42.0-52.0) L Mean Corpuscular Volume 90 FL (80-99) Mean Corpuscular Hemoglobin 29.8 PG (27.0-31.0) Mean Corpuscular Hemoglobin Concent 33.2 G/DL (32.0-36.0) Red Cell Distribution Width 15.5 % (11.6-14.8) H Platelet Count 74 K/UL (150-450) L Mean Platelet Volume 7.1 FL (6.5-10.1) Neutrophils (%) (Auto) % (45.0-75.0) Lymphocytes (%) (Auto) % (20.0-45.0) Monocytes (%) (Auto) % (1.0-10.0) Eosinophils (%) (Auto) % (0.0-3.0) Basophils (%) (Auto) % (0.0-2.0) Differential Total Cells Counted 100 Neutrophils % (Manual) 52 % (45-75) Lymphocytes % (Manual) 41 % (20-45) Monocytes % (Manual) 6 % (1-10) Eosinophils % (Manual) 1 % (0-3) Basophils % (Manual) 0 % (0-2) Band Neutrophils 0 % (0-8) Platelet Estimate Decreased L Platelet Morphology Normal Hypochromasia 1+ Anisocytosis 1+ Sodium Level 140 MMOL/L (136-145) Potassium Level 4.2 MMOL/L (3.5-5.1) Chloride Level 108 MMOL/L (98-107) H Carbon Dioxide Level 28 MMOL/L (21-32) Anion Gap 4 mmol/L (5-15) L Blood Urea Nitrogen 28 mg/dL (7-18) H Creatinine 1.1 MG/DL (0.55-1.30) Estimat Glomerular Filtration Rate mL/min (>60) Glucose Level 85 MG/DL (74-106) Calcium Level 8.1 MG/DL (8.5-10.1) L Current Medications Medications (Trade) Dose Ordered Sig/Trey Route PRN Reason Start Time Stop Time Status Last Admin Dose Admin Acetaminophen (Tylenol) 650 mg Q4H PRN ORAL Mild Pain (Pain Scale 1-3) 04/26/17 00:45 05/26/17 00:44 05/03/17 21:47 Aspirin (ASA) 81 mg DAILY ORAL 04/26/17 09:00 05/26/17 08:59 05/08/17 08:30 Bisacodyl (Dulcolax) 10 mg ONCE ONCE ORAL 05/08/17 16:00 05/08/17 16:01 Carvedilol (Coreg) 12.5 mg EVERY 12 HOURS ORAL 04/26/17 09:00 05/26/17 08:59 05/08/17 08:29 Ceftriaxone Sodium 2 gm/ Dextrose 55 ml @ 110 mls/hr Q24H IVPB 04/29/17 15:00 05/12/17 23:59 05/07/17 16:42 Chlorhexidine Gluconate (Shaye-Hex 2%) 1 applic DAILY@2000 TOPIC 05/07/17 20:00 06/06/17 19:59 05/07/17 20:42 Dextrose (Dextrose 50%) STAT PRN IV Hypoglycemia 04/26/17 00:45 05/26/17 00:44 Divalproex Sodium (Depakote) 500 mg Q12HR ORAL 05/08/17 21:00 05/26/17 08:59 Docusate Sodium (Colace) 100 mg THREE TIMES A DAY ORAL 05/03/17 18:00 06/02/17 17:59 05/08/17 12:05 Famotidine (Pepcid) 20 mg DAILY ORAL 04/26/17 09:00 05/26/17 08:59 05/08/17 08:29 Folic Acid (Folate) 1 mg DAILY ORAL 04/30/17 09:00 05/30/17 08:59 05/08/17 08:29 Levothyroxine Sodium (Synthroid) 100 mcg ACBREAKFAST ORAL 04/26/17 06:30 05/26/17 06:29 05/08/17 06:02 Lorazepam (Ativan) 1 mg ONCE PRN ORAL 30 min prior to biopsy 05/02/17 10:00 05/09/17 09:59 05/02/17 10:21 Meloxicam (Mobic) 15 mg DAILY ORAL 04/26/17 09:00 05/26/17 08:59 05/08/17 08:29 Ondansetron HCl (Zofran) 4 mg Q6H PRN IVP Nausea & Vomiting 04/26/17 00:45 05/26/17 00:44 Polyethylene Glycol (Miralax) 17 gm DAILY PRN ORAL Constipation 05/02/17 09:00 06/01/17 08:59 05/07/17 23:12 Polyethylene Glycol/ Electrolytes (Nulytely) 4,000 ml ONCE ONCE ORAL 05/08/17 16:00 05/08/17 16:01 Propafenone HCl (Rythmol) 225 mg EVERY 8 HOURS ORAL 04/26/17 06:00 05/26/17 05:59 05/08/17 06:02 Quetiapine Fumarate (SEROquel) 25 mg BEDTIME PRN ORAL agitation 04/30/17 21:00 05/26/17 08:59 Vitamin B Complex/ Vit C/Folic Acid (Nephrovite) 1 tab DAILY ORAL 04/29/17 09:00 05/29/17 08:59 05/08/17 08:29 Zak Matos M.D. May 08, 2017 14:18
[2017-05-08] MEDS: cefTRIAXone 2 GM in D5W 55 ML IVPB SCH (14:37)
[2017-05-08 16:00] VITALS: BP 110/69
[2017-05-08] MEDS ORDERED: Nulytely 4L ORAL ONE (16:00)
[2017-05-08] MEDS ORDERED: Bisacodyl EC 5mg tab ORAL ONE (16:00)
--- NOTE | 2017-05-08 16:22 | Cardiac Electrophysiology PN ---
Assessment/Plan Status Narrative Impression: Echogenic sludge in the gallbladder with minimal gallbladder wall thickening and trace pericholecystic fluid. Sonographic Resendez sign (either negative or positive) was not documented by the research food technologist. Findings may be suggestive of a mild cholecystitis in the appropriate clinical setting. Confirmation with HIDA scan recommended. Assessment/Plan 1. Nonsustained ventricular tachycardia. No MT. Echo normal EF. Continue Coreg 12.5 mg b.i.d. 2. Initial troponin leak. three subsequent troponins negative. 3. Paroxysmal atrial fibrillation, in sinus rhythm, on aspirin and Coreg. 4. Hypothyroidism, on Synthroid. 5. Anemia, followed by Dr. Streeter. Stool OB still pending Had BM Biopsy Left iliac Crest. Results still pending. EGD and Colonoscopy tomorrow by Dr Streeter 6. Dementia 7. Abd US suggestive of Mild cholecystitis in the appropriate clinical setting. Dr Streeter defering HIDA given normal LFTs/asymptomatic 8. E coli Bacteremia and Sepsis. Had PICC line yesterday for iv ABx till 05/[address] Shawna RODRIGUEZ RN Subjective Subjective Comfortable in NAD. Remained in SR. Scheduled for blood transfusion today. No obvious bleeding. Objective Last 24 Hour Vital Signs Date Time Temp Pulse Resp B/P (MAP) Pulse Ox O2 Delivery O2 Flow Rate FiO2 05/08/17 14:00 60 05/08/17 12:00 54 05/08/17 11:58 97.5 65 20 103/52 95 Room Air 05/08/17 08:29 68 113/61 05/08/17 08:00 70 05/08/17 08:00 96.9 68 20 113/61 97 Room Air 05/08/17 06:02 72 05/08/17 04:00 97.7 65 20 114/62 96 Room Air 05/08/17 04:00 72 05/08/17 00:00 98.1 68 20 121/54 96 Room Air 05/08/17 00:00 Room Air 05/08/17 00:00 59 05/07/17 22:07 71 05/07/17 20:42 71 115/57 05/07/17 20:00 97.9 71 22 115/57 95 Room Air 05/07/17 20:00 Room Air 05/07/17 20:00 66 Intake and Output 05/07/17 05/08/17 19:00 07:00 Intake Total 55 ml 200 ml Output Total 700 ml 800 ml Balance -645 ml -600 ml Intake Oral 200 ml IV Total 55 ml Output Urine Total 700 ml 800 ml Laboratory Tests Test 05/08/17 06:40 White Blood Count 5.1 K/UL (4.8-10.8) Red Blood Count 2.66 M/UL (4.70-6.10) L Hemoglobin 7.9 G/DL (14.2-18.0) L Hematocrit 23.9 % (42.0-52.0) L Mean Corpuscular Volume 90 FL (80-99) Mean Corpuscular Hemoglobin 29.8 PG (27.0-31.0) Mean Corpuscular Hemoglobin Concent 33.2 G/DL (32.0-36.0) Red Cell Distribution Width 15.5 % (11.6-14.8) H Platelet Count 74 K/UL (150-450) L Mean Platelet Volume 7.1 FL (6.5-10.1) Neutrophils (%) (Auto) % (45.0-75.0) Lymphocytes (%) (Auto) % (20.0-45.0) Monocytes (%) (Auto) % (1.0-10.0) Eosinophils (%) (Auto) % (0.0-3.0) Basophils (%) (Auto) % (0.0-2.0) Differential Total Cells Counted 100 Neutrophils % (Manual) 52 % (45-75) Lymphocytes % (Manual) 41 % (20-45) Monocytes % (Manual) 6 % (1-10) Eosinophils % (Manual) 1 % (0-3) Basophils % (Manual) 0 % (0-2) Band Neutrophils 0 % (0-8) Platelet Estimate Decreased L Platelet Morphology Normal Hypochromasia 1+ Anisocytosis 1+ Sodium Level 140 MMOL/L (136-145) Potassium Level 4.2 MMOL/L (3.5-5.1) Chloride Level 108 MMOL/L (98-107) H Carbon Dioxide Level 28 MMOL/L (21-32) Anion Gap 4 mmol/L (5-15) L Blood Urea Nitrogen 28 mg/dL (7-18) H Creatinine 1.1 MG/DL (0.55-1.30) Estimat Glomerular Filtration Rate mL/min (>60) Glucose Level 85 MG/DL (74-106) Calcium Level 8.1 MG/DL (8.5-10.1) L Objective HEAD AND NECK: No JVD. LUNGS: Decreased breath sounds. CARDIOVASCULAR: Regular S1 and S2 with no gallop or murmur. ABDOMEN: Soft. EXTREMITIES: Bilateral 1+ pitting edema. JARROD ESTRADA May 08, 2017 16:22
[2017-05-08 20:00] VITALS: BP 126/66
[2017-05-08] MEDS: Dyna-Hex 2% Top Sol 2oz TOPIC SCH (21:37)
[2017-05-08] MEDS: Depakote 500mg tab ORAL SCH (21:38)
--- NOTE | 2017-05-08 22:58 | General Progress Note ---
Assessment/Plan Status: unchanged Assessment/Plan #. Pancytopenia. Infection related versus viral versus bone marrow disorder --> have discussed with pathologist --> HIV panel negative, hepatitis negative as well --> Platelets are low, goal is >20k. Currently still above goal. --> Platelets has improved the last few days --> Hemoglobin goal >7, currently above goal. --> S/P PRBC. 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 Anemia secondary to kidney disease. -->Continue to closely monitor. Creatinine elevated. #. LEWIS. Being seen by Nephrology. #. Nausea and vomiting. The patient is being evaluated by GI service. --> Occult blood is negative #. NSVT, being seen by Cardiology. #. Dehydration. Administer fluids as needed. Pulmonary is following as well. Subjective Date patient seen: May 08, 2017 Constitutional: Denies: no symptoms, chills, diaphoresis, fever, malaise, weakness, other HEENT: Denies: no symptoms, eye pain, blurred vision, tearing, double vision, ear pain, ear discharge, nose pain, nose congestion, throat pain, throat swelling, mouth pain, mouth swelling, other Cardiovascular: Denies: no symptoms, chest pain, edema, irregular heart rate, lightheadedness, palpitations, syncope, other Respiratory: Denies: no symptoms, cough, orthopnea, shortness of breath, SOB with excertion, SOB at rest, sputum, stridor, wheezing, other Gastrointestinal/Abdominal: Denies: no symptoms, abdomen distended, abdominal pain, black stools, tarry stools, blood in stool, constipated, diarrhea, difficulty swallowing, nausea, poor appetite, poor fluid intake, rectal bleeding , vomiting, other Hematologic/Lymphatic: Reports: anemia Allergies: Coded Allergies: No Known Allergies (Unverified , 04/25/17) Subjective S/P PRBC. No major events. Resting in bed. Objective Last 24 Hour Vital Signs Date Time Temp Pulse Resp B/P (MAP) Pulse Ox O2 Delivery O2 Flow Rate FiO2 05/08/17 21:38 66 05/08/17 21:37 63 126/66 05/08/17 20:00 98.2 66 18 126/66 98 05/08/17 16:00 60 05/08/17 16:00 97.3 62 20 110/69 96 Room Air 05/08/17 14:00 60 05/08/17 12:00 54 05/08/17 11:58 97.5 65 20 103/52 95 Room Air 05/08/17 08:29 68 113/61 05/08/17 08:00 70 05/08/17 08:00 96.9 68 20 113/61 97 Room Air 05/08/17 06:02 72 05/08/17 04:00 97.7 65 20 114/62 96 Room Air 05/08/17 04:00 72 05/08/17 00:00 98.1 68 20 121/54 96 Room Air 05/08/17 00:00 Room Air 05/08/17 00:00 59 Intake and Output 05/07/17 05/08/17 19:00 07:00 Intake Total 55 ml 200 ml Output Total 700 ml 800 ml Balance -645 ml -600 ml Intake Oral 200 ml IV Total 55 ml Output Urine Total 700 ml 800 ml Laboratory Tests 05/08/17 06:40: White Blood Count 5.1, Red Blood Count 2.66L, Hemoglobin 7.9L, Hematocrit 23.9L , Mean Corpuscular Volume 90, Mean Corpuscular Hemoglobin 29.8, Mean Corpuscular Hemoglobin Concent 33.2, Red Cell Distribution Width 15.5H, Platelet Count 74L, Mean Platelet Volume 7.1, Neutrophils (%) (Auto) , Lymphocytes (%) (Auto) , Monocytes (%) (Auto) , Eosinophils (%) (Auto) , Basophils (%) (Auto) , Differential Total Cells Counted 100, Neutrophils % ( Manual) 52, Lymphocytes % (Manual) 41, Monocytes % (Manual) 6, Eosinophils % ( Manual) 1, Basophils % (Manual) 0, Band Neutrophils 0, Platelet Estimate DecreasedL, Platelet Morphology Normal, Hypochromasia 1+, Anisocytosis 1+, Sodium Level 140, Potassium Level 4.2, Chloride Level 108H, Carbon Dioxide Level 28, Anion Gap 4L, Blood Urea Nitrogen 28H, Creatinine 1.1, Estimat Glomerular Filtration Rate , Glucose Level 85, Calcium Level 8.1L Height (Feet): 6 Height (Inches): 0.00 Weight (Pounds): 190 General Appearance: no apparent distress EENT: normal ENT inspection Cardiovascular: normal rate, regular rhythm Respiratory/Chest: lungs clear Rivera Christine May 08, 2017 22:58
[2017-05-09] VITALS (10 sets, daily range): BP systolic 92–121; BP diastolic 49–75
[2017-05-09] MEDS ORDERED: Fleet's Enema 133ml RECTAL ONE ×3 (00:15→08:30)
[2017-05-09 08:06] LABS: HEMATOCRIT 24.3 % (42.0-52.0); HEMOGLOBIN 8.1 G/DL (14.2-18.0); MEAN CORPUSCULAR VOLUME 90 FL (80-99); PLATELET COUNT 85 K/UL (150-450); RED BLOOD COUNT 2.71 M/UL (4.70-6.10); RED CELL DISTRIBUTION WIDTH 15.5 % (11.6-14.8); WHITE BLOOD COUNT 4.8 K/UL (4.8-10.8)
[2017-05-09 08:09] LABS: INR 1.2 (0.9-1.1)
[2017-05-09] MEDS: Docusate 100mg cap ORAL SCH ×3 (08:34→17:10)
[2017-05-09] MEDS: Carvedilol 12.5mg tab ORAL SCH ×2 (08:35→21:00)
[2017-05-09] MEDS: Depakote 500mg tab ORAL SCH ×2 (08:35→20:59)
[2017-05-09] MEDS: Nephrovite tab (Rena-Vite) ORAL SCH (08:35)
[2017-05-09] MEDS: Meloxicam 15 MG TAB ORAL SCH (08:35)
[2017-05-09] MEDS: Aspirin Baby 81mg ORAL SCH (08:36)
[2017-05-09] MEDS ORDERED: Fleet's Enema 133ml RECTAL STA (09:24)
--- NOTE | 2017-05-09 09:43 | Anethesia Preoperative Eval ---
Anesthesia Pre-op PMH/ROS General Date of Evaluation: May 09, 2017 Time of Evaluation: 09:45 Anesthesiologist: Shasta ASA Score: ASA 3 Mallampati Score Class I : Soft palate, uvula, fauces, pillars visible Class II: Soft palate, uvula, fauces visible Class III: Soft palate, base of uvula visible Class IV: Only hard plate visible Mallampati Classification: Class III Surgeon: Ferdinand Diagnosis: anemia Surgical Procedure: EGD/Colon Anesthesia History: none Family History: no anesthesia problems Allergies: Coded Allergies: No Known Allergies (Unverified , 04/25/17) Medications: see eMAR Past Medical History Cardiovascular: Reports: other - increase troponin, hyperkalemia Pulmonary: Reports: other - pneumonia Gastrointestinal/Genitourinary: Denies: GERD, CRI, ESRD, other Neurologic/Psychiatric: Reports: dementia Endocrine: Reports: hypothyroidism HEENT: Denies: cataract (L), cataract (R), glaucoma, VENETIE (L), VENETIE (R), other Hematology/Immune: Reports: anemia, other - sepsis Musculoskeletal/Integumentary: Reports: OA Anesthesia Pre-op Phys. Exam Physician Exam Last Vital Signs Date Time Temp Pulse Resp B/P (MAP) Pulse Ox O2 Delivery O2 Flow Rate FiO2 05/09/17 08:35 60 121/66 05/09/17 08:00 97.4 19 100 Room Air 05/04/17 16:00 2.0 Constitutional: NAD Neurologic: other Cardiovascular: RRR Respiratory: CTA Gastrointestinal: S/NT/ND Airway Exam Mallampati Score: Class III MO: limited - stiff and ROM poor ROM: limited Teeth: intact - implants Dentures: no upper, no lower Anesthesia Pre-op A/P Labs Hematology Test 05/09/17 06:00 White Blood Count 4.8 K/UL (4.8-10.8) Red Blood Count 2.71 M/UL (4.70-6.10) L Hemoglobin 8.1 G/DL (14.2-18.0) L Hematocrit 24.3 % (42.0-52.0) L Mean Corpuscular Volume 90 FL (80-99) Mean Corpuscular Hemoglobin 29.9 PG (27.0-31.0) Mean Corpuscular Hemoglobin Concent 33.4 G/DL (32.0-36.0) Red Cell Distribution Width 15.5 % (11.6-14.8) H Platelet Count 85 K/UL (150-450) L Mean Platelet Volume 6.4 FL (6.5-10.1) L Neutrophils (%) (Auto) % (45.0-75.0) Lymphocytes (%) (Auto) % (20.0-45.0) Monocytes (%) (Auto) % (1.0-10.0) Eosinophils (%) (Auto) % (0.0-3.0) Basophils (%) (Auto) % (0.0-2.0) Differential Total Cells Counted 100 Neutrophils % (Manual) 62 % (45-75) Lymphocytes % (Manual) 35 % (20-45) Monocytes % (Manual) 2 % (1-10) Eosinophils % (Manual) 1 % (0-3) Basophils % (Manual) 0 % (0-2) Band Neutrophils 0 % (0-8) Platelet Estimate Decreased L Platelet Morphology Normal Hypochromasia 1+ Anisocytosis 1+ Coagulation Test 05/09/17 06:00 Prothrombin Time 12.5 SEC (9.30-11.50) H Prothromb Time International Ratio 1.2 (0.9-1.1) H Activated Partial Thromboplast Time 31 SEC (23-33) Chemistry Test 05/09/17 06:00 Sodium Level Pending Potassium Level Pending Chloride Level Pending Carbon Dioxide Level Pending Blood Urea Nitrogen Pending Creatinine Pending Estimat Glomerular Filtration Rate Pending Glucose Level Pending Calcium Level Pending Studies Pre-op Studies: EKG - NSB Risk Assessment & Plan Assessment: confused, altered level of conciousness, consent obtained via phone from patients son and plan discussed Plan: MAC with light sedation Status Change Before Surgery: No Pre-Antibiotics Given Within 1 Hr of Incision: No Jacy Vegas CRNA May 09, 2017 09:43
[2017-05-09] MEDS ORDERED: NS 500ML IV ONE (09:55)
--- NOTE | 2017-05-09 09:59 | Pre-Procedure Note/Attestation ---
Pre-Procedure Note/Attestation Complete Prior to Procedure Planned Procedure: not applicable Procedure Narrative: esophagogastroduodenoscopy and colonoscopy Indications for Procedure Pre-Operative Diagnosis: anemia Attestation I attest that I discussed the nature of the procedure; its benefits; risks and complications; and alternatives (and the risks and benefits of such alternatives ), prior to the procedure, with the patient (or the patient's legal admissions representative). I attest that, if there was a reasonable possibility of needing a blood transfusion, the patient (or the patient's legal admissions representative) was given the [facility] standardized written summary, pursuant to the [place] Blood Safety Act ([place] Health and Safety Code # 1645, as amended). I attest that I re-evaluated the patient just prior to the surgery and that there has been no change in the patient's H&P, except as documented below: MARCUS NEWTON May 09, 2017 09:58
[2017-05-09] MEDS ORDERED: Midazolam 2mg/2ml Inj ONE (10:00)
[2017-05-09] MEDS ORDERED: Propofol 200mg/20ml IV ONE (10:00)
--- NOTE | 2017-05-09 10:08 | Pulmonology Progress Note ---
Assessment/Plan Assessment/Plan 1. Dehydration. resolved 2. Renal failure. improved 3. Altered mental status. 4. Urinary tract infection. 5. Sepsis; DISCUSSION: Respiratory status is stable. Continue antibiotics per ID. Continue oxygen and pulmonary hygiene. I will follow as maritime officer. Subjective Interval Events: no changes reported Constitutional: Reports: no symptoms HEENT: Repors: no symptoms Respiratory: Reports: no symptoms Cardiovascular: Reports: no symptoms Gastrointestinal/Abdominal: Reports: no symptoms Allergies: Coded Allergies: No Known Allergies (Unverified , 04/25/17) Objective Last 24 Hour Vital Signs Date Time Temp Pulse Resp B/P (MAP) Pulse Ox O2 Delivery O2 Flow Rate FiO2 05/09/17 08:35 60 121/66 05/09/17 08:00 97.4 60 19 121/66 100 Room Air 05/09/17 05:58 70 05/09/17 04:00 97.8 70 20 114/65 98 Room Air 05/09/17 03:57 54 05/09/17 00:00 97.0 65 18 105/53 97 Room Air 05/08/17 23:45 57 05/08/17 21:38 66 05/08/17 21:37 63 126/66 05/08/17 20:00 98.2 66 18 126/66 98 05/08/17 19:16 65 05/08/17 16:00 60 05/08/17 16:00 97.3 62 20 110/69 96 Room Air 05/08/17 14:00 60 05/08/17 12:00 54 05/08/17 11:58 97.5 65 20 103/52 95 Room Air Intake and Output 05/08/17 05/09/17 19:00 07:00 Intake Total 705 ml Output Total 500 ml Balance 205 ml Intake Oral 650 ml IV Total 55 ml Output Urine Total 500 ml # Bowel Movements 5 General Appearance: no acute distress HEENT: normocephalic Respiratory/Chest: chest wall non-tender, lungs clear Cardiovascular: normal peripheral pulses, normal rate Abdomen: normal bowel sounds Laboratory Tests 05/09/17 06:00: White Blood Count 4.8, Red Blood Count 2.71L, Hemoglobin 8.1L, Hematocrit 24.3L , Mean Corpuscular Volume 90, Mean Corpuscular Hemoglobin 29.9, Mean Corpuscular Hemoglobin Concent 33.4, Red Cell Distribution Width 15.5H, Platelet Count 85L, Mean Platelet Volume 6.4L, Neutrophils (%) (Auto) , Lymphocytes (%) (Auto) , Monocytes (%) (Auto) , Eosinophils (%) (Auto) , Basophils (%) (Auto) , Differential Total Cells Counted 100, Neutrophils % ( Manual) 62, Lymphocytes % (Manual) 35, Monocytes % (Manual) 2, Eosinophils % ( Manual) 1, Basophils % (Manual) 0, Band Neutrophils 0, Platelet Estimate DecreasedL, Platelet Morphology Normal, Hypochromasia 1+, Anisocytosis 1+, Prothrombin Time 12.5H, Prothromb Time International Ratio 1.2H, Activated Partial Thromboplast Time 31, Sodium Level [Pending], Potassium Level [Pending] , Chloride Level [Pending], Carbon Dioxide Level [Pending], Blood Urea Nitrogen [Pending], Creatinine [Pending], Estimat Glomerular Filtration Rate [Pending], Glucose Level [Pending], Calcium Level [Pending] Current Medications Medications (Trade) Dose Ordered Sig/Trey Route PRN Reason Start Time Stop Time Status Last Admin Dose Admin Acetaminophen (Tylenol) 650 mg Q4H PRN ORAL Mild Pain (Pain Scale 1-3) 04/26/17 00:45 05/26/17 00:44 05/03/17 21:47 Aspirin (ASA) 81 mg DAILY ORAL 04/26/17 09:00 05/26/17 08:59 05/08/17 08:30 Carvedilol (Coreg) 12.5 mg EVERY 12 HOURS ORAL 04/26/17 09:00 05/26/17 08:59 05/09/17 08:35 Ceftriaxone Sodium 2 gm/ Dextrose 55 ml @ 110 mls/hr Q24H IVPB 04/29/17 15:00 05/12/17 23:59 05/08/17 14:37 Chlorhexidine Gluconate (Shaye-Hex 2%) 1 applic DAILY@2000 TOPIC 05/07/17 20:00 06/06/17 19:59 05/08/17 21:37 Dextrose (Dextrose 50%) STAT PRN IV Hypoglycemia 04/26/17 00:45 05/26/17 00:44 Divalproex Sodium (Depakote) 500 mg Q12HR ORAL 05/08/17 21:00 05/26/17 08:59 05/09/17 08:35 Docusate Sodium (Colace) 100 mg THREE TIMES A DAY ORAL 05/03/17 18:00 06/02/17 17:59 05/09/17 08:34 Famotidine (Pepcid) 20 mg DAILY ORAL 04/26/17 09:00 05/26/17 08:59 05/09/17 08:34 Folic Acid (Folate) 1 mg DAILY ORAL 04/30/17 09:00 05/30/17 08:59 05/09/17 08:35 Levothyroxine Sodium (Synthroid) 100 mcg ACBREAKFAST ORAL 04/26/17 06:30 05/26/17 06:29 05/09/17 05:58 Meloxicam (Mobic) 15 mg DAILY ORAL 04/26/17 09:00 05/26/17 08:59 05/09/17 08:35 Ondansetron HCl (Zofran) 4 mg Q6H PRN IVP Nausea & Vomiting 04/26/17 00:45 05/26/17 00:44 Polyethylene Glycol (Miralax) 17 gm DAILY PRN ORAL Constipation 05/02/17 09:00 06/01/17 08:59 05/07/17 23:12 Propafenone HCl (Rythmol) 225 mg EVERY 8 HOURS ORAL 04/26/17 06:00 05/26/17 05:59 05/09/17 05:58 Quetiapine Fumarate (SEROquel) 25 mg BEDTIME PRN ORAL agitation 04/30/17 21:00 05/26/17 08:59 Vitamin B Complex/ Vit C/Folic Acid (Nephrovite) 1 tab DAILY ORAL 04/29/17 09:00 05/29/17 08:59 05/09/17 08:35 Mitch Grace MD May 09, 2017 10:08
--- NOTE | 2017-05-09 10:12 | Endoscopy Procedure Note ---
Endoscopy Procedure Note Indication for Procedure: anemia Procedures Performed: EGD, colonoscopy Operative Findings/Diagnosis: gastritis, hemorrhoids Specimen: yes Pt Tolerated Procedure Well: Yes Estimated Blood Loss: none Anesthesiologist: pradeep Anesthesia: MAC Implant(s) used?: No 50 yrs or older w/o bx or poly: Not Applicable 10yrs. F/U not recommended: Not Applicable MARCUS NEWTON May 09, 2017 10:12
--- NOTE | 2017-05-09 10:19 | Immediate Post-Op Evaluation ---
Immediate Post-Op Evalulation Immediate Post-Op Evalulation Procedure: EGD biopsy, colonoscopy biopsy Date of Evaluation: May 09, 2017 Time of Evaluation: 10:36 IV Fluids: NSS 300ml Blood Products: 0 Estimated Blood Loss: 0 Urinary Output: 0 Blood Pressure Systolic: 92 Blood Pressure Diastolic: 57 Pulse Rate: 55 Respiratory Rate: 18 O2 Sat by Pulse Oximetry: 100 Temperature (Fahrenheit): 97.4 Pain Score (1-10): 0 Nausea: No Vomiting: No Complications none noted Patient Status: awake, reacts Hydration Status: adequate Given Within 1 Hr of Incision: No - none per surgeon Jacy Vegas CRNA May 09, 2017 10:19
--- NOTE | 2017-05-09 10:20 | 48 Hour Post Anesthesia Eval ---
Post Anesthesia Evaluation Procedure: EGD biopsy, colonoscopy Date of Evaluation: May 09, 2017 Time of Evaluation: 10:40 Blood Pressure Systolic: 101 0: 52 Pulse Rate: 57 Respiratory Rate: 19 Temperature (Fahrenheit): 97.5 O2 Sat by Pulse Oximetry: 100 Airway: patent Nausea: No Vomiting: No Pain Intensity: 0 Hydration Status: adequate Cardiopulmonary Status: WNL returned to baseline Mental Status/LOC: patient returned to baseline Post-Anesthesia Complications: none Follow-up care needed: patient intructions given Jacy Vegas CRNA May 09, 2017 10:20
[2017-05-09 10:28] LABS: ANION GAP 8 mmol/L (5-15); BLOOD UREA NITROGEN 22 mg/dL (7-18); CALCIUM 8.1 MG/DL (8.5-10.1); CARBON DIOXIDE 26 MMOL/L (21-32); CHLORIDE 108 MMOL/L (98-107); POTASSIUM 4.1 MMOL/L (3.5-5.1); SODIUM 142 MMOL/L (136-145)
--- NOTE | 2017-05-09 13:04 | Cardiac Electrophysiology PN ---
Assessment/Plan Status Narrative Impression: Echogenic sludge in the gallbladder with minimal gallbladder wall thickening and trace pericholecystic fluid. Sonographic Resendez sign (either negative or positive) was not documented by the cytometry technologist. Findings may be suggestive of a mild cholecystitis in the appropriate clinical setting. Confirmation with HIDA scan recommended. Assessment/Plan 1. Nonsustained ventricular tachycardia. No SD. Echo normal EF. Continue Coreg 12.5 mg b.i.d. 2. Initial troponin leak. three subsequent troponins negative. 3. Paroxysmal atrial fibrillation, in sinus rhythm, on aspirin and Coreg. 4. Hypothyroidism, on Synthroid. 5. Anemia, followed by Dr. Streeter. Stool OB still pending Had BM Biopsy Left iliac Crest. Results still pending. Had EGD and Colonoscopy by Dr Streeter that showed large colon mass that was biopsied. 6. Dementia 7. Abd US suggestive of Mild cholecystitis in the appropriate clinical setting. Dr Streeter defering HIDA given normal LFTs/asymptomatic 8. E coli Bacteremia and Sepsis. Had PICC line for iv ABx till 05/[address] Shawna RODRIGUEZ RN Subjective Subjective Comfortable in NAD. Had blood transfusion yesterday. Had CT abdomen and Pelvis today.Had EGD and colonoscopy that showed large mass in colon and had biopsy. Objective Last 24 Hour Vital Signs Date Time Temp Pulse Resp B/P (MAP) Pulse Ox O2 Delivery O2 Flow Rate FiO2 05/09/17 11:22 57 19 100 05/09/17 11:21 55 18 100 05/09/17 11:00 97.3 55 15 102/60 98 Room Air 05/09/17 10:45 53 14 92/49 100 Simple Mask 6.0 05/09/17 10:38 53 13 98/50 100 Simple Mask 6.0 05/09/17 10:35 97.4 54 15 97/50 100 Simple Mask 6.0 05/09/17 08:35 60 121/66 05/09/17 08:00 97.4 60 19 121/66 100 Room Air 05/09/17 05:58 70 05/09/17 04:00 97.8 70 20 114/65 98 Room Air 05/09/17 03:57 54 05/09/17 00:00 97.0 65 18 105/53 97 Room Air 05/08/17 23:45 57 05/08/17 21:38 66 05/08/17 21:37 63 126/66 05/08/17 20:00 98.2 66 18 126/66 98 05/08/17 19:16 65 05/08/17 16:00 60 05/08/17 16:00 97.3 62 20 110/69 96 Room Air 05/08/17 14:00 60 Intake and Output 05/08/17 05/09/17 19:00 07:00 Intake Total 705 ml Output Total 500 ml Balance 205 ml Intake Oral 650 ml IV Total 55 ml Output Urine Total 500 ml # Bowel Movements 5 Laboratory Tests Test 05/09/17 06:00 05/09/17 09:04 White Blood Count 4.8 K/UL (4.8-10.8) Red Blood Count 2.71 M/UL (4.70-6.10) L Hemoglobin 8.1 G/DL (14.2-18.0) L Hematocrit 24.3 % (42.0-52.0) L Mean Corpuscular Volume 90 FL (80-99) Mean Corpuscular Hemoglobin 29.9 PG (27.0-31.0) Mean Corpuscular Hemoglobin Concent 33.4 G/DL (32.0-36.0) Red Cell Distribution Width 15.5 % (11.6-14.8) H Platelet Count 85 K/UL (150-450) L Mean Platelet Volume 6.4 FL (6.5-10.1) L Neutrophils (%) (Auto) % (45.0-75.0) Lymphocytes (%) (Auto) % (20.0-45.0) Monocytes (%) (Auto) % (1.0-10.0) Eosinophils (%) (Auto) % (0.0-3.0) Basophils (%) (Auto) % (0.0-2.0) Differential Total Cells Counted 100 Neutrophils % (Manual) 62 % (45-75) Lymphocytes % (Manual) 35 % (20-45) Monocytes % (Manual) 2 % (1-10) Eosinophils % (Manual) 1 % (0-3) Basophils % (Manual) 0 % (0-2) Band Neutrophils 0 % (0-8) Platelet Estimate Decreased L Platelet Morphology Normal Hypochromasia 1+ Anisocytosis 1+ Prothrombin Time 12.5 SEC (9.30-11.50) H Prothromb Time International Ratio 1.2 (0.9-1.1) H Activated Partial Thromboplast Time 31 SEC (23-33) Sodium Level 142 MMOL/L (136-145) Potassium Level 4.1 MMOL/L (3.5-5.1) Chloride Level 108 MMOL/L (98-107) H Carbon Dioxide Level 26 MMOL/L (21-32) Anion Gap 8 mmol/L (5-15) Blood Urea Nitrogen 22 mg/dL (7-18) H Creatinine 1.0 MG/DL (0.55-1.30) Estimat Glomerular Filtration Rate mL/min (>60) Glucose Level 70 MG/DL (74-106) L Calcium Level 8.1 MG/DL (8.5-10.1) L Stool Occult Blood Pending Objective HEAD AND NECK: No JVD. LUNGS: Decreased breath sounds. CARDIOVASCULAR: Regular S1 and S2 with no gallop or murmur. ABDOMEN: Soft. EXTREMITIES: Bilateral 1+ pitting edema. JARROD ESTRADA May 09, 2017 13:04
[2017-05-09] MEDS: cefTRIAXone 2 GM in D5W 55 ML IVPB SCH (14:56)
--- NOTE | 2017-05-09 15:35 | Infectious Diseases Prog Note ---
Assessment/Plan Problems: (1) UTI (urinary tract infection) Assessment & Plan: with E coli , most likely the source of his sepsis , continue ceftriaxone for two weeks total starting from the clearance date . (2) Fever Assessment & Plan: due to the above, resolved , continue tylenol prn (3) HCAP (healthcare-associated pneumonia) Assessment & Plan: due to serratia marcescens, improved on cefepime and clindamycin, influenza screening is negative , continue ceftriaxon only for two weeks (4) Sepsis Assessment & Plan: with E coli , on ceftriaxone , repeated blood culture is negative so far . will treat with ceftriaxon for two weeks starting from the clearance date. EOT 05/12/17 (5) Altered level of consciousness Assessment & Plan: due to the above, resolved, recommend neurology follow up (6) Elevated troponin Assessment & Plan: suspect ACS, cardiology is following (7) Dehydration Assessment & Plan: continue IVF, monitor urine out put, and renal function, avoid nephrotoxic meds (8) LEWIS (acute kidney injury) Assessment & Plan: due to the above , continue hydration, monitor renal function , nephrology is following (9) Anemia Assessment & Plan: recurrent , due to large hemorrhoids . S/P EGD, and colonoscopy , monitor H/H, transfuse blood as needed. GI is following Subjective Constitutional: Reports: no symptoms HEENT: Reports: no symptoms Respiratory: Reports: no symptoms Breasts: Reports: no symptoms Cardiovascular: Reports: no symptoms Gastrointestinal/Abdominal: Reports: no symptoms Genitourinary: Reports: no symptoms Neurologic: Reports: no symptoms Psychiatric: Reports: no symptoms Skin: Reports: no symptoms Endocrine: Reports: no symptoms Hematologic: Reports: no symptoms Musculoskeletal: Reports: no symptoms Allergies: Coded Allergies: No Known Allergies (Unverified , 04/25/17) Subjective he was awake and alert, resting in bed, respond to verbal commands , not hypotensive , afebrile , no rectal bleeding. Objective Vital Signs Last 24 Hour Vital Signs Date Time Temp Pulse Resp B/P (MAP) Pulse Ox O2 Delivery O2 Flow Rate FiO2 05/09/17 12:00 97.1 56 18 99/50 100 Room Air 05/09/17 12:00 48 05/09/17 11:22 57 19 100 05/09/17 11:21 55 18 100 05/09/17 11:00 97.3 55 15 102/60 98 Room Air 05/09/17 10:45 53 14 92/49 100 Simple Mask 6.0 05/09/17 10:38 53 13 98/50 100 Simple Mask 6.0 05/09/17 10:35 97.4 54 15 97/50 100 Simple Mask 6.0 05/09/17 08:35 60 121/66 05/09/17 08:00 97.4 60 19 121/66 100 Room Air 05/09/17 08:00 61 05/09/17 05:58 70 05/09/17 04:00 97.8 70 20 114/65 98 Room Air 05/09/17 03:57 54 05/09/17 00:00 97.0 65 18 105/53 97 Room Air 05/08/17 23:45 57 05/08/17 21:38 66 05/08/17 21:37 63 126/66 05/08/17 20:00 98.2 66 18 126/66 98 05/08/17 19:16 65 05/08/17 16:00 60 05/08/17 16:00 97.3 62 20 110/69 96 Room Air Height (Feet): 6 Height (Inches): 0.00 Weight (Pounds): 190 General Appearance: WD/WN, no acute distress HEENT: normocephalic, atraumatic, anicteric, mucous membranes moist, PERRL Respiratory/Chest: chest wall non-tender, lungs clear, no respiratory distress , no accessory muscle use, decreased breath sounds Cardiovascular: normal peripheral pulses, normal rate, regular rhythm, no gallop/murmur, no JVD Abdomen: normal bowel sounds, soft, non tender, no organomegaly, non distended , no mass, no scars Extremities: no cyanosis, no clubbing Skin: no rash, no lesions, ulcers Neurologic/Psychiatric: alert, responsive Lymphatic: no neck adenopathy, no groin adenopathy Laboratory Tests Test 05/09/17 06:00 05/09/17 09:04 White Blood Count 4.8 K/UL (4.8-10.8) Red Blood Count 2.71 M/UL (4.70-6.10) L Hemoglobin 8.1 G/DL (14.2-18.0) L Hematocrit 24.3 % (42.0-52.0) L Mean Corpuscular Volume 90 FL (80-99) Mean Corpuscular Hemoglobin 29.9 PG (27.0-31.0) Mean Corpuscular Hemoglobin Concent 33.4 G/DL (32.0-36.0) Red Cell Distribution Width 15.5 % (11.6-14.8) H Platelet Count 85 K/UL (150-450) L Mean Platelet Volume 6.4 FL (6.5-10.1) L Neutrophils (%) (Auto) % (45.0-75.0) Lymphocytes (%) (Auto) % (20.0-45.0) Monocytes (%) (Auto) % (1.0-10.0) Eosinophils (%) (Auto) % (0.0-3.0) Basophils (%) (Auto) % (0.0-2.0) Differential Total Cells Counted 100 Neutrophils % (Manual) 62 % (45-75) Lymphocytes % (Manual) 35 % (20-45) Monocytes % (Manual) 2 % (1-10) Eosinophils % (Manual) 1 % (0-3) Basophils % (Manual) 0 % (0-2) Band Neutrophils 0 % (0-8) Platelet Estimate Decreased L Platelet Morphology Normal Hypochromasia 1+ Anisocytosis 1+ Prothrombin Time 12.5 SEC (9.30-11.50) H Prothromb Time International Ratio 1.2 (0.9-1.1) H Activated Partial Thromboplast Time 31 SEC (23-33) Sodium Level 142 MMOL/L (136-145) Potassium Level 4.1 MMOL/L (3.5-5.1) Chloride Level 108 MMOL/L (98-107) H Carbon Dioxide Level 26 MMOL/L (21-32) Anion Gap 8 mmol/L (5-15) Blood Urea Nitrogen 22 mg/dL (7-18) H Creatinine 1.0 MG/DL (0.55-1.30) Estimat Glomerular Filtration Rate mL/min (>60) Glucose Level 70 MG/DL (74-106) L Calcium Level 8.1 MG/DL (8.5-10.1) L Stool Occult Blood Pending Current Medications Medications (Trade) Dose Ordered Sig/Trey Route PRN Reason Start Time Stop Time Status Last Admin Dose Admin Acetaminophen (Tylenol) 650 mg Q4H PRN ORAL Mild Pain (Pain Scale 1-3) 04/26/17 00:45 05/26/17 00:44 05/03/17 21:47 Aspirin (ASA) 81 mg DAILY ORAL 04/26/17 09:00 05/26/17 08:59 05/08/17 08:30 Carvedilol (Coreg) 12.5 mg EVERY 12 HOURS ORAL 04/26/17 09:00 05/26/17 08:59 05/09/17 08:35 Ceftriaxone Sodium 2 gm/ Dextrose 55 ml @ 110 mls/hr Q24H IVPB 04/29/17 15:00 05/12/17 23:59 05/09/17 14:56 Chlorhexidine Gluconate (Shaye-Hex 2%) 1 applic DAILY@2000 TOPIC 05/07/17 20:00 06/06/17 19:59 05/08/17 21:37 Dextrose (Dextrose 50%) STAT PRN IV Hypoglycemia 04/26/17 00:45 05/26/17 00:44 Divalproex Sodium (Depakote) 500 mg Q12HR ORAL 05/08/17 21:00 05/26/17 08:59 05/09/17 08:35 Docusate Sodium (Colace) 100 mg THREE TIMES A DAY ORAL 05/03/17 18:00 06/02/17 17:59 05/09/17 08:34 Famotidine (Pepcid) 20 mg DAILY ORAL 04/26/17 09:00 05/26/17 08:59 05/09/17 08:34 Folic Acid (Folate) 1 mg DAILY ORAL 04/30/17 09:00 05/30/17 08:59 05/09/17 08:35 Levothyroxine Sodium (Synthroid) 100 mcg ACBREAKFAST ORAL 04/26/17 06:30 05/26/17 06:29 05/09/17 05:58 Meloxicam (Mobic) 15 mg DAILY ORAL 04/26/17 09:00 05/26/17 08:59 05/09/17 08:35 Ondansetron HCl (Zofran) 4 mg Q6H PRN IVP Nausea & Vomiting 04/26/17 00:45 05/26/17 00:44 Polyethylene Glycol (Miralax) 17 gm DAILY PRN ORAL Constipation 05/02/17 09:00 2/11/18 08:59 05/07/17 23:12 Propafenone HCl (Rythmol) 225 mg EVERY 8 HOURS ORAL 04/26/17 06:00 05/26/17 05:59 05/09/17 05:58 Quetiapine Fumarate (SEROquel) 25 mg BEDTIME PRN ORAL agitation 04/30/17 21:00 05/26/17 08:59 Vitamin B Complex/ Vit C/Folic Acid (Nephrovite) 1 tab DAILY ORAL 04/29/17 09:00 05/29/17 08:59 05/09/17 08:35 Zak Matos M.D. May 09, 2017 15:35
--- NOTE | 2017-05-09 16:04 | Diagnostic Imaging Report ---
Indication: Abdominal pain; abnormal labs. Technique: CT scan of the abdomen and pelvis utilizing automated exposure control without intravenous or oral contrast. Axial, sagittal and coronal images were obtained. CT dose: Total DLP 733 mGycm; CTDI vol 13.8 mGy Comparison: 04/25/2017 Findings: Dependent atelectasis noted in the lung bases. Heart size within normal limits. No pericardial effusion. Liver is normal in size and contour. No focal hepatic mass lesion is appreciated on this single phase study. Hepatic veins and portal veins appear patent. The gallbladder is distended. No definite evidence on CT to suggest an acute cholecystitis. The spleen is enlarged, measuring 14 cm in length. Adrenal glands are within normal limits. There is fatty atrophy of the pancreas. There are multiple well-circumscribed low-attenuation lesions within the left kidney likely representing cysts. There is no urinary tract stone or hydronephrosis bilaterally. Shirley catheter noted within the bladder. The wall of the bladder is thickened. Prostate is prominent central calcifications. There is no bowel obstruction. No free intraperitoneal air or fluid is identified. No focal bowel wall thickening or perienteric inflammatory change is appreciated. Appendix is not definitively visualized but there is no focal inflammatory stranding in the right lower quadrant suggest acute appendicitis the abdominal aorta is normal in caliber with scattered atherosclerotic calcifications. There is no bulky lymphadenopathy. There is subcutaneous edema. There are degenerative changes of the spine with grade 1 anterolisthesis of L3 on L4. This is unchanged. IMPRESSION: Thickening of the bladder wall possibly related to cystitis. Correlate with urinalysis. Distended gallbladder. No definite CT evidence to suggest an acute cholecystitis. Splenomegaly. Basilar atelectasis. Additional findings as above. The CT scanner at [facility] is accredited by the [employer] and the scans are performed using protocols designed to limit radiation exposure to as low as reasonably achievable to attain images of sufficient resolution adequate for diagnostic evaluation.
--- NOTE | 2017-05-09 18:03 | Procedure Note ---
DATE OF PROCEDURE: 05/09/2017 SURGEON: Dimitrios Streeter M.D. PROCEDURE: Colonoscopy with biopsy and endoscopy with biopsy. ANESTHESIA: Per Shasta DUARTE. INSTRUMENT: Olympus adult flexible endoscope and colonoscope. INDICATION: Anemia. REASON FOR PROCEDURE: The procedure, risks, benefits, and possible consequences, including hemorrhage, aspiration, perforation and infection, and alternative treatments, were explained to the patient/legal guardian by Dr. Dimitrios Streeter and the patient/legal guardian understood and accepted these risks. PROCEDURES: After informed consent was obtained and the patient was adequately sedated, Olympus upper endoscope was advanced from mouth into the second portion of the duodenum and retroflexion was performed of the stomach. The patient has evidence of diffuse gastritis, mild duodenitis, and few gastric polyps. Random biopsy from antrum and body was obtained to rule out H. pylori infection. At this time, the upper endoscope was retrieved and the patient was turned over for colonoscopy. First, a rectal exam was performed, which normal. Then, the scope was advanced from the rectum into the cecum documented by appendiceal orifice. Quality of prep was very poor. This exam was extremely limited given poor prep. An ulcerative mass was seen at about 10 centimeter from anal verge suspicious for malignancy status post biopsy. SUMMARY FINDINGS: 1. Gastritis. 2. Gastric polyps. 3. Antral erosions. 4. Mild duodenitis. 5. Poor colonic prep. 6. An ulcerative lesion in the rectum about 10 centimeter from anal verge suspicious for malignancy status post biopsy. RECOMMENDATIONS: 1. Follow biopsy results. 2. CT of the abdomen and pelvis, rule out metastasis. 3. Check CEA level. 4. We will follow up. Dimitrios Streeter M.D. DR: ASAEL JOB#: [id number] CC:
--- NOTE | 2017-05-09 19:27 | Nephrology Progress Note ---
Assessment/Plan Problem List: (1) Dehydration (2) Sepsis (3) UTI (urinary tract infection) Assessment: On IV abx (4) Altered level of consciousness (5) HCAP (healthcare-associated pneumonia) (6) LEWIS (acute kidney injury) Assessment: Improved on current IVF (7) Urinary retention (8) Hypernatremia (9) Hyperkalemia Assessment: Resolved (10) Elevated troponin (11) Pancytopenia (12) Mass of colon (13) Anemia Assessment: s/p bld transfusion Plan Continue current treatment plan Monitor intake and output Monitor renal function, improved on IVF Renally dose meds, avoid nephrotoxins Monitor H&H, transfuse prn Continue arnold Monitor lytes, correct prn Encourage fluids Abx per ID Cardio following, will follow up with recs Hematology following Monitor neuro status F/U biopsy AM labs Subjective Constitutional: Denies: no symptoms, chills, diaphoresis, fever, malaise, weakness, other HEENT: Denies: no symptoms, eye pain, blurred vision, tearing, double vision, ear pain, ear discharge, nose pain, nose congestion, throat pain, throat swelling, mouth pain, mouth swelling, other Genitourinary: Denies: no symptoms, burning, discharge, frequency, flank pain, hematuria, incontinence, pain, urgency, other Neurologic/Psychiatric: Denies: no symptoms, anxiety, depressed, emotional problems, headache, numbness, paresthesia, pre-existing deficit, seizure, tingling, tremors, weakness, other Subjective Awake, alert, and responsive, In bed, in no apparent distress, pleasant Objective Objective Last 24 Hour Vital Signs Date Time Temp Pulse Resp B/P (MAP) Pulse Ox O2 Delivery O2 Flow Rate FiO2 05/09/17 17:10 56 05/09/17 16:00 97.1 79 15 118/75 100 Room Air 05/09/17 16:00 54 05/09/17 12:00 97.1 56 18 99/50 100 Room Air 05/09/17 12:00 48 05/09/17 11:22 57 19 100 05/09/17 11:21 55 18 100 05/09/17 11:00 97.3 55 15 102/60 98 Room Air 05/09/17 10:45 53 14 92/49 100 Simple Mask 6.0 1/19/18 10:38 53 13 98/50 100 Simple Mask 6.0 05/09/17 10:35 97.4 54 15 97/50 100 Simple Mask 6.0 05/09/17 08:35 60 121/66 05/09/17 08:00 97.4 60 19 121/66 100 Room Air 05/09/17 08:00 61 05/09/17 05:58 70 05/09/17 04:00 97.8 70 20 114/65 98 Room Air 05/09/17 03:57 54 05/09/17 00:00 97.0 65 18 105/53 97 Room Air 05/08/17 23:45 57 05/08/17 21:38 66 05/08/17 21:37 63 126/66 05/08/17 20:00 98.2 66 18 126/66 98 Intake and Output 05/08/17 05/09/17 19:00 07:00 Intake Total 705 ml Output Total 500 ml Balance 205 ml Intake Oral 650 ml IV Total 55 ml Output Urine Total 500 ml # Bowel Movements 5 Laboratory Tests 05/09/17 06:00: White Blood Count 4.8, Red Blood Count 2.71L, Hemoglobin 8.1L, Hematocrit 24.3L , Mean Corpuscular Volume 90, Mean Corpuscular Hemoglobin 29.9, Mean Corpuscular Hemoglobin Concent 33.4, Red Cell Distribution Width 15.5H, Platelet Count 85L, Mean Platelet Volume 6.4L, Neutrophils (%) (Auto) , Lymphocytes (%) (Auto) , Monocytes (%) (Auto) , Eosinophils (%) (Auto) , Basophils (%) (Auto) , Differential Total Cells Counted 100, Neutrophils % ( Manual) 62, Lymphocytes % (Manual) 35, Monocytes % (Manual) 2, Eosinophils % ( Manual) 1, Basophils % (Manual) 0, Band Neutrophils 0, Platelet Estimate DecreasedL, Platelet Morphology Normal, Hypochromasia 1+, Anisocytosis 1+, Prothrombin Time 12.5H, Prothromb Time International Ratio 1.2H, Activated Partial Thromboplast Time 31, Sodium Level 142, Potassium Level 4.1, Chloride Level 108H, Carbon Dioxide Level 26, Anion Gap 8, Blood Urea Nitrogen 22H, Creatinine 1.0, Estimat Glomerular Filtration Rate , Glucose Level 70L, Calcium Level 8.1L 05/09/17 09:04: Stool Occult Blood [Pending] Height (Feet): 6 Height (Inches): 0.00 Weight (Pounds): 190 General Appearance: no apparent distress, alert EENT: normal ENT inspection Neck: normal alignment Cardiovascular: normal rate, regular rhythm Respiratory/Chest: normal breath sounds, no respiratory distress Abdomen: soft, no organomegaly Extremities: non-tender, normal inspection Neurologic: alert, responsive Glenis Meza N.P. May 09, 2017 19:27
[2017-05-09] MEDS: Dyna-Hex 2% Top Sol 2oz TOPIC SCH (20:59)
--- NOTE | 2017-05-09 23:26 | General Progress Note ---
Assessment/Plan Assessment/Plan #. Pancytopenia. Infection related versus viral versus bone marrow disorder --> have discussed with pathologist --> HIV panel negative, hepatitis negative as well --> Platelets are low, goal is >20k. Currently still above goal. --> Platelets has improved the last few days --> Hemoglobin goal >7, currently above goal. --> S/P PRBC. 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 Anemia secondary to kidney disease. -->Continue to closely monitor. Creatinine elevated. #. LEWIS. Being seen by Nephrology. #. Nausea and vomiting. The patient is being evaluated by GI service. --> Occult blood is negative #. NSVT, being seen by Cardiology. #. Dehydration. Administer fluids as needed. Pulmonary is following as well. Subjective Date patient seen: May 09, 2017 Constitutional: Denies: no symptoms, chills, diaphoresis, fever, malaise, weakness, other HEENT: Denies: no symptoms, eye pain, blurred vision, tearing, double vision, ear pain, ear discharge, nose pain, nose congestion, throat pain, throat swelling, mouth pain, mouth swelling, other Cardiovascular: Denies: no symptoms, chest pain, edema, irregular heart rate, lightheadedness, palpitations, syncope, other Respiratory: Denies: no symptoms, cough, orthopnea, shortness of breath, SOB with excertion, SOB at rest, sputum, stridor, wheezing, other Gastrointestinal/Abdominal: Denies: no symptoms, abdomen distended, abdominal pain, black stools, tarry stools, blood in stool, constipated, diarrhea, difficulty swallowing, nausea, poor appetite, poor fluid intake, rectal bleeding , vomiting, other Genitourinary: Denies: no symptoms, burning, discharge, frequency, flank pain, hematuria, incontinence, pain, urgency, other Hematologic/Lymphatic: Reports: anemia Allergies: Coded Allergies: No Known Allergies (Unverified , 04/25/17) Subjective S/P CT abdomen. No major events. No fever or chills. Objective Last 24 Hour Vital Signs Date Time Temp Pulse Resp B/P (MAP) Pulse Ox O2 Delivery O2 Flow Rate FiO2 05/09/17 22:00 51 05/09/17 21:00 61 117/70 05/09/17 20:00 98.7 61 21 117/70 97 Room Air 05/09/17 17:10 56 05/09/17 16:00 97.1 79 15 118/75 100 Room Air 05/09/17 16:00 54 05/09/17 12:00 97.1 56 18 99/50 100 Room Air 05/09/17 12:00 48 05/09/17 11:22 57 19 100 05/09/17 11:21 55 18 100 05/09/17 11:00 97.3 55 15 102/60 98 Room Air 05/09/17 10:45 53 14 92/49 100 Simple Mask 6.0 05/09/17 10:38 53 13 98/50 100 Simple Mask 6.0 05/09/17 10:35 97.4 54 15 97/50 100 Simple Mask 6.0 05/09/17 08:35 60 121/66 05/09/17 08:00 97.4 60 19 121/66 100 Room Air 05/09/17 08:00 61 05/09/17 05:58 70 05/09/17 04:00 97.8 70 20 114/65 98 Room Air 05/09/17 03:57 54 05/09/17 00:00 97.0 65 18 105/53 97 Room Air 05/08/17 23:45 57 Intake and Output 05/08/17 05/09/17 19:00 07:00 Intake Total 705 ml Output Total 500 ml Balance 205 ml Intake Oral 650 ml IV Total 55 ml Output Urine Total 500 ml # Bowel Movements 5 Laboratory Tests 05/09/17 06:00: White Blood Count 4.8, Red Blood Count 2.71L, Hemoglobin 8.1L, Hematocrit 24.3L , Mean Corpuscular Volume 90, Mean Corpuscular Hemoglobin 29.9, Mean Corpuscular Hemoglobin Concent 33.4, Red Cell Distribution Width 15.5H, Platelet Count 85L, Mean Platelet Volume 6.4L, Neutrophils (%) (Auto) , Lymphocytes (%) (Auto) , Monocytes (%) (Auto) , Eosinophils (%) (Auto) , Basophils (%) (Auto) , Differential Total Cells Counted 100, Neutrophils % ( Manual) 62, Lymphocytes % (Manual) 35, Monocytes % (Manual) 2, Eosinophils % ( Manual) 1, Basophils % (Manual) 0, Band Neutrophils 0, Platelet Estimate DecreasedL, Platelet Morphology Normal, Hypochromasia 1+, Anisocytosis 1+, Prothrombin Time 12.5H, Prothromb Time International Ratio 1.2H, Activated Partial Thromboplast Time 31, Sodium Level 142, Potassium Level 4.1, Chloride Level 108H, Carbon Dioxide Level 26, Anion Gap 8, Blood Urea Nitrogen 22H, Creatinine 1.0, Estimat Glomerular Filtration Rate , Glucose Level 70L, Calcium Level 8.1L 05/09/17 09:04: Stool Occult Blood [Pending] Height (Feet): 6 Height (Inches): 0.00 Weight (Pounds): 190 General Appearance: no apparent distress Cardiovascular: normal rate Respiratory/Chest: decreased breath sounds Abdomen: soft Rivera Christine May 09, 2017 23:26
[2017-05-10] VITALS (7 sets, daily range): BP systolic 115–139; BP diastolic 56–72
--- NOTE | 2017-05-10 07:22 | Pulmonology Progress Note ---
Assessment/Plan Assessment/Plan 1. Dehydration. resolved 2. Renal failure. improved 3. Altered mental status. 4. Urinary tract infection. 5. Sepsis; DISCUSSION: Respiratory status is stable. Continue antibiotics per ID. Continue oxygen and pulmonary hygiene. I will follow as accounts receivable executive. Subjective Interval Events: none Constitutional: Reports: no symptoms HEENT: Repors: no symptoms Respiratory: Reports: no symptoms Cardiovascular: Reports: no symptoms Gastrointestinal/Abdominal: Reports: no symptoms Allergies: Coded Allergies: No Known Allergies (Unverified , 04/25/17) Objective Last 24 Hour Vital Signs Date Time Temp Pulse Resp B/P (MAP) Pulse Ox O2 Delivery O2 Flow Rate FiO2 05/10/17 05:40 47 05/10/17 04:27 98.5 63 20 139/68 97 Room Air 05/10/17 04:27 Room Air 05/10/17 04:00 66 05/10/17 00:30 97.7 60 20 115/65 95 05/10/17 00:30 Room Air 05/10/17 00:00 54 05/09/17 22:00 51 05/09/17 21:00 61 117/70 05/09/17 20:00 67 05/09/17 20:00 98.7 61 21 117/70 97 Room Air 05/09/17 20:00 Room Air 05/09/17 17:10 56 05/09/17 16:00 97.1 79 15 118/75 100 Room Air 05/09/17 16:00 54 05/09/17 12:00 97.1 56 18 99/50 100 Room Air 05/09/17 12:00 48 05/09/17 11:22 57 19 100 05/09/17 11:21 55 18 100 05/09/17 11:00 97.3 55 15 102/60 98 Room Air 05/09/17 10:45 53 14 92/49 100 Simple Mask 6.0 05/09/17 10:38 53 13 98/50 100 Simple Mask 6.0 05/09/17 10:35 97.4 54 15 97/50 100 Simple Mask 6.0 05/09/17 08:35 60 121/66 05/09/17 08:00 97.4 60 19 121/66 100 Room Air 05/09/17 08:00 61 Intake and Output 05/09/17 05/10/17 19:00 07:00 Intake Total 536 ml Output Total 300 ml 900 ml Balance 236 ml -900 ml Intake Oral 236 ml IV Total 300 ml Output Urine Total 300 ml 900 ml # Bowel Movements 2 General Appearance: no acute distress HEENT: normocephalic Respiratory/Chest: chest wall non-tender, lungs clear Cardiovascular: normal peripheral pulses, normal rate Abdomen: normal bowel sounds Laboratory Tests 05/09/17 09:04: Stool Occult Blood [Pending] Current Medications Medications (Trade) Dose Ordered Sig/Trey Route PRN Reason Start Time Stop Time Status Last Admin Dose Admin Acetaminophen (Tylenol) 650 mg Q4H PRN ORAL Mild Pain (Pain Scale 1-3) 04/26/17 00:45 05/26/17 00:44 05/03/17 21:47 Aspirin (ASA) 81 mg DAILY ORAL 04/26/17 09:00 05/26/17 08:59 05/08/17 08:30 Carvedilol (Coreg) 12.5 mg EVERY 12 HOURS ORAL 04/26/17 09:00 05/26/17 08:59 05/09/17 21:00 Ceftriaxone Sodium 2 gm/ Dextrose 55 ml @ 110 mls/hr Q24H IVPB 04/29/17 15:00 05/12/17 23:59 05/09/17 14:56 Chlorhexidine Gluconate (Shaye-Hex 2%) 1 applic DAILY@2000 TOPIC 05/07/17 20:00 06/06/17 19:59 05/09/17 20:59 Dextrose (Dextrose 50%) STAT PRN IV Hypoglycemia 04/26/17 00:45 05/26/17 00:44 Divalproex Sodium (Depakote) 500 mg Q12HR ORAL 05/08/17 21:00 05/26/17 08:59 05/09/17 20:59 Docusate Sodium (Colace) 100 mg THREE TIMES A DAY ORAL 05/03/17 18:00 06/02/17 17:59 05/09/17 08:34 Famotidine (Pepcid) 20 mg DAILY ORAL 04/26/17 09:00 05/26/17 08:59 05/09/17 08:34 Folic Acid (Folate) 1 mg DAILY ORAL 04/30/17 09:00 05/30/17 08:59 05/09/17 08:35 Levothyroxine Sodium (Synthroid) 100 mcg ACBREAKFAST ORAL 04/26/17 06:30 05/26/17 06:29 05/10/17 06:28 Meloxicam (Mobic) 15 mg DAILY ORAL 04/26/17 09:00 05/26/17 08:59 05/09/17 08:35 Ondansetron HCl (Zofran) 4 mg Q6H PRN IVP Nausea & Vomiting 04/26/17 00:45 05/26/17 00:44 Polyethylene Glycol (Miralax) 17 gm DAILY PRN ORAL Constipation 05/02/17 09:00 06/01/17 08:59 05/07/17 23:12 Propafenone HCl (Rythmol) 225 mg EVERY 8 HOURS ORAL 04/26/17 06:00 05/26/17 05:59 05/09/17 17:10 Quetiapine Fumarate (SEROquel) 25 mg BEDTIME PRN ORAL agitation 04/30/17 21:00 05/26/17 08:59 Vitamin B Complex/ Vit C/Folic Acid (Nephrovite) 1 tab DAILY ORAL 04/29/17 09:00 05/29/17 08:59 05/09/17 08:35 Mitch Grace MD May 10, 2017 07:22
--- NOTE | 2017-05-10 07:52 | General Progress Note ---
Assessment/Plan Problem List: (1) rectal lesion/ulcer (2) Anemia ICD Codes: D64.9 - Anemia, unspecified SNOMED: 107735393 Assessment/Plan ppi daily fu biopsy results CT reviewed prn blood transfusion Subjective ROS Limited/Unobtainable: No Allergies: Coded Allergies: No Known Allergies (Unverified , 04/25/17) Objective Last 24 Hour Vital Signs Date Time Temp Pulse Resp B/P (MAP) Pulse Ox O2 Delivery O2 Flow Rate FiO2 05/10/17 05:40 47 05/10/17 04:27 98.5 63 20 139/68 97 Room Air 05/10/17 04:27 Room Air 05/10/17 04:00 66 05/10/17 00:30 97.7 60 20 115/65 95 05/10/17 00:30 Room Air 05/10/17 00:00 54 05/09/17 22:00 51 05/09/17 21:00 61 117/70 05/09/17 20:00 67 05/09/17 20:00 98.7 61 21 117/70 97 Room Air 05/09/17 20:00 Room Air 05/09/17 17:10 56 05/09/17 16:00 97.1 79 15 118/75 100 Room Air 05/09/17 16:00 54 05/09/17 12:00 97.1 56 18 99/50 100 Room Air 05/09/17 12:00 48 05/09/17 11:22 57 19 100 05/09/17 11:21 55 18 100 05/09/17 11:00 97.3 55 15 102/60 98 Room Air 05/09/17 10:45 53 14 92/49 100 Simple Mask 6.0 05/09/17 10:38 53 13 98/50 100 Simple Mask 6.0 05/09/17 10:35 97.4 54 15 97/50 100 Simple Mask 6.0 05/09/17 08:35 60 121/66 05/09/17 08:00 97.4 60 19 121/66 100 Room Air 05/09/17 08:00 61 Intake and Output 05/09/17 05/10/17 19:00 07:00 Intake Total 536 ml Output Total 300 ml 900 ml Balance 236 ml -900 ml Intake Oral 236 ml IV Total 300 ml Output Urine Total 300 ml 900 ml # Bowel Movements 2 Laboratory Tests 05/09/17 09:04: Stool Occult Blood [Pending] Height (Feet): 6 Height (Inches): 0.00 Weight (Pounds): 190 General Appearance: no apparent distress EENT: normal ENT inspection Neck: supple Cardiovascular: normal rate Respiratory/Chest: decreased breath sounds Abdomen: normal bowel sounds, non tender, soft Extremities: non-tender MARCUS NEWTON May 10, 2017 07:52
[2017-05-10 08:09] LABS: HEMATOCRIT 24.8 % (42.0-52.0); HEMOGLOBIN 8.4 G/DL (14.2-18.0); MEAN CORPUSCULAR VOLUME 90 FL (80-99); PLATELET COUNT 80 K/UL (150-450); RED BLOOD COUNT 2.77 M/UL (4.70-6.10); RED CELL DISTRIBUTION WIDTH 15.1 % (11.6-14.8); WHITE BLOOD COUNT 4.7 K/UL (4.8-10.8)
[2017-05-10 09:02] LABS: ANION GAP 5 mmol/L (5-15); BLOOD UREA NITROGEN 19 mg/dL (7-18); CALCIUM 8.1 MG/DL (8.5-10.1); CARBON DIOXIDE 29 MMOL/L (21-32); CHLORIDE 106 MMOL/L (98-107); POTASSIUM 3.9 MMOL/L (3.5-5.1); SODIUM 140 MMOL/L (136-145)
[2017-05-10] MEDS: Meloxicam 15 MG TAB ORAL SCH (09:46)
[2017-05-10] MEDS: Depakote 500mg tab ORAL SCH ×2 (09:46→21:05)
[2017-05-10] MEDS: Docusate 100mg cap ORAL SCH ×3 (09:46→18:14)
[2017-05-10] MEDS: Aspirin Baby 81mg ORAL SCH (09:46)
[2017-05-10] MEDS: Carvedilol 12.5mg tab ORAL SCH ×2 (09:47→21:08)
[2017-05-10] MEDS: Nephrovite tab (Rena-Vite) ORAL SCH (09:48)
--- NOTE | 2017-05-10 13:19 | Cardiac Electrophysiology PN ---
Assessment/Plan Status Narrative Impression: Echogenic sludge in the gallbladder with minimal gallbladder wall thickening and trace pericholecystic fluid. Sonographic Resendez sign (either negative or positive) was not documented by the cardiac cath lab radiology technologist. Findings may be suggestive of a mild cholecystitis in the appropriate clinical setting. Confirmation with HIDA scan recommended. Assessment/Plan 1. Nonsustained ventricular tachycardia. No DE. Echo normal EF. Continue Coreg 12.5 mg b.i.d. 2. Initial troponin leak. three subsequent troponins negative. 3. Paroxysmal atrial fibrillation, in sinus rhythm, on aspirin and Coreg. 4. Hypothyroidism, on Synthroid. 5. Anemia, followed by Dr. Streeter. Stool OB still pending Had BM Biopsy Left iliac Crest. Results still pending. Had EGD and Colonoscopy by Dr. Streeter that showed Rectal lesion, ulcer Biopsy results pending. 6. Dementia 7. Abd US suggestive of Mild cholecystitis in the appropriate clinical setting. Dr. Streeter defering HIDA given normal LFTs/asymptomatic 8. E coli Bacteremia and Sepsis. Had PICC line for iv ABx till 05/[address] Shawna RODRIGUEZ RN and at bedside Subjective Subjective Comfortable in NAD. at bedside. In SR. Objective Last 24 Hour Vital Signs Date Time Temp Pulse Resp B/P (MAP) Pulse Ox O2 Delivery O2 Flow Rate FiO2 05/10/17 12:00 98.2 65 20 118/62 Room Air 05/10/17 09:47 61 117/56 05/10/17 08:00 98.0 61 20 117/56 98 Room Air 05/10/17 05:40 47 05/10/17 04:27 98.5 63 20 139/68 97 Room Air 05/10/17 04:27 Room Air 05/10/17 04:00 66 05/10/17 00:30 97.7 60 20 115/65 95 05/10/17 00:30 Room Air 05/10/17 00:00 54 05/09/17 22:00 51 05/09/17 21:00 61 117/70 05/09/17 20:00 67 05/09/17 20:00 98.7 61 21 117/70 97 Room Air 05/09/17 20:00 Room Air 05/09/17 17:10 56 05/09/17 16:00 97.1 79 15 118/75 100 Room Air 05/09/17 16:00 54 Intake and Output 05/09/17 05/10/17 19:00 07:00 Intake Total 536 ml Output Total 300 ml 900 ml Balance 236 ml -900 ml Intake Oral 236 ml IV Total 300 ml Output Urine Total 300 ml 900 ml # Bowel Movements 2 Laboratory Tests Test 05/10/17 06:23 White Blood Count 4.7 K/UL (4.8-10.8) L Red Blood Count 2.77 M/UL (4.70-6.10) L Hemoglobin 8.4 G/DL (14.2-18.0) L Hematocrit 24.8 % (42.0-52.0) L Mean Corpuscular Volume 90 FL (80-99) Mean Corpuscular Hemoglobin 30.3 PG (27.0-31.0) Mean Corpuscular Hemoglobin Concent 33.8 G/DL (32.0-36.0) Red Cell Distribution Width 15.1 % (11.6-14.8) H Platelet Count 80 K/UL (150-450) L Mean Platelet Volume 6.7 FL (6.5-10.1) Neutrophils (%) (Auto) % (45.0-75.0) Lymphocytes (%) (Auto) % (20.0-45.0) Monocytes (%) (Auto) % (1.0-10.0) Eosinophils (%) (Auto) % (0.0-3.0) Basophils (%) (Auto) % (0.0-2.0) Differential Total Cells Counted 100 Neutrophils % (Manual) 63 % (45-75) Lymphocytes % (Manual) 26 % (20-45) Monocytes % (Manual) 8 % (1-10) Eosinophils % (Manual) 2 % (0-3) Basophils % (Manual) 1 % (0-2) Band Neutrophils 0 % (0-8) Platelet Estimate Decreased L Platelet Morphology Normal Hypochromasia 2+ Anisocytosis 1+ Sodium Level 140 MMOL/L (136-145) Potassium Level 3.9 MMOL/L (3.5-5.1) Chloride Level 106 MMOL/L (98-107) Carbon Dioxide Level 29 MMOL/L (21-32) Anion Gap 5 mmol/L (5-15) Blood Urea Nitrogen 19 mg/dL (7-18) H Creatinine 1.0 MG/DL (0.55-1.30) Estimat Glomerular Filtration Rate mL/min (>60) Glucose Level 80 MG/DL (74-106) Calcium Level 8.1 MG/DL (8.5-10.1) L Objective HEAD AND NECK: No JVD. LUNGS: Decreased breath sounds. CARDIOVASCULAR: Regular S1 and S2 with no gallop or murmur. ABDOMEN: Soft. EXTREMITIES: Bilateral 1+ pitting edema. JARROD ESTRADA May 10, 2017 13:19
--- NOTE | 2017-05-10 14:45 | Infectious Diseases Prog Note ---
Assessment/Plan Problems: (1) UTI (urinary tract infection) Assessment & Plan: with E coli , most likely the source of his sepsis , continue ceftriaxone for two weeks total starting from the clearance date . (2) Fever Assessment & Plan: due to the above, resolved , continue tylenol prn (3) HCAP (healthcare-associated pneumonia) Assessment & Plan: due to serratia marcescens, improved on cefepime and clindamycin, influenza screening is negative , continue ceftriaxon only for two weeks (4) Sepsis Assessment & Plan: with E coli , on ceftriaxone , repeated blood culture is negative so far . will treat with ceftriaxon for two weeks starting from the clearance date. EOT 05/12/17 (5) Altered level of consciousness Assessment & Plan: due to the above, resolved, recommend neurology follow up (6) Elevated troponin Assessment & Plan: suspect ACS, cardiology is following (7) Dehydration Assessment & Plan: continue IVF, monitor urine out put, and renal function, avoid nephrotoxic meds (8) LEWIS (acute kidney injury) Assessment & Plan: due to the above , continue hydration, monitor renal function , nephrology is following (9) Anemia Assessment & Plan: recurrent , due to large hemorrhoids . S/P EGD, and colonoscopy , monitor H/H, transfuse blood as needed. GI is following Subjective Constitutional: Reports: no symptoms HEENT: Reports: no symptoms Respiratory: Reports: no symptoms Breasts: Reports: no symptoms Cardiovascular: Reports: no symptoms Gastrointestinal/Abdominal: Reports: no symptoms Genitourinary: Reports: no symptoms Neurologic: Reports: no symptoms Psychiatric: Reports: no symptoms Skin: Reports: no symptoms Endocrine: Reports: no symptoms Hematologic: Reports: no symptoms Allergies: Coded Allergies: No Known Allergies (Unverified , 04/25/17) Subjective he was awake and alert, resting in bed, respond to verbal commands , not hypotensive , afebrile , no rectal bleeding. Objective Vital Signs Last 24 Hour Vital Signs Date Time Temp Pulse Resp B/P (MAP) Pulse Ox O2 Delivery O2 Flow Rate FiO2 05/10/17 12:00 67 05/10/17 12:00 98.2 65 20 118/62 Room Air 05/10/17 09:47 61 117/56 05/10/17 08:00 98.0 61 20 117/56 98 Room Air 05/10/17 08:00 47 05/10/17 05:40 47 05/10/17 04:27 98.5 63 20 139/68 97 Room Air 05/10/17 04:27 Room Air 05/10/17 04:00 66 05/10/17 00:30 97.7 60 20 115/65 95 05/10/17 00:30 Room Air 05/10/17 00:00 54 05/09/17 22:00 51 05/09/17 21:00 61 117/70 05/09/17 20:00 67 05/09/17 20:00 98.7 61 21 117/70 97 Room Air 05/09/17 20:00 Room Air 05/09/17 17:10 56 05/09/17 16:00 97.1 79 15 118/75 100 Room Air 05/09/17 16:00 54 Height (Feet): 6 Height (Inches): 0.00 Weight (Pounds): 190 General Appearance: WD/WN, no acute distress HEENT: normocephalic, atraumatic, anicteric, mucous membranes moist, EOMI, pharynx normal, supple, no JVD Respiratory/Chest: chest wall non-tender, lungs clear, normal breath sounds, no respiratory distress, no accessory muscle use Cardiovascular: normal peripheral pulses, normal rate, regular rhythm, no gallop/murmur, no JVD Abdomen: normal bowel sounds, soft, non tender, no organomegaly, non distended , no mass, no scars Extremities: no cyanosis, no clubbing Skin: no rash, no lesions, no ulcers Neurologic/Psychiatric: alert, responsive Laboratory Tests Test 05/10/17 06:23 White Blood Count 4.7 K/UL (4.8-10.8) L Red Blood Count 2.77 M/UL (4.70-6.10) L Hemoglobin 8.4 G/DL (14.2-18.0) L Hematocrit 24.8 % (42.0-52.0) L Mean Corpuscular Volume 90 FL (80-99) Mean Corpuscular Hemoglobin 30.3 PG (27.0-31.0) Mean Corpuscular Hemoglobin Concent 33.8 G/DL (32.0-36.0) Red Cell Distribution Width 15.1 % (11.6-14.8) H Platelet Count 80 K/UL (150-450) L Mean Platelet Volume 6.7 FL (6.5-10.1) Neutrophils (%) (Auto) % (45.0-75.0) Lymphocytes (%) (Auto) % (20.0-45.0) Monocytes (%) (Auto) % (1.0-10.0) Eosinophils (%) (Auto) % (0.0-3.0) Basophils (%) (Auto) % (0.0-2.0) Differential Total Cells Counted 100 Neutrophils % (Manual) 63 % (45-75) Lymphocytes % (Manual) 26 % (20-45) Monocytes % (Manual) 8 % (1-10) Eosinophils % (Manual) 2 % (0-3) Basophils % (Manual) 1 % (0-2) Band Neutrophils 0 % (0-8) Platelet Estimate Decreased L Platelet Morphology Normal Hypochromasia 2+ Anisocytosis 1+ Sodium Level 140 MMOL/L (136-145) Potassium Level 3.9 MMOL/L (3.5-5.1) Chloride Level 106 MMOL/L (98-107) Carbon Dioxide Level 29 MMOL/L (21-32) Anion Gap 5 mmol/L (5-15) Blood Urea Nitrogen 19 mg/dL (7-18) H Creatinine 1.0 MG/DL (0.55-1.30) Estimat Glomerular Filtration Rate mL/min (>60) Glucose Level 80 MG/DL (74-106) Calcium Level 8.1 MG/DL (8.5-10.1) L Current Medications Medications (Trade) Dose Ordered Sig/Trey Route PRN Reason Start Time Stop Time Status Last Admin Dose Admin Acetaminophen (Tylenol) 650 mg Q4H PRN ORAL Mild Pain (Pain Scale 1-3) 04/26/17 00:45 05/26/17 00:44 05/03/17 21:47 Aspirin (ASA) 81 mg DAILY ORAL 04/26/17 09:00 05/26/17 08:59 05/10/17 09:46 Carvedilol (Coreg) 12.5 mg EVERY 12 HOURS ORAL 04/26/17 09:00 05/26/17 08:59 05/10/17 09:47 Ceftriaxone Sodium 2 gm/ Dextrose 55 ml @ 110 mls/hr Q24H IVPB 04/29/17 15:00 05/12/17 23:59 05/09/17 14:56 Chlorhexidine Gluconate (Shaye-Hex 2%) 1 applic DAILY@2000 TOPIC 05/07/17 20:00 06/06/17 19:59 05/09/17 20:59 Dextrose (Dextrose 50%) STAT PRN IV Hypoglycemia 04/26/17 00:45 05/26/17 00:44 Divalproex Sodium (Depakote) 500 mg Q12HR ORAL 05/08/17 21:00 05/26/17 08:59 05/10/17 09:46 Docusate Sodium (Colace) 100 mg THREE TIMES A DAY ORAL 05/03/17 18:00 06/02/17 17:59 05/10/17 09:46 Folic Acid (Folate) 1 mg DAILY ORAL 04/30/17 09:00 05/30/17 08:59 05/10/17 09:49 Levothyroxine Sodium (Synthroid) 100 mcg ACBREAKFAST ORAL 04/26/17 06:30 05/26/17 06:29 05/10/17 06:28 Meloxicam (Mobic) 15 mg DAILY ORAL 04/26/17 09:00 05/26/17 08:59 05/10/17 09:46 Ondansetron HCl (Zofran) 4 mg Q6H PRN IVP Nausea & Vomiting 04/26/17 00:45 05/26/17 00:44 Pantoprazole (Protonix) 40 mg DAILY ORAL 05/10/17 09:00 06/09/17 08:59 05/10/17 09:47 Polyethylene Glycol (Miralax) 17 gm DAILY PRN ORAL Constipation 05/02/17 09:00 06/01/17 08:59 05/07/17 23:12 Propafenone HCl (Rythmol) 225 mg EVERY 8 HOURS ORAL 04/26/17 06:00 05/26/17 05:59 05/09/17 17:10 Quetiapine Fumarate (SEROquel) 25 mg BEDTIME PRN ORAL agitation 04/30/17 21:00 05/26/17 08:59 Vitamin B Complex/ Vit C/Folic Acid (Nephrovite) 1 tab DAILY ORAL 04/29/17 09:00 05/29/17 08:59 05/10/17 09:48 Zak Matos M.D. May 10, 2017 14:45
--- NOTE | 2017-05-10 15:18 | Nephrology Progress Note ---
Assessment/Plan Problem List: (1) LEWIS (acute kidney injury) (2) Elevated troponin (3) Altered level of consciousness (4) UTI (urinary tract infection) Assessment: e. coli (5) Dehydration (6) Fever (7) Hyperkalemia Assessment: corrected (8) Urinary retention (9) Sepsis Assessment: E. coli (10) Hypernatremia (11) Ulcer (12) Foot ulcer (13) Pancytopenia (14) rectal lesion/ulcer (15) Mass of colon Plan d/c plan to SNF for iv abx. get xray of right foot r/o osteo. d/w Dr. Alonso. Subjective Subjective alert. responsive. has pain in right foot. concerned about infection. Objective Objective Last 24 Hour Vital Signs Date Time Temp Pulse Resp B/P (MAP) Pulse Ox O2 Delivery O2 Flow Rate FiO2 05/10/17 12:00 67 05/10/17 12:00 98.2 65 20 118/62 Room Air 05/10/17 09:47 61 117/56 05/10/17 08:00 98.0 61 20 117/56 98 Room Air 05/10/17 08:00 47 05/10/17 05:40 47 05/10/17 04:27 98.5 63 20 139/68 97 Room Air 05/10/17 04:27 Room Air 05/10/17 04:00 66 05/10/17 00:30 97.7 60 20 115/65 95 05/10/17 00:30 Room Air 05/10/17 00:00 54 05/09/17 22:00 51 05/09/17 21:00 61 117/70 05/09/17 20:00 67 05/09/17 20:00 98.7 61 21 117/70 97 Room Air 05/09/17 20:00 Room Air 05/09/17 17:10 56 05/09/17 16:00 97.1 79 15 118/75 100 Room Air 05/09/17 16:00 54 Intake and Output 05/09/17 05/10/17 19:00 07:00 Intake Total 536 ml Output Total 300 ml 900 ml Balance 236 ml -900 ml Intake Oral 236 ml IV Total 300 ml Output Urine Total 300 ml 900 ml # Bowel Movements 2 Laboratory Tests 05/10/17 06:23: White Blood Count 4.7L, Red Blood Count 2.77L, Hemoglobin 8.4L, Hematocrit 24.8L , Mean Corpuscular Volume 90, Mean Corpuscular Hemoglobin 30.3, Mean Corpuscular Hemoglobin Concent 33.8, Red Cell Distribution Width 15.1H, Platelet Count 80L, Mean Platelet Volume 6.7, Neutrophils (%) (Auto) , Lymphocytes (%) (Auto) , Monocytes (%) (Auto) , Eosinophils (%) (Auto) , Basophils (%) (Auto) , Differential Total Cells Counted 100, Neutrophils % ( Manual) 63, Lymphocytes % (Manual) 26, Monocytes % (Manual) 8, Eosinophils % ( Manual) 2, Basophils % (Manual) 1, Band Neutrophils 0, Platelet Estimate DecreasedL, Platelet Morphology Normal, Hypochromasia 2+, Anisocytosis 1+, Sodium Level 140, Potassium Level 3.9, Chloride Level 106, Carbon Dioxide Level 29, Anion Gap 5, Blood Urea Nitrogen 19H, Creatinine 1.0, Estimat Glomerular Filtration Rate , Glucose Level 80, Calcium Level 8.1L Height (Feet): 6 Height (Inches): 0.00 Weight (Pounds): 190 General Appearance: no apparent distress Cardiovascular: normal rate, regular rhythm Respiratory/Chest: lungs clear Abdomen: non tender, soft Extremities: trace edema Neurologic: alert Objective right foot dorsal and lateral ulceration ROMEO FIGUEROA May 10, 2017 15:18
[2017-05-10] MEDS: cefTRIAXone 2 GM in D5W 55 ML IVPB SCH (15:33)
[2017-05-10] MEDS: Dyna-Hex 2% Top Sol 2oz TOPIC SCH (20:24)
--- NOTE | 2017-05-10 22:50 | General Progress Note ---
Assessment/Plan Status: stable Assessment/Plan #. Nausea and vomiting. The patient is being evaluated by GI service. --> Occult blood is negative --> Abdomen CT revealed splenomegaly and basilar atelectasis. #. Pancytopenia. Infection related versus viral versus bone marrow disorder --> have discussed with pathologist, Improving. --> HIV panel negative, hepatitis negative as well --> Platelets are low, goal is >20k. Currently still above goal. --> Hemoglobin >8 since blood transfusion. 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 Anemia secondary to kidney disease. -->Continue to closely monitor. Creatinine elevated. #. LEWIS. Being seen by Nephrology. #. NSVT, being seen by Cardiology. #. Dehydration. Administer fluids as needed. Pulmonary is following as well. Subjective Date patient seen: May 10, 2017 Constitutional: Denies: no symptoms, chills, diaphoresis, fever, malaise, weakness, other HEENT: Denies: no symptoms, eye pain, blurred vision, tearing, double vision, ear pain, ear discharge, nose pain, nose congestion, throat pain, throat swelling, mouth pain, mouth swelling, other Cardiovascular: Denies: no symptoms, chest pain, edema, irregular heart rate, lightheadedness, palpitations, syncope, other Respiratory: Denies: no symptoms, cough, orthopnea, shortness of breath, SOB with excertion, SOB at rest, sputum, stridor, wheezing, other Gastrointestinal/Abdominal: Denies: no symptoms, abdomen distended, abdominal pain, black stools, tarry stools, blood in stool, constipated, diarrhea, difficulty swallowing, nausea, poor appetite, poor fluid intake, rectal bleeding , vomiting, other Genitourinary: Denies: no symptoms, burning, discharge, frequency, flank pain, hematuria, incontinence, pain, urgency, other Allergies: Coded Allergies: No Known Allergies (Unverified , 04/25/17) Subjective No night sweats. Resting in bed. No hematochezia. Objective Last 24 Hour Vital Signs Date Time Temp Pulse Resp B/P (MAP) Pulse Ox O2 Delivery O2 Flow Rate FiO2 05/10/17 21:45 85 05/10/17 21:08 85 124/72 05/10/17 20:29 97.5 60 18 124/72 96 Room Air 05/10/17 20:27 97.5 60 18 124/72 96 Room Air 05/10/17 16:00 98.0 58 20 126/60 97 Room Air 05/10/17 16:00 59 05/10/17 14:00 57 05/10/17 12:00 67 05/10/17 12:00 98.2 65 20 118/62 Room Air 05/10/17 09:47 61 117/56 05/10/17 08:00 98.0 61 20 117/56 98 Room Air 05/10/17 08:00 47 05/10/17 05:40 47 05/10/17 04:27 98.5 63 20 139/68 97 Room Air 05/10/17 04:27 Room Air 05/10/17 04:00 66 05/10/17 00:30 97.7 60 20 115/65 95 05/10/17 00:30 Room Air 05/10/17 00:00 54 Intake and Output 05/09/17 05/10/17 19:00 07:00 Intake Total 536 ml Output Total 300 ml 900 ml Balance 236 ml -900 ml Intake Oral 236 ml IV Total 300 ml Output Urine Total 300 ml 900 ml # Bowel Movements 2 Laboratory Tests 05/10/17 06:23: White Blood Count 4.7L, Red Blood Count 2.77L, Hemoglobin 8.4L, Hematocrit 24.8L , Mean Corpuscular Volume 90, Mean Corpuscular Hemoglobin 30.3, Mean Corpuscular Hemoglobin Concent 33.8, Red Cell Distribution Width 15.1H, Platelet Count 80L, Mean Platelet Volume 6.7, Neutrophils (%) (Auto) , Lymphocytes (%) (Auto) , Monocytes (%) (Auto) , Eosinophils (%) (Auto) , Basophils (%) (Auto) , Differential Total Cells Counted 100, Neutrophils % ( Manual) 63, Lymphocytes % (Manual) 26, Monocytes % (Manual) 8, Eosinophils % ( Manual) 2, Basophils % (Manual) 1, Band Neutrophils 0, Platelet Estimate DecreasedL, Platelet Morphology Normal, Hypochromasia 2+, Anisocytosis 1+, Sodium Level 140, Potassium Level 3.9, Chloride Level 106, Carbon Dioxide Level 29, Anion Gap 5, Blood Urea Nitrogen 19H, Creatinine 1.0, Estimat Glomerular Filtration Rate , Glucose Level 80, Calcium Level 8.1L Height (Feet): 6 Height (Inches): 0.00 Weight (Pounds): 190 General Appearance: no apparent distress EENT: normal ENT inspection Respiratory/Chest: decreased breath sounds Rivera Christine May 10, 2017 22:50
[2017-05-11 00:28] VITALS: BP 110/62
[2017-05-11 04:17] VITALS: BP 114/70
[2017-05-11 08:00] VITALS: BP 149/74
--- NOTE | 2017-05-11 08:30 | General Progress Note ---
Assessment/Plan Problem List: (1) rectal lesion/ulcer (2) Anemia ICD Codes: D64.9 - Anemia, unspecified SNOMED: 098557919 Assessment/Plan ppi daily fu biopsy results CT reviewed prn blood transfusion Subjective ROS Limited/Unobtainable: No Allergies: Coded Allergies: No Known Allergies (Unverified , 04/25/17) Objective Last 24 Hour Vital Signs Date Time Temp Pulse Resp B/P (MAP) Pulse Ox O2 Delivery O2 Flow Rate FiO2 05/11/17 05:54 62 05/11/17 04:17 96.9 62 18 114/70 96 Room Air 05/11/17 04:17 Room Air 05/11/17 04:00 55 05/11/17 00:28 96.7 60 19 110/62 Room Air 05/11/17 00:28 96 Room Air 05/11/17 00:00 64 05/10/17 21:45 85 05/10/17 21:08 85 124/72 05/10/17 20:29 Room Air 05/10/17 20:29 97.5 60 18 124/72 96 Room Air 05/10/17 20:27 97.5 60 18 124/72 96 Room Air 05/10/17 20:00 65 05/10/17 16:00 98.0 58 20 126/60 97 Room Air 05/10/17 16:00 59 05/10/17 14:00 57 05/10/17 12:00 67 05/10/17 12:00 98.2 65 20 118/62 Room Air 05/10/17 09:47 61 117/56 Intake and Output 05/10/17 05/11/17 19:00 07:00 Intake Total 600 ml Output Total 1500 ml 700 ml Balance -900 ml -700 ml Intake Oral 600 ml Output Urine Total 1500 ml 700 ml # Bowel Movements 1 1 Procedure: CT Abdomen Pelvis w/Contrast Indication: Abdominal pain; abnormal labs. Technique: CT scan of the abdomen and pelvis utilizing automated exposure control without intravenous or oral contrast. Axial, sagittal and coronal images were obtained. CT dose: Total DLP 733 mGycm; CTDI vol 13.8 mGy Comparison: 04/25/2017 Findings: Dependent atelectasis noted in the lung bases. Heart size within normal limits. No pericardial effusion. Liver is normal in size and contour. No focal hepatic mass lesion is appreciated on this single phase study. Hepatic veins and portal veins appear patent. The gallbladder is distended. No definite evidence on CT to suggest an acute cholecystitis. The spleen is enlarged, measuring 14 cm in length. Adrenal glands are within normal limits. There is fatty atrophy of the pancreas. There are multiple well-circumscribed low-attenuation lesions within the left kidney likely representing cysts. There is no urinary tract stone or hydronephrosis bilaterally. Shirley catheter noted within the bladder. The wall of the bladder is thickened. Prostate is prominent central calcifications. There is no bowel obstruction. No free intraperitoneal air or fluid is identified. No focal bowel wall thickening or perienteric inflammatory change is appreciated. Appendix is not definitively visualized but there is no focal inflammatory stranding in the right lower quadrant suggest acute appendicitis the abdominal aorta is normal in caliber with scattered atherosclerotic calcifications. There is no bulky lymphadenopathy. There is subcutaneous edema. There are degenerative changes of the spine with grade 1 anterolisthesis of L3 on L4. This is unchanged. IMPRESSION: Thickening of the bladder wall possibly related to cystitis. Correlate with urinalysis. Distended gallbladder. No definite CT evidence to suggest an acute cholecystitis. Splenomegaly. Basilar atelectasis. Additional findings as above. The CT scanner at [facility] is accredited by the [place] [employer] and the scans are performed using protocols designed to limit radiation exposure to as low as reasonably achievable to attain images of sufficient resolution adequate for diagnostic evaluation. Dictated By: Cristhian Lawson M.D. Electronically Signed By: Cristhian Lawson M.D. Signed Date/Time 05/09/17 1477 CC: REUBEN POE; MARCUS NEWTON Height (Feet): 6 Height (Inches): 0.00 Weight (Pounds): 190 General Appearance: no apparent distress EENT: normal ENT inspection Neck: supple Cardiovascular: normal rate Respiratory/Chest: decreased breath sounds Abdomen: normal bowel sounds, non tender, soft Extremities: non-tender MARCUS NEWTON May 11, 2017 08:30
--- NOTE | 2017-05-11 09:48 | Pulmonology Progress Note ---
Assessment/Plan Assessment/Plan 1. Dehydration. resolved 2. Renal failure. improved 3. Altered mental status. 4. Urinary tract infection. 5. Sepsis; DISCUSSION: Respiratory status is stable. Continue antibiotics per ID. Continue oxygen and pulmonary hygiene. 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 CT abdomen noted Has thickened gallbladder Lung bases clear Subjective Interval Events: Respiratory status remains stable Constitutional: Reports: no symptoms HEENT: Repors: no symptoms Respiratory: Reports: no symptoms Cardiovascular: Reports: no symptoms Gastrointestinal/Abdominal: Reports: no symptoms Genitourinary: Reports: no symptoms Allergies: Coded Allergies: No Known Allergies (Unverified , 04/25/17) Objective Last 24 Hour Vital Signs Date Time Temp Pulse Resp B/P (MAP) Pulse Ox O2 Delivery O2 Flow Rate FiO2 05/11/17 05:54 62 05/11/17 04:17 96.9 62 18 114/70 96 Room Air 05/11/17 04:17 Room Air 05/11/17 04:00 55 05/11/17 00:28 96.7 60 19 110/62 Room Air 05/11/17 00:28 96 Room Air 05/11/17 00:00 64 05/10/17 21:45 85 05/10/17 21:08 85 124/72 05/10/17 20:29 Room Air 05/10/17 20:29 97.5 60 18 124/72 96 Room Air 05/10/17 20:27 97.5 60 18 124/72 96 Room Air 05/10/17 20:00 65 05/10/17 16:00 98.0 58 20 126/60 97 Room Air 05/10/17 16:00 59 05/10/17 14:00 57 05/10/17 12:00 67 05/10/17 12:00 98.2 65 20 118/62 Room Air Intake and Output 05/10/17 05/11/17 19:00 07:00 Intake Total 600 ml Output Total 1500 ml 700 ml Balance -900 ml -700 ml Intake Oral 600 ml Output Urine Total 1500 ml 700 ml # Bowel Movements 1 1 General Appearance: no acute distress HEENT: normocephalic Respiratory/Chest: chest wall non-tender, lungs clear Cardiovascular: normal peripheral pulses, normal rate Abdomen: normal bowel sounds, soft, non tender Extremities: no cyanosis Current Medications Medications (Trade) Dose Ordered Sig/Trey Route PRN Reason Start Time Stop Time Status Last Admin Dose Admin Acetaminophen (Tylenol) 650 mg Q4H PRN ORAL Mild Pain (Pain Scale 1-3) 04/26/17 00:45 05/26/17 00:44 05/03/17 21:47 Aspirin (ASA) 81 mg DAILY ORAL 04/26/17 09:00 05/26/17 08:59 05/10/17 09:46 Carvedilol (Coreg) 12.5 mg EVERY 12 HOURS ORAL 04/26/17 09:00 05/26/17 08:59 05/10/17 21:08 Ceftriaxone Sodium 2 gm/ Dextrose 55 ml @ 110 mls/hr Q24H IVPB 04/29/17 15:00 05/12/17 23:59 05/10/17 15:33 Chlorhexidine Gluconate (Shaye-Hex 2%) 1 applic DAILY@2000 TOPIC 05/07/17 20:00 06/06/17 19:59 05/10/17 20:24 Dextrose (Dextrose 50%) STAT PRN IV Hypoglycemia 04/26/17 00:45 05/26/17 00:44 Divalproex Sodium (Depakote) 500 mg Q12HR ORAL 05/08/17 21:00 05/26/17 08:59 05/10/17 21:05 Docusate Sodium (Colace) 100 mg THREE TIMES A DAY ORAL 05/03/17 18:00 06/02/17 17:59 05/10/17 18:14 Folic Acid (Folate) 1 mg DAILY ORAL 04/30/17 09:00 05/30/17 08:59 05/10/17 09:49 Levothyroxine Sodium (Synthroid) 100 mcg ACBREAKFAST ORAL 04/26/17 06:30 05/26/17 06:29 05/11/17 05:54 Meloxicam (Mobic) 15 mg DAILY ORAL 04/26/17 09:00 05/26/17 08:59 05/10/17 09:46 Ondansetron HCl (Zofran) 4 mg Q6H PRN IVP Nausea & Vomiting 04/26/17 00:45 05/26/17 00:44 Pantoprazole (Protonix) 40 mg DAILY ORAL 05/10/17 09:00 06/09/17 08:59 05/10/17 09:47 Polyethylene Glycol (Miralax) 17 gm DAILY PRN ORAL Constipation 05/02/17 09:00 06/01/17 08:59 05/07/17 23:12 Propafenone HCl (Rythmol) 225 mg EVERY 8 HOURS ORAL 04/26/17 06:00 05/26/17 05:59 05/11/17 05:54 Quetiapine Fumarate (SEROquel) 25 mg BEDTIME PRN ORAL agitation 04/30/17 21:00 05/26/17 08:59 Vitamin B Complex/ Vit C/Folic Acid (Nephrovite) 1 tab DAILY ORAL 04/29/17 09:00 05/29/17 08:59 05/10/17 09:48 Mitch Grace MD May 11, 2017 09:48
[2017-05-11] MEDS: Depakote 500mg tab ORAL SCH ×2 (09:49→21:57)
[2017-05-11] MEDS: Carvedilol 12.5mg tab ORAL SCH ×2 (09:49→22:00)
[2017-05-11] MEDS: Docusate 100mg cap ORAL SCH ×3 (09:50→18:14)
[2017-05-11] MEDS: Nephrovite tab (Rena-Vite) ORAL SCH (09:50)
[2017-05-11] MEDS: Meloxicam 15 MG TAB ORAL SCH (09:50)
[2017-05-11] MEDS: Aspirin Baby 81mg ORAL SCH (09:50)
--- NOTE | 2017-05-11 10:10 | Diagnostic Imaging Report ---
Indication: Pain Technique: Right foot, 3 views Comparison: None. Findings: Narrowing of the first metatarsal phalangeal joint is noted with a bunion deformity of the first metatarsal as well. No fracture. No evidence of bone destruction. The remainder the foot is unremarkable. Impression: Degenerative changes in the first metatarsophalangeal joint. Bunion deformity of the first metatarsal. Otherwise negative.
[2017-05-11 12:00] VITALS: BP 130/67
--- NOTE | 2017-05-11 13:06 | Cardiac Electrophysiology PN ---
Assessment/Plan Status Narrative Impression: Echogenic sludge in the gallbladder with minimal gallbladder wall thickening and trace pericholecystic fluid. Sonographic Resendez sign (either negative or positive) was not documented by the automation technologist. Findings may be suggestive of a mild cholecystitis in the appropriate clinical setting. Confirmation with HIDA scan recommended. Assessment/Plan 1. Nonsustained ventricular tachycardia. No HI. Echo normal EF. Continue Coreg 12.5 mg b.i.d. 2. Initial troponin leak. three subsequent troponins negative. 3. Paroxysmal atrial fibrillation, in sinus rhythm, on aspirin and Coreg. 4. Hypothyroidism, on Synthroid. 5. Anemia, followed by Dr. Streeter. S/P BM Biopsy Left iliac Crest. EGD and Colonoscopy by Dr. Streeter showed Rectal lesion, ulcer Biopsy results pending. 6. Dementia 7. Abd US suggestive of Mild cholecystitis in the appropriate clinical setting. Dr. Streeter defering HIDA given normal LFTs/asymptomatic 8. E coli Bacteremia and Sepsis.On iv ABx till 05/12 via PICC line per Dr. Shawna RODRIGUEZ RN Subjective Subjective Comfortable in NAD. In SR.No chest pain or SOB. Objective Last 24 Hour Vital Signs Date Time Temp Pulse Resp B/P (MAP) Pulse Ox O2 Delivery O2 Flow Rate FiO2 05/11/17 09:49 65 149/74 05/11/17 08:00 97.0 65 19 149/74 100 Room Air 05/11/17 05:54 62 05/11/17 04:17 96.9 62 18 114/70 96 Room Air 05/11/17 04:17 Room Air 05/11/17 04:00 55 05/11/17 00:28 96.7 60 19 110/62 Room Air 05/11/17 00:28 96 Room Air 05/11/17 00:00 64 05/10/17 21:45 85 05/10/17 21:08 85 124/72 05/10/17 20:29 Room Air 05/10/17 20:29 97.5 60 18 124/72 96 Room Air 05/10/17 20:27 97.5 60 18 124/72 96 Room Air 05/10/17 20:00 65 05/10/17 16:00 98.0 58 20 126/60 97 Room Air 05/10/17 16:00 59 05/10/17 14:00 57 Intake and Output 05/10/17 05/11/17 19:00 07:00 Intake Total 600 ml Output Total 1500 ml 700 ml Balance -900 ml -700 ml Intake Oral 600 ml Output Urine Total 1500 ml 700 ml # Bowel Movements 1 1 Objective HEAD AND NECK: No JVD. LUNGS: Decreased breath sounds. CARDIOVASCULAR: Regular S1 and S2 with no gallop or murmur. ABDOMEN: Soft. EXTREMITIES: Bilateral 1+ pitting edema. JARROD ESTRADA May 11, 2017 13:06
[2017-05-11] MEDS: cefTRIAXone 2 GM in D5W 55 ML IVPB SCH (14:55)
[2017-05-11 16:00] VITALS: BP 124/68
--- NOTE | 2017-05-11 16:04 | Infectious Diseases Prog Note ---
Assessment/Plan Problems: (1) UTI (urinary tract infection) Assessment & Plan: with E coli , most likely the source of his sepsis , continue ceftriaxone for two weeks total starting from the clearance date . (2) Fever Assessment & Plan: due to the above, resolved , continue tylenol prn (3) HCAP (healthcare-associated pneumonia) Assessment & Plan: due to serratia marcescens, improved on cefepime and clindamycin, influenza screening is negative , continue ceftriaxon only for two weeks (4) Sepsis Assessment & Plan: with E coli , on ceftriaxone , repeated blood culture is negative so far . will treat with ceftriaxon for two weeks starting from the clearance date. EOT 05/12/17 (5) Altered level of consciousness Assessment & Plan: due to the above, resolved, recommend neurology follow up (6) Elevated troponin Assessment & Plan: suspect ACS, cardiology is following (7) Dehydration Assessment & Plan: continue IVF, monitor urine out put, and renal function, avoid nephrotoxic meds (8) LEWIS (acute kidney injury) Assessment & Plan: due to the above , continue hydration, monitor renal function , nephrology is following (9) Anemia Assessment & Plan: recurrent , due to large hemorrhoids . S/P EGD, and colonoscopy , monitor H/H, transfuse blood as needed. GI is following Subjective Constitutional: Reports: no symptoms HEENT: Reports: no symptoms Respiratory: Reports: no symptoms Breasts: Reports: no symptoms Cardiovascular: Reports: no symptoms Gastrointestinal/Abdominal: Reports: no symptoms Genitourinary: Reports: no symptoms Neurologic: Reports: no symptoms Psychiatric: Reports: no symptoms Skin: Reports: no symptoms Endocrine: Reports: no symptoms Hematologic: Reports: no symptoms Allergies: Coded Allergies: No Known Allergies (Unverified , 04/25/17) Subjective he was awake and alert, resting in bed, respond to verbal commands , not hypotensive , afebrile , no rectal bleeding. Objective Vital Signs Last 24 Hour Vital Signs Date Time Temp Pulse Resp B/P (MAP) Pulse Ox O2 Delivery O2 Flow Rate FiO2 05/11/17 14:00 50 05/11/17 12:00 96.8 63 18 130/67 97 Room Air 05/11/17 12:00 59 05/11/17 09:49 65 149/74 05/11/17 08:00 51 05/11/17 08:00 97.0 65 19 149/74 100 Room Air 05/11/17 05:54 62 05/11/17 04:17 96.9 62 18 114/70 96 Room Air 05/11/17 04:17 Room Air 05/11/17 04:00 55 05/11/17 00:28 96.7 60 19 110/62 Room Air 05/11/17 00:28 96 Room Air 05/11/17 00:00 64 05/10/17 21:45 85 05/10/17 21:08 85 124/72 05/10/17 20:29 Room Air 05/10/17 20:29 97.5 60 18 124/72 96 Room Air 05/10/17 20:27 97.5 60 18 124/72 96 Room Air 05/10/17 20:00 65 Height (Feet): 6 Height (Inches): 0.00 Weight (Pounds): 190 General Appearance: WD/WN, no acute distress HEENT: normocephalic, atraumatic, anicteric, mucous membranes moist, PERRL, EOMI, pharynx normal, supple, no JVD Respiratory/Chest: chest wall non-tender, normal breath sounds, no respiratory distress, no accessory muscle use, decreased breath sounds Cardiovascular: normal peripheral pulses, normal rate, regular rhythm, no gallop/murmur, no JVD Abdomen: normal bowel sounds, soft, non tender, no organomegaly, non distended , no mass, no scars Genitourinary: normal external genitalia Extremities: no cyanosis, no clubbing Skin: no rash, no lesions, no ulcers Neurologic/Psychiatric: alert, responsive Current Medications Medications (Trade) Dose Ordered Sig/Trey Route PRN Reason Start Time Stop Time Status Last Admin Dose Admin Acetaminophen (Tylenol) 650 mg Q4H PRN ORAL Mild Pain (Pain Scale 1-3) 04/26/17 00:45 05/26/17 00:44 05/03/17 21:47 Aspirin (ASA) 81 mg DAILY ORAL 04/26/17 09:00 05/26/17 08:59 05/11/17 09:50 Carvedilol (Coreg) 12.5 mg EVERY 12 HOURS ORAL 04/26/17 09:00 05/26/17 08:59 05/11/17 09:49 Ceftriaxone Sodium 2 gm/ Dextrose 55 ml @ 110 mls/hr Q24H IVPB 04/29/17 15:00 05/12/17 23:59 05/11/17 14:55 Chlorhexidine Gluconate (Shaye-Hex 2%) 1 applic DAILY@2000 TOPIC 05/07/17 20:00 06/06/17 19:59 05/10/17 20:24 Dextrose (Dextrose 50%) STAT PRN IV Hypoglycemia 04/26/17 00:45 05/26/17 00:44 Divalproex Sodium (Depakote) 500 mg Q12HR ORAL 05/08/17 21:00 05/26/17 08:59 05/11/17 09:49 Docusate Sodium (Colace) 100 mg THREE TIMES A DAY ORAL 05/03/17 18:00 06/02/17 17:59 05/11/17 14:27 Folic Acid (Folate) 1 mg DAILY ORAL 04/30/17 09:00 05/30/17 08:59 05/11/17 09:50 Levothyroxine Sodium (Synthroid) 100 mcg ACBREAKFAST ORAL 04/26/17 06:30 05/26/17 06:29 05/11/17 05:54 Meloxicam (Mobic) 15 mg DAILY ORAL 04/26/17 09:00 05/26/17 08:59 05/11/17 09:50 Ondansetron HCl (Zofran) 4 mg Q6H PRN IVP Nausea & Vomiting 04/26/17 00:45 05/26/17 00:44 Pantoprazole (Protonix) 40 mg DAILY ORAL 05/10/17 09:00 06/09/17 08:59 05/11/17 09:49 Polyethylene Glycol (Miralax) 17 gm DAILY PRN ORAL Constipation 05/02/17 09:00 06/01/17 08:59 05/07/17 23:12 Propafenone HCl (Rythmol) 225 mg EVERY 8 HOURS ORAL 04/26/17 06:00 05/26/17 05:59 05/11/17 05:54 Quetiapine Fumarate (SEROquel) 25 mg BEDTIME PRN ORAL agitation 04/30/17 21:00 05/26/17 08:59 Vitamin B Complex/ Vit C/Folic Acid (Nephrovite) 1 tab DAILY ORAL 04/29/17 09:00 05/29/17 08:59 05/11/17 09:50 Zak Matos M.D. May 11, 2017 16:04
[2017-05-11 20:00] VITALS: BP 127/84
[2017-05-11] MEDS: Dyna-Hex 2% Top Sol 2oz TOPIC SCH (21:56)
--- NOTE | 2017-05-11 23:43 | General Progress Note ---
Assessment/Plan Status: stable Assessment/Plan #. Nausea and vomiting. --> The patient is being evaluated by GI service. --> Occult blood is negative --> Abdomen CT revealed splenomegaly and basilar atelectasis. #. Pancytopenia. Infection related versus viral versus bone marrow disorder --> have discussed with pathologist, Improving. --> HIV panel negative, hepatitis negative as well --> Platelets are low, goal is >20k. Currently still above goal. --> Hemoglobin >8 since blood transfusion. 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 Anemia secondary to kidney disease. -->Continue to closely monitor. Creatinine elevated. #. LEWIS. Being seen by Nephrology. #. NSVT, being seen by Cardiology. #. Dehydration. Administer fluids as needed. Pulmonary is following as well. Subjective Date patient seen: May 11, 2017 Constitutional: Denies: no symptoms, chills, diaphoresis, fever, malaise, weakness, other HEENT: Denies: no symptoms, eye pain, blurred vision, tearing, double vision, ear pain, ear discharge, nose pain, nose congestion, throat pain, throat swelling, mouth pain, mouth swelling, other Cardiovascular: Denies: no symptoms, chest pain, edema, irregular heart rate, lightheadedness, palpitations, syncope, other Respiratory: Denies: no symptoms, cough, orthopnea, shortness of breath, SOB with excertion, SOB at rest, sputum, stridor, wheezing, other Gastrointestinal/Abdominal: Denies: no symptoms, abdomen distended, abdominal pain, black stools, tarry stools, blood in stool, constipated, diarrhea, difficulty swallowing, nausea, poor appetite, poor fluid intake, rectal bleeding , vomiting, other Genitourinary: Denies: no symptoms, burning, discharge, frequency, flank pain, hematuria, incontinence, pain, urgency, other Allergies: Coded Allergies: No Known Allergies (Unverified , 04/25/17) Subjective No new events overnight. No fever or chills. Objective Last 24 Hour Vital Signs Date Time Temp Pulse Resp B/P (MAP) Pulse Ox O2 Delivery O2 Flow Rate FiO2 05/11/17 22:01 64 05/11/17 22:00 64 127/84 05/11/17 20:00 98.1 64 18 127/84 99 Room Air 05/11/17 19:31 68 05/11/17 16:00 98.0 52 18 124/68 96 Room Air 05/11/17 16:00 52 05/11/17 14:00 50 05/11/17 12:00 96.8 63 18 130/67 97 Room Air 05/11/17 12:00 59 05/11/17 09:49 65 149/74 05/11/17 08:00 51 05/11/17 08:00 97.0 65 19 149/74 100 Room Air 05/11/17 05:54 62 05/11/17 04:17 96.9 62 18 114/70 96 Room Air 05/11/17 04:17 Room Air 05/11/17 04:00 55 05/11/17 00:28 96.7 60 19 110/62 Room Air 05/11/17 00:28 96 Room Air 05/11/17 00:00 64 Intake and Output 05/10/17 05/11/17 19:00 07:00 Intake Total 600 ml Output Total 1500 ml 700 ml Balance -900 ml -700 ml Intake Oral 600 ml Output Urine Total 1500 ml 700 ml # Bowel Movements 1 1 Height (Feet): 6 Height (Inches): 0.00 Weight (Pounds): 190 General Appearance: no apparent distress Respiratory/Chest: decreased breath sounds Abdomen: non tender, soft Skin: warm/dry Rivera Christine May 11, 2017 23:43
[2017-05-12] VITALS: BP 115/60
[2017-05-12 04:00] VITALS: BP 115/60
[2017-05-12 08:00] VITALS: BP 115/54
[2017-05-12] MEDS: Meloxicam 15 MG TAB ORAL SCH (08:20)
[2017-05-12] MEDS: Nephrovite tab (Rena-Vite) ORAL SCH (08:20)
[2017-05-12] MEDS: Docusate 100mg cap ORAL SCH ×3 (08:21→17:14)
[2017-05-12] MEDS: Carvedilol 12.5mg tab ORAL SCH ×2 (08:21→21:39)
[2017-05-12] MEDS: Depakote 500mg tab ORAL SCH ×2 (08:21→21:40)
[2017-05-12] MEDS: Aspirin Baby 81mg ORAL SCH (08:21)
--- NOTE | 2017-05-12 11:41 | Pulmonology Progress Note ---
Assessment/Plan Assessment/Plan 1. Dehydration. resolved 2. Renal failure. improved 3. Altered mental status. 4. Urinary tract infection. 5. Sepsis; DISCUSSION: Respiratory status is stable. Continue antibiotics per ID. Continue oxygen and pulmonary hygiene. 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 CT abdomen noted Has thickened gallbladder Lung bases clear on CT. Subjective Interval Events: none Constitutional: Reports: no symptoms HEENT: Repors: no symptoms Respiratory: Reports: no symptoms Cardiovascular: Reports: no symptoms Gastrointestinal/Abdominal: Reports: no symptoms Genitourinary: Reports: no symptoms Allergies: Coded Allergies: No Known Allergies (Unverified , 04/25/17) Objective Last 24 Hour Vital Signs Date Time Temp Pulse Resp B/P (MAP) Pulse Ox O2 Delivery O2 Flow Rate FiO2 05/12/17 08:21 65 115/54 05/12/17 08:00 97.8 81 18 115/54 97 Room Air 05/12/17 06:00 57 05/12/17 04:00 99.0 64 18 115/60 99 Room Air 05/12/17 03:35 61 05/12/17 00:14 63 05/12/17 00:00 98.1 64 18 115/60 99 Room Air 05/11/17 22:01 64 05/11/17 22:00 64 127/84 05/11/17 20:00 98.1 64 18 127/84 99 Room Air 05/11/17 19:31 68 05/11/17 16:00 98.0 52 18 124/68 96 Room Air 05/11/17 16:00 52 05/11/17 14:00 50 05/11/17 12:00 96.8 63 18 130/67 97 Room Air 05/11/17 12:00 59 Intake and Output 05/11/17 05/12/17 19:00 07:00 Intake Total 472 ml Output Total 600 ml 600 ml Balance -128 ml -600 ml Intake Oral 472 ml Output Urine Total 600 ml 600 ml # Bowel Movements 1 General Appearance: no acute distress HEENT: normocephalic Respiratory/Chest: chest wall non-tender, lungs clear Cardiovascular: normal peripheral pulses, regular rhythm Abdomen: normal bowel sounds Current Medications Medications (Trade) Dose Ordered Sig/Trey Route PRN Reason Start Time Stop Time Status Last Admin Dose Admin Acetaminophen (Tylenol) 650 mg Q4H PRN ORAL Mild Pain (Pain Scale 1-3) 04/26/17 00:45 05/26/17 00:44 05/03/17 21:47 Aspirin (ASA) 81 mg DAILY ORAL 04/26/17 09:00 05/26/17 08:59 05/12/17 08:21 Carvedilol (Coreg) 12.5 mg EVERY 12 HOURS ORAL 04/26/17 09:00 05/26/17 08:59 05/11/17 22:00 Ceftriaxone Sodium 2 gm/ Dextrose 55 ml @ 110 mls/hr Q24H IVPB 04/29/17 15:00 05/12/17 23:59 05/11/17 14:55 Chlorhexidine Gluconate (Hsaye-Hex 2%) 1 applic DAILY@2000 TOPIC 05/07/17 20:00 06/06/17 19:59 05/11/17 21:56 Dextrose (Dextrose 50%) STAT PRN IV Hypoglycemia 04/26/17 00:45 05/26/17 00:44 Divalproex Sodium (Depakote) 500 mg Q12HR ORAL 05/08/17 21:00 05/26/17 08:59 05/12/17 08:21 Docusate Sodium (Colace) 100 mg THREE TIMES A DAY ORAL 05/03/17 18:00 06/02/17 17:59 05/12/17 08:21 Folic Acid (Folate) 1 mg DAILY ORAL 04/30/17 09:00 05/30/17 08:59 05/12/17 08:21 Levothyroxine Sodium (Synthroid) 100 mcg ACBREAKFAST ORAL 04/26/17 06:30 05/26/17 06:29 05/12/17 06:10 Meloxicam (Mobic) 15 mg DAILY ORAL 04/26/17 09:00 05/26/17 08:59 05/12/17 08:20 Ondansetron HCl (Zofran) 4 mg Q6H PRN IVP Nausea & Vomiting 04/26/17 00:45 05/26/17 00:44 Pantoprazole (Protonix) 40 mg DAILY ORAL 05/10/17 09:00 06/09/17 08:59 05/12/17 08:21 Polyethylene Glycol (Miralax) 17 gm DAILY PRN ORAL Constipation 05/02/17 09:00 06/01/17 08:59 05/07/17 23:12 Propafenone HCl (Rythmol) 225 mg EVERY 8 HOURS ORAL 04/26/17 06:00 05/26/17 05:59 05/11/17 22:01 Quetiapine Fumarate (SEROquel) 25 mg BEDTIME PRN ORAL agitation 04/30/17 21:00 05/26/17 08:59 Vitamin B Complex/ Vit C/Folic Acid (Nephrovite) 1 tab DAILY ORAL 04/29/17 09:00 05/29/17 08:59 05/12/17 08:20 Mitch Grace MD May 12, 2017 11:41
[2017-05-12 12:00] VITALS: BP 106/50
--- NOTE | 2017-05-12 12:33 | GI Progress Note ---
Assessment/Plan Problems: (1) Dehydration ICD Codes: E86.0 - Dehydration SNOMED: 70318399, 960720609, 685911912 (2) Anemia ICD Codes: D64.9 - Anemia, unspecified SNOMED: 290390032 (3) Altered level of consciousness ICD Codes: R40.4 - Transient alteration of awareness SNOMED: 5246754 (4) Elevated troponin ICD Codes: R74.8 - Abnormal levels of other serum enzymes SNOMED: 705073361, 658151731, 426122057 Status: unchanged Status Narrative Discussed with Dr. Streeter. Assessment/Plan hep panel >> negative abdominal U/S reviewed >> GB sludge, defer HIDA given normal LFTs/asymptomatic elevated troponin levels >> now normal OB stool negative okay for DC per GI standpoint >> outpatient rectal EUS for staging of rectal CA prn transfusions keep Hgb > 8.0 bowel regime ppi OT evaluation folate PO electrolyte correction fu labs Subjective Subjective limited Objective Last 24 Hour Vital Signs Date Time Temp Pulse Resp B/P (MAP) Pulse Ox O2 Delivery O2 Flow Rate FiO2 05/12/17 08:21 65 115/54 05/12/17 08:00 97.8 81 18 115/54 97 Room Air 05/12/17 06:00 57 05/12/17 04:00 99.0 64 18 115/60 99 Room Air 05/12/17 03:35 61 05/12/17 00:14 63 05/12/17 00:00 98.1 64 18 115/60 99 Room Air 05/11/17 22:01 64 05/11/17 22:00 64 127/84 05/11/17 20:00 98.1 64 18 127/84 99 Room Air 05/11/17 19:31 68 05/11/17 16:00 98.0 52 18 124/68 96 Room Air 05/11/17 16:00 52 05/11/17 14:00 50 Intake and Output 05/11/17 05/12/17 19:00 07:00 Intake Total 472 ml Output Total 600 ml 600 ml Balance -128 ml -600 ml Intake Oral 472 ml Output Urine Total 600 ml 600 ml # Bowel Movements 1 Height (Feet): 6 Height (Inches): 0.00 Weight (Pounds): 190 General Appearance: WD/WN, no apparent distress, alert, confused Cardiovascular: normal rate Respiratory/Chest: normal breath sounds, no respiratory distress Abdominal Exam: normal bowel sounds, non tender, soft Extremities: non-tender Jeni Marino N.P. May 12, 2017 12:33
--- NOTE | 2017-05-12 13:14 | General Progress Note ---
Assessment/Plan Status: stable Assessment/Plan #. Nausea and vomiting. --> The patient is being evaluated by GI service. --> Occult blood is negative --> Abdomen CT revealed splenomegaly and basilar atelectasis. #. Pancytopenia. Infection related versus viral versus bone marrow disorder --> Trend Cbc daily. --> have discussed with pathologist, Improving. --> HIV panel negative, hepatitis negative as well --> Platelets are low, goal is >20k. Currently still above goal. --> Does not require blood transfusion today. 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 Anemia secondary to kidney disease. -->Continue to closely monitor. --> Creatinine elevated. #. LEWIS. Being seen by Nephrology. #. NSVT, being seen by Cardiology. #. Dehydration. Administer fluids as needed. Pulmonary is following as well. Subjective Date patient seen: May 12, 2017 Constitutional: Denies: no symptoms, chills, diaphoresis, fever, malaise, weakness, other HEENT: Denies: no symptoms, eye pain, blurred vision, tearing, double vision, ear pain, ear discharge, nose pain, nose congestion, throat pain, throat swelling, mouth pain, mouth swelling, other Cardiovascular: Denies: no symptoms, chest pain, edema, irregular heart rate, lightheadedness, palpitations, syncope, other Respiratory: Denies: no symptoms, cough, orthopnea, shortness of breath, SOB with excertion, SOB at rest, sputum, stridor, wheezing, other Gastrointestinal/Abdominal: Denies: no symptoms, abdomen distended, abdominal pain, black stools, tarry stools, blood in stool, constipated, diarrhea, difficulty swallowing, nausea, poor appetite, poor fluid intake, rectal bleeding , vomiting, other Allergies: Coded Allergies: No Known Allergies (Unverified , 04/25/17) Subjective No hematochezia. No new events overnight. Objective Last 24 Hour Vital Signs Date Time Temp Pulse Resp B/P (MAP) Pulse Ox O2 Delivery O2 Flow Rate FiO2 05/12/17 08:21 65 115/54 05/12/17 08:00 97.8 81 18 115/54 97 Room Air 05/12/17 06:00 57 05/12/17 04:00 99.0 64 18 115/60 99 Room Air 05/12/17 03:35 61 05/12/17 00:14 63 05/12/17 00:00 98.1 64 18 115/60 99 Room Air 05/11/17 22:01 64 05/11/17 22:00 64 127/84 05/11/17 20:00 98.1 64 18 127/84 99 Room Air 05/11/17 19:31 68 05/11/17 16:00 98.0 52 18 124/68 96 Room Air 05/11/17 16:00 52 05/11/17 14:00 50 Intake and Output 05/11/17 05/12/17 19:00 07:00 Intake Total 472 ml Output Total 600 ml 600 ml Balance -128 ml -600 ml Intake Oral 472 ml Output Urine Total 600 ml 600 ml # Bowel Movements 1 Height (Feet): 6 Height (Inches): 0.00 Weight (Pounds): 190 General Appearance: no apparent distress Respiratory/Chest: decreased breath sounds Rivera Christine May 12, 2017 13:14
--- NOTE | 2017-05-12 13:17 | Cardiac Electrophysiology PN ---
Assessment/Plan Status Narrative Impression: Echogenic sludge in the gallbladder with minimal gallbladder wall thickening and trace pericholecystic fluid. Sonographic Resendez sign (either negative or positive) was not documented by the sonography technologist. Findings may be suggestive of a mild cholecystitis in the appropriate clinical setting. Confirmation with HIDA scan recommended. Assessment/Plan 1. Nonsustained ventricular tachycardia. No NV. Echo normal EF. Stable on Coreg 12.5 mg b.i.d. 2. Initial troponin leak. three subsequent troponins negative. 3. Paroxysmal atrial fibrillation, in sinus rhythm, on aspirin and Coreg. 4. Hypothyroidism, on Synthroid. 5. Anemia, followed by Dr. Streeter. S/P BM Biopsy Left iliac Crest. EGD and Colonoscopy by Dr. Streeter showed Rectal lesion, ulcer Biopsy results pending. 6. Dementia 7. Abd US suggestive of Mild cholecystitis in the appropriate clinical setting. Dr. Streeter defering HIDA given normal LFTs/asymptomatic 8. E coli Bacteremia and Sepsis.On iv ABx till 05/12 via PICC line per Dr. Shawna RODRIGUEZ RN Subjective Subjective Comfortable in NAD. In SR.On IV abx per Dr Matos and awaiting biopsy result.. RN at bedside. Objective Last 24 Hour Vital Signs Date Time Temp Pulse Resp B/P (MAP) Pulse Ox O2 Delivery O2 Flow Rate FiO2 05/12/17 13:11 54 05/12/17 08:21 65 115/54 05/12/17 08:00 97.8 81 18 115/54 97 Room Air 05/12/17 06:00 57 05/12/17 04:00 99.0 64 18 115/60 99 Room Air 05/12/17 03:35 61 05/12/17 00:14 63 05/12/17 00:00 98.1 64 18 115/60 99 Room Air 05/11/17 22:01 64 05/11/17 22:00 64 127/84 05/11/17 20:00 98.1 64 18 127/84 99 Room Air 05/11/17 19:31 68 05/11/17 16:00 98.0 52 18 124/68 96 Room Air 05/11/17 16:00 52 05/11/17 14:00 50 Intake and Output 05/11/17 05/12/17 19:00 07:00 Intake Total 472 ml Output Total 600 ml 600 ml Balance -128 ml -600 ml Intake Oral 472 ml Output Urine Total 600 ml 600 ml # Bowel Movements 1 Objective HEAD AND NECK: No JVD. LUNGS: Decreased breath sounds. CARDIOVASCULAR: Regular S1 and S2 with no gallop or murmur. ABDOMEN: Soft. EXTREMITIES: 1+ pitting edema. JARROD ESTRADA May 12, 2017 13:17
[2017-05-12] MEDS: cefTRIAXone 2 GM in D5W 55 ML IVPB SCH (14:12)
--- NOTE | 2017-05-12 14:47 | Infectious Diseases Prog Note ---
Assessment/Plan Problems: (1) UTI (urinary tract infection) Assessment & Plan: with E coli , most likely the source of his sepsis , continue ceftriaxone for two weeks total starting from the clearance date . (2) Fever Assessment & Plan: due to the above, resolved , continue tylenol prn (3) HCAP (healthcare-associated pneumonia) Assessment & Plan: due to serratia marcescens, improved on cefepime and clindamycin, influenza screening is negative , continue ceftriaxon only for two weeks (4) Sepsis Assessment & Plan: with E coli , on ceftriaxone , repeated blood culture is negative so far . will treat with ceftriaxon for two weeks starting from the clearance date. EOT 05/12/17 (5) Altered level of consciousness Assessment & Plan: due to the above, resolved, recommend neurology follow up (6) Elevated troponin Assessment & Plan: suspect ACS, cardiology is following (7) Dehydration Assessment & Plan: continue IVF, monitor urine out put, and renal function, avoid nephrotoxic meds (8) LEWIS (acute kidney injury) Assessment & Plan: due to the above , continue hydration, monitor renal function , nephrology is following (9) Anemia Assessment & Plan: recurrent , due to large hemorrhoids . S/P EGD, and colonoscopy , monitor H/H, transfuse blood as needed. GI is following Subjective Constitutional: Reports: no symptoms HEENT: Reports: no symptoms Respiratory: Reports: no symptoms Breasts: Reports: no symptoms Cardiovascular: Reports: no symptoms Gastrointestinal/Abdominal: Reports: no symptoms Genitourinary: Reports: no symptoms Neurologic: Reports: no symptoms Psychiatric: Reports: no symptoms Skin: Reports: no symptoms Endocrine: Reports: no symptoms Hematologic: Reports: no symptoms Musculoskeletal: Reports: no symptoms Allergies: Coded Allergies: No Known Allergies (Unverified , 04/25/17) Subjective he was awake and alert, resting in bed, respond to verbal commands , not hypotensive , afebrile , no rectal bleeding. Objective Vital Signs Last 24 Hour Vital Signs Date Time Temp Pulse Resp B/P (MAP) Pulse Ox O2 Delivery O2 Flow Rate FiO2 05/12/17 13:11 54 05/12/17 12:00 56 05/12/17 12:00 97.7 54 19 106/50 97 Room Air 05/12/17 08:21 65 115/54 05/12/17 08:00 48 05/12/17 08:00 97.8 81 18 115/54 97 Room Air 05/12/17 06:00 57 05/12/17 04:00 99.0 64 18 115/60 99 Room Air 05/12/17 03:35 61 05/12/17 00:14 63 05/12/17 00:00 98.1 64 18 115/60 99 Room Air 05/11/17 22:01 64 05/11/17 22:00 64 127/84 05/11/17 20:00 98.1 64 18 127/84 99 Room Air 05/11/17 19:31 68 05/11/17 16:00 98.0 52 18 124/68 96 Room Air 05/11/17 16:00 52 Height (Feet): 6 Height (Inches): 0.00 Weight (Pounds): 190 General Appearance: WD/WN, no acute distress HEENT: normocephalic, atraumatic, anicteric, mucous membranes moist, PERRL Respiratory/Chest: chest wall non-tender, lungs clear, normal breath sounds, no respiratory distress, no accessory muscle use Cardiovascular: normal peripheral pulses, normal rate, regular rhythm, no gallop/murmur, no JVD Abdomen: normal bowel sounds, soft, non tender, no organomegaly, non distended , no mass, no scars Extremities: no cyanosis, no clubbing Skin: no rash, no lesions, no ulcers Neurologic/Psychiatric: alert, responsive Current Medications Medications (Trade) Dose Ordered Sig/Trey Route PRN Reason Start Time Stop Time Status Last Admin Dose Admin Acetaminophen (Tylenol) 650 mg Q4H PRN ORAL Mild Pain (Pain Scale 1-3) 04/26/17 00:45 05/26/17 00:44 05/03/17 21:47 Aspirin (ASA) 81 mg DAILY ORAL 04/26/17 09:00 05/26/17 08:59 05/12/17 08:21 Carvedilol (Coreg) 12.5 mg EVERY 12 HOURS ORAL 04/26/17 09:00 05/26/17 08:59 05/11/17 22:00 Ceftriaxone Sodium 2 gm/ Dextrose 55 ml @ 110 mls/hr Q24H IVPB 04/29/17 15:00 05/12/17 23:59 05/12/17 14:12 Chlorhexidine Gluconate (Shaye-Hex 2%) 1 applic DAILY@2000 TOPIC 05/07/17 20:00 06/06/17 19:59 05/11/17 21:56 Dextrose (Dextrose 50%) STAT PRN IV Hypoglycemia 04/26/17 00:45 05/26/17 00:44 Divalproex Sodium (Depakote) 500 mg Q12HR ORAL 05/08/17 21:00 05/26/17 08:59 05/12/17 08:21 Docusate Sodium (Colace) 100 mg THREE TIMES A DAY ORAL 05/03/17 18:00 06/02/17 17:59 05/12/17 12:54 Folic Acid (Folate) 1 mg DAILY ORAL 04/30/17 09:00 05/30/17 08:59 05/12/17 08:21 Levothyroxine Sodium (Synthroid) 100 mcg ACBREAKFAST ORAL 04/26/17 06:30 05/26/17 06:29 05/12/17 06:10 Meloxicam (Mobic) 15 mg DAILY ORAL 04/26/17 09:00 05/26/17 08:59 05/12/17 08:20 Ondansetron HCl (Zofran) 4 mg Q6H PRN IVP Nausea & Vomiting 04/26/17 00:45 05/26/17 00:44 Pantoprazole (Protonix) 40 mg DAILY ORAL 05/10/17 09:00 06/09/17 08:59 05/12/17 08:21 Polyethylene Glycol (Miralax) 17 gm DAILY PRN ORAL Constipation 05/02/17 09:00 06/01/17 08:59 05/07/17 23:12 Propafenone HCl (Rythmol) 225 mg EVERY 8 HOURS ORAL 04/26/17 06:00 05/26/17 05:59 05/11/17 22:01 Quetiapine Fumarate (SEROquel) 25 mg BEDTIME PRN ORAL agitation 04/30/17 21:00 05/26/17 08:59 Vitamin B Complex/ Vit C/Folic Acid (Nephrovite) 1 tab DAILY ORAL 04/29/17 09:00 05/29/17 08:59 05/12/17 08:20 Zak Matos M.D. May 12, 2017 14:46
[2017-05-12 16:00] VITALS: BP 99/60
--- NOTE | 2017-05-12 17:05 | Nephrology Progress Note ---
Assessment/Plan Problem List: (1) Dehydration (2) Sepsis (3) UTI (urinary tract infection) Assessment: On IV abx (4) Altered level of consciousness (5) HCAP (healthcare-associated pneumonia) (6) LEWIS (acute kidney injury) Assessment: Improved on current IVF (7) Urinary retention (8) Hypernatremia (9) Hyperkalemia Assessment: Resolved (10) Elevated troponin (11) Pancytopenia (12) Mass of colon (13) Anemia Assessment: s/p bld transfusion Plan Continue current treatment plan Monitor intake and output Monitor renal function, improved on IVF Renally dose meds, avoid nephrotoxins Monitor H&H, transfuse prn Continue arnold Monitor lytes, correct prn Encourage fluids Abx per ID Cardio following, will follow up with recs Hematology following Monitor neuro status F/U biopsy AM labs Subjective Constitutional: Denies: no symptoms, chills, diaphoresis, fever, malaise, weakness, other HEENT: Denies: no symptoms, eye pain, blurred vision, tearing, double vision, ear pain, ear discharge, nose pain, nose congestion, throat pain, throat swelling, mouth pain, mouth swelling, other Genitourinary: Denies: no symptoms, burning, discharge, frequency, flank pain, hematuria, incontinence, pain, urgency, other Neurologic/Psychiatric: Denies: no symptoms, anxiety, depressed, emotional problems, headache, numbness, paresthesia, pre-existing deficit, seizure, tingling, tremors, weakness, other Subjective Awake, alert, and responsive, In bed, in no apparent distress, pleasant Objective Objective Last 24 Hour Vital Signs Date Time Temp Pulse Resp B/P (MAP) Pulse Ox O2 Delivery O2 Flow Rate FiO2 05/12/17 13:11 54 05/12/17 12:00 56 05/12/17 12:00 97.7 54 19 106/50 97 Room Air 05/12/17 08:21 65 115/54 05/12/17 08:00 48 05/12/17 08:00 97.8 81 18 115/54 97 Room Air 05/12/17 06:00 57 05/12/17 04:00 99.0 64 18 115/60 99 Room Air 05/12/17 03:35 61 05/12/17 00:14 63 05/12/17 00:00 98.1 64 18 115/60 99 Room Air 05/11/17 22:01 64 05/11/17 22:00 64 127/84 05/11/17 20:00 98.1 64 18 127/84 99 Room Air 05/11/17 19:31 68 Intake and Output 05/11/17 05/12/17 19:00 07:00 Intake Total 472 ml Output Total 600 ml 600 ml Balance -128 ml -600 ml Intake Oral 472 ml Output Urine Total 600 ml 600 ml # Bowel Movements 1 Height (Feet): 6 Height (Inches): 0.00 Weight (Pounds): 190 General Appearance: no apparent distress EENT: normal ENT inspection Neck: normal alignment Cardiovascular: normal rate Respiratory/Chest: normal breath sounds, no respiratory distress Abdomen: soft Extremities: non-tender Neurologic: alert, responsive, normal mood/affect Glenis Meza N.P. May 12, 2017 17:05
[2017-05-12 20:00] VITALS: BP 125/68
[2017-05-12] MEDS: Dyna-Hex 2% Top Sol 2oz TOPIC SCH (21:41)
[2017-05-13] VITALS (11 sets, daily range): BP systolic 95–130; BP diastolic 44–81
[2017-05-13] MEDS ORDERED: Fleet's Enema 133ml RECTAL ONE ×3 (00:45→06:00)
[2017-05-13] MEDS ORDERED: Polyethylene Glycol 238gm bottle ORAL ONE (00:45)
[2017-05-13] MEDS: Nephrovite tab (Rena-Vite) ORAL SCH (08:23)
[2017-05-13] MEDS: Docusate 100mg cap ORAL SCH ×3 (08:23→17:05)
[2017-05-13] MEDS: Carvedilol 12.5mg tab ORAL SCH ×2 (08:24→21:54)
[2017-05-13] MEDS: Meloxicam 15 MG TAB ORAL SCH (08:24)
[2017-05-13] MEDS: Aspirin Baby 81mg ORAL SCH (08:25)
[2017-05-13] MEDS: Depakote 500mg tab ORAL SCH ×2 (08:25→21:51)
[2017-05-13 08:30] LABS: HEMATOCRIT 26.4 % (42.0-52.0); HEMOGLOBIN 8.5 G/DL (14.2-18.0); MEAN CORPUSCULAR VOLUME 90 FL (80-99); PLATELET COUNT 78 K/UL (150-450); RED BLOOD COUNT 2.92 M/UL (4.70-6.10); RED CELL DISTRIBUTION WIDTH 15.9 % (11.6-14.8); WHITE BLOOD COUNT 3.6 K/UL (4.8-10.8)
[2017-05-13 08:39] LABS: ANION GAP 4 mmol/L (5-15); BLOOD UREA NITROGEN 16 mg/dL (7-18); CALCIUM 7.9 MG/DL (8.5-10.1); CARBON DIOXIDE 31 MMOL/L (21-32); CHLORIDE 107 MMOL/L (98-107); POTASSIUM 4.2 MMOL/L (3.5-5.1); SODIUM 141 MMOL/L (136-145)
[2017-05-13 08:56] LABS: INR 1.2 (0.9-1.1)
--- NOTE | 2017-05-13 11:08 | Wound Nurse Progress Note ---
Wound RN Progress Note Wound Consult REASSESSMENT-admitted wounds noted with good progress , no further deterioration. #1 Right lateral foot unstageable pressure ulcer.-no further deterioration present, remains dry, 100% brown dry adhered necrotic scab present .continue to keep clean and dry. #2 Right medial lower extremity suspected deep tissue injury- resolved #3 Right medial dorsal foot unstageable pressure ulcer.-no further deterioration present, remains dry,100% adhered dry brown necrotic scab present. 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 #5 Left 2nd toe necrotic scabs.- no further deterioration , remains dry and intact. #6 Left heel suspected Deep Tissue Injury.-resolved. #7 Left lateral Malleolus Deep Tissue Injury.- resolved. #8 Left upper arm scattered scabs.- resolved. #9 left forearm skin tear with no flap- protocol as ordered. Recommendation. -Local wound care as ordered. -Turn and reposition. -Offload affected areas. -Optimize nutrition. -Keep clean and dry. -Apply low air loss SPR mattress. -Apply heel protectors. -Offload heels and feet. -Avoid shear and friction. -Assess and notify MD for any changes of condition to skin MALINI NOYOLA May 13, 2017 11:08
[2017-05-13] MEDS ORDERED: Propofol 200mg/20ml IV ONE (12:00)
[2017-05-13] MEDS ORDERED: Lidocaine 1% MPF 10mg/ml 5ml ONE (12:00)
--- NOTE | 2017-05-13 12:19 | Pre-Procedure Note/Attestation ---
Pre-Procedure Note/Attestation Complete Prior to Procedure Planned Procedure: not applicable Procedure Narrative: eus Indications for Procedure Pre-Operative Diagnosis: rectal cancer Attestation I attest that I discussed the nature of the procedure; its benefits; risks and complications; and alternatives (and the risks and benefits of such alternatives ), prior to the procedure, with the patient (or the patient's legal wine sales representative). I attest that, if there was a reasonable possibility of needing a blood transfusion, the patient (or the patient's legal wine sales representative) was given the [facility] standardized written summary, pursuant to the [place] Blood Safety Act ([place] Health and Safety Code # 1645, as amended). I attest that I re-evaluated the patient just prior to the surgery and that there has been no change in the patient's H&P, except as documented below: MARCUS NEWTON May 13, 2017 12:19
[2017-05-13] MEDS ORDERED: NS 500ML IV ONE (12:25)
[2017-05-13] MEDS ORDERED: Midazolam 2mg/2ml Inj IVP PRN (13:00)
[2017-05-13] MEDS ORDERED: fentaNYL 100 mcg/2 mL IV PRN (13:00)
[2017-05-13] MEDS ORDERED: Atropine Inj 1mg/10ml Syr IV PRN (13:00)
[2017-05-13] MEDS ORDERED: DiphenhydrAMINE 50mg/ml Inj IVP PRN (13:00)
--- NOTE | 2017-05-13 13:04 | Anethesia Preoperative Eval ---
Anesthesia Pre-op PMH/ROS General Date of Evaluation: May 13, 2017 Time of Evaluation: 12:00 Anesthesiologist: jo ASA Score: ASA 3 Mallampati Score Class I : Soft palate, uvula, fauces, pillars visible Class II: Soft palate, uvula, fauces visible Class III: Soft palate, base of uvula visible Class IV: Only hard plate visible Mallampati Classification: Class II Surgeon: bharti Diagnosis: rectal cancer Surgical Procedure: eus Anesthesia History: none Social History: smoking Family History: no anesthesia problems Allergies: Coded Allergies: No Known Allergies (Unverified , 04/25/17) Medications: see eMAR Past Medical History Cardiovascular: Reports: HTN, arrhythmia Gastrointestinal/Genitourinary: Reports: other - leonela Neurologic/Psychiatric: Reports: other - seizures Endocrine: Reports: hypothyroidism Hematology/Immune: Reports: anemia Anesthesia Pre-op Phys. Exam Physician Exam Last Vital Signs Date Time Temp Pulse Resp B/P (MAP) Pulse Ox O2 Delivery O2 Flow Rate FiO2 05/13/17 12:00 97.7 55 21 107/60 96 Room Air 05/09/17 10:45 6.0 Constitutional: NAD Neurologic: CN 2-12 intact Cardiovascular: RRR Respiratory: CTA Gastrointestinal: S/NT/ND Airway Exam Mallampati Score: Class II MO: full Neck: short TMD: 2fb ROM: limited Teeth: intact Anesthesia Pre-op A/P Labs Hematology Test 05/13/17 08:10 White Blood Count 3.6 K/UL (4.8-10.8) L Red Blood Count 2.92 M/UL (4.70-6.10) L Hemoglobin 8.5 G/DL (14.2-18.0) L Hematocrit 26.4 % (42.0-52.0) L Mean Corpuscular Volume 90 FL (80-99) Mean Corpuscular Hemoglobin 29.2 PG (27.0-31.0) Mean Corpuscular Hemoglobin Concent 32.3 G/DL (32.0-36.0) Red Cell Distribution Width 15.9 % (11.6-14.8) H Platelet Count 78 K/UL (150-450) L Mean Platelet Volume 6.0 FL (6.5-10.1) L Neutrophils (%) (Auto) % (45.0-75.0) Lymphocytes (%) (Auto) % (20.0-45.0) Monocytes (%) (Auto) % (1.0-10.0) Eosinophils (%) (Auto) % (0.0-3.0) Basophils (%) (Auto) % (0.0-2.0) Differential Total Cells Counted 100 Neutrophils % (Manual) 44 % (45-75) L Lymphocytes % (Manual) 43 % (20-45) Monocytes % (Manual) 9 % (1-10) Eosinophils % (Manual) 1 % (0-3) Basophils % (Manual) 2 % (0-2) Band Neutrophils 1 % (0-8) Platelet Estimate Decreased L Platelet Morphology Normal Hypochromasia 2+ Anisocytosis 1+ Coagulation Test 05/13/17 08:10 Prothrombin Time 12.7 SEC (9.30-11.50) H Prothromb Time International Ratio 1.2 (0.9-1.1) H Activated Partial Thromboplast Time 30 SEC (23-33) Chemistry Test 05/13/17 08:10 Sodium Level 141 MMOL/L (136-145) Potassium Level 4.2 MMOL/L (3.5-5.1) Chloride Level 107 MMOL/L (98-107) Carbon Dioxide Level 31 MMOL/L (21-32) Anion Gap 4 mmol/L (5-15) L Blood Urea Nitrogen 16 mg/dL (7-18) Creatinine 1.0 MG/DL (0.55-1.30) Estimat Glomerular Filtration Rate mL/min (>60) Glucose Level 88 MG/DL (74-106) Calcium Level 7.9 MG/DL (8.5-10.1) L Studies Pre-op Studies: EKG - nsr, anterior lateral infarct possible Risk Assessment & Plan Assessment: asa3 Plan: mac Status Change Before Surgery: No Pre-Antibiotics Drug: CRISTINE Okeefe May 13, 2017 13:04
--- NOTE | 2017-05-13 13:07 | Immediate Post-Op Evaluation ---
Immediate Post-Op Evalulation Immediate Post-Op Evalulation Procedure: eus Date of Evaluation: May 13, 2017 Time of Evaluation: 13:07 IV Fluids: 100ml 0.9ns Blood Products: none Estimated Blood Loss: negligible Blood Pressure Systolic: 95 Blood Pressure Diastolic: 50 Pulse Rate: 50 Respiratory Rate: 18 O2 Sat by Pulse Oximetry: 99 Temperature (Fahrenheit): 98.0 Pain Score (1-10): 0 Nausea: No Vomiting: No Complications none Patient Status: awake, reacts, patent Hydration Status: adequate Drug: CRISTINE Okeefe May 13, 2017 13:07
--- NOTE | 2017-05-13 13:09 | 48 Hour Post Anesthesia Eval ---
Post Anesthesia Evaluation Procedure: eus Date of Evaluation: May 13, 2017 Time of Evaluation: 13:09 Blood Pressure Systolic: 100 0: 55 Pulse Rate: 55 Respiratory Rate: 18 Temperature (Fahrenheit): 98.0 O2 Sat by Pulse Oximetry: 99 Airway: patent Nausea: No Vomiting: No Pain Intensity: 0 Hydration Status: adequate Cardiopulmonary Status: stable Mental Status/LOC: patient returned to baseline Post-Anesthesia Complications: none Follow-up care needed: N/A CRISTINE SPRING May 13, 2017 13:09
--- NOTE | 2017-05-13 15:27 | Cardiac Electrophysiology PN ---
Assessment/Plan Status Narrative Impression: Echogenic sludge in the gallbladder with minimal gallbladder wall thickening and trace pericholecystic fluid. Sonographic Resendez sign (either negative or positive) was not documented by the survey technologist. Findings may be suggestive of a mild cholecystitis in the appropriate clinical setting. Confirmation with HIDA scan recommended. Assessment/Plan 1. Nonsustained ventricular tachycardia. No UT. Echo normal EF. Stable on Coreg 12.5 mg b.i.d. 2. Initial troponin leak. three subsequent troponins negative. 3. Paroxysmal atrial fibrillation, in sinus rhythm, on aspirin and Coreg. 4. Hypothyroidism, on Synthroid. 5. Anemia, followed by Dr. Streeter. S/P BM Biopsy Left iliac Crest. EGD and Colonoscopy by Dr. Streeter showed Rectal lesion, ulcer Biopsy results pending.US rectum pending result. 6. Dementia 7. Abd US suggestive of Mild cholecystitis in the appropriate clinical setting. Dr. Streeter defering HIDA given normal LFTs/asymptomatic 8. E coli Bacteremia and Sepsis.On iv ABx via PICC line per Dr. Shawna RODRIGUEZ RN Subjective Subjective Comfortable in NAD. Had rectal Ultrasound. RN at bedside. Objective Last 24 Hour Vital Signs Date Time Temp Pulse Resp B/P (MAP) Pulse Ox O2 Delivery O2 Flow Rate FiO2 05/13/17 14:22 55 20 107/65 96 Room Air 05/13/17 14:00 55 05/13/17 13:15 98.3 61 20 104/70 100 Room Air 05/13/17 13:09 55 18 99 05/13/17 13:07 50 18 99 05/13/17 13:05 51 13 99/44 100 Simple Mask 6.0 05/13/17 13:00 47 12 96/50 100 Simple Mask 6.0 05/13/17 12:55 98.0 50 13 95/50 95 Simple Mask 6.0 05/13/17 12:00 97.7 55 21 107/60 96 Room Air 05/13/17 12:00 55 05/13/17 08:24 72 130/81 05/13/17 08:00 80 05/13/17 08:00 97.3 71 21 130/81 97 Room Air 05/13/17 06:00 61 05/13/17 04:00 98.1 70 20 118/66 96 Room Air 05/13/17 04:00 80 05/13/17 00:00 97.7 66 20 115/64 95 Room Air 05/13/17 00:00 73 05/12/17 21:41 61 05/12/17 21:39 61 125/68 05/12/17 20:00 62 05/12/17 20:00 97.7 61 12 125/68 96 Room Air 05/12/17 16:00 61 05/12/17 16:00 96.9 60 19 99/60 96 Room Air Intake and Output 05/12/17 05/13/17 19:00 07:00 Intake Total 763 ml 200 ml Output Total 1400 ml 1625 ml Balance -637 ml -1425 ml Intake Oral 708 ml 200 ml IV Total 55 ml Output Urine Total 1400 ml 1625 ml # Bowel Movements 2 Laboratory Tests Test 05/13/17 08:10 White Blood Count 3.6 K/UL (4.8-10.8) L Red Blood Count 2.92 M/UL (4.70-6.10) L Hemoglobin 8.5 G/DL (14.2-18.0) L Hematocrit 26.4 % (42.0-52.0) L Mean Corpuscular Volume 90 FL (80-99) Mean Corpuscular Hemoglobin 29.2 PG (27.0-31.0) Mean Corpuscular Hemoglobin Concent 32.3 G/DL (32.0-36.0) Red Cell Distribution Width 15.9 % (11.6-14.8) H Platelet Count 78 K/UL (150-450) L Mean Platelet Volume 6.0 FL (6.5-10.1) L Neutrophils (%) (Auto) % (45.0-75.0) Lymphocytes (%) (Auto) % (20.0-45.0) Monocytes (%) (Auto) % (1.0-10.0) Eosinophils (%) (Auto) % (0.0-3.0) Basophils (%) (Auto) % (0.0-2.0) Differential Total Cells Counted 100 Neutrophils % (Manual) 44 % (45-75) L Lymphocytes % (Manual) 43 % (20-45) Monocytes % (Manual) 9 % (1-10) Eosinophils % (Manual) 1 % (0-3) Basophils % (Manual) 2 % (0-2) Band Neutrophils 1 % (0-8) Platelet Estimate Decreased L Platelet Morphology Normal Hypochromasia 2+ Anisocytosis 1+ Prothrombin Time 12.7 SEC (9.30-11.50) H Prothromb Time International Ratio 1.2 (0.9-1.1) H Activated Partial Thromboplast Time 30 SEC (23-33) Sodium Level 141 MMOL/L (136-145) Potassium Level 4.2 MMOL/L (3.5-5.1) Chloride Level 107 MMOL/L (98-107) Carbon Dioxide Level 31 MMOL/L (21-32) Anion Gap 4 mmol/L (5-15) L Blood Urea Nitrogen 16 mg/dL (7-18) Creatinine 1.0 MG/DL (0.55-1.30) Estimat Glomerular Filtration Rate mL/min (>60) Glucose Level 88 MG/DL (74-106) Calcium Level 7.9 MG/DL (8.5-10.1) L Objective HEAD AND NECK: No JVD. LUNGS: Decreased breath sounds. CARDIOVASCULAR: Regular S1 and S2 with no gallop or murmur. ABDOMEN: Soft. EXTREMITIES: 1+ pitting edema. JARROD ESTRADA May 13, 2017 15:27
--- NOTE | 2017-05-13 15:42 | Pulmonology Progress Note ---
Assessment/Plan Assessment/Plan 1. Dehydration. resolved 2. Renal failure. improved 3. Altered mental status. 4. Urinary tract infection. 5. Sepsis; DISCUSSION: Respiratory status is stable. Continue antibiotics per ID. Continue oxygen and pulmonary hygiene. 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 CT abdomen noted Has thickened gallbladder Lung bases clear on CT. Subjective Interval Events: No new events Constitutional: Reports: no symptoms HEENT: Repors: no symptoms Respiratory: Reports: no symptoms Cardiovascular: Reports: no symptoms Allergies: Coded Allergies: No Known Allergies (Unverified , 04/25/17) Objective Last 24 Hour Vital Signs Date Time Temp Pulse Resp B/P (MAP) Pulse Ox O2 Delivery O2 Flow Rate FiO2 05/13/17 14:22 55 20 107/65 96 Room Air 05/13/17 14:00 55 05/13/17 13:15 98.3 61 20 104/70 100 Room Air 05/13/17 13:09 55 18 99 05/13/17 13:07 50 18 99 05/13/17 13:05 51 13 99/44 100 Simple Mask 6.0 05/13/17 13:00 47 12 96/50 100 Simple Mask 6.0 05/13/17 12:55 98.0 50 13 95/50 95 Simple Mask 6.0 05/13/17 12:00 97.7 55 21 107/60 96 Room Air 05/13/17 12:00 55 05/13/17 08:24 72 130/81 05/13/17 08:00 80 05/13/17 08:00 97.3 71 21 130/81 97 Room Air 05/13/17 06:00 61 05/13/17 04:00 98.1 70 20 118/66 96 Room Air 05/13/17 04:00 80 05/13/17 00:00 97.7 66 20 115/64 95 Room Air 05/13/17 00:00 73 05/12/17 21:41 61 05/12/17 21:39 61 125/68 05/12/17 20:00 62 05/12/17 20:00 97.7 61 12 125/68 96 Room Air 05/12/17 16:00 61 05/12/17 16:00 96.9 60 19 99/60 96 Room Air Intake and Output 05/12/17 05/13/17 19:00 07:00 Intake Total 763 ml 200 ml Output Total 1400 ml 1625 ml Balance -637 ml -1425 ml Intake Oral 708 ml 200 ml IV Total 55 ml Output Urine Total 1400 ml 1625 ml # Bowel Movements 2 General Appearance: no acute distress HEENT: normocephalic Respiratory/Chest: chest wall non-tender, lungs clear Cardiovascular: normal peripheral pulses, normal rate Abdomen: normal bowel sounds, soft, non tender Extremities: no cyanosis Laboratory Tests 05/13/17 08:10: White Blood Count 3.6L, Red Blood Count 2.92L, Hemoglobin 8.5L, Hematocrit 26.4L , Mean Corpuscular Volume 90, Mean Corpuscular Hemoglobin 29.2, Mean Corpuscular Hemoglobin Concent 32.3, Red Cell Distribution Width 15.9H, Platelet Count 78L, Mean Platelet Volume 6.0L, Neutrophils (%) (Auto) , Lymphocytes (%) (Auto) , Monocytes (%) (Auto) , Eosinophils (%) (Auto) , Basophils (%) (Auto) , Differential Total Cells Counted 100, Neutrophils % ( Manual) 44L, Lymphocytes % (Manual) 43, Monocytes % (Manual) 9, Eosinophils % ( Manual) 1, Basophils % (Manual) 2, Band Neutrophils 1, Platelet Estimate DecreasedL, Platelet Morphology Normal, Hypochromasia 2+, Anisocytosis 1+, Prothrombin Time 12.7H, Prothromb Time International Ratio 1.2H, Activated Partial Thromboplast Time 30, Sodium Level 141, Potassium Level 4.2, Chloride Level 107, Carbon Dioxide Level 31, Anion Gap 4L, Blood Urea Nitrogen 16, Creatinine 1.0, Estimat Glomerular Filtration Rate , Glucose Level 88, Calcium Level 7.9L Current Medications Medications (Trade) Dose Ordered Sig/Trey Route PRN Reason Start Time Stop Time Status Last Admin Dose Admin Acetaminophen (Tylenol) 650 mg Q4H PRN ORAL Mild Pain (Pain Scale 1-3) 04/26/17 00:45 05/26/17 00:44 05/03/17 21:47 Al Hydroxide/Mg Hydroxide (Mylanta) 15 ml Q1H PRN ORAL gi upset 05/13/17 13:00 05/13/17 17:00 Aspirin (ASA) 81 mg DAILY ORAL 04/26/17 09:00 05/26/17 08:59 05/13/17 08:25 Atropine Sulfate (Atropine) 0.5 mg Q5M PRN IV bpm less than 45 05/13/17 13:00 05/13/17 17:00 Carvedilol (Coreg) 12.5 mg EVERY 12 HOURS ORAL 04/26/17 09:00 05/26/17 08:59 05/13/17 08:24 Chlorhexidine Gluconate (Shaye-Hex 2%) 1 applic DAILY@2000 TOPIC 05/07/17 20:00 06/06/17 19:59 05/12/17 21:41 Dextrose (Dextrose 50%) STAT PRN IV Hypoglycemia 04/26/17 00:45 05/26/17 00:44 Diphenhydramine HCl (Benadryl) 25 mg Q15M PRN IVP Itching 05/13/17 13:00 05/13/17 17:00 Divalproex Sodium (Depakote) 500 mg Q12HR ORAL 05/08/17 21:00 05/26/17 08:59 05/13/17 08:25 Docusate Sodium (Colace) 100 mg THREE TIMES A DAY ORAL 05/03/17 18:00 06/02/17 17:59 05/13/17 13:58 Fentanyl Citrate (Sublimaze 100 mcg/2 mL) 25 mcg Q10M PRN IV Moderate Pain (Pain Scale 4-6) 05/13/17 13:00 05/13/17 17:00 Folic Acid (Folate) 1 mg DAILY ORAL 04/30/17 09:00 05/30/17 08:59 05/13/17 08:24 Hydralazine HCl (Apresoline) 5 mg Q30M PRN IV SBP>160 OR___/DBP>90 OR___ 05/13/17 13:00 05/13/17 17:00 Levothyroxine Sodium (Synthroid) 100 mcg ACBREAKFAST ORAL 04/26/17 06:30 05/26/17 06:29 05/12/17 06:10 Meloxicam (Mobic) 15 mg DAILY ORAL 04/26/17 09:00 05/26/17 08:59 05/13/17 08:24 Midazolam HCl (Versed 2mg/2ml vial) 1 mg Q15M PRN IVP For Anxiety 05/13/17 13:00 05/13/17 17:00 Ondansetron HCl (Zofran) 4 mg Q1H PRN IVP Nausea & Vomiting 05/13/17 13:00 05/13/17 17:00 Ondansetron HCl (Zofran) 4 mg Q6H PRN IVP Nausea & Vomiting 04/26/17 00:45 05/26/17 00:44 Pantoprazole (Protonix) 40 mg DAILY ORAL 05/10/17 09:00 06/09/17 08:59 05/13/17 08:24 Polyethylene Glycol (Miralax) 17 gm DAILY PRN ORAL Constipation 05/02/17 09:00 06/01/17 08:59 05/07/17 23:12 Propafenone HCl (Rythmol) 225 mg EVERY 8 HOURS ORAL 04/26/17 06:00 05/26/17 05:59 05/12/17 21:41 Quetiapine Fumarate (SEROquel) 25 mg BEDTIME PRN ORAL agitation 04/30/17 21:00 05/26/17 08:59 Vitamin B Complex/ Vit C/Folic Acid (Nephrovite) 1 tab DAILY ORAL 04/29/17 09:00 05/29/17 08:59 05/13/17 08:23 Mitch Grace MD May 13, 2017 15:42
--- NOTE | 2017-05-13 16:30 | Procedure Note ---
DATE OF PROCEDURE: 05/13/2017 SURGEON: Dimitrios Streeter M.D. ANESTHESIOLOGIST: Lyudmila Lee M.D. REFERRING PHYSICIAN: Guerrero Alonso M.D. PROCEDURE: Rectal ultrasound. ANESTHESIA: Per Dr. Lee. INSTRUMENT: Olympus EUS scope. INDICATION: Rectal cancer. The procedure, risks, benefits, and possible consequences, including hemorrhage, aspiration, perforation and infection, and alternative treatments, were explained to the patient/legal guardian by Dr. Dimitrios Streeter and the patient/legal guardian understood and accepted these risks. DESCRIPTION OF PROCEDURE: After informed consent was obtained and the patient was adequately sedated, EUS radial scope was introduced in the rectum. The patient has a rectal mass. This mass is breaking through the wall of the muscularis propria layer, so based on the EUS criteria, this is a T3 tumor. There is no obvious lymph node involvement, so this is a T3 N0 tumor. SUMMARY OF FINDINGS: Large rectal mass, T3 N0. RECOMMENDATIONS: Given the already breaking through the muscularis propria layer, we recommend Oncology consultation for chemoradiation. I want to thank Dr. Guerrero Alonso for this kind referral. Dimitrios Streeter M.D. DR: Sadie JOB#: [id number] CC:
--- NOTE | 2017-05-13 17:00 | Infectious Diseases Prog Note ---
Assessment/Plan Problems: (1) UTI (urinary tract infection) Assessment & Plan: due to E coli , most likely the source of his sepsis , continue ceftriaxone for two weeks total starting from the clearance date . (2) Fever Assessment & Plan: due to the above, resolved , continue tylenol prn (3) HCAP (healthcare-associated pneumonia) Assessment & Plan: due to serratia marcescens, improved on cefepime and clindamycin, influenza screening is negative , continue ceftriaxon only for two weeks (4) Sepsis Assessment & Plan: with E coli , on ceftriaxone , repeated blood culture is negative so far . will treat with ceftriaxon for two weeks starting from the clearance date. EOT 05/12/17 (5) Altered level of consciousness Assessment & Plan: due to the above, resolved, recommend neurology follow up (6) Elevated troponin Assessment & Plan: suspect ACS, cardiology is following (7) Dehydration Assessment & Plan: continue IVF, monitor urine out put, and renal function, avoid nephrotoxic meds (8) LEWIS (acute kidney injury) Assessment & Plan: due to the above , continue hydration, monitor renal function , nephrology is following (9) Anemia Assessment & Plan: recurrent , due to large hemorrhoids . S/P EGD, and colonoscopy , monitor H/H, transfuse blood as needed. GI is following Subjective Constitutional: Reports: no symptoms HEENT: Reports: no symptoms Respiratory: Reports: no symptoms Breasts: Reports: no symptoms Cardiovascular: Reports: no symptoms Gastrointestinal/Abdominal: Reports: no symptoms Genitourinary: Reports: no symptoms Neurologic: Reports: no symptoms Psychiatric: Reports: no symptoms Skin: Reports: no symptoms Endocrine: Reports: no symptoms Hematologic: Reports: no symptoms Allergies: Coded Allergies: No Known Allergies (Unverified , 04/25/17) Subjective he was awake and alert, resting in bed, respond to verbal commands , not hypotensive , afebrile , no rectal bleeding. Objective Vital Signs Last 24 Hour Vital Signs Date Time Temp Pulse Resp B/P (MAP) Pulse Ox O2 Delivery O2 Flow Rate FiO2 05/13/17 16:00 97.3 57 19 109/56 96 Room Air 05/13/17 14:22 55 20 107/65 96 Room Air 05/13/17 14:00 55 05/13/17 13:15 98.3 61 20 104/70 100 Room Air 05/13/17 13:09 55 18 99 05/13/17 13:07 50 18 99 05/13/17 13:05 51 13 99/44 100 Simple Mask 6.0 05/13/17 13:00 47 12 96/50 100 Simple Mask 6.0 05/13/17 12:55 98.0 50 13 95/50 95 Simple Mask 6.0 05/13/17 12:00 97.7 55 21 107/60 96 Room Air 05/13/17 12:00 55 05/13/17 08:24 72 130/81 05/13/17 08:00 80 05/13/17 08:00 97.3 71 21 130/81 97 Room Air 05/13/17 06:00 61 05/13/17 04:00 98.1 70 20 118/66 96 Room Air 05/13/17 04:00 80 05/13/17 00:00 97.7 66 20 115/64 95 Room Air 05/13/17 00:00 73 05/12/17 21:41 61 05/12/17 21:39 61 125/68 05/12/17 20:00 62 05/12/17 20:00 97.7 61 12 125/68 96 Room Air Height (Feet): 6 Height (Inches): 0.00 Weight (Pounds): 190 General Appearance: WD/WN, no acute distress HEENT: normocephalic, atraumatic, anicteric, mucous membranes moist, PERRL, EOMI, pharynx normal, supple, no JVD Respiratory/Chest: chest wall non-tender, lungs clear, normal breath sounds, no respiratory distress, no accessory muscle use Cardiovascular: normal peripheral pulses, normal rate, regular rhythm, regularly irregular, no gallop/murmur, no JVD Abdomen: normal bowel sounds, soft, non tender, no organomegaly, non distended , no mass, no scars Extremities: no cyanosis, no clubbing Skin: no rash, no lesions, no ulcers Neurologic/Psychiatric: alert, responsive Lymphatic: no neck adenopathy, no groin adenopathy Laboratory Tests Test 05/13/17 08:10 White Blood Count 3.6 K/UL (4.8-10.8) L Red Blood Count 2.92 M/UL (4.70-6.10) L Hemoglobin 8.5 G/DL (14.2-18.0) L Hematocrit 26.4 % (42.0-52.0) L Mean Corpuscular Volume 90 FL (80-99) Mean Corpuscular Hemoglobin 29.2 PG (27.0-31.0) Mean Corpuscular Hemoglobin Concent 32.3 G/DL (32.0-36.0) Red Cell Distribution Width 15.9 % (11.6-14.8) H Platelet Count 78 K/UL (150-450) L Mean Platelet Volume 6.0 FL (6.5-10.1) L Neutrophils (%) (Auto) % (45.0-75.0) Lymphocytes (%) (Auto) % (20.0-45.0) Monocytes (%) (Auto) % (1.0-10.0) Eosinophils (%) (Auto) % (0.0-3.0) Basophils (%) (Auto) % (0.0-2.0) Differential Total Cells Counted 100 Neutrophils % (Manual) 44 % (45-75) L Lymphocytes % (Manual) 43 % (20-45) Monocytes % (Manual) 9 % (1-10) Eosinophils % (Manual) 1 % (0-3) Basophils % (Manual) 2 % (0-2) Band Neutrophils 1 % (0-8) Platelet Estimate Decreased L Platelet Morphology Normal Hypochromasia 2+ Anisocytosis 1+ Prothrombin Time 12.7 SEC (9.30-11.50) H Prothromb Time International Ratio 1.2 (0.9-1.1) H Activated Partial Thromboplast Time 30 SEC (23-33) Sodium Level 141 MMOL/L (136-145) Potassium Level 4.2 MMOL/L (3.5-5.1) Chloride Level 107 MMOL/L (98-107) Carbon Dioxide Level 31 MMOL/L (21-32) Anion Gap 4 mmol/L (5-15) L Blood Urea Nitrogen 16 mg/dL (7-18) Creatinine 1.0 MG/DL (0.55-1.30) Estimat Glomerular Filtration Rate mL/min (>60) Glucose Level 88 MG/DL (74-106) Calcium Level 7.9 MG/DL (8.5-10.1) L Current Medications Medications (Trade) Dose Ordered Sig/Trey Route PRN Reason Start Time Stop Time Status Last Admin Dose Admin Acetaminophen (Tylenol) 650 mg Q4H PRN ORAL Mild Pain (Pain Scale 1-3) 04/26/17 00:45 05/26/17 00:44 05/03/17 21:47 Al Hydroxide/Mg Hydroxide (Mylanta) 15 ml Q1H PRN ORAL gi upset 05/13/17 13:00 05/13/17 17:00 Aspirin (ASA) 81 mg DAILY ORAL 04/26/17 09:00 05/26/17 08:59 05/13/17 08:25 Atropine Sulfate (Atropine) 0.5 mg Q5M PRN IV bpm less than 45 05/13/17 13:00 05/13/17 17:00 Carvedilol (Coreg) 12.5 mg EVERY 12 HOURS ORAL 04/26/17 09:00 05/26/17 08:59 05/13/17 08:24 Chlorhexidine Gluconate (Shaye-Hex 2%) 1 applic DAILY@2000 TOPIC 05/07/17 20:00 06/06/17 19:59 05/12/17 21:41 Dextrose (Dextrose 50%) STAT PRN IV Hypoglycemia 04/26/17 00:45 05/26/17 00:44 Diphenhydramine HCl (Benadryl) 25 mg Q15M PRN IVP Itching 05/13/17 13:00 05/13/17 17:00 Divalproex Sodium (Depakote) 500 mg Q12HR ORAL 05/08/17 21:00 05/26/17 08:59 05/13/17 08:25 Docusate Sodium (Colace) 100 mg THREE TIMES A DAY ORAL 05/03/17 18:00 06/02/17 17:59 05/13/17 13:58 Fentanyl Citrate (Sublimaze 100 mcg/2 mL) 25 mcg Q10M PRN IV Moderate Pain (Pain Scale 4-6) 05/13/17 13:00 05/13/17 17:00 Folic Acid (Folate) 1 mg DAILY ORAL 04/30/17 09:00 05/30/17 08:59 05/13/17 08:24 Hydralazine HCl (Apresoline) 5 mg Q30M PRN IV SBP>160 OR___/DBP>90 OR___ 05/13/17 13:00 05/13/17 17:00 Levothyroxine Sodium (Synthroid) 100 mcg ACBREAKFAST ORAL 04/26/17 06:30 05/26/17 06:29 05/12/17 06:10 Meloxicam (Mobic) 15 mg DAILY ORAL 04/26/17 09:00 05/26/17 08:59 05/13/17 08:24 Midazolam HCl (Versed 2mg/2ml vial) 1 mg Q15M PRN IVP For Anxiety 05/13/17 13:00 05/13/17 17:00 Ondansetron HCl (Zofran) 4 mg Q1H PRN IVP Nausea & Vomiting 05/13/17 13:00 05/13/17 17:00 Ondansetron HCl (Zofran) 4 mg Q6H PRN IVP Nausea & Vomiting 04/26/17 00:45 05/26/17 00:44 Pantoprazole (Protonix) 40 mg DAILY ORAL 05/10/17 09:00 06/09/17 08:59 05/13/17 08:24 Polyethylene Glycol (Miralax) 17 gm DAILY PRN ORAL Constipation 05/02/17 09:00 06/01/17 08:59 05/07/17 23:12 Propafenone HCl (Rythmol) 225 mg EVERY 8 HOURS ORAL 04/26/17 06:00 05/26/17 05:59 05/12/17 21:41 Quetiapine Fumarate (SEROquel) 25 mg BEDTIME PRN ORAL agitation 04/30/17 21:00 05/26/17 08:59 Vitamin B Complex/ Vit C/Folic Acid (Nephrovite) 1 tab DAILY ORAL 04/29/17 09:00 05/29/17 08:59 05/13/17 08:23 Zak Matos M.D. May 13, 2017 17:00
--- NOTE | 2017-05-13 18:39 | Nephrology Progress Note ---
Assessment/Plan Problem List: (1) LEWIS (acute kidney injury) (2) Elevated troponin (3) Altered level of consciousness (4) UTI (urinary tract infection) Assessment: e. coli (5) Dehydration (6) Fever (7) Hyperkalemia Assessment: corrected (8) Urinary retention (9) Sepsis Assessment: E. coli (10) Hypernatremia (11) Ulcer (12) Foot ulcer (13) Pancytopenia (14) rectal lesion/ulcer (15) Mass of colon Plan d/c plan to SNF for iv abx. get xray of right foot r/o osteo. d/w Dr. Alonso. Subjective Subjective s/p colonoscopy Objective Objective Last 24 Hour Vital Signs Date Time Temp Pulse Resp B/P (MAP) Pulse Ox O2 Delivery O2 Flow Rate FiO2 05/13/17 16:00 97.3 57 19 109/56 96 Room Air 05/13/17 14:22 55 20 107/65 96 Room Air 05/13/17 14:00 55 05/13/17 13:15 98.3 61 20 104/70 100 Room Air 05/13/17 13:09 55 18 99 05/13/17 13:07 50 18 99 05/13/17 13:05 51 13 99/44 100 Simple Mask 6.0 05/13/17 13:00 47 12 96/50 100 Simple Mask 6.0 05/13/17 12:55 98.0 50 13 95/50 95 Simple Mask 6.0 05/13/17 12:00 97.7 55 21 107/60 96 Room Air 05/13/17 12:00 55 05/13/17 08:24 72 130/81 05/13/17 08:00 80 05/13/17 08:00 97.3 71 21 130/81 97 Room Air 05/13/17 06:00 61 05/13/17 04:00 98.1 70 20 118/66 96 Room Air 05/13/17 04:00 80 05/13/17 00:00 97.7 66 20 115/64 95 Room Air 05/13/17 00:00 73 05/12/17 21:41 61 05/12/17 21:39 61 125/68 05/12/17 20:00 62 05/12/17 20:00 97.7 61 12 125/68 96 Room Air Intake and Output 05/12/17 05/13/17 19:00 07:00 Intake Total 763 ml 200 ml Output Total 1400 ml 1625 ml Balance -637 ml -1425 ml Intake Oral 708 ml 200 ml IV Total 55 ml Output Urine Total 1400 ml 1625 ml # Bowel Movements 2 Laboratory Tests 05/13/17 08:10: White Blood Count 3.6L, Red Blood Count 2.92L, Hemoglobin 8.5L, Hematocrit 26.4L , Mean Corpuscular Volume 90, Mean Corpuscular Hemoglobin 29.2, Mean Corpuscular Hemoglobin Concent 32.3, Red Cell Distribution Width 15.9H, Platelet Count 78L, Mean Platelet Volume 6.0L, Neutrophils (%) (Auto) , Lymphocytes (%) (Auto) , Monocytes (%) (Auto) , Eosinophils (%) (Auto) , Basophils (%) (Auto) , Differential Total Cells Counted 100, Neutrophils % ( Manual) 44L, Lymphocytes % (Manual) 43, Monocytes % (Manual) 9, Eosinophils % ( Manual) 1, Basophils % (Manual) 2, Band Neutrophils 1, Platelet Estimate DecreasedL, Platelet Morphology Normal, Hypochromasia 2+, Anisocytosis 1+, Prothrombin Time 12.7H, Prothromb Time International Ratio 1.2H, Activated Partial Thromboplast Time 30, Sodium Level 141, Potassium Level 4.2, Chloride Level 107, Carbon Dioxide Level 31, Anion Gap 4L, Blood Urea Nitrogen 16, Creatinine 1.0, Estimat Glomerular Filtration Rate , Glucose Level 88, Calcium Level 7.9L Height (Feet): 6 Height (Inches): 0.00 Weight (Pounds): 190 General Appearance: no apparent distress Cardiovascular: normal rate, regular rhythm Respiratory/Chest: lungs clear Abdomen: non tender, soft Extremities: trace edema Neurologic: alert, oriented x 3 Objective right foot dorsal and lateral ulceration ROMEO FIGUEROA May 13, 2017 18:39
[2017-05-13] MEDS: Dyna-Hex 2% Top Sol 2oz TOPIC SCH (21:50)
--- NOTE | 2017-05-13 23:37 | General Progress Note ---
Assessment/Plan Status: unchanged Assessment/Plan #. Pancytopenia. Infection related versus viral versus bone marrow disorder --> SP bone marrow biop revealing 1. Normal iron stores, normocellular marrow (40%) with trilineage hematopoiesis 2. N over dysplasia or increased myeloblasts --> have discussed with pathologist --> HIV panel negative, hepatitis negative as well --> Platelets are low, goal is >20k. 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 Nausea and vomiting. --> The patient is being evaluated by GI service. --> Occult blood is negative --> Abdomen CT revealed splenomegaly and basilar atelectasis. #. Anemia secondary to kidney disease. -->Continue to closely monitor. --> Creatinine elevated. --> Blood transfusion not required today. #. LEWIS. Being seen by Nephrology. #. NSVT, being seen by Cardiology. #. Dehydration. Administer fluids as needed. Pulmonary is following as well. Subjective Date patient seen: May 13, 2017 Constitutional: Denies: no symptoms, chills, diaphoresis, fever, malaise, weakness, other HEENT: Denies: no symptoms, eye pain, blurred vision, tearing, double vision, ear pain, ear discharge, nose pain, nose congestion, throat pain, throat swelling, mouth pain, mouth swelling, other Cardiovascular: Denies: no symptoms, chest pain, edema, irregular heart rate, lightheadedness, palpitations, syncope, other Respiratory: Denies: no symptoms, cough, orthopnea, shortness of breath, SOB with excertion, SOB at rest, sputum, stridor, wheezing, other Gastrointestinal/Abdominal: Denies: no symptoms, abdomen distended, abdominal pain, black stools, tarry stools, blood in stool, constipated, diarrhea, difficulty swallowing, nausea, poor appetite, poor fluid intake, rectal bleeding , vomiting, other Genitourinary: Denies: no symptoms, burning, discharge, frequency, flank pain, hematuria, incontinence, pain, urgency, other Allergies: Coded Allergies: No Known Allergies (Unverified , 04/25/17) Subjective S/P bone marrow biop. No complications. Objective Last 24 Hour Vital Signs Date Time Temp Pulse Resp B/P (MAP) Pulse Ox O2 Delivery O2 Flow Rate FiO2 05/13/17 21:54 63 104/54 05/13/17 21:52 63 05/13/17 20:39 97.9 56 19 104/54 96 Room Air 05/13/17 20:00 58 05/13/17 16:00 53 05/13/17 16:00 97.3 57 19 109/56 96 Room Air 05/13/17 14:22 55 20 107/65 96 Room Air 05/13/17 14:00 55 05/13/17 13:15 98.3 61 20 104/70 100 Room Air 05/13/17 13:09 55 18 99 05/13/17 13:07 50 18 99 05/13/17 13:05 51 13 99/44 100 Simple Mask 6.0 05/13/17 13:00 47 12 96/50 100 Simple Mask 6.0 05/13/17 12:55 98.0 50 13 95/50 95 Simple Mask 6.0 05/13/17 12:00 97.7 55 21 107/60 96 Room Air 05/13/17 12:00 55 05/13/17 08:24 72 130/81 05/13/17 08:00 80 05/13/17 08:00 97.3 71 21 130/81 97 Room Air 05/13/17 06:00 61 05/13/17 04:00 98.1 70 20 118/66 96 Room Air 05/13/17 04:00 80 05/13/17 00:00 97.7 66 20 115/64 95 Room Air 05/13/17 00:00 73 Intake and Output 05/12/17 05/13/17 19:00 07:00 Intake Total 763 ml 200 ml Output Total 1400 ml 1625 ml Balance -637 ml -1425 ml Intake Oral 708 ml 200 ml IV Total 55 ml Output Urine Total 1400 ml 1625 ml # Bowel Movements 2 Laboratory Tests 05/13/17 08:10: White Blood Count 3.6L, Red Blood Count 2.92L, Hemoglobin 8.5L, Hematocrit 26.4L , Mean Corpuscular Volume 90, Mean Corpuscular Hemoglobin 29.2, Mean Corpuscular Hemoglobin Concent 32.3, Red Cell Distribution Width 15.9H, Platelet Count 78L, Mean Platelet Volume 6.0L, Neutrophils (%) (Auto) , Lymphocytes (%) (Auto) , Monocytes (%) (Auto) , Eosinophils (%) (Auto) , Basophils (%) (Auto) , Differential Total Cells Counted 100, Neutrophils % ( Manual) 44L, Lymphocytes % (Manual) 43, Monocytes % (Manual) 9, Eosinophils % ( Manual) 1, Basophils % (Manual) 2, Band Neutrophils 1, Platelet Estimate DecreasedL, Platelet Morphology Normal, Hypochromasia 2+, Anisocytosis 1+, Prothrombin Time 12.7H, Prothromb Time International Ratio 1.2H, Activated Partial Thromboplast Time 30, Sodium Level 141, Potassium Level 4.2, Chloride Level 107, Carbon Dioxide Level 31, Anion Gap 4L, Blood Urea Nitrogen 16, Creatinine 1.0, Estimat Glomerular Filtration Rate , Glucose Level 88, Calcium Level 7.9L Height (Feet): 6 Height (Inches): 0.00 Weight (Pounds): 190 General Appearance: confused Respiratory/Chest: lungs clear Abdomen: soft Rivera Christine May 13, 2017 23:37
[2017-05-14] VITALS: BP 104/54
[2017-05-14 04:00] VITALS: BP 111/62
--- NOTE | 2017-05-14 07:35 | Endoscopy Procedure Note ---
Endoscopy Procedure Note Indication for Procedure: RECTAL CANCER Procedures Performed: other - EUS Operative Findings/Diagnosis: T3 TUMOR Specimen: none Pt Tolerated Procedure Well: Yes Estimated Blood Loss: none Anesthesiologist: ABBY Anesthesia: MAC Implant(s) used?: No 50 yrs or older w/o bx or poly: Not Applicable 10yrs. F/U not recommended: Not Applicable MARCUS NEWTON May 14, 2017 07:35
--- NOTE | 2017-05-14 07:44 | Pulmonology Progress Note ---
Assessment/Plan Assessment/Plan 1. Dehydration. resolved 2. Renal failure. improved 3. Altered mental status. 4. Urinary tract infection. 5. Sepsis; DISCUSSION: Respiratory status is stable. Continue antibiotics per ID. Continue oxygen and pulmonary hygiene. I will follow as career based intervention coordinator. CT abdomen noted Has thickened gallbladder Lung bases clear on CT. Subjective Interval Events: Labs reviewed; I/O is -1290 last 24 hours Constitutional: Reports: no symptoms HEENT: Repors: no symptoms Respiratory: Reports: no symptoms Cardiovascular: Reports: no symptoms Gastrointestinal/Abdominal: Reports: no symptoms Allergies: Coded Allergies: No Known Allergies (Unverified , 04/25/17) Objective Last 24 Hour Vital Signs Date Time Temp Pulse Resp B/P (MAP) Pulse Ox O2 Delivery O2 Flow Rate FiO2 05/14/17 06:45 63 05/14/17 04:00 96.6 57 19 111/62 97 Room Air 05/14/17 04:00 64 05/14/17 00:00 97.9 56 19 104/54 96 Room Air 05/13/17 23:40 52 05/13/17 21:54 63 104/54 05/13/17 21:52 63 05/13/17 20:39 97.9 56 19 104/54 96 Room Air 05/13/17 20:00 58 05/13/17 16:00 53 05/13/17 16:00 97.3 57 19 109/56 96 Room Air 05/13/17 14:22 55 20 107/65 96 Room Air 05/13/17 14:00 55 05/13/17 13:15 98.3 61 20 104/70 100 Room Air 05/13/17 13:09 55 18 99 05/13/17 13:07 50 18 99 05/13/17 13:05 51 13 99/44 100 Simple Mask 6.0 05/13/17 13:00 47 12 96/50 100 Simple Mask 6.0 05/13/17 12:55 98.0 50 13 95/50 95 Simple Mask 6.0 05/13/17 12:00 97.7 55 21 107/60 96 Room Air 05/13/17 12:00 55 05/13/17 08:24 72 130/81 05/13/17 08:00 80 05/13/17 08:00 97.3 71 21 130/81 97 Room Air Intake and Output 05/13/17 05/14/17 19:00 07:00 Intake Total 360 ml Output Total 950 ml 700 ml Balance -590 ml -700 ml Intake Oral 260 ml IV Total 100 ml Output Urine Total 950 ml 700 ml # Bowel Movements 1 General Appearance: no acute distress HEENT: normocephalic Respiratory/Chest: chest wall non-tender Cardiovascular: normal peripheral pulses, normal rate Abdomen: normal bowel sounds Laboratory Tests 05/13/17 08:10: White Blood Count 3.6L, Red Blood Count 2.92L, Hemoglobin 8.5L, Hematocrit 26.4L , Mean Corpuscular Volume 90, Mean Corpuscular Hemoglobin 29.2, Mean Corpuscular Hemoglobin Concent 32.3, Red Cell Distribution Width 15.9H, Platelet Count 78L, Mean Platelet Volume 6.0L, Neutrophils (%) (Auto) , Lymphocytes (%) (Auto) , Monocytes (%) (Auto) , Eosinophils (%) (Auto) , Basophils (%) (Auto) , Differential Total Cells Counted 100, Neutrophils % ( Manual) 44L, Lymphocytes % (Manual) 43, Monocytes % (Manual) 9, Eosinophils % ( Manual) 1, Basophils % (Manual) 2, Band Neutrophils 1, Platelet Estimate DecreasedL, Platelet Morphology Normal, Hypochromasia 2+, Anisocytosis 1+, Prothrombin Time 12.7H, Prothromb Time International Ratio 1.2H, Activated Partial Thromboplast Time 30, Sodium Level 141, Potassium Level 4.2, Chloride Level 107, Carbon Dioxide Level 31, Anion Gap 4L, Blood Urea Nitrogen 16, Creatinine 1.0, Estimat Glomerular Filtration Rate , Glucose Level 88, Calcium Level 7.9L Current Medications Medications (Trade) Dose Ordered Sig/Trey Route PRN Reason Start Time Stop Time Status Last Admin Dose Admin Acetaminophen (Tylenol) 650 mg Q4H PRN ORAL Mild Pain (Pain Scale 1-3) 04/26/17 00:45 05/26/17 00:44 05/03/17 21:47 Aspirin (ASA) 81 mg DAILY ORAL 04/26/17 09:00 05/26/17 08:59 05/13/17 08:25 Carvedilol (Coreg) 12.5 mg EVERY 12 HOURS ORAL 04/26/17 09:00 05/26/17 08:59 05/13/17 21:54 Chlorhexidine Gluconate (Shaye-Hex 2%) 1 applic DAILY@2000 TOPIC 05/07/17 20:00 06/06/17 19:59 05/13/17 21:50 Dextrose (Dextrose 50%) STAT PRN IV Hypoglycemia 04/26/17 00:45 05/26/17 00:44 Divalproex Sodium (Depakote) 500 mg Q12HR ORAL 05/08/17 21:00 05/26/17 08:59 05/13/17 21:51 Docusate Sodium (Colace) 100 mg THREE TIMES A DAY ORAL 05/03/17 18:00 06/02/17 17:59 05/13/17 17:05 Folic Acid (Folate) 1 mg DAILY ORAL 04/30/17 09:00 05/30/17 08:59 05/13/17 08:24 Levothyroxine Sodium (Synthroid) 100 mcg ACBREAKFAST ORAL 04/26/17 06:30 05/26/17 06:29 05/14/17 06:45 Meloxicam (Mobic) 15 mg DAILY ORAL 04/26/17 09:00 05/26/17 08:59 05/13/17 08:24 Ondansetron HCl (Zofran) 4 mg Q6H PRN IVP Nausea & Vomiting 04/26/17 00:45 05/26/17 00:44 Pantoprazole (Protonix) 40 mg DAILY ORAL 05/10/17 09:00 06/09/17 08:59 05/13/17 08:24 Polyethylene Glycol (Miralax) 17 gm DAILY PRN ORAL Constipation 05/02/17 09:00 06/01/17 08:59 05/07/17 23:12 Propafenone HCl (Rythmol) 225 mg EVERY 8 HOURS ORAL 04/26/17 06:00 05/26/17 05:59 05/14/17 06:45 Quetiapine Fumarate (SEROquel) 25 mg BEDTIME PRN ORAL agitation 04/30/17 21:00 05/26/17 08:59 Vitamin B Complex/ Vit C/Folic Acid (Nephrovite) 1 tab DAILY ORAL 04/29/17 09:00 05/29/17 08:59 05/13/17 08:23 Mitch Grace MD May 14, 2017 07:44
[2017-05-14 08:00] VITALS: BP 140/60
[2017-05-14] MEDS: Carvedilol 12.5mg tab ORAL SCH (08:58)
[2017-05-14] MEDS: Nephrovite tab (Rena-Vite) ORAL SCH (08:58)
[2017-05-14] MEDS: Meloxicam 15 MG TAB ORAL SCH (08:58)
[2017-05-14] MEDS: Docusate 100mg cap ORAL SCH ×2 (08:59→12:29)
[2017-05-14] MEDS: Aspirin Baby 81mg ORAL SCH (08:59)
[2017-05-14] MEDS: Depakote 500mg tab ORAL SCH (08:59)
--- NOTE | 2017-05-14 10:55 | Cardiac Electrophysiology PN ---
Assessment/Plan Status Narrative Impression: Echogenic sludge in the gallbladder with minimal gallbladder wall thickening and trace pericholecystic fluid. Sonographic Resendez sign (either negative or positive) was not documented by the mammography technologist. Findings may be suggestive of a mild cholecystitis in the appropriate clinical setting. Confirmation with HIDA scan recommended. Assessment/Plan 1. Nonsustained ventricular tachycardia. No WI. Echo normal EF. On Coreg 12.5 mg b.i.d. 2. Initial troponin leak. three subsequent troponins negative. 3. Paroxysmal atrial fibrillation, in sinus rhythm, on aspirin and Coreg. 4. Hypothyroidism, on Synthroid. 5. Anemia, followed by Dr. Streeter. S/P BM Biopsy Left iliac Crest. 6. T3,N0 rectal mass based on EGD and Colonoscopy and EUS yesterday by Dr Streeter. 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 7. Abd US suggestive of Mild cholecystitis in the appropriate clinical setting. Dr. Streeter defering HIDA given normal LFTs/asymptomatic 8. E coli Bacteremia and Sepsis.On iv ABx via PICC line per Dr. Shawna RODRIGUEZ RN Subjective Subjective Comfortable in NAD.No chest pain or SOB. RN at bedside.No arrhythmia on tele. Objective Last 24 Hour Vital Signs Date Time Temp Pulse Resp B/P (MAP) Pulse Ox O2 Delivery O2 Flow Rate FiO2 05/14/17 08:58 64 140/60 05/14/17 08:00 97.9 64 20 140/60 97 Room Air 05/14/17 08:00 67 05/14/17 06:45 63 05/14/17 04:00 96.6 57 19 111/62 97 Room Air 05/14/17 04:00 64 05/14/17 00:00 97.9 56 19 104/54 96 Room Air 05/13/17 23:40 52 05/13/17 21:54 63 104/54 05/13/17 21:52 63 05/13/17 20:39 97.9 56 19 104/54 96 Room Air 05/13/17 20:00 58 05/13/17 16:00 53 05/13/17 16:00 97.3 57 19 109/56 96 Room Air 05/13/17 14:22 55 20 107/65 96 Room Air 05/13/17 14:00 55 05/13/17 13:15 98.3 61 20 104/70 100 Room Air 05/13/17 13:09 55 18 99 05/13/17 13:07 50 18 99 05/13/17 13:05 51 13 99/44 100 Simple Mask 6.0 05/13/17 13:00 47 12 96/50 100 Simple Mask 6.0 05/13/17 12:55 98.0 50 13 95/50 95 Simple Mask 6.0 05/13/17 12:00 97.7 55 21 107/60 96 Room Air 05/13/17 12:00 55 Intake and Output 05/13/17 05/14/17 19:00 07:00 Intake Total 360 ml Output Total 950 ml 700 ml Balance -590 ml -700 ml Intake Oral 260 ml IV Total 100 ml Output Urine Total 950 ml 700 ml # Bowel Movements 1 Objective HEAD AND NECK: No JVD. LUNGS: Decreased breath sounds. CARDIOVASCULAR: Regular S1 and S2 with no gallop or murmur. ABDOMEN: Soft. EXTREMITIES: 1+ pitting edema. JARROD ESTRADA May 14, 2017 10:55
[2017-05-14 12:00] VITALS: BP 124/61
--- NOTE | 2017-05-14 13:37 | Infectious Diseases Prog Note ---
Assessment/Plan Problems: (1) UTI (urinary tract infection) Assessment & Plan: due to E coli , most likely the source of his sepsis , continue ceftriaxone for two weeks total starting from the clearance date . (2) Fever Assessment & Plan: due to the above, resolved , continue tylenol prn (3) HCAP (healthcare-associated pneumonia) Assessment & Plan: due to serratia marcescens, improved on cefepime and clindamycin, influenza screening is negative , continue ceftriaxon only for two weeks (4) Sepsis Assessment & Plan: with E coli , on ceftriaxone , repeated blood culture is negative so far . will treat with ceftriaxon for two weeks starting from the clearance date. EOT 05/12/17 (5) Altered level of consciousness Assessment & Plan: due to the above, resolved, recommend neurology follow up (6) Elevated troponin Assessment & Plan: suspect ACS, cardiology is following (7) Dehydration Assessment & Plan: continue IVF, monitor urine out put, and renal function, avoid nephrotoxic meds (8) LEWIS (acute kidney injury) Assessment & Plan: due to the above , continue hydration, monitor renal function , nephrology is following (9) Anemia Assessment & Plan: recurrent , due to large hemorrhoids . S/P EGD, and colonoscopy , monitor H/H, transfuse blood as needed. GI is following Subjective Constitutional: Reports: no symptoms HEENT: Reports: no symptoms Respiratory: Reports: no symptoms Breasts: Reports: no symptoms Cardiovascular: Reports: no symptoms Gastrointestinal/Abdominal: Reports: no symptoms Genitourinary: Reports: no symptoms Neurologic: Reports: no symptoms Psychiatric: Reports: no symptoms Skin: Reports: no symptoms Endocrine: Reports: no symptoms Hematologic: Reports: no symptoms Musculoskeletal: Reports: no symptoms Allergies: Coded Allergies: No Known Allergies (Unverified , 04/25/17) Subjective he was awake and alert, resting in bed, respond to verbal commands , not hypotensive , afebrile , no rectal bleeding. Objective Vital Signs Last 24 Hour Vital Signs Date Time Temp Pulse Resp B/P (MAP) Pulse Ox O2 Delivery O2 Flow Rate FiO2 05/14/17 08:58 64 140/60 05/14/17 08:00 97.9 64 20 140/60 97 Room Air 05/14/17 08:00 67 05/14/17 06:45 63 05/14/17 04:00 96.6 57 19 111/62 97 Room Air 05/14/17 04:00 64 05/14/17 00:00 97.9 56 19 104/54 96 Room Air 05/13/17 23:40 52 05/13/17 21:54 63 104/54 05/13/17 21:52 63 05/13/17 20:39 97.9 56 19 104/54 96 Room Air 05/13/17 20:00 58 05/13/17 16:00 53 05/13/17 16:00 97.3 57 19 109/56 96 Room Air 05/13/17 14:22 55 20 107/65 96 Room Air 05/13/17 14:00 55 Height (Feet): 6 Height (Inches): 0.00 Weight (Pounds): 190 General Appearance: WD/WN, no acute distress HEENT: normocephalic, atraumatic, anicteric, mucous membranes moist, PERRL Respiratory/Chest: chest wall non-tender, no respiratory distress, no accessory muscle use, decreased breath sounds, crackles/rales Cardiovascular: normal peripheral pulses, normal rate, regular rhythm, no gallop/murmur, no JVD Abdomen: normal bowel sounds, soft, non tender, no organomegaly, non distended , no mass, no scars Extremities: no cyanosis, no clubbing Skin: no rash, no lesions, no ulcers Neurologic/Psychiatric: alert, responsive Current Medications Medications (Trade) Dose Ordered Sig/Trey Route PRN Reason Start Time Stop Time Status Last Admin Dose Admin Acetaminophen (Tylenol) 650 mg Q4H PRN ORAL Mild Pain (Pain Scale 1-3) 04/26/17 00:45 05/26/17 00:44 05/03/17 21:47 Aspirin (ASA) 81 mg DAILY ORAL 04/26/17 09:00 05/26/17 08:59 05/14/17 08:59 Carvedilol (Coreg) 12.5 mg EVERY 12 HOURS ORAL 04/26/17 09:00 05/26/17 08:59 05/14/17 08:58 Chlorhexidine Gluconate (Shaye-Hex 2%) 1 applic DAILY@2000 TOPIC 05/07/17 20:00 06/06/17 19:59 05/13/17 21:50 Dextrose (Dextrose 50%) STAT PRN IV Hypoglycemia 04/26/17 00:45 05/26/17 00:44 Divalproex Sodium (Depakote) 500 mg Q12HR ORAL 05/08/17 21:00 05/26/17 08:59 05/14/17 08:59 Docusate Sodium (Colace) 100 mg THREE TIMES A DAY ORAL 05/03/17 18:00 06/02/17 17:59 05/14/17 12:29 Folic Acid (Folate) 1 mg DAILY ORAL 04/30/17 09:00 05/30/17 08:59 05/14/17 08:59 Levothyroxine Sodium (Synthroid) 100 mcg ACBREAKFAST ORAL 04/26/17 06:30 05/26/17 06:29 05/14/17 06:45 Meloxicam (Mobic) 15 mg DAILY ORAL 04/26/17 09:00 05/26/17 08:59 05/14/17 08:58 Ondansetron HCl (Zofran) 4 mg Q6H PRN IVP Nausea & Vomiting 04/26/17 00:45 05/26/17 00:44 Pantoprazole (Protonix) 40 mg DAILY ORAL 05/10/17 09:00 06/09/17 08:59 05/14/17 08:59 Polyethylene Glycol (Miralax) 17 gm DAILY PRN ORAL Constipation 05/02/17 09:00 06/01/17 08:59 05/07/17 23:12 Propafenone HCl (Rythmol) 225 mg EVERY 8 HOURS ORAL 04/26/17 06:00 05/26/17 05:59 05/14/17 06:45 Quetiapine Fumarate (SEROquel) 25 mg BEDTIME PRN ORAL agitation 04/30/17 21:00 05/26/17 08:59 Vitamin B Complex/ Vit C/Folic Acid (Nephrovite) 1 tab DAILY ORAL 04/29/17 09:00 05/29/17 08:59 05/14/17 08:58 Zak Matos M.D. May 14, 2017 13:37
--- NOTE | 2017-05-14 13:41 | GI Progress Note ---
Assessment/Plan Problems: (1) Dehydration ICD Codes: E86.0 - Dehydration SNOMED: 88051339, 133320534, 751021350 (2) Anemia ICD Codes: D64.9 - Anemia, unspecified SNOMED: 478046242 (3) Altered level of consciousness ICD Codes: R40.4 - Transient alteration of awareness SNOMED: 0165547 (4) Elevated troponin ICD Codes: R74.8 - Abnormal levels of other serum enzymes SNOMED: 894309312, 769739469, 819968078 Status: stable Status Narrative Discussed with Dr. Streeter. Assessment/Plan hep panel >> negative abdominal U/S reviewed >> GB sludge, defer HIDA given normal LFTs/asymptomatic elevated troponin levels >> now normal OB stool negative s/p Rectal EUS SUMMARY OF FINDINGS: Large rectal mass, T3 N0. RECOMMENDATIONS: Given the already breaking through the muscularis propria layer, we recommend Oncology consultation for chemoradiation. okay for DC per GI standpoint prn transfusions keep Hgb > 8.0 bowel regime ppi OT evaluation folate PO electrolyte correction fu labs The patient was seen and examined at bedside and all new and available data was reviewed in the patients chart. I agree with the above findings, impression and plan. (Patient seen earlier today. Signature stamp does not reflect patient encounter time.). - Yesi Streeter MD Subjective Subjective limited Objective Last 24 Hour Vital Signs Date Time Temp Pulse Resp B/P (MAP) Pulse Ox O2 Delivery O2 Flow Rate FiO2 05/14/17 08:58 64 140/60 05/14/17 08:00 97.9 64 20 140/60 97 Room Air 05/14/17 08:00 67 05/14/17 06:45 63 05/14/17 04:00 96.6 57 19 111/62 97 Room Air 05/14/17 04:00 64 05/14/17 00:00 97.9 56 19 104/54 96 Room Air 05/13/17 23:40 52 05/13/17 21:54 63 104/54 05/13/17 21:52 63 05/13/17 20:39 97.9 56 19 104/54 96 Room Air 05/13/17 20:00 58 05/13/17 16:00 53 05/13/17 16:00 97.3 57 19 109/56 96 Room Air 05/13/17 14:22 55 20 107/65 96 Room Air 05/13/17 14:00 55 Intake and Output 05/13/17 05/14/17 19:00 07:00 Intake Total 360 ml Output Total 950 ml 700 ml Balance -590 ml -700 ml Intake Oral 260 ml IV Total 100 ml Output Urine Total 950 ml 700 ml # Bowel Movements 1 Height (Feet): 6 Height (Inches): 0.00 Weight (Pounds): 190 General Appearance: confused Cardiovascular: normal rate Respiratory/Chest: normal breath sounds, no respiratory distress Abdominal Exam: soft Jeni Marino NJose David May 14, 2017 13:[address] May 19, 2017 13:57
--- NOTE | 2017-05-14 23:48 | General Progress Note ---
Assessment/Plan Assessment/Plan #. Anemia secondary to kidney disease. -->Continue to closely monitor. --> Creatinine elevated. --> Blood transfusion not required today. #. Pancytopenia. Infection related versus viral versus bone marrow disorder --> SP bone marrow biop revealin. Normal iron stores, normocellular marrow (40%) with trilineage hematopoiesis 2. N over dysplasia or increased myeloblasts --> have discussed with pathologist --> HIV panel negative, hepatitis negative as well --> Platelets are low, goal is >20k. 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 Nausea and vomiting. --> The patient is being evaluated by GI service. --> Occult blood is negative --> Abdomen CT revealed splenomegaly and basilar atelectasis. #. LEWIS. Being seen by Nephrology. #. NSVT, being seen by Cardiology. #. Dehydration. Administer fluids as needed. Pulmonary is following as well. Subjective Date patient seen: May 14, 2017 Allergies: Coded Allergies: No Known Allergies (Unverified , 04/25/17) Subjective No new events overnight. No fever or chills. Objective Last 24 Hour Vital Signs Date Time Temp Pulse Resp B/P (MAP) Pulse Ox O2 Delivery O2 Flow Rate FiO2 05/14/17 13:57 57 05/14/17 12:00 51 05/14/17 12:00 96.6 56 20 124/61 97 Room Air 05/14/17 08:58 64 140/60 05/14/17 08:00 97.9 64 20 140/60 97 Room Air 05/14/17 08:00 67 05/14/17 06:45 63 05/14/17 04:00 96.6 57 19 111/62 97 Room Air 05/14/17 04:00 64 05/14/17 00:00 97.9 56 19 104/54 96 Room Air 05/13/17 23:40 52 Intake and Output 05/13/17 05/14/17 19:00 07:00 Intake Total 360 ml Output Total 950 ml 700 ml Balance -590 ml -700 ml Intake Oral 260 ml IV Total 100 ml Output Urine Total 950 ml 700 ml # Bowel Movements 1 Height (Feet): 6 Height (Inches): 0.00 Weight (Pounds): 190 General Appearance: no apparent distress Respiratory/Chest: lungs clear Kleynberg,Rivera L. May 14, 2017 23:48
--- NOTE | 2017-05-16 16:13 | Discharge Summary ---
Discharge Summary Hospital Course Date of Admission Apr 25, 2017 at 21:03 Date of Discharge May 14, 2017 at 15:06 Admitting Diagnosis ALOC,elevated troponin HPI Theo Raman is a 81 year old male who was admitted on Apr 25, 2017 at 21:03 for Altered Level Of Consciousness, Elevated Troponin Hospital Course [id number] Discharge Discharge Disposition Patient was discharged to SNF/Subacute Facility(03) Discharge Diagnoses: Rebeca Prieto NP May 16, 2017 16:13
--- NOTE | 2017-05-17 00:15 | Discharge Summary 2 SIG ---
DATE OF ADMISSION: 04/25/2017 DATE OF DISCHARGE: 05/14/2017 CONSULTANTS: 1. Dimitrios Streeter M.D. 2. Zak Matos M.D. 3. Regan Singh M.D. 4. Mitch Grace M.D. 5. Rivera Christine M.D. BRIEF HOSPITAL COURSE: The patient is a 81-year-old male, who has history of dementia, hypothyroidism, and arthritis, who was [facility] for evaluation of altered mental status. The patient was found to be hypotensive and had reported episodes of vomiting at the SNF. On evaluation at ED, hemoglobin was 8.4 and hematocrit was 26. Creatinine was 3.8. Troponin was 0.091. EKG done showed normal sinus rhythm with no acute changes. Chest x-ray showed no acute cardiopulmonary disease with no consolidation, no effusion, no pneumothorax. He had a CT of the abdomen and pelvis that showed urinary retention. Shirley catheter was inserted. He was admitted to telemetry for acute renal failure with hyperkalemia and for evaluation of encephalopathy and elevated troponin. He was started empirically on cefepime. The patient had slight fever and was given Tylenol. Influenza rapid test was negative. Renal function was monitored. He was given IV hydration. He had episode of nonsustained ventricular tachycardia and has paroxysmal atrial fibrillation. He was continued on aspirin and Coreg. Troponin elevation, possibly troponin leak secondary to renal failure. Echocardiogram done showed normal left ventricular ejection fraction. PA was ruled out. He had pancytopenia with episodes of anemia. 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 He had episodes of anemia and was given blood transfusion. Troponin levels down trended. He was eventually able to undergo an esophagogastroduodenoscopy and colonoscopy on 05/09/2017. Findings showed gastritis with colonic polyps. There was an ulcerative lesion in the rectum about 10 cm from the anal verge suspicious for malignancy. Urine culture showed growth of E. coli. Blood culture showed growth of E. coli. He was given cefepime and clindamycin. The patient had healthcare-associated pneumonia due to Serratia marcescens. Repeat surveillance blood culture was negative. Recommended to treat with ceftriaxone for two weeks starting from clearance of blood culture. Estimated end of therapy would be on 05/12/2017. On 05/13/2017, the patient underwent rectal ultrasound for staging of rectal mass. Findings showed rectal mass breaking through the wall of the muscularis propria layer. Based on EUS criteria and this is a T3 tumor. There was no obvious lymph node involvement. The patient was recommended Oncology evaluation for possible chemoradiation. He was eventually discharged to [facility] under the care of Dr. Jose Swartz. FINAL DIAGNOSES: 1. Sepsis secondary to pneumonia and urinary tract infection. 2. Urinary tract infection with Escherichia coli. 3. Healthcare-associated pneumonia due to Serratia. 4. Sepsis with Escherichia coli. 5. Altered level of consciousness/encephalopathy. 6. Elevated troponin secondary to troponin leak due to renal failure. 7. Dehydration. 8. Acute kidney injury. 9. Acute anemia requiring blood transfusion. 10. Anemia secondary to kidney disease. 11. Nonsustained ventricular tachycardia. 12. Paroxysmal atrial fibrillation. 13. Rectal mass T3N0. 14. Mild cholecystitis. 15. Hypernatremia. 16. Hyperkalemia. 17. Pancytopenia. 18. Multiple pressure ulcer/deep tissue injury, present on admission, refer to wound care notes. DISCHARGE DISPOSITION: The patient was discharged to [facility]. DISCHARGE MEDICATIONS: Refer to medication list. DISCHARGE INSTRUCTIONS: Follow up with Hemotology/Oncology as outpatient. Guerrero Alonso M.D. I have been assigned to dictate discharge summary on this account and I was not involved in the patient's management. Rebeca Prieto N.P. DR: HAN JOB#: [id number] CC: MAGALIE
--- NOTE | 2017-05-20 09:06 | Consultation ---
Consult Note Assessment/Plan called and notified patient's son about rectal cancer diagnosis asked him to call the PMD for an oncologist FU offered him to get the records form [facility] [place] medical records MARCUS NEWTON May 20, 2017 09:06
== END 2017-05-14 15:06 | DRG 871 ==
LOC: EDBD 19:14 → EMR 19:27 → 2E 21:03 → UNDOADMIN 21:03 → EDBEDREQSVC 21:04 → EDBEDREQ 21:04 → 2E 04-26 08:54
DX: A41.51 Sepsis due to Escherichia coli [E. coli] (principal); J15.6 Pneumonia due to other Gram-negative bacteria; N17.9 Acute kidney failure, unspecified; G93.40 Encephalopathy, unspecified; E87.0 Hyperosmolality and hypernatremia; D61.818 Other pancytopenia; K81.9 Cholecystitis, unspecified; F03.90 Unspecified dementia, unspecified severity, without behavioral disturbance, psychotic disturbance, mood disturbance, and anxiety; I47.1 Supraventricular tachycardia; N39.0 Urinary tract infection, site not specified; C20 Malignant neoplasm of rectum; I48.0 Paroxysmal atrial fibrillation; E87.5 Hyperkalemia; E86.0 Dehydration; R33.9 Retention of urine, unspecified; E03.9 Hypothyroidism, unspecified; R74.8 Abnormal levels of other serum enzymes; K29.70 Gastritis, unspecified, without bleeding; K31.7 Polyp of stomach and duodenum; K29.80 Duodenitis without bleeding; D46.9 Myelodysplastic syndrome, unspecified; D64.9 Anemia, unspecified
CPT/HCPCS: 36415; 36569; 71045; 74176; 74177; 76700; 76937; 80048; 80053; 81003; 82270; 82378; 82550; 82553; 82607; 82728; 82746; 83540; 83550; 83605; 83690; 83735; 83880; 83921; 84100; 84153; 84443; 84484; 84550; 85007; 85025; 85044; 85060; 85384; 85610; 85730; 86300; 86304; 86703; 86705; 86709; 86710; 86803; 86850; 86900; 86901; 86920; 87040; 87070; 87081; 87086; 87181; 87205; 87340; 90732; 93005; 93306; 94003; 94150; 94640; 99291; J2250; S0077